=== PATIENT | female | born 1965 | race Two or more races ===

== ENCOUNTER 2025-03-14 09:56 | Emergency (ER) | payer MEDICAID, OTHER ==
[~2025-03-14] VITALS: Ht 170.2 cm; Wt 113.0 kg
--- NOTE | 2025-03-14 10:15 | ED.PDOC ---
History of Present Illness HPI Comments 59-year-old female with PMHx COPD, CVA brought in by EMS presents with a chief complaint of generalized weakness. Patient states that she lives at home with her boyfriend and a live-in lead web developer. Patient mentions that her lead web developer was no where to be found and patient needed assistance to get up to use the b athroom. Patient reports that she then "smoked their meth" and called 911. Patient states that she no longer wishes to live there at her house with "those people". No other symptoms or modifying factors present at this time. Chief Complaint: General Weakness Time Seen by MD: 10:07 Reviewed Notes: Medications, Allergies Allergies: Coded Allergies: NO KNOWN ALLERGIES (Unverified , 03/14/25) Home Meds Active Scripts Ciprofloxacin Hcl (Cipro) 500 Mg Tab, 1 TAB PO BID, #14 TAB Prov:RONI FARRIS MD 03/14/25 Information Source: Patient, Emergency Med Personnel Mode of Arrival: EMS Severity: Moderate Timing: Minutes Duration: Since onset Prehospital treatment: Biological Aide Past Medical History PAST MEDICAL HISTORY: COPD, CVA Surgical History: Denies all surgeries ON AIR HOST History: Denies all ON AIR HOST Hx Family History Family History: Reviewed,noncontributory to illness Social History Smoker: Cigarettes Alcohol: Occasionally Drugs: Methamphetamine Lives In: Home, Assisted Care Constitutional: reports: weakness; denies: chills, diaphoresis, fatigue, fever, malaise, sweats, others EENTM: denies: blurred vision, double vision, ear bleeding, ear discharge, ear drainage, ear pain, ear ringing, eye pain, eye redness, hearing loss, mouth pain, mouth swelling, nasal discharge, nose bleeding, nose congestion, nose pain, photophobia, tearing, throat pain, throat swelling, voice changes, others Respiratory: denies: cough, hemoptysis, orthopnea, SOB at rest, shortness of breath, SOB with excertion, stridor, wheezing, others Cardiovascular: denies: chest pain, dizzy spells, diaphoresis, Dyspnea on exertion, edema, irregular heart beat, left arm pain, lightheadedness, palpitations, PND, syncope, others Gastrointestinal: denies: abdomen distended, abdominal pain, blood streaked bowels, constipated, diarrhea, dysphagia, difficulty swallowing, hematemesis, melena, nausea, poor appetite, poor fluid intake, rectal bleeding, rectal pain, vomiting, others Genitourinary: denies: abnormal vagina bleeding, burning, dyspareunia, dysuria, flank pain, frequency, hematuria, incontinence, pain, , vagina discharge, urgency, others Neurological: denies: dizziness, fainting, headache, left sided numbness, left sided weakness, numbness, paresthesia, pre-existing deficit, right sided numbness, right sided weakness, seizure, speech problems, tingling, tremors, weakness, others Musculoskeletal: denies: back pain, gout, joint pain, joint swelling, muscle pain, muscle stiffness, neck pain, others Integumetry: denies: bruises, change in color, change in hair/nails, dryness, laceration, lesions, lumps, rash, wounds, others Allergic/Immunocompromised: denies: Difficulty Healing, Frequent Infections, Hives, Itching, others Hematologic/Lymphatic: denies: anemia, blood clots, easy bleeding, easy bruising, swollen glands, others Endocrine: denies: excessive hunger, excessive sweating, excessive thirst, excessive urination, flushing, intolerance to cold, intolerance to heat, unexplained weight gain, unexplained weight loss, others Psychiatric: denies: anxiety, bipolar disorder, depression, hopeless, panic disorder, schizophrenia, sleepless, suicidal, others All Other Systems: Reviewed and Negative Physical Exam General Appearance: Mild Distress HEENT: Normal ENT Inspection, Pharynx Normal, TMs Normal Neck: Full Range of Motion, Non-Tender, Normal, Normal Inspection Respiratory: Chest Non-Tender, Lungs Clear, No Accessory Muscle Use, No Respiratory Distress, Normal Breath Sounds Cardiovascular: No Edema, No JVD, No Murmur, No Gallop, Normal Peripheral P ulses, Regular Rate/Rhythm Breast Exam: Deferred Gastrointestinal: No Organomegaly, Non Tender, No Pulsatile Mass, Normal Bowel Sounds, Soft Genitalia: Deferred Pelvic: Deferred Rectal: Deferred Extremities: No calf tenderness, Normal capillary refill, Normal inspection, Normal range of motion, Non-tender, No pedal edema Musculoskeletal : Apperance: Normal Neurologic: Alert, inter com installer II-XII nml as Tested, Motor Weakness, Normal Affect, Normal Mood, No Sensory Deficits Cerebellar Function: Normal Reflexes: Normal Skin: Dry, Normal Color, Warm Lymphatic: No Adenopathy Was a procedure done? Was a procedure done?: No Differential Dx Considerations may include: Generalized weakness, electrolyte imbalance, UTI, pneumonia X-Ray, Labs, Meds, VS Vital Signs Date Time Temp Pulse Resp B/P (MAP) Pulse Ox O2 Delivery O2 Flow Rate FiO2 03/14/25 11:11 98.8 78 17 144/70 (94) 98 98.8 03/14/25 11:03 Room Air* 0 21 03/14/25 10:10 97.8 110 20 162/94 (116) 99 97.8 Lab Test 03/14/25 12:44 03/14/25 10:30 Range/Units Urine Color Colorless Yellow Urine Clarity Turbid H Clear Urine pH 6.0 5.0-9.0 Urine Specific [place] 1.016 1.001-1.035 Urine Protein Negative Negative Urine Ketones Negative Negative Urine Blood Negative Negative /uL Urine Nitrite 2+ H Negative Urine Bilirubin Negative Negative Urine Urobilinogen Normal Negative mg/dL Urine Leukocyte Esterase 1+ Negative /uL Urine RBC 1 0 - 4 /hpf Urine Microscopic WBC 13 H 0-5 /HPF Urine Squamous Epithelial Cells Few <5 /hpf Urine Bacteria Many H None Seen /hpf Urine Mucus Few None Seen Urine Glucose Normal Normal mg/dL Urine Opiates Screen Pending Urine Fentanyl Screen Pending Urine Barbiturates Screen Pending Urine Phencyclidine Screen Pending Urine Amphetamines Screen Pending Urine Benzodiazepines Screen Pending Urine Cocaine Screen Pending Urine Cannabinoids Screen Pending White Blood Count 8.3 4.4-10.8 10^3/uL Red Blood Count 5.31 H 4.0-5.20 10^6/uL Hemoglobin 14.8 12.2-16.2 g/dL Hematocrit 43.7 36.0-46.0 % Mean Corpuscular Volume 82.4 80.0-100.0 fL Mean Corpuscular Hemoglobin 27.8 L 28.0-32.0 pg Mean Corpuscular Hemoglobin Concent 33.8 32.0-36.0 g/dL Red Cell Distribution Width 15.1 H 11.8-14.3 % Platelet Count 219 140-450 10^3/uL Mean Platelet Volume 8.5 6.9-10.8 fL Neutrophils (%) (Auto) 65.2 37.0-80.0 % Lymphocytes (%) (Auto) 20.8 10.0-50.0 % Monocytes (%) (Auto) 10.0 0.0-12.0 % Eosinophils (%) (Auto) 3.1 0.0-7.0 % Basophils (%) (Auto) 0.9 0.0-2.0 % Neutrophils # (Auto) 5.4 1.6-8.6 10 ^3/uL Lymphocytes # (Auto) 1.7 0.4-5.4 10 ^3/uL Monocytes # (Auto) 0.8 0-1.3 10 ^3/uL Eosinophils # (Auto) 0.3 0-0.8 10 ^3/uL Basophils # (Auto) 0.1 0-0.2 10 ^3/uL Nucleated Red Blood Cells 0.1 % Sodium Level 141 136-145 mmol/L Potassium Level 3.9 3.5-5.1 mmol/L Chloride Level 109 H 98-107 mmol/L Carbon Dioxide Level 23 20-31 mmol/L Anion Gap 9 5-15 Blood Urea Nitrogen 17 9-23 mg/dL Creatinine 1.07 H 0.550-1.02 mg/dL Glomerular Filtration Rate Calc 60 >90 mL/min BUN/Creatinine Ratio 15.9 10.0-20.0 Serum Glucose 133 H 74-106 mg/dL Calcium Level 9.5 8.7-10.4 mg/dL Plasma/Serum Blood Alcohol < 3.0 <10 mg/dL The urine test is positive for UTI The CBC and chemistry panel are within normal limits The patient is being discharged The patient will return to the emergency department's the condition worsens The patient will follow up with the primary care doctor Images Reviewed?: Images reviewed and evaluated by me Time of 1ST Reevaluation: 10:37 Reevaluation 1ST: Unchanged Patient Education/Counseling: Diagnosis, Treatment, Prognosis, Need For Follow Up Family Education/Counseling: No Family Present Departure 1 Departure Time of Disposition: 13:21 Impression: Primary Impression: UTI (urinary tract infection) Qualified Codes: N30.00 - Acute cystitis without hematuria Disposition: 01 HOME / SELF CARE / HOMELESS Condition: Fair e-Prescriptions Ciprofloxacin Hcl (Cipro) 500 Mg Tab 1 TAB PO BID, #14 TAB Prov: RONI FARRIS MD 03/14/25 Discharged With: Self Critical Care Note Critical Care Time?: No Stability Stability form required: No Heart Score Heart Score: Heart Score Response (Comments) Value History N/A 0 EKG N/A 0 Age N/A 0 Risk Factors N/A 0 Troponin N/A 0 Total 0 I personally scribed for RONI FARRIS MD ([email or web address]) on 03/14/25 at 10:15. Electronically submitted by Gabriel Redd ([email or web address]). RONI FARRIS MD March 14, 2025 10:15
[2025-03-14 10:49] LABS: Basophils # (auto) 0.1 10 ^3/uL (0-0.2); Basophils % (auto) 0.9 % (0.0-2.0); Eosinophils # (auto) 0.3 10 ^3/uL (0-0.8); Eosinophils % (auto) 3.1 % (0.0-7.0); Hematocrit 43.7 % (36.0-46.0); Hemoglobin 14.8 g/dL (12.2-16.2); Lymphocytes # (auto) 1.7 10 ^3/uL (0.4-5.4); Lymphocytes % (auto) 20.8 % (10.0-50.0); Mean Corpuscular Hemoglobin 27.8 pg (28.0-32.0); Mean Corpuscular Hgb Conc. 33.8 g/dL (32.0-36.0); Mean Corpuscular Volume 82.4 fL (80.0-100.0); Monocytes # (auto) 0.8 10 ^3/uL (0-1.3); Neutrophils # (auto) 5.4 10 ^3/uL (1.6-8.6); Neutrophils % (auto) 65.2 % (37.0-80.0); Nucleated Red Blood Cells % 0.1 %; Platelet Count (auto) 219 10^3/uL (140-450); Red Blood Cells 5.31 10^6/uL (4.0-5.20); Red Cell Distribution Width 15.1 % (11.8-14.3); White Blood Cell 8.3 10^3/uL (4.4-10.8)
[2025-03-14 10:58] LABS: Potassium 3.9 mmol/L (3.5-5.1); Sodium 141 mmol/L (136-145)
[2025-03-14 10:59] LABS: Anion Gap 9 (5-15); Calcium 9.5 mg/dL (8.7-10.4); Carbon Dioxide 23 mmol/L (20-31)
[2025-03-14 11:01] LABS: Chloride 109 mmol/L (98-107)
[2025-03-14 11:04] LABS: BUN/Creatinine Ratio 15.9 (10.0-20.0); Blood Urea Nitrogen 17 mg/dL (9-23)
[2025-03-14 11:08] LABS: Blood Alcohol < 3.0 mg/dL (<10); Glucose 133 mg/dL (74-106)
[2025-03-14 13:00] VITALS: BP 114/72; PULSE 80; RESP 16; TEMP 98.2; O2SAT 98
[2025-03-14 13:14] LABS: Urine Bacteria MANY /hpf (None Seen); Urine Blood Negative /uL (Negative); Urine Clarity Turbid (Clear); Urine Color Colorless (Yellow); Urine Mucus FEW (None Seen); Urine Protein, UAD Negative (Negative); Urine Specific Gravity 1.016 (1.001-1.035); Urine Squamous Epithelial Cell FEW /hpf (<5); Urine Urobilinogen Normal (Negative); Urine WBC 13 /HPF (0-5)
[2025-03-14] MEDS ORDERED: CIPR-173 PO (13:18)
[2025-03-14 13:26] LABS: Amphetamine Screen, Urine Pos (NEGATIVE); Barbiturate Scree,Urine Neg (NEGATIVE); Benzodiazephine Screen, Urine Neg (NEGATIVE); Cannabinoid Screen, Urine Neg (NEGATIVE); Cocaine Screen, Urine Neg (NEGATIVE); Opiate Scree,Urine Neg (NEGATIVE); Phencyclidine Screen, Urine Neg (NEGATIVE)
[2025-03-14] MEDS: CIPROFLOXACIN HCL 500 MG TAB PO ONE (13:48)
== END 2025-03-14 14:08 | disposition admitted as inpatient to this hospital (09) ==
LOC: ER 09:56 → EDBD 09:56 → ER 14:08
DX: N39.0 Urinary tract infection, site not specified (principal); J44.9 Chronic obstructive pulmonary disease, unspecified; F17.210 Nicotine dependence, cigarettes, uncomplicated; F15.90 Other stimulant use, unspecified, uncomplicated; Z86.73 Personal history of transient ischemic attack (TIA), and cerebral infarction without residual deficits; Z79.899 Other long term (current) drug therapy
CPT/HCPCS: 36415; 80048; 80307; 80320; 81001; 85025

== ENCOUNTER 2025-03-14 19:20 | Inpatient (IN) | payer MEDICAID ==
[~2025-03-14] VITALS: Ht 172.7 cm; Wt 129.8 kg
[~2025-03-14 19:20] MED LIST: CIPR-173 PO
--- NOTE | 2025-03-14 19:25 | ED.PDOC ---
History of Present Illness HPI Comments 59-year-old female with PMHx COPD, CVA brought in by EMS presents with a chief complaint of fall. Patient was just discharged from this facility x 4 hours and states that when she got home, she fell and called 911. Patient is asleep on the gurney at this time. No other symptoms or modifying factors present at this time. Time Seen by MD: 19:24 Primary Care Provider: KIARA Abrams Notes: Nurses Notes, Medications, Allergies Allergies: Coded Allergies: NO KNOWN ALLERGIES (Unverified , 03/14/25) Home Meds Active Scripts Ciprofloxacin Hcl (Cipro) 500 Mg Tab, 1 TAB PO BID, #14 TAB Prov:RONI FARRIS MD 03/14/25 Information Source: Emergency Med Personnel Mode of Arrival: EMS Severity: Moderate Timing: Minutes Duration: Since onset Prehospital treatment: Occupational Health And Safety Adviser Associated signs and symptoms Generalized weakness Past Medical History PAST MEDICAL HISTORY: COPD, CVA Surgical History: Denies all surgeries DATABASE DBA History: Denies all DATABASE DBA Hx Family History Family History: Reviewed,noncontributory to illness Social History Smoker: Cigarettes Alcohol: Occasionally Drugs: Methamphetamine Lives In: Home, Assisted Care Constitutional: reports: weakness; denies: chills, diaphoresis, fatigue, fever, malaise, sweats, others EENTM: denies: blurred vision, double vision, ear bleeding, ear discharge, ear drainage, ear pain, ear ringing, eye pain, eye redness, hearing loss, mouth pain, mouth swelling, nasal discharge, nose bleeding, nose congestion, nose pain, photophobia, tearing, throat pain, throat swelling, voice changes, others Respiratory: denies: cough, hemoptysis, orthopnea, SOB at rest, shortness of breath, SOB with excertion, stridor, wheezing, others Cardiovascular: denies: chest pain, dizzy spells, diaphoresis, Dyspnea on exertion, edema, irregular heart beat, left arm pain, lightheadedness, palpitations, PND, syncope, others Gastrointestinal: denies: abdomen distended, abdominal pain, blood streaked bowels, constipated, diarrhea, dysphagia, difficulty swallowing, hematemesis, melena, nausea, poor appetite, poor fluid intake, rectal bleeding, rectal pain, vomiting, others Genitourinary: denies: abnormal vagina bleeding, burning, dyspareunia, dysuria, flank pain, frequency, hematuria, incontinence, pain, , vagina discharge, urgency, others Neurological: denies: dizziness, fainting, headache, left sided numbness, left sided weakness, numbness, paresthesia, pre-existing deficit, right sided numbness, right sided weakness, seizure, speech problems, tingling, tremors, weakness, others Musculoskeletal: denies: back pain, gout, joint pain, joint swelling, muscle pain, muscle stiffness, neck pain, others Integumetry: denies: bruises, change in color, change in hair/nails, dryness, laceration, lesions, lumps, rash, wounds, others Allergic/Immunocompromised: denies: Difficulty Healing, Frequent Infections, Hives, Itching, others Hematologic/Lymphatic: denies: anemia, blood clots, easy bleeding, easy bruising, swollen glands, others Endocrine: denies: excessive hunger, excessive sweating, excessive thirst, excessive urination, flushing, intolerance to cold, intolerance to heat, unexplained weight gain, unexplained weight loss, others Psychiatric: denies: anxiety, bipolar disorder, depression, hopeless, panic disorder, schizophrenia, sleepless, suicidal, others All Other Systems: Reviewed and Negative Physical Exam General Appearance: Moderate Distress, Obese HEENT: Normal ENT Inspection, Pharynx Normal, TMs Normal Neck: Full Range of Motion, Non-Tender, Normal, Normal Inspection Respiratory: Chest Non-Tender, Lungs Clear, No Accessory Muscle Use, No Respiratory Distress, Normal Breath Sounds Cardiovascular: No Edema, No JVD, No Murmur, No Gallop, Normal Peripheral Pulses, Regular Rate/Rhythm Breast Exam: Deferred Gastrointestinal: No Organomegaly, Non Tender, No Pulsatile Mass, Normal Bowel Sounds, Soft Genitalia: Deferred Pelvic: Deferred Rectal: Deferred Extremities: No calf tenderness, Normal capillary refill, Normal inspection, Normal range of motion, Non-tender, No pedal edema Musculoskeletal : Apperance: Normal Neurologic: gl accountant II-XII nml as Tested, Motor Weakness, Normal Affect, Normal Mood, No Sensory Deficits Cerebellar Function: Normal Reflexes: Normal Skin: Dry, Pallor, Warm Lymphatic: No Adenopathy Was a procedure done? Was a procedure done?: No Differential Dx Considerations may include: Generalized weakness, electrolyte imbalance, dehydration, UTI X-Ray, Labs, Meds, VS Vital Signs Date Time Temp Pulse Resp B/P (MAP) Pulse Ox O2 Delivery O2 Flow Rate FiO2 03/14/25 19:30 97.6 98 18 117/85 (96) 98 97.6 IV Hep-Lock was established The patient is being of normal saline at 500 cc The patient's labs were done earlier. The patient's urine showed a UTI The patient is being admitted at this time The patient was given 1 g IV piggyback At this time, the patient states that she can not keep anything down. She is not able to ambulate on her own and was found lying on the floor so we feel that the patient needs to be admitted Time of 1ST Reevaluation: 19:54 Reevaluation 1ST: Unchanged Patient Education/Counseling: Diagnosis, Treatment, Prognosis Family Education/Counseling: No Family Present Departure 1 Departure Time of Disposition: 20:17 Impression: Primary Impression: UTI (urinary tract infection) Qualified Codes: N30.00 - Acute cystitis without hematuria Additional Impression: Generalized weakness Disposition: ADMITTED INPATIENT Admit to: Med Surg Condition: Fair Critical Care Note Critical Care Time?: No Stability Stability form required: Yes Unstable for transfer: ED Physician Assesment (Clinical assesment) Heart Score Heart Score: Heart Score Response (Comments) Value History N/A 0 EKG N/A 0 Age N/A 0 Risk Factors N/A 0 Troponin N/A 0 Total 0 I personally scribed for RONI FARRIS MD ([email or web address]) on 03/14/25 at 19:25. Electronically submitted by Gabriel Redd ([email or web address]). RONI FARRIS MD March 14, 2025 19:25
[2025-03-14] MEDS ORDERED: DOCUSATE SOD 100 MG CAP PO PRN (21:00)
[2025-03-14] MEDS ORDERED: ONDANSETRON HCL 4 MG/2 ML VIAL IV PRN (21:00)
[2025-03-14] MEDS ORDERED: ACETAMINOPHEN 325 MG TAB PO PRN (21:00)
[2025-03-14 22:20] VITALS: PULSE 92; RESP 16; O2SAT 98
--- NOTE | 2025-03-14 22:23 | DVHHP2 ---
History of Present Illness Reason for Visit: Generalized weakness History of Present Illness The patient is a 59-year-old female morbidly obese with past medical history of CVA and COPD who presented to [facility] ED with complaint of generalized weakness. Patient reports symptoms progressively get worse with shor tness of breaths, increased weakness. Patient was just discharged from this facility and when she got home, she felt and called 911. Patient was seen and evaluated in the ED, laboratory data shows WBC 8.3, platelets 219, sodium 141, potassium 3.9, BUN 17, creatinine 1.01, glucose 133, urinalysis positive for urinary tract infection, urine toxicology positive for amphetamines. Patient was started on IV antibiotic regimen Rocephin, please see medication orders section in the computer. On my assessment, patient denied chest pain, no headache, no dizziness, no diaphoresis, no shortness of breaths, no nausea, no vomiting, no fever, no chills. Patient was admitted for further evaluation and medical management. Past Medical History COPD, CVA Past Surgical History Denies all surgeries Family History Reviewed, noncontributory to the management of this case. Past Social History The patient lives in assisted care living, drinks alcohol occasionally, uses methamphetamine. Review of Systems Constitutional: Yes: Weakness; No: Fever, Chills, Sweats, Malaise, Other Eyes: No: Pain, Vision change, Conjunctivae inflammation, Eyelid inflammation, Other, Redness ENT: No: Ear pain, Ear discharge, Nose pain, Nose discharge, Nose congestion, Mouth pain, Mouth swelling, Throat pain, Throat swelling, Other Respiratory: Shortness of breath; No: Cough, Dry, SOB with excertion, Wheezing, Hemoptysis, Pleuritic Pain, Sputum, Wheezing, Other Cardiovascular: No: Chest Pain, Palpitations, Orthopnea, Paroxysmal Noc. Dyspnea, Edema, Lt Headedness, Other Gastrointestinal: No: Nausea, Vomiting, Abdominal Pain, Diarrhea, Constipation, Melena, Hematochezia, Other Genitourinary: No Dysuria, No Frequency, No Incontinence, No Hematuria, No Retention, No Other Musculoskeletal: No: other, neck pain, shoulder pain, arm pain, back pain, hand pain, leg pain, foot pain Skin: No: Rash, Lesions, Jaundice, Bruising, Other Neurological: No: Weakness, Numbness, Incoordination, Change in speech, Confusion, Seizures, Other Allergies: Coded Allergies: NO KNOWN ALLERGIES (Unverified , 03/14/25) Medications Current Medications Medications Dose Ordered Sig/Cornelius Route Start Time Stop Time Status Last Admin Dose Admin Ceftriaxone Sodium 50 ml @ 100 mls/hr DAILY@09 IV 03/15/25 09:00 Sodium Chloride 10 ml Q8HR IV 03/14/25 22:00 Acetaminophen/ Hydrocodone Bitart 1 tab Q4HP PRN PO 03/14/25 21:00 Ondansetron HCl 4 mg Q4HP PRN IV 03/14/25 21:00 Docusate Sodium 100 mg BIDPRN PRN PO 03/14/25 21:00 Acetaminophen 650 mg Q6HP PRN PO 03/14/25 21:00 Exam Vital Signs Vital Signs Date Time Temp Pulse Resp B/P (MAP) Pulse Ox O2 Delivery O2 Flow Rate FiO2 03/14/25 19:30 97.6 98 18 117/85 (96) 98 97.6 General Appearance: Alert, Oriented X3, Cooperative, No acute distress HEENT: Atraumatic, PERRLA, EOMI, Mucous membr. moist/pink Respiratory: Normal air movement Cardiovascular: Regular rate, Normal S1, Normal S2, No murmurs Abdominal: Normal bowel sounds, Soft, No tenderness, No hepatospenomegaly, No masses Extremities: No clubbing, No cyanosis, No edema, Normal pulses, No tenderness/swelling Skin: No rashes, No breakdown, No significant lesion Neuro: Normal speech, Normal tone, Sensation intact, Cranial nerves 3-12 NL, Reflexes 2+, Other (Generalized weakness) Psych/Mental Status: Mental status NL, Mood NL Labs/Xrays Labs Test 03/14/25 21:22 Range/Units Assessment/Plan Assessment/Plan Generalized weakness Morbid obesity UTI (urinary tract infection) Acute cystitis without hematuria Plan 1. Admit to telemetry unit 2. Breathing treatment 3. Pain control management 4. IV antibiotic management 5. Management of fluids and electrolytes 6. Consultation for hospitalist 7. Diagnostic test chest x-ray 8. DVT prophylaxis-on Lovenox 9. Repeat labs CBC, CMP in a.m. 10. Home medication reviewed and reconciled 11. Continue with current medical management 12. Treatment plan discussed with patient and RN. Patient verbalized understanding. Plan discussed with: Patient, Other (RN) My Orders Orders - TRISHA ALFARO DNP Procedure Category Date Status Time Urine Bacterial MELANIE 03/14/25 Logged Culture 20:58 Ceftriaxone 1gm/50ml PHA 03/15/25 In Process D5w (Rocephin) 09:00 Allergies KEHINDE 03/14/25 In Process 20:58 Code Status CODE 03/14/25 Transmitted 20:58 Sodium Chloride Lock PHA 03/14/25 In Process (Saline Lock Ns) 22:00 Oxygen Per Hour RT 03/14/25 Transmitted 20:58 Hydrocodone-Acet PHA 03/14/25 In Process 5/325mg Tab ([place] 21:00 Ondansetron Hcl PHA 03/14/25 In Process (Zofran) 21:00 Docusate Sodium PHA 03/14/25 In Process Capsule (Colace 21:00 Complete Blood Count LAB 03/15/25 Verified 04:00 Comprehensive LAB 03/15/25 Verified Metabolic Panel 04:00 Cardiac DIET 03/15/25 Transmitted Diet-2gna,Lofat,Lochol Breakfast Condition: Serious KEHINDE 03/14/25 In Process 20:58 Acetaminophen Tablet PHA 03/14/25 In Process (Tylenol Tablet) 21:00 Bedrest With Bathroom KEHINDE 03/14/25 In Process Privileg 20:58 Sequential KEHINDE 03/14/25 In Process Compression Device Hemoglobin A1c LAB 03/14/25 Logged 20:58 Admit ADMIT 03/14/25 Transmitted 22:19 Nitroglycerin PHA 03/14/25 Transmitted Sublingual (Ntrostat 22:30 Morphine Sulfate PHA 03/14/25 Transmitted Injection 22:30 Stat Ekg For Chest KEHINDE 03/14/25 Transmitted Pain 22:19 Notify Md Of Changes KEHINDE 03/14/25 Transmitted From Base 22:19 Nutrition Educator For KEHINDE 03/14/25 Transmitted 24 Hours 22:19 Emergency Dysrhythmia KEHINDE 03/14/25 Transmitted Protocol 22:19 Rhythm Strips Once KEHINDE 03/14/25 Transmitted Every Shift 22:19 Oxygen By Nasal RT 03/14/25 Transmitted Cannula 22:19 Problem List: (1) Generalized weakness (2) Morbid obesity (3) UTI (urinary tract infection) (4) Acute cystitis without hematuria Date of Service: March 14, 2025 Billing Provider: TRISHA ALFARO DNP Common Visit Codes: 74442-[id number] INP/OBS CARE (HIGH) TRISHA ALFARO DNP March 14, 2025 22:23
[2025-03-14] MEDS ORDERED: NITROGLYCERIN 0.4 MG SL TAB SL PRN (22:30)
[2025-03-14] MEDS ORDERED: MORPHINE SULFATE INJ 2 MG/ml SYRG IV PRN (22:30)
[2025-03-14] MEDS: cefTRIAXone 1GM/50ML D5W 50 ML IV ONE (22:45)
[2025-03-14] MEDS: SODIUM CHLOR 0.9% PF (SALINE LOCK) 10ML VIAL/SYR IV SCH (23:45)
[2025-03-14] MEDS: cefTRIAXone 1GM/50ML D5W 50 ML IV SCH (23:45)
[2025-03-15] VITALS (8 sets, daily range): BP systolic 118–149; BP diastolic 62–81; PULSE 78–91; RESP 17–22; TEMP 97.8–98.7; O2SAT 98–100
[2025-03-15] MEDS: MORPHINE SULFATE 4 MG/ML SYR/VIAL IV PRN (00:36)
[2025-03-15 07:48] LABS: Basophils # (auto) 0.1 10 ^3/uL (0-0.2); Basophils % (auto) 0.8 % (0.0-2.0); Eosinophils # (auto) 0.2 10 ^3/uL (0-0.8); Eosinophils % (auto) 3.3 % (0.0-7.0); Hematocrit 41.8 % (36.0-46.0); Hemoglobin 14.1 g/dL (12.2-16.2); Lymphocytes % (auto) 28.6 % (10.0-50.0); Mean Corpuscular Hemoglobin 27.9 pg (28.0-32.0); Mean Corpuscular Hgb Conc. 33.7 g/dL (32.0-36.0); Mean Corpuscular Volume 82.6 fL (80.0-100.0); Monocytes # (auto) 0.8 10 ^3/uL (0-1.3); Monocytes % (auto) 10.9 % (0.0-12.0); Neutrophils % (auto) 56.4 % (37.0-80.0); Nucleated Red Blood Cells % 0.1 %; Platelet Count (auto) 218 10^3/uL (140-450); Red Blood Cells 5.05 10^6/uL (4.0-5.20); White Blood Cell 7.2 10^3/uL (4.4-10.8)
[2025-03-15 07:57] LABS: Alanine Aminotransferase 14 U/L (7-40); Albumin 4.1 g/dL (3.2-4.8); Anion Gap 7 (5-15); Aspartate Aminotransferase 18 U/L (13-40); Blood Urea Nitrogen 10 mg/dL (9-23); Calcium 9.4 mg/dL (8.7-10.4); Carbon Dioxide 23 mmol/L (20-31); Potassium 3.7 mmol/L (3.5-5.1); Sodium 140 mmol/L (136-145)
[2025-03-15 07:58] LABS: Alkaline Phosphatase 135 U/L (46-116); Bilirubin, Total 0.6 mg/dL (0.2-1.0); Chloride 110 mmol/L (98-107); Glucose 119 mg/dL (74-106)
[2025-03-15] MEDS: ENOXAPARIN SOD 40 MG/0.4 ML SYRINGE SC SCH (10:50)
--- NOTE | 2025-03-15 22:38 | DVHPN2 ---
Reviewed: Care Plan, H&P, Labs, Medications, Previous Orders Changes from previous H/P or p: No Changes General: Per HPI Eyes: No Pain, No Vision change, No Conjunctivae inflammation, No Eyelid inflammation, No Other, No Redness ENT: No Ear pain, No Ear discharge, No Nose pain, No Nose discharge, No Nose congestion, No Mouth pain, No Mouth swelling, No Throat pain, No Throat swelling, No Other Cardiovascular: No Chest Pain, No Palpitations, No Orthopnea, No Paroxysmal Noc. Dyspnea, No Edema, No Lt Headedness, No Other Respiratory: No Cough, No Dry; Shortness of breath; No SOB with excertion, No Wheezing, No Hemoptysis, No Pleuritic Pain, No Sputum, No Other Gastrointestinal: No Nausea, No Vomiting, No Abdominal Pain, No Diarrhea, No Constipation, No Melena, No Hematochezia, No Other Genitourinary: No Dysuria, No Frequency, No Incontinence, No Hematuria, No Retention, No Other Musculoskeletal: No other, No neck pain, No shoulder pain, No arm pain, No back pain, No hand pain, No leg pain, No foot pain Skin: No Rash, No Lesions, No Jaundice, No Bruising, No Other Objective Vitals Vital Signs Date Time Temp Pulse Resp B/P (MAP) Pulse Ox O2 Delivery O2 Flow Rate FiO2 03/15/25 21:00 98.6 84 22 143/72 (95) 98 98.6 03/15/25 08:00 Nasal Cannula* 3 32 Intake/Output Intake and Output 03/15/25 06:59 Intake Total 0 ml Balance 0 ml Intake Oral 0 ml Medications Current Medications Medications Dose Ordered Sig/Cornelius Route Start Time Stop Time Status Last Admin Dose Admin Ceftriaxone Sodium 50 ml @ 100 mls/hr DAILY@09 IV 03/15/25 09:00 03/14/25 23:45 100 MLS/HR Sodium Chloride 10 ml Q8HR IV 03/14/25 22:00 03/15/25 14:00 10 ML Acetaminophen/ Hydrocodone Bitart 1 tab Q4HP PRN PO 03/14/25 21:00 Ondansetron HCl 4 mg Q4HP PRN IV 03/14/25 21:00 Docusate Sodium 100 mg BIDPRN PRN PO 03/14/25 21:00 Acetaminophen 650 mg Q6HP PRN PO 03/14/25 21:00 Nitroglycerin 0.4 mg Q5MINP PRN SL 03/14/25 22:30 Morphine Sulfate 2 mg [id number] PRN IV 03/15/25 00:00 03/15/25 00:36 2 MG Enoxaparin Sodium 40 mg DAILY SC 03/15/25 10:00 03/15/25 10:50 40 MG Laboratory Results Laboratory Tests 03/15/25 06:25 Chemistry Test 03/15/25 06:25 Albumin 4.1 g/dL (3.2-4.8) Calcium Level 9.4 mg/dL (8.7-10.4) Total Protein 7.0 g/dL (5.7-8.2) LFT Test 03/15/25 06:25 Alanine Aminotransferase (ALT) 14 U/L (7-40) Alkaline Phosphatase 135 U/L (46-116) H Aspartate Amino Transferase (AST) 18 U/L (13-40) Total Bilirubin 0.6 mg/dL (0.2-1.0) Microbiology Microbiology Date/Time Source Procedure Growth Status 03/15/25 05:50 Nose MRSA Screen - Final Complete Assessment/Plan Assessment/Plan The patient is a 59-year-old female morbidly obese with past medical history of CVA and COPD who presented to [facility] ED with complaint of generalized weakness. Patient reports symptoms progressively get worse with shortness of breaths, increased weakness. Patient was just discharged from this facility and when she got home, she felt and called 911. Patient was seen and evaluated in the ED, laboratory data shows WBC 8.3, platelets 219, sodium 141, potassium 3.9, BUN 17, creatinine 1.01, glucose 133, urinalysis positive for urinary tract infection, urine toxicology positive for amphetamines. Patient was started on IV antibiotic regimen Rocephin, please see medication orders section in the computer. On my assessment, patient denied chest pain, no headache, no dizziness, no diaphoresis, no shortness of breaths, no nausea, no vomiting, no fever, no chills. Patient was admitted for further evaluation and medical management. (1) Generalized weakness (2) Morbid obesity (3) UTI (urinary tract infection) (4) Acute cystitis without hematuria Plan discussed with: Patient Date of Service: March 15, 2025 Billing Provider: KAMERON FREEMAN DO Common Visit Codes: [id number] INP/OBS CARE(HIGH) KAMERON FREEMAN DO March 15, 2025 22:38
[2025-03-16] VITALS (8 sets, daily range): BP systolic 108–161; BP diastolic 56–72; PULSE 65–98; RESP 14–20; TEMP 97.4–98.4; O2SAT 93–98
[2025-03-16] MEDS: HYDROcodone-ACET 5/325MG TAB PO PRN (04:13)
[2025-03-16] MEDS: OXYCODONE W/ ACETAMINOPHEN 5/325MG TABLET PO PRN (17:26)
[2025-03-16] MEDS: NYSTATIN TOPICAL POWDER 15GM TOP ONE (18:10)
[2025-03-16] MEDS: NYSTATIN TOPICAL POWDER 15GM TOP SCH (21:45)
[2025-03-17] VITALS (7 sets, daily range): BP systolic 82–149; BP diastolic 50–77; PULSE 76–88; RESP 14–19; TEMP 97.5–98.3; O2SAT 93–100
--- NOTE | 2025-03-17 11:04 | DVHDS2 ---
Discharge Summary Date of Admission March 14, 2025 at 22:19 Date of Discharge: Mar 17, 2025 Labs/Diagnostic Data: Laboratory Results Test 03/15/25 06:25 03/14/25 22:21 White Blood Count 7.2 10^3/uL (4.4-10.8) Red Blood Count 5.05 10^6/uL (4.0-5.20) Hemoglobin 14.1 g/dL (12.2-16.2) Hematocrit 41.8 % (36.0-46.0) Mean Corpuscular Volume 82.6 fL (80.0-100.0) Mean Corpuscular Hemoglobin 27.9 pg (28.0-32.0) Mean Corpuscular Hemoglobin Concent 33.7 g/dL (32.0-36.0) Red Cell Distribution Width 15.0 % (11.8-14.3) Platelet Count 218 10^3/uL (140-450) Mean Platelet Volume 8.8 fL (6.9-10.8) Neutrophils (%) (Auto) 56.4 % (37.0-80.0) Lymphocytes (%) (Auto) 28.6 % (10.0-50.0) Monocytes (%) (Auto) 10.9 % (0.0-12.0) Eosinophils (%) (Auto) 3.3 % (0.0-7.0) Basophils (%) (Auto) 0.8 % (0.0-2.0) Neutrophils # (Auto) 4.0 10 ^3/uL (1.6-8.6) Lymphocytes # (Auto) 2.0 10 ^3/uL (0.4-5.4) Monocytes # (Auto) 0.8 10 ^3/uL (0-1.3) Eosinophils # (Auto) 0.2 10 ^3/uL (0-0.8) Basophils # (Auto) 0.1 10 ^3/uL (0-0.2) Nucleated Red Blood Cells 0.1 % Sodium Level 140 mmol/L (136-145) Potassium Level 3.7 mmol/L (3.5-5.1) Chloride Level 110 mmol/L (98-107) Carbon Dioxide Level 23 mmol/L (20-31) Anion Gap 7 (5-15) Blood Urea Nitrogen 10 mg/dL (9-23) Creatinine 0.91 mg/dL (0.550-1.02) Glomerular Filtration Rate Calc 73 mL/min (>90) BUN/Creatinine Ratio 11.0 (10.0-20.0) Serum Glucose 119 mg/dL (74-106) Calcium Level 9.4 mg/dL (8.7-10.4) Total Bilirubin 0.6 mg/dL (0.2-1.0) Aspartate Amino Transferase (AST) 18 U/L (13-40) Alanine Aminotransferase (ALT) 14 U/L (7-40) Alkaline Phosphatase 135 U/L (46-116) Total Protein 7.0 g/dL (5.7-8.2) Albumin 4.1 g/dL (3.2-4.8) Hemoglobin A1c 5.7 % A1C (<5.7) Other Laboratory Tests 03/15/25 06:25 Brief Hx & Hospital Course: The patient is a 59-year-old female morbidly obese with past medical history of CVA and COPD who presented to [facility] ED with complaint of generalized weakness. Patient reports symptoms progressively get worse with shortness of breaths, increased weakness. Patient was just discharged from this facility and when she got home, she felt and called 911. Patient was seen and evaluated in the ED, laboratory data shows WBC 8.3, platelets 219, sodium 141, potassium 3.9, BUN 17, creatinine 1.01, glucose 133, urinalysis positive for urinary tract infection, urine toxicology positive for amphetamines. Patient was started on IV antibiotic regimen Rocephin, please see medication orders section in the computer. On my assessment, patient denied chest pain, no headache, no dizziness, no diaphoresis, no shortness of breaths, no nausea, no vomiting, no fever, no chills. Patient was admitted for further evaluation and medical management. (1) Generalized weakness (2) Morbid obesity (3) UTI (urinary tract infection) (4) Acute cystitis without hematuria discharged to home with self care Condition at Discharge: Fair Final Diagnosis/Problems List see above Discharge Disposition: Home Discharge Instruct/Medications Diet: Cardiac 2g Na,low cholest Activity: No Restrictions, As Tolerated Discharge Statement: "Patient was advised to return to the ER or call 911 if any headaches, dizziness, shortness of breath, chest pain, abdominal pain, bleeding, fevers, or worsening of medical condition. Patient was counseled about treatment plan, medications, possible side effects, patientverbalized understanding. All questions were answered to the best of my ability. This discharge took greater then 30 minutes in planning, reviewing documentation, counseling the patient, and discussing with other team members." ASSESSMENT ASSESSMENT Assessment Date of Service: Mar 17, 2025 Billing Provider: KAMERON FREEMAN DO Common Visit Codes: 77249-[id number] DISCH DAY >30min KAMERON FREEMAN DO Mar 17, 2025 11:04
--- NOTE | 2025-03-17 11:04 | DVHPN2 ---
Reviewed: Care Plan, H&P, Labs, Medications Changes from previous H/P or p: No Changes Eyes: No Pain, No Vision change, No Conjunctivae inflammation, No Eyelid inflammation, No Other, No Redness ENT: No Ear pain, No Ear discharge, No Nose pain, No Nose discharge, No Nose congestion, No Mouth pain, No Mouth swelling, No Throat pain, No Throat swelling, No Other Cardiovascular: No Chest Pain, No Palpitations, No Orthopnea, No Paroxysmal Noc. Dyspnea, No Edema, No Lt Headedness, No Other Respiratory: No Cough, No Dry; Shortness of breath; No SOB with excertion, No Wheezing, No Hemoptysis, No Pleuritic Pain, No Sputum, No Other Gastrointestinal: No Nausea, No Vomiting, No Abdominal Pain, No Diarrhea, No Constipation, No Melena, No Hematochezia, No Other Genitourinary: No Dysuria, No Frequency, No Incontinence, No Hematuria, No Retention, No Other Musculoskeletal: No other, No neck pain, No shoulder pain, No arm pain, No back pain, No hand pain, No leg pain, No foot pain Skin: No Rash, No Lesions, No Jaundice, No Bruising, No Other Objective Vitals Vital Signs Date Time Temp Pulse Resp B/P (MAP) Pulse Ox O2 Delivery O2 Flow Rate FiO2 03/17/25 08:58 98.3 78 19 109/50 (69) 96 98.3 03/16/25 20:00 Nasal Cannula* 3 32 Intake/Output Intake and Output 03/17/25 07:00 Intake Total 1250 ml Output Total 1450 ml Balance -200 ml Intake Oral 1200 ml IV Total 50 ml Output Urine Total 1450 ml Medications Current Medications Medications Dose Ordered Sig/Cornelius Route Start Time Stop Time Status Last Admin Dose Admin Ceftriaxone Sodium 50 ml @ 100 mls/hr DAILY@09 IV 03/15/25 09:00 03/17/25 10:07 100 MLS/HR Sodium Chloride 10 ml Q8HR IV 03/14/25 22:00 03/17/25 05:02 10 ML Acetaminophen/ Hydrocodone Bitart 1 tab Q4HP PRN PO 03/14/25 21:00 Hold 03/16/25 04:13 1 TAB Ondansetron HCl 4 mg Q4HP PRN IV 03/14/25 21:00 Docusate Sodium 100 mg BIDPRN PRN PO 03/14/25 21:00 Acetaminophen 650 mg Q6HP PRN PO 03/14/25 21:00 Nitroglycerin 0.4 mg Q5MINP PRN SL 03/14/25 22:30 Morphine Sulfate 2 mg [id number] PRN IV 03/15/25 00:00 03/15/25 00:36 2 MG Enoxaparin Sodium 40 mg DAILY SC 03/15/25 10:00 03/17/25 10:07 40 MG Oxycodone/ Acetaminophen 2 tab Q6HP PRN PO 03/16/25 16:45 03/17/25 00:29 2 TAB Nystatin 1 applic BID TOP 03/16/25 22:00 03/16/25 21:45 1 APPLIC Laboratory Results Laboratory Tests 03/15/25 06:25 Microbiology Microbiology Date/Time Source Procedure Growth Status 03/15/25 05:50 Nose MRSA Screen - Final Complete 03/14/25 23:00 Voided Urine Urine Culture - Preliminary Resulted Assessment/Plan Assessment/Plan The patient is a 59-year-old female morbidly obese with past medical history of CVA and COPD who presented to [facility] ED with complaint of generalized weakness. Patient reports symptoms progressively get worse with shortness of breaths, increased weakness. Patient was just discharged from this facility and when she got home, she felt and called 911. Patient was seen and evaluated in the ED, laboratory data shows WBC 8.3, platelets 219, sodium 141, potassium 3.9, BUN 17, creatinine 1.01, glucose 133, urinalysis positive for urinary tract infection, urine toxicology positive for amphetamines. Patient was started on IV antibiotic regimen Rocephin, please see medication orders section in the computer. On my assessment, patient denied chest pain, no headache, no dizziness, no diaphoresis, no shortness of breaths, no nausea, no vomiting, no fever, no chills. Patient was admitted for further evaluation and medical management. (1) Generalized weakness (2) Morbid obesity (3) UTI (urinary tract infection) (4) Acute cystitis without hematuria continue with current care pending urine culture Plan discussed with: Patient My Orders Orders - KAMERON FREEMAN DO Procedure Category Date Status Time Oxycodone W/ Acet PHA 03/16/25 In Process 5/325mg Tab (Percocet 16:45 Nystatin Powder PHA 03/16/25 In Process (Mycostatin Powder) 22:00 Cleanse Wound With KEHINDE 03/16/25 In Process Mild Soap A 18:08 Discharge DISCHARGE 03/17/25 Verified 11:03 Date of Service: March 16, 2025 Billing Provider: KAMERON FREEMAN DO Common Visit Codes: [id number] INP/OBS CARE(HIGH) KAMERON FREEMAN DO Mar 17, 2025 11:04
[2025-03-17] MEDS ORDERED: CEPH250C PO ×2 (12:05)
[2025-03-18] MEDS ORDERED: IBU600T PO (06:23)
== END 2025-03-17 20:30 | disposition home or self-care (01) | DRG 463 ==
LOC: ER 19:20 → EDBD 19:20 → OVERFLOW 22:19 → TELE-WESTW 03-15 02:30
PROVIDERS: ADMIT Internal Medicine; ATTEND Internal Medicine
DX: N30.00 Acute cystitis without hematuria (principal); E66.01 Morbid (severe) obesity due to excess calories; J44.9 Chronic obstructive pulmonary disease, unspecified; F17.210 Nicotine dependence, cigarettes, uncomplicated; F15.90 Other stimulant use, unspecified, uncomplicated; Z86.73 Personal history of transient ischemic attack (TIA), and cerebral infarction without residual deficits; Z68.41 Body mass index [BMI] 40.0-44.9, adult; Z79.899 Other long term (current) drug therapy
CPT/HCPCS: 36415; 80053; 83036; 85025; 87081; 87086; 96365; G0378

== ENCOUNTER 2025-03-18 06:04 | Emergency (ER) | payer MEDICAID ==
[~2025-03-18] VITALS: Ht 170.2 cm; Wt 122.0 kg
[~2025-03-18 06:04] MED LIST changes: +CEPH250C PO; -CIPR-173 PO
[2025-03-18] MEDS ORDERED: IBU600T PO (06:23)
--- NOTE | 2025-03-18 06:23 | ED.PDOC ---
History of Present Illness HPI Comments 59-year-old female brought by paramedics because of fall from approximately 5 in offer air mattress. She rolled over from her air mattress. She was seen here on the twice. She came in today complaining of body pain all over. Moving all extremities. Blood pressure on arrival was 121/89 with a heart rate of 76 saturation 100% on room air. No sign of any injuries. 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 [employer] Hx Family History Family History: Reviewed,noncontributory to illness Social History Smoker: Cigarettes Alcohol: Occasionally Drugs: Methamphetamine Lives In: Home, Assisted Care Constitutional: denies: chills, diaphoresis, fatigue, fever, malaise, sweats, weakness, others EENTM: denies: blurred vision, double vision, ear bleeding, ear discharge, ear drainage, ear pain, ear ringing, eye pain, eye redness, hearing loss, mouth pain, mouth swelling, nasal discharge, nose bleeding, nose congestion, nose pain, photophobia, tearing, throat pain, throat swelling, voice changes, others Respiratory: denies: cough, hemoptysis, orthopnea, SOB at rest, shortness of breath, SOB with excertion, stridor, wheezing, others Cardiovascular: denies: chest pain, dizzy spells, diaphoresis, Dyspnea on exertion, edema, irregular heart beat, left arm pain, lightheadedness, palpitations, PND, syncope, others Gastrointestinal: denies: abdomen distended, abdominal pain, blood streaked bowels, constipated, diarrhea, dysphagia, difficulty swallowing, hematemesis, melena, nausea, poor appetite, poor fluid intake, rectal bleeding, rectal pain, vomiting, others Genitourinary: denies: abnormal vagina bleeding, burning, dyspareunia, dysuria, flank pain, frequency, hematuria, incontinence, pain, , vagina discharge , urgency, others Neurological: denies: dizziness, fainting, headache, left sided numbness, left sided weakness, numbness, paresthesia, pre-existing deficit, right sided numbness, right sided weakness, seizure, speech problems, tingling, tremors, weakness, others Musculoskeletal: denies: back pain, gout, joint pain, joint swelling, muscle pain, muscle stiffness, neck pain, others Integumetry: denies: bruises, change in color, change in hair/nails, dryness, laceration, lesions, lumps, rash, wounds, others Allergic/Immunocompromised: denies: Difficulty Healing, Frequent Infections, Hives, Itching, others Hematologic/Lymphatic: denies: anemia, blood clots, easy bleeding, easy bruising, swollen glands, others Endocrine: denies: excessive hunger, excessive sweating, excessive thirst, excessive urination, flushing, intolerance to cold, intolerance to heat, unexplained weight gain, unexplained weight loss, others Psychiatric: denies: anxiety, bipolar disorder, depression, hopeless, panic di sorder, schizophrenia, sleepless, suicidal, others Physical Exam General Appearance: Moderate Distress HEENT: Normal ENT Inspection, Pharynx Normal, TMs Normal Neck: Full Range of Motion, Non-Tender, Normal, Normal Inspection Respiratory: Chest Non-Tender, Lungs Clear, No Accessory Muscle Use, No Respiratory Distress, Normal Breath Sounds Cardiovascular: No Edema, No JVD, No Murmur, No Gallop, Normal Peripheral Pulses, Regular Rate/Rhythm Breast Exam: Deferred Gastrointestinal: No Organomegaly, Non Tender, No Pulsatile Mass, Normal Bowel Sounds, Soft Genitalia: Deferred Pelvic: Deferred Rectal: Deferred Extremities: No calf tenderness, Normal capillary refill, Normal inspection, Normal range of motion, Non-tender, No pedal edema Musculoskeletal : Apperance: Normal Neurologic: Alert, 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 Was a procedure done?: No Differential Dx Considerations may include: Musculoskeletal pain X-Ray, Labs, Meds, VS Vital Signs Date Time Temp Pulse Resp B/P (MAP) Pulse Ox O2 Delivery O2 Flow Rate FiO2 03/18/25 06:05 98.3 76 16 121/89 (100) 100 98.3 Patient alert. Complaining of musculoskeletal pain. Vitals stable. Answering questions. Moving all extremities. Reviewed her previous visits. She has a anxiety disorder. No bodily injury. She will need outpatient physical therapy. She will need psychiatric evaluation. Family support. She was given prescription of Motrin. Explained to the patient. Was told to follow up with her primary care physician. Was told to come back if there is any problem. Time of 1ST Reevaluation: 06:21 Reevaluation 1ST: Improved Patient Education/Counseling: Diagnosis, Treatment, Prognosis, Need For Follow Up Family Education/Counseling: No Family Present Departure 1 Departure Time of Disposition: 06:22 Impression: Primary Impression: Morbid obesity Additional Impressions: Generalized weakness Musculoskeletal pain Disposition: 01 HOME / SELF CARE / HOMELESS Condition: Good e-Prescriptions Ibuprofen Micronized (MOTRIN TABLET) 600 Mg Tb 600 MG PO TID PRN for 3 Days, #9 TAB *Black box warning-NSAIDS can increase risk of [place] & hypertension, GI irritation, ulceration, bleed, perferation. Do not use post cardiac surgery. Use short duration/lowest effective dose. Prov: MARINA MCMAHON MD 03/18/25 Discharged With: Self Critical Care Note Critical Care Time?: No Stability Stability form required: No Heart Score Heart Score: Heart Score Response (Comments) Value History N/A 0 EKG N/A 0 Age N/A 0 Risk Factors N/A 0 Troponin N/A 0 Total 0 MARINA MCMAHON MD Mar 18, 2025 06:23
[2025-03-18 06:44] VITALS: TEMP 98.5
[2025-03-18 07:30] VITALS: RESP 18; O2SAT 93
[2025-03-18 07:54] VITALS: BP 162/74; PULSE 70; RESP 16; O2SAT 97
== END 2025-03-18 07:46 | disposition home or self-care (01) ==
LOC: ER 06:04 → EDBD 06:04 → ER 07:46
DX: E66.01 Morbid (severe) obesity due to excess calories (principal); R53.1 Weakness; M79.18 Myalgia, other site; J44.9 Chronic obstructive pulmonary disease, unspecified; F17.210 Nicotine dependence, cigarettes, uncomplicated; Z86.73 Personal history of transient ischemic attack (TIA), and cerebral infarction without residual deficits; Z68.41 Body mass index [BMI] 40.0-44.9, adult

== ENCOUNTER 2025-03-27 08:27 | Emergency (ER) | payer MEDICAID ==
[~2025-03-27] VITALS: Ht 170.2 cm; Wt 136.1 kg
[~2025-03-27 08:27] MED LIST changes: +IBU600T PO
[2025-03-27 09:29] VITALS: BP 133/72; PULSE 87; RESP 16; TEMP 98.6; O2SAT 100
--- NOTE | 2025-03-27 09:44 | ED.PDOC ---
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 Patient states she woke up today experiencing LT leg pain, spontaneous, with no fall or injury. Patient is a poor historian, refusing to answer questions. Patient was seen in ED on 03/18/25 due generalized body pain s/p fall. 03/14/25 due to UTI. No other symptoms or modifying factors present t this time. Denies trauma to the leg or recent fall Denies skin color changes around the leg Denies masses around the leg Denies fever chills night sweats nausea vomiting Denies previous surgeries to the leg nor significant injury Chief Complaint: Lower Extremity Time Seen by MD: 09:30 Primary Care Provider: KIARA Abrams Notes: Nurses Notes, Medications, Allergies Allergies: Coded Allergies: NO KNOWN ALLERGIES (Unverified , 03/14/25) Home Meds Active Scripts Ibuprofen Micronized (MOTRIN TABLET) 600 Mg Tb, 600 MG PO TID PRN for 3 Days, #9 TAB *Black box warning-NSAIDS can increase risk of [place] & hypertension, GI irritation, ulceration, bleed, perferation. Do not use post cardiac surgery. Use short duration/lowest effective dose. Prov:MARINA MCMAHON MD 03/18/25 Cephalexin (KEFLEX CAPSULE) 250 Mg Cp, 2 CAP PO BID for 5 Days, #20 CAP Prov:KAMERON FREEMAN DO 03/17/25 Information Source: Patient, Emergency Med Personnel Mode of Arrival: EMS Location: Left Extremity Location: Leg Timing: Hours Prehospital treatment: None Severity: Moderate Able to Move Extremity: Yes Bear Weight: Limited Pain: Moderate Mechanism: Spontaneous Circumstances: Spontaneous Onset of Symptoms: Spontaneous Symptoms: Pain DVT Risk Factors: NONE Associated signs and symptoms: Leg pain Past Medical History PAST MEDICAL HISTORY: COPD, CVA Surgical History: Denies all surgeries 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 Hx Family History Family History: Reviewed,noncontributory to illness Social History Smoker: Cigarettes Alcohol: Occasionally Drugs: Methamphetamine Lives In: Home, Assisted Care All Other Systems: Reviewed and Negative (as per HPI) Physical Exam General Appearance: No Apparent Distress, Normal HEENT: Normal ENT Inspection, Pharynx Normal, TMs Normal Neck: Full Range of Motion, Non-Tender, Normal, Normal Inspection Respiratory: Chest Non-Tender, Lungs Clear, No Accessory Muscle Use, No Respiratory Distress, Normal Breath Sounds Cardiovascular: No Edema, No JVD, No Murmur, No Gallop, Normal Peripheral Pulses, Regular Rate/Rhythm Breast Exam: Deferred Gastrointestinal: No Organomegaly, Non Tender, No Pulsatile Mass, Normal Bowel Sounds, Soft Genitalia: Deferred Pelvic: Deferred Rectal: Deferred Extremities: No calf tenderness, Normal capillary refill, No pedal edema Musculoskeletal : Location: Left Extremity Location: Leg (Lt leg no deformity noted on inespection of LLE, no soft tissue swelling, no erythema,open wounds, subjective pain with flexion and extension of hip and patella. TTP to anterior patella but patient is neruovascual intact, Dp 2+, cpa refill less than 3 ) Apperance: Normal Neurologic: Alert, cso II-XII nml as Tested, No Motor Deficits, Normal Affect, Normal Mood, No Sensory Deficits Cerebellar Function: Normal Reflexes: Normal Skin: Dry, Normal Color, Warm Lymphatic: No Adenopathy Was a procedure done? Was a procedure done?: No X-Ray, Labs, Meds, VS Vital Signs Date Time Temp Pulse Resp B/P (MAP) Pulse Ox O2 Delivery O2 Flow Rate FiO2 03/27/25 09:29 98.6 87 16 133/72 (92) 100 98.6 03/27/25 09:29 87 16 100 Room Air 03/27/25 08:36 98.6 87 16 133/72 (92) 100 98.6 X-Ray, Labs, Meds, VS Comment A 89-avym-wux-female with a past medical history of CVA, COPD presents to the emergency department via EMS with a chief complaint of LT leg pain onset today (03/27/25). Patient arrives alert and oriented, ABC's intact, afebrile, vital signs stable, saturating well in room air Labs were ordered. CBC was ordered to exclude anemia, blood loss, or infection. BMP was ordered to exclude electrolyte abnormalities, renal failure, dehydration, hyperglycemia Urinalysis was ordered to rule out UTI or hematuria. Diagnostic imaging ordered by me and results interpreted by radiology : US LT LOWER DVT Labs in the ED showed (pertinent+ and then pertinent-) Additional MDM Review of External, Non-ED records: External records reviewed. Discussion with independent historian (EMS, family) history obtained from the patient/parents (if applicable) at bedside Chronic conditions affecting care: COPD, CVA Social determinants of health affecting care: cigarettes, methamphetamine, ETOH occasionally Consideration of admission (observation or admission): I considered escalation of care to admission for this patient, however given the reassuring workup, the patient is safe for outpatient management. Time of 1ST Reevaluation: 10:00 Reevaluation 1ST: Improved Patient Education/Counseling: Diagnosis, Treatment Family Education/Counseling: No Family Present Critical Care Note Critical Care Time?: No Stability Stability form required: No Heart Score Heart Score: Heart Score Response (Comments) Value History N/A 0 EKG N/A 0 Age N/A 0 Risk Factors N/A 0 Troponin N/A 0 Total 0 I personally scribed for COLLIN MACEDO NP ([email or web address]) on 03/27/25 at 09:44. Electronically submitted by Samantha Devi ([email or web address]). I personally scribed for COLLIN MACEDO NP ([email or web address]) on 03/27/25 at 09:49. Electronically submitted by Samantha Devi ([email or web address]). COLLIN MACEDO NP Mar 27, 2025 09:44
== END 2025-03-27 09:46 | disposition left against medical advice (07) ==
LOC: EDBD 08:27 → ER 08:27
DX: M79.605 Pain in left leg (principal); F17.210 Nicotine dependence, cigarettes, uncomplicated; J44.9 Chronic obstructive pulmonary disease, unspecified; Z86.73 Personal history of transient ischemic attack (TIA), and cerebral infarction without residual deficits

== ENCOUNTER 2025-04-05 03:52 | Inpatient (IN) | payer MEDICAID ==
[~2025-04-05] VITALS: Ht 170.2 cm; Wt 125.9 kg
--- NOTE | 2025-04-05 04:17 | ED.PDOC ---
Jomar. trauma (HPI) HPI Comments 59-year-old female that came to ER via EMS for fall injury. Patient is morbidly obese, she is bed-bound, history of CVA and methamphetamine abuse. About an hour ago, she slid off her bed, and she is unable to get up. Denies any head trauma or loss of consciousness. Patient complaining of lower back pains and left leg pain. Patient reports she has chronic left lower leg pain. She reports the lower back pain is also chronic however more severe than usual. Was worsened immediately after she went to the floor. Chief Complaint: Fall Injury Time Seen by MD: 04:16 Primary Care Provider: KIARA Abrams notes: Bible Teacher Notes Allergies: Coded Allergies: NO KNOWN ALLERGIES (Unverified , 03/14/25) Home Meds Active Scripts Ibuprofen Micronized (MOTRIN TABLET) 600 Mg Tb, 600 MG PO TID PRN for 3 Days, #9 TAB *Black box warning-NSAIDS can increase risk of DC & hypertension, GI irritation, ulceration, bleed, perferation. Do not use post cardiac surgery. Use short duration/lowest effective dose. Prov:MARINA MCMAHON MD 03/18/25 Cephalexin (KEFLEX CAPSULE) 250 Mg Cp, 2 CAP PO BID for 5 Days, #20 CAP Prov:KAMERON FREEMAN DO 03/17/25 Information Source: Patient, Emergency Med Personnel Mode of Arrival: EMS Severity: Moderate Timing: Minutes Duration: Since onset Location: Back, (L) Leg Mechanism: Fall Review of Systems REVIEW OF SYSTEMS: No fever, no chills, or fatigue HEENT: No sore throat, no earache, no congestion, no neck pain. Cardiac: No chest pain. No palpitations. Lungs: No shortness of breath, no cough. GI: No nausea, no vomiting, no diarrhea, no constipation, no abdominal pain : No dysuria, frequency, or urgency. No hematuria. Musculoskeletal: No joint pain , no joint swelling, no extremity edema. (+) back pain, (+) left leg pain Skin: No rash, no itching. Neuro: No headache, no dizziness, no weakness Vital Signs Vital Signs Date Time Temp Pulse Resp B/P (MAP) Pulse Ox O2 Delivery O2 Flow Rate FiO2 04/05/25 08:59 86 25 112/64 (80) 98 04/05/25 08:10 Nasal Cannula* 2 28 04/05/25 08:00 97.8 97.8 Physical Exam General: Awake, alert, appears to be in significant discomfort Skin: Skin in warm, dry and intact without rashes or lesions. HEENT: The head is normocephalic and atraumatic. Conjunctivae are clear without exudates or hemorrhage. Sclera is non-icteric. Neck: Normal range of motion. No JVD. Cardiac: Regular rate Respiratory: No signs of respiratory distress. No Stridor. Extremities: General LLE tenderness. + Lumbar tenderness Neurological: The patient is awake, alert and oriented to person, place, and time with normal speech. Speech is clear. There is no facial asymmetry. Left lower and left upper extremity weakness (chronic) Past Medical History PAST MEDICAL HISTORY: COPD, CVA Past Medical History (Other): Bed-bound Surgical History: Denies all surgeries FINANCIAL CONTROLLER History: Denies all FINANCIAL CONTROLLER Hx Family History Family History: Reviewed,noncontributory to illness Social History Smoker: Cigarettes Alcohol: Occasionally Drugs: Methamphetamine Lives In: Home Was a procedure done? Was a procedure done?: No Differential Diagnosis Multiple Trauma: Fractures, Spine Injury, Hematoma Neck Injury: Cervical Sprain, Cervical Strain, Other X-Ray, Labs, Meds, VS Vital Signs Date Time Temp Pulse Resp B/P (MAP) Pulse Ox O2 Delivery O2 Flow Rate FiO2 04/05/25 08:59 86 25 112/64 (80) 98 04/05/25 08:10 75 12 99 Nasal Cannula* 2 28 04/05/25 08:00 97.8 75 15 141/78 (99) 99 97.8 04/05/25 07:16 98.0 04/05/25 06:16 97.7 04/05/25 06:13 98.0 86 12 154/60 (91) 95 98.0 04/05/25 06:13 86 12 95 Room Air* 0 21 04/05/25 03:52 97.9 77 16 148/93 (111) 98 97.9 Lab Test 04/05/25 06:30 Range/Units Urine Color Light-yellow Yellow Urine Clarity Clear Clear Urine pH 6.0 5.0-9.0 Urine Specific [place] 1.009 1.001-1.035 Urine Protein Negative Negative Urine Ketones Negative Negative Urine Blood Negative Negative /uL Urine Nitrite Negative Negative Urine Bilirubin Negative Negative Urine Urobilinogen Normal Negative mg/dL Urine Leukocyte Esterase Negative Negative /uL Urine RBC <1 0 - 4 /hpf Urine Microscopic WBC 1 0-5 /HPF Urine Squamous Epithelial Cells Few <5 /hpf Urine Bacteria Few H None Seen /hpf Urine Glucose Normal Normal mg/dL Current Medications Medications (Trade) Dose Ordered Sig/Cornelius Route Start Time Stop Time Status Last Admin Acetaminophen (Tylenol Tablet Or Capsule) 1,000 mg ONCE ONCE PO 04/05/25 04:15 04/05/25 04:16 DC 04/05/25 06:16 Ketorolac Tromethamine (Toradol Injection) 45 mg ONCE ONCE IM 04/05/25 04:15 04/05/25 04:16 DC 04/05/25 06:12 Diazepam (Valium Tablet) 5 mg ONCE ONCE PO 04/05/25 04:15 04/05/25 04:16 DC 04/05/25 06:16 Time of 1ST Reevaluation: 04:10 Reevaluation 1ST: Improved Patient Education/Counseling: Prognosis Family Education/Counseling: No Family Present Assigned to Dr. Dr. Ayala @0600 Comments 59-year-old female with fall presents reporting severe lower back pain. Signed out to oncoming provider pending CT lumbar spine results. Change of Shift?: Yes (Signed out to Dr. Ayala @0600) Additional Information 59-year-old female with fall presents reporting severe lower back pain. Signed out to oncoming provider pending CT lumbar spine results. Departure 1 Departure Time of Disposition: 09:14 (Patient with severe back pain. Patient went on to have a lumbar fracture. We will admit patient for further workup and expert consultation) Impression: Primary Impression: Lumbar pain Additional Impression: Lumbar transverse process fracture Qualified Codes: S32.009A - Unspecified fracture of unspecified lumbar vertebra, initial encounter for closed fracture Disposition: 09 ADMITTED INPATIENT Admit to: Med Surg Condition: Serious Comments 59-year-old female with fall presents reporting severe lower back pain. Signed out to oncoming provider pending CT lumbar spine results. Critical Care Note Critical Care Time?: No Stability Stability form required: No Heart Score Heart Score: Heart Score Response (Comments) Value History N/A 0 EKG N/A 0 Age N/A 0 Risk Factors N/A 0 Troponin N/A 0 Total 0 I personally scribed for CORY GARCIA MD ([email or web address]) on 04/05/25 at 04:17. Electronically submitted by Kvng Leigh ([facility]). CORY GARCIA MD Apr 05, 2025 04:17 POPEYE THEODORE MD Apr 05, 2025 09:15
[2025-04-05] MEDS: KETOROLAC TROMETH 30 MG/ML 1ML VIAL IM ONE (06:12)
[2025-04-05 06:13] VITALS: PULSE 86; RESP 12; O2SAT 95
[2025-04-05] MEDS: ACETAMINOPHEN 500 MG TAB or CAP PO ONE (06:16)
[2025-04-05] MEDS: diazePAM 5 MG TAB PO ONE (06:16)
--- NOTE | 2025-04-05 06:44 | DVH ---
Left lower extremity venous duplex Clinical History: Pain, swelling Comparison: None Technique: Duplex Doppler evaluation of the deep venous system of the left lower extremity from the common femor al vein to the popliteal vein including color Doppler and spectral/pulsed waveform analysis was perfo rmed. Findings: The common femoral vein demonstrates appropriate compressibility and waveform variability. There is compressibility/patency of the great saphenous vein at the proximal thigh. The femoral vein demonstrates appropriate compressibility and waveform variability. The deep femoral vein demonstrates appropriate compressibility and waveform variability. The popliteal vein demonstrates appropriate compressibility and waveform variability. There is normal compressibility at the tibioperoneal trunk. Impression: 1. No left femoropopliteal venous thrombosis. 2. Contralateral common femoral vein is patent.
--- NOTE | 2025-04-05 07:20 | DVH ---
EXAM: CT Lumbar Spine Without Intravenous Contrast CLINICAL INDICATION: Pain TECHNIQUE: Axial computed tomography images of the lumbar spine without intravenous contrast. This CT exam was performed using one or more of the following dose reduction techniques: automated exposu re control, adjustment of the mA and/or kV according to patient size, and/or use of iterative reconst ruction technique. COMPARISON: No relevant prior studies available. FINDINGS: VERTEBRAE: Mildly displaced left transverse process fracture of indeterminate chronicity. This can be further evaluated with MRI. Degenerative facet arthropathy throughout the lumbar spine, most prom inent in the lower lumbar spine. DISCS/SPINAL CANAL/NEURAL FORAMINA: Degenerative disc disease throughout the lumbar spine. SOFT TISSUES: Unremarkable. IMPRESSION: 1. Mildly displaced left transverse process fracture of indeterminate chronicity. This can be furth er evaluated with MRI. 2. Degenerative changes lumbar spine as described.
[2025-04-05 08:10] VITALS: PULSE 75; RESP 12; O2SAT 99
[2025-04-05] MEDS ORDERED: ONDANSETRON HCL 4 MG/2 ML VIAL IV PRN (09:30)
[2025-04-05] MEDS ORDERED: ACETAMINOPHEN 325 MG TAB PO PRN (09:30)
--- NOTE | 2025-04-05 09:50 | DVHHP2 ---
History of Present Illness Reason for Visit: transverse process fx s/p fall from bed History of Present Illness Jennifer Lira is a 59-year-old female with past medical history of COPD, CVA with left-sided hemiparesis, degenerative bone disease, morbid obesity, methamphetamine use, bed-bound since the last 2 weeks who presents to the ED status post fall this morning out of her bed. Patient states that she landed on her left leg and back. She states the height of her bed is a height of the gurney that she currently is on being examined in the ED by. Patient states that her back pain is 7/10 feels like cramps and is constant. She reports that she has not walked since 2 weeks ago and it suddenly happened. She states she has been in and out of the hospital. She also reports that she has not been in therapy or is not on any anti coags. She reports that she lives at home with her boyfriend. She also endorses that she used to use meth as well as she currently smokes less than half a pack of cigarettes per day, and denies alcohol use. Patient also states that she does not use home oxygen. Patient denies chest pain, shortness of breath, fever, chills, lightheadedness, weakness, dizziness, abdominal pain, nausea, vomiting, diarrhea, melena, hematemesis, or hematochezia. When asked patient if she can move her left side she states that it moves on its own. 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 Mom with cancer patient states she does not know what type of cancer.) Smoke: <1 pack per day ALCOHOL: none Drugs: Other Lives: Other Domestic Violence: Neg Review of Systems Musculoskeletal: back pain, leg pain Allergies: Coded Allergies: NO KNOWN ALLERGIES (Unverified , 03/14/25) Exam Vital Signs Vital Signs Date Time Temp Pulse Resp B/P (MAP) Pulse Ox O2 Delivery O2 Flow Rate FiO2 04/05/25 08:10 75 12 99 Nasal Cannula* 2 28 04/05/25 08:00 97.8 141/78 (99) 97.8 General Appearance: Alert, Oriented X3, Cooperative HEENT: Atraumatic, PERRLA, EOMI, Mucous membr. moist/pink Respiratory: Normal air movement Cardiovascular: Regular rate, Normal S1, Normal S2 Abdominal: Normal bowel sounds, Soft Extremities: No clubbing, No cyanosis Neuro: Normal speech, Sensation intact Psych/Mental Status: Mental status NL, Mood NL Labs/Xrays PROCEDURE: MRI CERVICAL WO CONTRAST Indication: transverse process fx with profound weakness COMPARISON: None TECHNIQUE: Multiplanar multisequence images of the the cervical spine are obtained. FINDINGS: The cervical vertebral body heights are maintained. Moderate multilevel disc space narrowing with desiccation. Prominent anterior osteophytosis at C3-4, C4- 5 and C5-6. No prevertebral edema. Atlantooccipital, atlantoaxial articulations intact. C2-3: Small disc osteophyte complex. No spinal canal stenosis. Mild left neural foraminal stenosis secondary to facet and uncovertebral hypertrophy. C3-4: Small disc osteophyte complex. No spinal canal stenosis. [id number]-[id number] left and mild right neural foraminal stenosis secondary to facet and uncovertebral hypertrophy. C4-5: Small disc osteophyte complex. No spinal canal stenosis. Moderate left and mild right neural foraminal stenosis secondary to facet and uncovertebral hypertrophy. C5-6: Small disc osteophyte complex. No spinal canal stenosis. [id number] bilateral neural foraminal stenosis secondary to facet and uncovertebral hypertrophy. C6-7: Small disc osteophyte complex. No spinal canal stenosis. Moderate to severe left and iknr-[id number]-[id number] right neural foraminal stenosis secondary to facet and uncovertebral hypertrophy. C7-T1: No spinal canal stenosis. Mild left neural foraminal stenosis. IMPRESSION: Moderate cervical degenerative disc disease. No high-grade spinal canal stenosis. Multilevel neural foraminal stenosis as described most pronounced at C3-4, C4-5, C5-6 and C6-7 PROCEDURE: MRI BRAIN HEAD WO CONTRAST Indication: infarct COMPARISON: None TECHNIQUE: Multiplanar multisequence images of the brain are obtained. FINDINGS: There is diffusion restriction within the right posterior parietal lobe /centrum semiovale corresponding to hypodensity seen on prior examination. There are associated T2/FLAIR hyperintense changes. There are moderate periventricular and subcortical white matter T2 and FLAIR hyperintense changes. Right frontal encephalomalacia.. There is no intracranial hemorrhage. No extra-axial fluid collection, mass effect or midline shift. The ventricles are midline and normal in size. The cisterns are patent. Normal intracranial flow voids are preserved. No abnormal susceptibility signal. The sinuses and mastoids are well pneumatized. The visualized orbits are unremarkable. IMPRESSION: Acute/ subacute infarction involving the right posterior parietal lobe/ centrum semiovale. Moderate chronic microvascular ischemic changes. Right frontal encephalomalacia. CLINICAL INDICATION: LLE pain s/p fall TECHNIQUE: XY L TIB FIB XRAY Comparison: None FINDINGS/IMPRESSION: : There is no evidence of acute fracture or dislocation. Soft tissues are unremarkable. CT HEAD WITHOUT CONTRAST INDICATION: left sided weakness EXAM DATE: 04/05/2025 10:25 AM COMPARISON: None RADIATION DOSE: CTDIvol: 50.04 mGy, DLP: 898.94 mGy*cm PROCEDURE: CT scans of the head were obtained from the vertex to the skull base. Sagittal and coronal reconstructions were provided. All CT scans at this medical facility are performed using dose modulation techniques as appropriate to a performed exam including the following: Automated exposure control was utilized; adjustment of the MA and/or KV according to patient size; and use of iterative reconstruction technique. FINDINGS: Hypodensity in the right posterior parietal lobe could be seen with a prior / evolving infarct. There is sulcal and ventricular prominence. The brain otherwise shows normal morphology and salomon-white matter differentiation, without intracranial hemorrhage, extra-axial fluid collection, mass effect or acute large vessel infarct. The ventricles are normal in size. The basal cisterns are patent. The skull and visible facial bones are intact. The paranasal sinuses, mastoid air cells and middle ear cavities are well-aerated. The soft tissues of the scalp are unremarkable. IMPRESSION: Hypodensity in the right posterior parietal lobe could be seen with a prior / evolving infarct. Brain MRI can be considered for additional evaluation. Critical Result: Infarct EXAM: CT Lumbar Spine Without Intravenous Contrast CLINICAL INDICATION: Pain TECHNIQUE: Axial computed tomography images of the lumbar spine without intravenous contrast. This CT exam was performed using one or more of the following dose reduction techniques: automated exposure control, adjustment of the mA and/or kV according to patient size, and/or use of iterative reconstruction technique. COMPARISON: No relevant prior studies available. FINDINGS: VERTEBRAE: Mildly displaced left transverse process fracture of indeterminate chronicity. This can be further evaluated with MRI. Degenerative facet arthropathy throughout the lumbar spine, most prominent in the lower lumbar spine. DISCS/SPINAL CANAL/NEURAL FORAMINA: Degenerative disc disease throughout the lumbar spine. SOFT TISSUES: Unremarkable. IMPRESSION: 1. Mildly displaced left transverse process fracture of indeterminate chronicity. This can be further evaluated with MRI. 2. Degenerative changes lumbar spine as described. Assessment/Plan Assessment/Plan Assessment Acute/ subacute infarction involving the right posterior parietal lobe/ centrum semiovale. Moderate chronic microvascular ischemic changes. Right frontal encephalomalacia. Bed-bound for the last 2 weeks Hypodensity in the right posterior parietal lobe could be seen with a prior/evolving infarct. Moderate cervical degenerative disc disease. Multilevel neural foraminal stenosis as described most pronounced at C3-4, C4-5, C5-6 and C6-7 Transverse process fracture status post fall Acute hypoxic respiratory failure Hypertension Morbid obesity Tobacco use Hypokalemia History of degenerative bone disease per patient reports History of CVA with left-sided hemiparesis History of COPD History of meth use [facility] given [facility] ED Pain management Antiemetics Left lower extremity venous ultrasound CT lumbar spine noted MRI lumbar spine ordered CT head ordered X-ray left tib-fib ordered MRI Brain ordered Aspirin + statin Antihypertensives Lipid panel Diet Per patient she only takes ibuprofen at home DVT prophylaxis-Lovenox PUD prophylaxis-not indicated no history of GERD or GI bleed Discussed plan of care with patient and nurse Neuro consult Spinal surgery consult Counseled patient on lifestyle modifications, diet, and exercise Counseled patient on continuance of cessation of methamphetamine use Counseled patient on cessation of tobacco use We will start Lovenox when CT head negative for bleed Plan discussed with: Patient My Orders Orders - ALEXIA MOJICA Procedure Category Date Status Time Lumbar Spine Wo MRI 04/05/25 Logged Contrast 09:27 Date of Service: Apr 05, 2025 Billing Provider: ALEXIA MOJICA Common Visit Codes: [id number] INP/OBS CARE (HIGH) ALEXIA MOJICA Apr 05, 2025 09:50
[2025-04-05 10:09] LABS: Basophils # (auto) 0.1 10 ^3/uL (0-0.2); Basophils % (auto) 0.9 % (0.0-2.0); Eosinophils # (auto) 0.2 10 ^3/uL (0-0.8); Eosinophils % (auto) 3.9 % (0.0-7.0); Hemoglobin 14.2 g/dL (12.2-16.2); Lymphocytes # (auto) 1.9 10 ^3/uL (0.4-5.4); Lymphocytes % (auto) 30.2 % (10.0-50.0); Mean Corpuscular Hemoglobin 27.4 pg (28.0-32.0); Mean Corpuscular Hgb Conc. 33.9 g/dL (32.0-36.0); Mean Corpuscular Volume 80.8 fL (80.0-100.0); Monocytes # (auto) 0.6 10 ^3/uL (0-1.3); Neutrophils # (auto) 3.5 10 ^3/uL (1.6-8.6); Nucleated Red Blood Cells % 0.2 %; Platelet Count (auto) 269 10^3/uL (140-450); Red Blood Cells 5.19 10^6/uL (4.0-5.20); Red Cell Distribution Width 14.2 % (11.8-14.3); Sodium 140 mmol/L (136-145); White Blood Cell 6.3 10^3/uL (4.4-10.8)
[2025-04-05 10:10] LABS: Anion Gap 6 (5-15); Carbon Dioxide 27 mmol/L (20-31)
[2025-04-05 10:12] LABS: Chloride 107 mmol/L (98-107); Potassium 3.4 mmol/L (3.5-5.1)
[2025-04-05] MEDS: SODIUM CHLORIDE 0.9% 1,000 ML IV SCH (10:13)
[2025-04-05 10:15] LABS: BUN/Creatinine Ratio 10.7 (10.0-20.0); Blood Urea Nitrogen 11 mg/dL (9-23)
[2025-04-05 10:18] LABS: Glucose 116 mg/dL (74-106)
[2025-04-05 10:28] LABS: Urine Bacteria FEW /hpf (None Seen); Urine Blood Negative /uL (Negative); Urine Clarity Clear (Clear); Urine Color Light-Yellow (Yellow); Urine Protein, UAD Negative (Negative); Urine Specific Gravity 1.009 (1.001-1.035); Urine Squamous Epithelial Cell FEW /hpf (<5); Urine Urobilinogen Normal (Negative); Urine WBC 1 /HPF (0-5)
--- NOTE | 2025-04-05 10:57 | DVH ---
CT HEAD WITHOUT CONTRAST INDICATION: left sided weakness EXAM DATE: 04/05/2025 10:25 AM COMPARISON: None RADIATION DOSE: CTDIvol: 50.04 mGy, DLP: 898.94 mGy*cm PROCEDURE: CT scans of the head were obtained from the vertex to the skull base. Sagittal and coronal reconstructions were provided. All CT scans at this medical facility are performed using dose modulation techniques as appropriate t o a performed exam including the following: Automated exposure control was utilized; adjustment of th e MA and/or KV according to patient size; and use of iterative reconstruction technique. FINDINGS: Hypodensity in the right posterior parietal lobe could be seen with a prior / evolving infa rct. There is sulcal and ventricular prominence. The brain otherwise shows normal morphology and gra y-white matter differentiation, without intracranial hemorrhage, extra-axial fluid collection, mass e ffect or acute large vessel infarct. The ventricles are normal in size. The basal cisterns are patent . The skull and visible facial bones are intact. The paranasal sinuses, mastoid air cells and middle ear cavities are well-aerated. The soft tissues of the scalp are unremarkable. IMPRESSION: Hypodensity in the right posterior parietal lobe could be seen with a prior / evolving infarct. Brain MRI can be considered for additional evaluation. Critical Result: Infarct Findings discussed with dewey at 04/05/2025 10:55 AM and acknowledged receipt and understan ding of the findings.
--- NOTE | 2025-04-05 10:57 | DVHINCON2 ---
Consultation - Spinal Surgery Date Seen: Apr 05, 2025 Referring Physician Referring Physician Attending Doctor: Natasha Strauss [facility] Reason for Consultation Reason for Visit: transverse process fx s/p fall from bed History of Present Illness History of Present Illness History of Present Illness Jennifer Lira is a 59-year-old female with past medical history of COPD, CVA with left-sided hemiparesis, degenerative bone disease, morbid obesity, methamphetami ne use, bed-bound since the last 2 weeks who presents to the ED status post fall this morning out of her bed. Patient states that she landed on her left leg and back. She states the height of her bed is a height of the gurney that she currently is on being examined in the ED by. Patient states that her back pain is 7/10 feels like cramps and is constant. She reports that she has not walked since 2 weeks ago and it suddenly happened. She states she has been in and out of the hospital. She also reports that she has not been in therapy or is not on any anti coags. She reports that she lives at home with her boyfriend. She also endorses that she used to use meth as well as she currently smokes less than half a pack of cigarettes per day, and denies alcohol use. Patient also states that she does not use home oxygen. Patient denies chest pain, shortness of breath, fever, chills, lightheadedness, weakness, dizziness, abdominal pain, nausea, vomiting, diarrhea, melena, hematemesis, or hematochezia. When asked patient if she can move her left side she states that it moves on its own. Past Medical/Surgical History Past Medical/Surgical History Pulmonary: COPD [employer]: CVA Past Surgical History: None Family and Social History Family and Social History Family History: Cancer, DM, Hypertension, Other (Dad with diabetes and hypertension. Mom with cancer patient states she does not know what type of cancer.) Smoke: <1 pack per day ALCOHOL: none Drugs: Other Lives: Other Domestic Violence: Neg Allergies and medications Allergies: Coded Allergies: NO KNOWN ALLERGIES (Unverified , 03/14/25) Home Meds Active Scripts Ibuprofen Micronized (MOTRIN TABLET) 600 Mg Tb, 600 MG PO TID PRN for 3 Days, #9 TAB *Black box warning-NSAIDS can increase risk of IA & hypertension, GI irritation, ulceration, bleed, perferation. Do not use post cardiac surgery. Use short duration/lowest effective dose. Prov:MARINA MCMAHON MD 03/18/25 Cephalexin (KEFLEX CAPSULE) 250 Mg Cp, 2 CAP PO BID for 5 Days, #20 CAP Prov:KAMERON FREEMAN DO 03/17/25 Review of systems Review of Systems: HEENT:Normal, CVS:Normal, RESPIRATORY:Normal, GI:Normal, :Normal, MSK:Abnormal (Left LE weakness 1/5 unable to move toes, ankle. slight internal/external reotaion of leg. unnable to lift knee off bed), NEURO:Abnormal (BLE weakness old CVA 10 years ago, left sided LE weakness 1/5) Examination Vital signs Imaging ORDERING PHYSICIAN: CORY GARCIA MD PROCEDURE(s): LS2CT - LS SPINE WO CONTRAST REASON: Lower back pain ORDER NUMBER(s): [id number], ACCESSION NUMBER(s): [id number] EXAM: CT Lumbar Spine Without Intravenous Contrast CLINICAL INDICATION: Pain TECHNIQUE: Axial computed tomography images of the lumbar spine without intravenous contrast. This CT exam was performed using one or more of the following dose reduction techniques: automated exposure control, adjustment of the mA and/or kV according to patient size, and/or use of iterative reconstruction technique. COMPARISON: No relevant prior studies available. FINDINGS: VERTEBRAE: Mildly displaced left transverse process fracture of indeterminate chronicity. This can be further evaluated with MRI. Degenerative facet arthropathy throughout the lumbar spine, most prominent in the lower lumbar spine. DISCS/SPINAL CANAL/NEURAL FORAMINA: Degenerative disc disease throughout the lumbar spine. SOFT TISSUES: Unremarkable. IMPRESSION: 1. Mildly displaced left transverse process fracture of indeterminate chronicity. This can be further evaluated with MRI. 2. Degenerative changes lumbar spine as described. ORDERING PHYSICIAN: NATASHA STRAUSS PROCEDURE(s): MNE - CERVICAL WO CONTRAST REASON: transverse process fx with profound weakness ORDER NUMBER(s): [id number], ACCESSION NUMBER(s): [id number] PROCEDURE: MRI CERVICAL WO CONTRAST Indication: transverse process fx with profound weakness COMPARISON: None TECHNIQUE: Multiplanar multisequence images of the the cervical spine are obtained. FINDINGS: The cervical vertebral body heights are maintained. Moderate multilevel disc space narrowing with desiccation. Prominent anterior osteophytosis at C3-4, C4- 5 and C5-6. No prevertebral edema. Atlantooccipital, atlantoaxial articulations intact. C2-3: Small disc osteophyte complex. No spinal canal stenosis. Mild left neural foraminal stenosis secondary to facet and uncovertebral hypertrophy. C3-4: Small disc osteophyte complex. No spinal canal stenosis. [id number] left and mild right neural foraminal stenosis secondary to facet and uncovertebral hypertrophy. C4-5: Small disc osteophyte complex. No spinal canal stenosis. Moderate left and mild right neural foraminal stenosis secondary to facet and uncovertebral hypertrophy. C5-6: Small disc osteophyte complex. No spinal canal stenosis. Opln-qz-egnemhdo bilateral neural foraminal stenosis secondary to facet and uncovertebral hypertrophy. C6-7: Small disc osteophyte complex. No spinal canal stenosis. Moderate to severe left and [id number] right neural foraminal stenosis secondary to facet and uncovertebral hypertrophy. C7-T1: No spinal canal stenosis. Mild left neural foraminal stenosis. IMPRESSION: Moderate cervical degenerative disc disease. No high-grade spinal canal stenosis. Multilevel neural foraminal stenosis as described most pronounced at C3-4, C4-5, C5-6 and C6-7 Vital Signs Date Time Temp Pulse Resp B/P (MAP) Pulse Ox O2 Delivery O2 Flow Rate FiO2 04/05/25 08:59 86 25 112/64 (80) 98 04/05/25 08:10 Nasal Cannula* 2 28 04/05/25 08:00 97.8 97.8 Medications Current Medications Medications (Trade) Dose Ordered Sig/Cornelius Route PRN Reason Start Time Stop Time Status Last Admin Sodium Chloride 1,000 ml @ 120 mls/hr Q8H20M IV 04/05/25 09:30 04/05/25 10:13 Acetaminophen/ Hydrocodone Bitart ([place] 5/325MG Tab) 1 tab Q4HP PRN PO MODERATE PAIN (4-6 PAIN SCALE) 04/05/25 09:30 Ondansetron HCl (Zofran) 4 mg Q4HP PRN IV NAUSEA / VOMITING 04/05/25 09:30 Acetaminophen (Tylenol Tablet) 650 mg Q6HP PRN PO PAIN SCALE 1-3 OR TEMP>100.4 04/05/25 09:30 Morphine Sulfate 2 mg Q4HPRN PRN IV SEVERE PAIN (7-10 PAIN SCALE) 04/05/25 09:30 Laboratory Labs Test 04/05/25 09:45 04/05/25 06:30 Range/Units White Blood Count 6.3 4.4-10.8 10^3/uL Red Blood Count 5.19 4.0-5.20 10^6/uL Hemoglobin 14.2 12.2-16.2 g/dL Hematocrit 42.0 36.0-46.0 % Mean Corpuscular Volume 80.8 80.0-100.0 fL Mean Corpuscular Hemoglobin 27.4 L 28.0-32.0 pg Mean Corpuscular Hemoglobin Concent 33.9 32.0-36.0 g/dL Red Cell Distribution Width 14.2 11.8-14.3 % Platelet Count 269 140-450 10^3/uL Mean Platelet Volume 8.7 6.9-10.8 fL Neutrophils (%) (Auto) 55.0 37.0-80.0 % Lymphocytes (%) (Auto) 30.2 10.0-50.0 % Monocytes (%) (Auto) 10.0 0.0-12.0 % Eosinophils (%) (Auto) 3.9 0.0-7.0 % Basophils (%) (Auto) 0.9 0.0-2.0 % Neutrophils # (Auto) 3.5 1.6-8.6 10 ^3/uL Lymphocytes # (Auto) 1.9 0.4-5.4 10 ^3/uL Monocytes # (Auto) 0.6 0-1.3 10 ^3/uL Eosinophils # (Auto) 0.2 0-0.8 10 ^3/uL Basophils # (Auto) 0.1 0-0.2 10 ^3/uL Nucleated Red Blood Cells 0.2 % Sodium Level 140 136-145 mmol/L Potassium Level 3.4 L 3.5-5.1 mmol/L Chloride Level 107 98-107 mmol/L Carbon Dioxide Level 27 20-31 mmol/L Anion Gap 6 5-15 Blood Urea Nitrogen 11 9-23 mg/dL Creatinine 1.03 H 0.550-1.02 mg/dL Glomerular Filtration Rate Calc 63 >90 mL/min BUN/Creatinine Ratio 10.7 10.0-20.0 Serum Glucose 116 H 74-106 mg/dL Calcium Level 10.0 8.7-10.4 mg/dL Urine Color Light-yellow Yellow Urine Clarity Clear Clear Urine pH 6.0 5.0-9.0 Urine Specific [place] 1.009 1.001-1.035 Urine Protein Negative Negative Urine Ketones Negative Negative Urine Blood Negative Negative /uL Urine Nitrite Negative Negative Urine Bilirubin Negative Negative Urine Urobilinogen Normal Negative mg/dL Urine Leukocyte Esterase Negative Negative /uL Urine RBC <1 0 - 4 /hpf Urine Microscopic WBC 1 0-5 /HPF Urine Squamous Epithelial Cells Few <5 /hpf Urine Bacteria Few H None Seen /hpf Urine Glucose Normal Normal mg/dL Examination: GENERAL:Abnormal (unhealthy appearing), HEENT:Normal, NECK:Normal (occasional shoulder aches, neck pain ), LUNGS:Normal, CVS:Normal (no c/o CP), ABDOMEN:Normal, MSK:Abnormal (lwft LE weakness), SKIN:Normal, NEURO:Abnormal (three weeks ago, she developed left-sided weakness in that she could not move t he left arm than leg), :Normal Problem List/Assessment/Plan Problems: (1) Lumbar transverse process fracture (2) Lumbar pain (3) Cervical stenosis of spinal canal Assessment and Plan Left Lumbar transverse process fracture mildly displaced- non operative. Degenerative facet arthropathy throughout the lumbar spine- recommend outpatient evaluation with PCP for referral to spine surgery after patient has been medically optimized Moderate cervical degenerative disc disease. Multilevel neural foraminal stenosis most pronounced at C3-4, C4-5, C5-6 and C6- 7 None of these findings require emergent spine surgery Patient may follow up with PCP for further planning and treatment options regarding spine referral further care and treatment per admitting team discretion No barriers to safe discharge from spine perspective Call with aristides Kruger [facility] Orthopaedic Spine Surgery nurse practitioner For Dr Giovanni Brown Patient was examined, chart reviewed, labs evaluated, and diagnostic studies and findings analyzed. Case was discussed with Dr. Dheeraj Brown who formulated the plan of care. This medical document was created using an electronic medical record system with [employer] system. Although this document has been carefully reviewed, there might still be some phonetic and typographical errors. These areas are purely typographical due to imperfections of the software programs, and do not reflect any compromise in the patient's medical care. Plan discussed with Plan discussed with: Patient BILLIE KRUGER NP Apr 05, 2025 10:57
--- NOTE | 2025-04-05 11:00 | DVH ---
CLINICAL INDICATION: LLE pain s/p fall TECHNIQUE: XY L TIB FIB XRAY Comparison: None FINDINGS/IMPRESSION: : There is no evidence of acute fracture or dislocation. Soft tissues are unremarkable.
[2025-04-05] MEDS: POTASSIUM CHL 20 Meq TABLET PO ONE (11:40)
[2025-04-05 12:16] LABS: Triglycerides 113 mg/dL (< 150)
[2025-04-05 12:17] LABS: LDL Cholesterol 83 mg/dL (< 100)
[2025-04-05 12:18] LABS: Cholesterol 138 mg/dL (< 200)
[2025-04-05 12:21] LABS: HDL Cholesterol 36 mg/dL (40-59)
[2025-04-05] MEDS: LORazepam 2MG/ML-1ML VIAL IV ONE (13:17)
[2025-04-05] MEDS: HYDROcodone-ACET 5/325MG TAB PO PRN (13:18)
--- NOTE | 2025-04-05 14:48 | DVH ---
PROCEDURE: MRI BRAIN HEAD WO CONTRAST Indication: infarct COMPARISON: None TECHNIQUE: Multiplanar multisequence images of the brain are obtained. FINDINGS: There is diffusion restriction within the right posterior parietal lobe /centrum semiovale correspond ing to hypodensity seen on prior examination. There are associated T2/FLAIR hyperintense changes. The re are moderate periventricular and subcortical white matter T2 and FLAIR hyperintense changes. Right frontal encephalomalacia.. There is no intracranial hemorrhage. No extra-axial fluid collection, ma ss effect or midline shift. The ventricles are midline and normal in size. The cisterns are patent. N ormal intracranial flow voids are preserved. No abnormal susceptibility signal. The sinuses and mastoids are well pneumatized. The visualized orbits are unremarkable. IMPRESSION: Acute/ subacute infarction involving the right posterior parietal lobe/ centrum semiovale. Moderate chronic microvascular ischemic changes. Right frontal encephalomalacia.
--- NOTE | 2025-04-05 14:52 | DVH ---
PROCEDURE: MRI LUMBAR SPINE WO CONTRAST INDICATION: transverse process fx Exam Date: 04/05/2025 02:04 PM COMPARISON: CT scan dated 04/05/2025. TECHNIQUE: MRI lumbar spine without intravenous contrast. FINDINGS: No fractures or listhesis of the lumbar spine. Left L3 mildly displaced transverse process fracture i s not appreciated on the current images, and there is no edema in this region to suggest acute fractu re. The conus terminates at L1. There is an intraosseous hemangioma in the L2 vertebral body. There i s mild rotatory thoracolumbar levoscoliosis. L1-L2: There is a mild circumferential broad disc bulge with endplate hypertrophy. There is mild bila teral facet hypertrophy. No significant spinal canal stenosis or neural foraminal stenosis bilaterall y. L2-L3: There is a circumferential broad disc bulge with endplate hypertrophy. There is bilateral fac et hypertrophy. No significant spinal canal stenosis. There is mild right and no significant left ne ural foraminal stenosis. L3-L4: There is a circumferential broad disc bulge with endplate hypertrophy. There is bilateral face t hypertrophy. No significant spinal canal stenosis. There is mild bilateral neural foraminal stenosi s. L4-L5: There is disc desiccation with loss of disc height. There are Modic type 2 changes in the adj acent endplates, greater on the left. There is a circumferential broad disc bulge with endplate hype rtrophy, most prominent in the left foraminal region. There is bilateral facet hypertrophy, greater o n the left. No significant spinal canal stenosis, although there is partial effacement of the left la teral recess. There is mild right and moderate left neural foraminal stenosis. L5-S1: There is mild loss of disc height on the left. Probable vacuum phenomenon in the disc. There is circumferential broad disc bulge with endplate hypertrophy, most prominent in the left foraminal a nd lateral regions. There is left facet hypertrophy. No significant spinal canal stenosis or right ne ural foraminal stenosis. There is moderate to severe left neural foraminal stenosis. IMPRESSION: 1. No fracture or listhesis of the lumbar spine. 2. Left L3 transverse process fracture seen on recent CT scan is likely chronic, as there is no evide nce of edema in this area on the current study. 3. Degenerative disc disease and facet arthropathy with significant neural foraminal stenosis at L4-L 5 on the left and L5-S1 on the left. Additionally, there is partial effacement of the left lateral r ecess at the L4-L5 level. These findings May correspond to left lower extremity radicular symptoms i n the L4 and L5 nerve root distributions. 4. No high-grade spinal canal stenosis at any level in the lumbar spine.
--- NOTE | 2025-04-05 15:06 | DVH ---
PROCEDURE: MRI CERVICAL WO CONTRAST Indication: transverse process fx with profound weakness COMPARISON: None TECHNIQUE: Multiplanar multisequence images of the the cervical spine are obtained. FINDINGS: The cervical vertebral body heights are maintained. Moderate multilevel disc space narrowing with maye iccation. Prominent anterior osteophytosis at C3-4, C4-5 and C5-6. No prevertebral edema. Atlantoocc ipital, atlantoaxial articulations intact. C2-3: Small disc osteophyte complex. No spinal canal stenosis. Mild left neural foraminal stenosis se condary to facet and uncovertebral hypertrophy. C3-4: Small disc osteophyte complex. No spinal canal stenosis. Tswd-[id number] left and mild right n eural foraminal stenosis secondary to facet and uncovertebral hypertrophy. C4-5: Small disc osteophyte complex. No spinal canal stenosis. Moderate left and mild right neural f oraminal stenosis secondary to facet and uncovertebral hypertrophy. C5-6: Small disc osteophyte complex. No spinal canal stenosis. Ndsh-wf-jlyxmuud bilateral neural fora karissa stenosis secondary to facet and uncovertebral hypertrophy. C6-7: Small disc osteophyte complex. No spinal canal stenosis. Moderate to severe left and mild-to-mo derate right neural foraminal stenosis secondary to facet and uncovertebral hypertrophy. C7-T1: No spinal canal stenosis. Mild left neural foraminal stenosis. IMPRESSION: Moderate cervical degenerative disc disease. No high-grade spinal canal stenosis. Multilevel neural foraminal stenosis as described most pronounced at C3-4, C4-5, C5-6 and C6-7
[2025-04-05] MEDS: ASPirin 81 mg TAB PO SCH (15:33)
--- NOTE | 2025-04-05 19:07 | DVHINCON2 ---
Date of service: Apr 05, [address] Strauss Reason for Consultation Infarct History of Present Illness Ms. Lira is a 59 years old right-handed female with a history of COPD, stroke, morbid obesity, she was brought to the [facility] on 04/05/2025 with a chief company of falling off bed. At this time, she is alert, oriented x3, but is not a good historian She has been bed-bound for three weeks, that will be further described, overnight, she slipped off bed and was not able to get up, denies trauma to head or any part of her body About three weeks ago, she developed left-sided weakness in that she could not move the left arm than leg, she did not seek medical attention, and she has been bed-bound since. About 10-15 years ago, she developed dizziness, palpitation, she was seen in the [facility] and was said to have stroke (not able to confirmed with our record) She reports she was not on aspirin or any blood thinner or cholesterol medication at home CBC, 04/05/2025: Unremarkable BUN/CR, 04/05/2025: 11/1.03 HGB A1c, 03/14/2025: 5.7 TG/HDL/LDL/HDL, 04/05/2025: 113/138/83/36 MRI head, 04/05/2025: Acute/ subacute infarction involving the right posterior parietal lobe/ centrum semiovale.Moderate chronic microvascular ischemic changes. Right frontal encephalomalacia MRI C-spine, 04/05/2025: Moderate cervical degenerative disc disease. No high- grade spinal canal stenosis. Multilevel neural foraminal stenosis as described most pronounced at C3-4, C4-5, C5-6 and C6-7 MRI lumbar spine, 04/05/2025: 1. No fracture or listhesis of the lumbar spine. 2. Left L3 transverse process fracture seen on recent CT scan is likely chronic, as there is no evidence of edema in this area on the current study. 3. Degenerative disc disease and facet arthropathy with significant neural f oraminal stenosis at L4-L5 on the left and L5-S1 on the left. Additionally, there is partial effacement of the left lateral recess at the L4-L5 level. These findings May correspond to left lower extremity radicular symptoms in the L4 and L5 nerve root distributions. 4. No high-grade spinal canal stenosis at any level in the lumbar spine Past Medical History COPD, stroke obesity Past Surgical History None Family History: Diabetes mellitus G8 FATHER Family History Hypertension, diabetes, coronary artery disease, heart attack, cancer, COPD Social History She smokes, she used to use amphetamine, no history of alcohol abuse Allergies: Coded Allergies: NO KNOWN ALLERGIES (Unverified , 03/14/25) Home Meds Active Scripts Ibuprofen Micronized (MOTRIN TABLET) 600 Mg Tb, 600 MG PO TID PRN for 3 Days, #9 TAB *Black box warning-NSAIDS can increase risk of CT & hypertension, GI irritation, ulceration, bleed, perferation. Do not use post cardiac surgery. Use short duration/lowest effective dose. Prov:MARINA MCMAHON MD 03/18/25 Cephalexin (KEFLEX CAPSULE) 250 Mg Cp, 2 CAP PO BID for 5 Days, #20 CAP Prov:KAMERON FREEMAN DO 03/17/25 Current Medications Current Medications Medications (Trade) Dose Ordered Sig/Cornelius Route PRN Reason Start Time Stop Time Status Last Admin Sodium Chloride 1,000 ml @ 120 mls/hr Q8H20M IV 04/05/25 09:30 04/05/25 18:13 Acetaminophen/ Hydrocodone Bitart ([place] 5/325MG Tab) 1 tab Q4HP PRN PO MODERATE PAIN (4-6 PAIN SCALE) 04/05/25 09:30 04/05/25 13:18 Ondansetron HCl (Zofran) 4 mg Q4HP PRN IV NAUSEA / VOMITING 04/05/25 09:30 Acetaminophen (Tylenol Tablet) 650 mg Q6HP PRN PO PAIN SCALE 1-3 OR TEMP>100.4 04/05/25 09:30 Morphine Sulfate 2 mg Q4HPRN PRN IV SEVERE PAIN (7-10 PAIN SCALE) 04/05/25 09:30 Atorvastatin Calcium (Lipitor) 40 mg HS PO 04/05/25 22:00 Aspirin 81 mg DAILY PO 04/05/25 14:15 04/05/25 15:33 Hydralazine HCl (Apresoline Injection) 10 mg Q6HP PRN IV SBP>150 04/05/25 16:45 Review of Systems As above, the other systems are negative Vital Signs Vital Signs Date Time Temp Pulse Resp B/P (MAP) Pulse Ox O2 Delivery O2 Flow Rate FiO2 04/05/25 18:00 59 12 147/63 (91) 99 04/05/25 08:10 Nasal Cannula* 2 28 04/05/25 08:00 97.8 97.8 Physical Exam GENERAL EXAM: General: the patient is well developed and nourished. No acute distress. HEENT: Normocephalic, neck is supple, no carotid bruits. No mass. RESPIRATORY: Normal respiratory effort with symmetrical lung expansion. Lungs clear to auscultation. CARDIOVASCULAR: Regular rate and rhythm with no murmurs. S1, S2. ABDOMEN: Soft, nontender, normal bowel sound NEUROLOGICAL: MENTAL STATUS: Awake and alert. Oriented to person, place, time. Poor historian SPEECH, LANGUAGE, HIGHER CORTICAL FUNCTION: no aphasia or dysathria. CRANIAL NERVES: #2: Intact visual lerner to confrontation. The optic discs were sharp. #3,4,6: Pupils are equal, round and reactive. EOMs full and conjugate. No nystagmus. #5: Facial sensation intact in all three divisions bilaterally. Mandibular strength intact. #7: Facial muscles symmetrical and strength intact. #8: Hearing grossly normal to voice. #9,10: Uvula and soft palate rise in the midline. Swallow and voice are normal. #11: Trapezius and sternomastoid strength intact bilaterally. #12: Tongue midline. No fasciculations or atrophy. SENSATION: Sensation to touch and pinprick is normal, no [id number] or paroxysmal distal difference. MOTOR: Normal tone in the upper and lower extremity. Normal muscle bulk. No fasciculations. No abnormal movements or posturing. Muscle strength of the major groups in the right extremities is 5/5. Muscle strength of the major groups in the left extremities is 0-1/5. REFLEXES: Deep tendon reflexes are symmetrical. No pathological reflexes. CEREBELLAR/COORDINATION: Finger to nose is fine in the right arm GAIT/STATION: deferred. Labs/Diagnostic Data Labs Test 04/05/25 09:45 04/05/25 06:30 Range/Units White Blood Count 6.3 4.4-10.8 10^3/uL Red Blood Count 5.19 4.0-5.20 10^6/uL Hemoglobin 14.2 12.2-16.2 g/dL Hematocrit 42.0 36.0-46.0 % Mean Corpuscular Volume 80.8 80.0-100.0 fL Mean Corpuscular Hemoglobin 27.4 L 28.0-32.0 pg Mean Corpuscular Hemoglobin Concent 33.9 32.0-36.0 g/dL Red Cell Distribution Width 14.2 11.8-14.3 % Platelet Count 269 140-450 10^3/uL Mean Platelet Volume 8.7 6.9-10.8 fL Neutrophils (%) (Auto) 55.0 37.0-80.0 % Lymphocytes (%) (Auto) 30.2 10.0-50.0 % Monocytes (%) (Auto) 10.0 0.0-12.0 % Eosinophils (%) (Auto) 3.9 0.0-7.0 % Basophils (%) (Auto) 0.9 0.0-2.0 % Neutrophils # (Auto) 3.5 1.6-8.6 10 ^3/uL Lymphocytes # (Auto) 1.9 0.4-5.4 10 ^3/uL Monocytes # (Auto) 0.6 0-1.3 10 ^3/uL Eosinophils # (Auto) 0.2 0-0.8 10 ^3/uL Basophils # (Auto) 0.1 0-0.2 10 ^3/uL Nucleated Red Blood Cells 0.2 % Sodium Level 140 136-145 mmol/L Potassium Level 3.4 L 3.5-5.1 mmol/L Chloride Level 107 98-107 mmol/L Carbon Dioxide Level 27 20-31 mmol/L Anion Gap 6 5-15 Blood Urea Nitrogen 11 9-23 mg/dL Creatinine 1.03 H 0.550-1.02 mg/dL Glomerular Filtration Rate Calc 63 >90 mL/min BUN/Creatinine Ratio 10.7 10.0-20.0 Serum Glucose 116 H 74-106 mg/dL Calcium Level 10.0 8.7-10.4 mg/dL Triglycerides Level 113 < 150 mg/dL Cholesterol Level 138 < 200 mg/dL LDL Cholesterol 83 < 100 mg/dL HDL Cholesterol 36 L 40-59 mg/dL Urine Color Light-yellow Yellow Urine Clarity Clear Clear Urine pH 6.0 5.0-9.0 Urine Specific [place] 1.009 1.001-1.035 Urine Protein Negative Negative Urine Ketones Negative Negative Urine Blood Negative Negative /uL Urine Nitrite Negative Negative Urine Bilirubin Negative Negative Urine Urobilinogen Normal Negative mg/dL Urine Leukocyte Esterase Negative Negative /uL Urine RBC <1 0 - 4 /hpf Urine Microscopic WBC 1 0-5 /HPF Urine Squamous Epithelial Cells Few <5 /hpf Urine Bacteria Few H None Seen /hpf Urine Glucose Normal Normal mg/dL Assessment Acute left-sided weakness, secondary acute stroke Acute stroke Reports chronic stroke Morbid obesity Plan/Recommendation Monitoring Supportive treatment Telemetry UDS Carotid Doppler Echocardiogram Aspirin 81 mg daily Lipitor 10 mg daily More recommendation per clinical course I have discussed with patient about impression and secondary stroke prevention This medical document was created using an electronic medical record system with [employer] dictation system. Although this document has been carefully reviewed, there may still be some phonetic and typographical errors. These areas are purely typographical due to imperfections of the software programs, and do not reflect any compromise in the patient's medical care. Plan discussed with: Patient, Other LEONARDO BERGMAN MD Apr 05, 2025 19:07
[2025-04-05 19:30] VITALS: O2SAT 99
[2025-04-05 21:09] LABS: Amphetamine Screen, Urine Pos (NEGATIVE); Barbiturate Scree,Urine Neg (NEGATIVE); Benzodiazephine Screen, Urine Neg (NEGATIVE); Cannabinoid Screen, Urine Neg (NEGATIVE); Cocaine Screen, Urine Neg (NEGATIVE); Opiate Scree,Urine Neg (NEGATIVE); Phencyclidine Screen, Urine Neg (NEGATIVE)
[2025-04-05] MEDS: ATORVASTATIN 20 MG TAB PO SCH (21:23)
--- NOTE | 2025-04-05 21:48 | DVH ---
Carotid Duplex Date: 04/05/2025 09:07 PM Clinical History: cva Comparison: None Technique: Duplex Doppler evaluation of the extracranial carotid and vertebral arteries including col or Doppler and spectral/pulsed waveform analysis was performed. Findings: RIGHT SIDE: The peak systolic velocities are 77 cm/s in the distal CCA and 112 cm/s in the proximal ICA.The ICA/C CA ratio is less than 2. The external carotid artery is patent with peak systolic velocity of 151 cm/s proximally. There is appropriate antegrade flow in the right vertebral artery. LEFT SIDE: The peak systolic velocities are 87 cm/s in the distal CCA and 89 cm/s in the proximal ICA.. The ICA/ CCA ratio is less than 2. The external carotid artery is patent with peak systolic velocity of 114 cm/s proximally. There is appropriate antegrade flow in the left vertebral artery. IMPRESSION: 1. No hemodynamically significant stenosis noted in the right carotid system. 2. No hemodynamically significant stenosis noted in the left carotid system. 3. Reference: Radiology 2003; [id number] HS:Y
[2025-04-05] MEDS ORDERED: ATORVASTATIN 20 MG TAB PO SCH (22:00)
[2025-04-06] VITALS (9 sets, daily range): BP systolic 138–161; BP diastolic 77–93; PULSE 67–82; RESP 16–20; TEMP 97.2–98; O2SAT 95–100
[2025-04-06 06:55] LABS: Basophils # (auto) 0.1 10 ^3/uL (0-0.2); Eosinophils # (auto) 0.2 10 ^3/uL (0-0.8); Eosinophils % (auto) 4.2 % (0.0-7.0); Hemoglobin 13.9 g/dL (12.2-16.2); Lymphocytes # (auto) 2.3 10 ^3/uL (0.4-5.4); Lymphocytes % (auto) 38.8 % (10.0-50.0); Mean Corpuscular Hemoglobin 27.4 pg (28.0-32.0); Mean Corpuscular Volume 80.7 fL (80.0-100.0); Monocytes # (auto) 0.6 10 ^3/uL (0-1.3); Monocytes % (auto) 10.3 % (0.0-12.0); Neutrophils # (auto) 2.7 10 ^3/uL (1.6-8.6); Neutrophils % (auto) 45.7 % (37.0-80.0); Nucleated Red Blood Cells % 0.1 %; Platelet Count (auto) 253 10^3/uL (140-450); Red Blood Cells 5.08 10^6/uL (4.0-5.20); Red Cell Distribution Width 14.8 % (11.8-14.3); White Blood Cell 5.9 10^3/uL (4.4-10.8)
[2025-04-06 06:57] LABS: Alanine Aminotransferase 17 U/L (7-40); Albumin 3.7 g/dL (3.2-4.8); Alkaline Phosphatase 102 U/L (46-116); Anion Gap 8 (5-15); Aspartate Aminotransferase 19 U/L (<34); BUN/Creatinine Ratio 12.8 (10.0-20.0); Blood Urea Nitrogen 11 mg/dL (9-23); Calcium 9.1 mg/dL (8.7-10.4); Carbon Dioxide 22 mmol/L (20-31); Sodium 138 mmol/L (136-145); Total Protein 6.3 g/dL (5.7-8.2)
[2025-04-06 06:58] LABS: Bilirubin, Total 0.3 mg/dL (0.2-1.0)
[2025-04-06 06:59] LABS: Chloride 108 mmol/L (98-107); Glucose 110 mg/dL (74-106)
--- NOTE | 2025-04-06 19:09 | DVHSR ---
APPROVED REPORT EXAM: Two-dimensional and M-mode echocardiogram with Doppler, color Doppler and Bubble Study. Blood Pressure: 156/77 mmHg INDICATION CVA/TIA: RISK FACTORS Height: 5' 7", Weight: 279 DIMENSIONS LVDd5.3 (3.8-5.7cm)LA (2D)3.3 (1.9-4.0cm)Aortic Root3.1 (2.0-3.7cm) LVDs3.4 (2.5-4.0cm)LA (MM) (1.9-4.0cm)Aortic Cusp Exc1.8 (1.5-2.0cm) EF (%) 65.0 (55-70%)Rt. Atrium3.4 (1.9-4.0cm)Asc. Aorta cm IVSd1.0 (0.7-1.1cm)RV (D) (1.8-2.4cm) PWd1.0 (0.7-1.1cm) Mitral Valve MitralMitral Stenosis E wave0.80m/sMV Mean GR.mmHg A wave1.00m/sMV Peak GR.mmHg E/A ratio0.82D MVAcm2 Aortic Valve Aortic ValveAortic Stenosis V10.90m/Loc Mean GR.5mmHg V21.60m/Loc Peak GR.11mmHg LVOT Diameter2.3 (1.8-2.4cm)Doppler AVA2.34cm2 Pulmonic Valve V20.70m/s Conclusion LV EF IS 65% NORMAL VALVES NO EFFUSION NORMAL RV FUNCTION
--- NOTE | 2025-04-06 19:28 | DVHPN2 ---
Subjective I am assuming the care of the patient from today onwards. Patient presented to the hospital with left-sided weakness for last two weeks. Also patient presented to the hospital with a fall from the bed Changes from previous H/P or p: No Changes Musculoskeletal: back pain, leg pain Objective Vitals Vital Signs Date Time Temp Pulse Resp B/P (MAP) Pulse Ox O2 Delivery O2 Flow Rate FiO2 04/06/25 17:38 69 141/79 (99) 100 04/06/25 17:00 97.2 20 97.2 04/06/25 11:33 Room Air* 0 21 Intake/Output Intake and Output 04/06/25 07:00 Intake Total 480 ml Balance 480 ml IV Total 480 ml Exam HEENT pupils are reactive Neck is supple CV is S1-S2 regular rate and rhythm Respiratory diminished breath sounds bases GI positive bowel sounds Extremity no edema 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 left-sided hemiplegia Medications Current Medications Medications Dose Ordered Sig/Cornelius Route Start Time Stop Time Status Last Admin Dose Admin Sodium Chloride 1,000 ml @ 120 mls/hr Q8H20M IV 04/05/25 09:30 04/05/25 18:13 120 MLS/HR Acetaminophen/ Hydrocodone Bitart 1 tab Q4HP PRN PO 04/05/25 09:30 04/06/25 16:27 1 TAB Ondansetron HCl 4 mg Q4HP PRN IV 04/05/25 09:30 Acetaminophen 650 mg Q6HP PRN PO 04/05/25 09:30 Morphine Sulfate 2 mg Q4HPRN PRN IV 04/05/25 09:30 Aspirin 81 mg DAILY PO 04/05/25 14:15 04/06/25 09:32 81 MG Hydralazine HCl 10 mg Q6HP PRN IV 04/05/25 16:45 Atorvastatin Calcium 20 mg HS PO 04/05/25 20:45 04/05/25 21:23 20 MG Laboratory Results Laboratory Tests 04/06/25 06:20 Chemistry Test 04/06/25 06:20 Albumin 3.7 g/dL (3.2-4.8) Calcium Level 9.1 mg/dL (8.7-10.4) Total Protein 6.3 g/dL (5.7-8.2) LFT Test 04/06/25 06:20 Alanine Aminotransferase (ALT) 17 U/L (7-40) Alkaline Phosphatase 102 U/L (46-116) Aspartate Amino Transferase (AST) 19 U/L (<34) Total Bilirubin 0.3 mg/dL (0.2-1.0) Urinalysis Test 04/05/25 06:30 Urine Color Light-yellow (Yellow) Urine Clarity Clear (Clear) Urine pH 6.0 (5.0-9.0) Urine Specific [place] 1.009 (1.001-1.035) Urine Protein Negative (Negative) Urine Ketones Negative (Negative) Urine Blood Negative /uL (Negative) Urine Nitrite Negative (Negative) Urine Bilirubin Negative (Negative) Urine Urobilinogen Normal mg/dL (Negative) Urine Leukocyte Esterase Negative /uL (Negative) Urine RBC <1 /hpf (0 - 4) Urine Microscopic WBC 1 /HPF (0-5) Urine Squamous Epithelial Cells Few /hpf (<5) Urine Bacteria Few /hpf (None Seen) H Urine Glucose Normal mg/dL (Normal) Assessment/Plan Assessment/Plan 59-year-old female with a known history of hypertension, morbid obesity class three, currently bed-bound for last two weeks presented to the hospital with a mechanical fall found to have 1. Mechanical falls with a L3 transverse process fracture 2. Acute CVA with the left-sided weakness 3. Hypertension 4.morbid obesity class III -aspirin, statin, physical therapy evaluation treatment, neurology consulted Plan discussed with: Patient Date of Service: Apr 06, 2025 Billing Provider: AMPARO RUSHING MD Common Visit Codes: [id number] INP/OBS CARE(MOD) AMPARO RUSHING MD Apr 06, 2025 19:28
[2025-04-06] MEDS: ENOXAPARIN SOD 40 MG/0.4 ML SYRINGE SC SCH (21:00)
[2025-04-07] VITALS (8 sets, daily range): BP systolic 137–154; BP diastolic 60–114; PULSE 57–91; RESP 18–20; TEMP 97.7–98.4; O2SAT 95–98
[2025-04-07] MEDS: hydrALAZINE HCL 20 MG/ML VL IV PRN
[2025-04-07] MEDS: diphenhdrAMINE HCL 50 MG/1 ML VL IV PRN
[2025-04-07] MEDS: MORPHINE SULFATE INJ 2 MG/ml SYRG IV PRN (09:35)
--- NOTE | 2025-04-07 16:16 | DVHPN2 ---
Subjective Patient presented to the hospital with left-sided weakness for last two weeks. Also patient presented to the hospital with a fall from the bed. Reviewed: Care Plan Changes from previous H/P or p: No Changes Musculoskeletal: back pain, leg pain Objective Vitals Vital Signs Date Time Temp Pulse Resp B/P (MAP) Pulse Ox O2 Delivery O2 Flow Rate FiO2 04/07/25 13:00 98.4 64 20 145/114 (124) 97 98.4 04/07/25 08:00 Room Air* 0 21 Intake/Output Intake and Output 04/07/25 07:00 Intake Total 850 ml Output Total 1200 ml Balance -350 ml Intake Oral 850 ml Output Urine Total 1200 ml Exam HEENT pupils are reactive Neck is supple CV is S1-S2 regular rate and rhythm Respiratory diminished breath sounds bases GI positive bowel sounds Extremity no edema 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 left-sided hemiplegia Medications Current Medications Medications Dose Ordered Sig/Cornelius Route Start Time Stop Time Status Last Admin Dose Admin Sodium Chloride 1,000 ml @ 120 mls/hr Q8H20M IV 04/05/25 09:30 04/05/25 18:13 120 MLS/HR Acetaminophen/ Hydrocodone Bitart 1 tab Q4HP PRN PO 04/05/25 09:30 04/07/25 09:57 1 TAB Ondansetron HCl 4 mg Q4HP PRN IV 04/05/25 09:30 Acetaminophen 650 mg Q6HP PRN PO 04/05/25 09:30 Morphine Sulfate 2 mg Q4HPRN PRN IV 04/05/25 09:30 04/07/25 11:39 2 MG Aspirin 81 mg DAILY PO 04/05/25 14:15 04/07/25 09:33 81 MG Hydralazine HCl 10 mg Q6HP PRN IV 04/05/25 16:45 04/07/25 00:00 10 MG Atorvastatin Calcium 20 mg HS PO 04/05/25 20:45 04/06/25 20:59 20 MG Enoxaparin Sodium 40 mg DAILY SC 04/06/25 19:30 04/07/25 09:34 40 MG Diphenhydramine HCl 25 mg Q6HPRN PRN IV 04/06/25 23:45 04/07/25 00:00 25 MG Laboratory Results Laboratory Tests 04/06/25 06:20 Urinalysis Test 6/20/25 06:30 Urine Color Light-yellow (Yellow) Urine Clarity Clear (Clear) Urine pH 6.0 (5.0-9.0) Urine Specific [place] 1.009 (1.001-1.035) Urine Protein Negative (Negative) Urine Ketones Negative (Negative) Urine Blood Negative /uL (Negative) Urine Nitrite Negative (Negative) Urine Bilirubin Negative (Negative) Urine Urobilinogen Normal mg/dL (Negative) Urine Leukocyte Esterase Negative /uL (Negative) Urine RBC <1 /hpf (0 - 4) Urine Microscopic WBC 1 /HPF (0-5) Urine Squamous Epithelial Cells Few /hpf (<5) Urine Bacteria Few /hpf (None Seen) H Urine Glucose Normal mg/dL (Normal) Assessment/Plan Assessment/Plan 59-year-old female with a known history of hypertension, morbid obesity class three, currently bed-bound for last two weeks presented to the hospital with a mechanical fall found to have 1. Mechanical falls with a L3 transverse process fracture 2. Acute CVA with the left-sided weakness 3. Hypertension 4.morbid obesity class III -aspirin, statin, physical therapy evaluation treatment, neurology consulted -plan of care discussed with the patient who understand verbalized understanding and agreeable to plan. Plan discussed with: Patient My Orders Orders - AMPARO RUSHING MD Procedure Category Date Status Time Enoxaparin Sodium PHA 04/06/25 In Process (Lovenox) 19:30 Date of Service: Apr 07, 2025 Billing Provider: AMPARO RUSHING MD Common Visit Codes: [id number] INP/OBS CARE(MOD) AMPARO RUSHING MD Apr 07, 2025 16:16
[2025-04-08] VITALS (8 sets, daily range): BP systolic 110–153; BP diastolic 54–85; PULSE 64–92; RESP 16–18; TEMP 97.5–98; O2SAT 92–100
[2025-04-08] MEDS: MORPHINE SULFATE 4 MG/ML SYR/VIAL IV PRN (15:44)
--- NOTE | 2025-04-08 16:23 | DVHPN2 ---
Subjective Patient presented to the hospital with left-sided weakness for last two weeks. Also patient presented to the hospital with a fall from the bed. Reviewed: Care Plan Changes from previous H/P or p: No Changes Musculoskeletal: back pain, leg pain Objective Vitals Vital Signs Date Time Temp Pulse Resp B/P (MAP) Pulse Ox O2 Delivery O2 Flow Rate FiO2 04/08/25 15:44 82 18 111/80 04/08/25 12:30 97.6 92 97.6 04/07/25 20:00 Room Air* 0 21 Intake/Output Intake and Output 04/08/25 07:00 Intake Total 1050 ml Output Total 2100 ml Balance -1050 ml Intake Oral 1050 ml Output Urine Total 2100 ml Exam HEENT pupils are reactive Neck is supple CV is S1-S2 regular rate and rhythm Respiratory diminished breath sounds bases GI positive bowel sounds Extremity no edema 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 left-sided hemiplegia Medications Current Medications Medications Dose Ordered Sig/Cornelius Route Start Time Stop Time Status Last Admin Dose Admin Sodium Chloride 1,000 ml @ 120 mls/hr Q8H20M IV 04/05/25 09:30 04/05/25 18:13 120 MLS/HR Acetaminophen/ Hydrocodone Bitart 1 tab Q4HP PRN PO 04/05/25 09:30 04/08/25 08:56 1 TAB Ondansetron HCl 4 mg Q4HP PRN IV 04/05/25 09:30 Acetaminophen 650 mg Q6HP PRN PO 04/05/25 09:30 Aspirin 81 mg DAILY PO 04/05/25 14:15 04/08/25 08:56 81 MG Hydralazine HCl 10 mg Q6HP PRN IV 04/05/25 16:45 04/07/25 17:43 10 MG Atorvastatin Calcium 20 mg HS PO 04/05/25 20:45 04/07/25 20:59 20 MG Enoxaparin Sodium 40 mg DAILY SC 04/06/25 19:30 04/08/25 10:00 40 MG Diphenhydramine HCl 25 mg Q6HPRN PRN IV 04/06/25 23:45 04/07/25 00:00 25 MG Morphine Sulfate 2 mg Q4HPRN PRN IV 04/08/25 15:15 04/08/25 15:44 2 MG Laboratory Results Laboratory Tests 04/06/25 06:20 Urinalysis Test 04/05/25 06:30 Urine Color Light-yellow (Yellow) Urine Clarity Clear (Clear) Urine pH 6.0 (5.0-9.0) Urine Specific [place] 1.009 (1.001-1.035) Urine Protein Negative (Negative) Urine Ketones Negative (Negative) Urine Blood Negative /uL (Negative) Urine Nitrite Negative (Negative) Urine Bilirubin Negative (Negative) Urine Urobilinogen Normal mg/dL (Negative) Urine Leukocyte Esterase Negative /uL (Negative) Urine RBC <1 /hpf (0 - 4) Urine Microscopic WBC 1 /HPF (0-5) Urine Squamous Epithelial Cells Few /hpf (<5) Urine Bacteria Few /hpf (None Seen) H Urine Glucose Normal mg/dL (Normal) Assessment/Plan Assessment/Plan 59-year-old female with a known history of hypertension, morbid obesity class three, currently bed-bound for last two weeks presented to the hospital with a mechanical fall found to have 1. Mechanical falls with a L3 transverse process fracture 2. Acute CVA with the left-sided weakness 3. Hypertension 4.morbid obesity class III -aspirin, statin, physical therapy evaluation treatment, neurology consulted -plan of care discussed with the patient who understand verbalized understanding and agreeable to plan. Plan discussed with: Patient My Orders Orders - AMPARO RUSHING MD Procedure Category Date Status Time Pt Request For Service PT 04/08/25 Logged 15:57 Date of Service: Apr 08, 2025 Billing Provider: AMPARO RUSHING MD Common Visit Codes: [id number] INP/OBS CARE(MOD) AMPARO RUSHING MD Apr 08, 2025 16:23
[2025-04-09] VITALS (8 sets, daily range): BP systolic 110–166; BP diastolic 56–98; PULSE 71–86; RESP 16–20; TEMP 97.6–98.4; O2SAT 93–98
--- NOTE | 2025-04-09 18:12 | DVHPN2 ---
Subjective Patient presented to the hospital with left-sided weakness for last two weeks. Also patient presented to the hospital with a fall from the bed. [facility] but then refused. 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 left-sided hemiplegia Medications Current Medications Medications Dose Ordered Sig/Cornelius Route Start Time Stop Time Status Last Admin Dose Admin Sodium Chloride 1,000 ml @ 120 mls/hr Q8H20M IV 04/05/25 09:30 04/08/25 12:30 120 MLS/HR Acetaminophen/ Hydrocodone Bitart 1 tab Q4HP PRN PO 04/05/25 09:30 04/09/25 15:50 1 TAB Ondansetron HCl 4 mg Q4HP PRN IV 04/05/25 09:30 Acetaminophen 650 mg Q6HP PRN PO 04/05/25 09:30 Aspirin 81 mg DAILY PO 04/05/25 14:15 04/09/25 09:42 81 MG Hydralazine HCl 10 mg Q6HP PRN IV 04/05/25 16:45 04/07/25 17:43 10 MG Atorvastatin Calcium 20 mg HS PO 04/05/25 20:45 04/08/25 21:11 20 MG Enoxaparin Sodium 40 mg DAILY SC 04/06/25 19:30 04/09/25 09:42 40 MG Diphenhydramine HCl 25 mg Q6HPRN PRN IV 04/06/25 23:45 04/07/25 00:00 25 MG Morphine Sulfate 2 mg Q4HPRN PRN IV 04/08/25 15:15 04/09/25 09:44 2 MG Laboratory Results Laboratory Tests 04/06/25 06:20 Urinalysis Test 04/05/25 06:30 Urine Color Light-yellow (Yellow) Urine Clarity Clear (Clear) Urine pH 6.0 (5.0-9.0) Urine Specific [place] 1.009 (1.001-1.035) Urine Protein Negative (Negative) Urine Ketones Negative (Negative) Urine Blood Negative /uL (Negative) Urine Nitrite Negative (Negative) Urine Bilirubin Negative (Negative) Urine Urobilinogen Normal mg/dL (Negative) Urine Leukocyte Esterase Negative /uL (Negative) Urine RBC <1 /hpf (0 - 4) Urine Microscopic WBC 1 /HPF (0-5) Urine Squamous Epithelial Cells Few /hpf (<5) Urine Bacteria Few /hpf (None Seen) H Urine Glucose Normal mg/dL (Normal) Assessment/Plan Assessment/Plan 59-year-old female with a known history of hypertension, morbid obesity class three, currently bed-bound for last two weeks presented to the hospital with a mechanical fall found to have 1. Mechanical falls with a L3 transverse process fracture 2. Acute CVA with the left-sided weakness 3. Hypertension 4.morbid obesity class III -Mr. Services consultation for [facility]SS -aspirin, statin, physical therapy evaluation treatment, neurology consulted -plan of care discussed with the patient who understand verbalized understanding and agreeable to plan. Plan discussed with: Patient My Orders Orders - AMPARO RUSHING MD Procedure Category Date Status Time Discharge DISCHARGE 04/09/25 Transmitted 17:12 Date of Service: Apr 09, 2025 Billing Provider: AMPARO RUSHING MD Common Visit Codes: [id number] INP/OBS CARE(MOD) AMPARO RUSHING MD Apr 09, 2025 18:12
[2025-04-10 01:00] VITALS: BP 154/89; PULSE 88; RESP 19; TEMP 98; O2SAT 97
[2025-04-10 05:00] VITALS: BP 128/77; PULSE 78; RESP 18; TEMP 97.7; O2SAT 92
[2025-04-10 08:00] VITALS: RESP 19
[2025-04-10 08:36] VITALS: BP 151/96; PULSE 72; RESP 19; TEMP 97.9; O2SAT 96
[2025-04-10 12:36] VITALS: BP 156/80; PULSE 68; RESP 19; TEMP 97.9; O2SAT 98
[2025-04-10] MEDS ORDERED: ASPI-325 PO (13:42)
[2025-04-10] MEDS ORDERED: ATOR40TA52 PO (13:42)
[2025-04-10] MEDS ORDERED: CLOP75TA28 PO (13:42)
[2025-04-10 16:34] VITALS: BP 108/49; PULSE 63; RESP 21; TEMP 98.6; O2SAT 96
--- NOTE | 2025-04-10 16:44 | DVHDS2 ---
Discharge Summary Date of Admission Apr 05, 2025 at 09:27 Date of Discharge: Apr 09, 2025 Labs/Diagnostic Data: Laboratory Results Test 04/06/25 06:20 04/05/25 09:45 04/05/25 06:30 White Blood Count 5.9 10^3/uL (4.4-10.8) Red Blood Count 5.08 10^6/uL (4.0-5.20) Hemoglobin 13.9 g/dL (12.2-16.2) Hematocrit 41.0 % (36.0-46.0) Mean Corpuscular Volume 80.7 fL (80.0-100.0) Mean Corpuscular Hemoglobin 27.4 pg (28.0-32.0) Mean Corpuscular Hemoglobin Concent 34.0 g/dL (32.0-36.0) Red Cell Distribution Width 14.8 % (11.8-14.3) Platelet Count 253 10^3/uL (140-450) Mean Platelet Volume 8.8 fL (6.9-10.8) Neutrophils (%) (Auto) 45.7 % (37.0-80.0) Lymphocytes (%) (Auto) 38.8 % (10.0-50.0) Monocytes (%) (Auto) 10.3 % (0.0-12.0) Eosinophils (%) (Auto) 4.2 % (0.0-7.0) Basophils (%) (Auto) 1.0 % (0.0-2.0) Neutrophils # (Auto) 2.7 10 ^3/uL (1.6-8.6) Lymphocytes # (Auto) 2.3 10 ^3/uL (0.4-5.4) Monocytes # (Auto) 0.6 10 ^3/uL (0-1.3) Eosinophils # (Auto) 0.2 10 ^3/uL (0-0.8) Basophils # (Auto) 0.1 10 ^3/uL (0-0.2) Nucleated Red Blood Cells 0.1 % Sodium Level 138 mmol/L (136-145) Potassium Level 4.0 mmol/L (3.5-5.1) Chloride Level 108 mmol/L (98-107) Carbon Dioxide Level 22 mmol/L (20-31) Anion Gap 8 (5-15) Blood Urea Nitrogen 11 mg/dL (9-23) Creatinine 0.86 mg/dL (0.550-1.02) Glomerular Filtration Rate Calc 78 mL/min (>90) BUN/Creatinine Ratio 12.8 (10.0-20.0) Serum Glucose 110 mg/dL (74-106) Calcium Level 9.1 mg/dL (8.7-10.4) Total Bilirubin 0.3 mg/dL (0.2-1.0) Aspartate Amino Transferase (AST) 19 U/L (<34) Alanine Aminotransferase (ALT) 17 U/L (7-40) Alkaline Phosphatase 102 U/L (46-116) Total Protein 6.3 g/dL (5.7-8.2) Albumin 3.7 g/dL (3.2-4.8) Triglycerides Level 113 mg/dL (< 150) Cholesterol Level 138 mg/dL (< 200) LDL Cholesterol 83 mg/dL (< 100) HDL Cholesterol 36 mg/dL (40-59) Urine Color Light-yellow (Yellow) Urine Clarity Clear (Clear) Urine pH 6.0 (5.0-9.0) Urine Specific [place] 1.009 (1.001-1.035) Urine Protein Negative (Negative) Urine Ketones Negative (Negative) Urine Blood Negative /uL (Negative) Urine Nitrite Negative (Negative) Urine Bilirubin Negative (Negative) Urine Urobilinogen Normal mg/dL (Negative) Urine Leukocyte Esterase Negative /uL (Negative) Urine RBC <1 /hpf (0 - 4) Urine Microscopic WBC 1 /HPF (0-5) Urine Squamous Epithelial Cells Few /hpf (<5) Urine Bacteria Few /hpf (None Seen) Urine Glucose Normal mg/dL (Normal) Urine Opiates Screen Neg (NEGATIVE) Urine Fentanyl Screen Neg (NEGATIVE) Urine Barbiturates Screen Neg (NEGATIVE) Urine Phencyclidine Screen Neg (NEGATIVE) Urine Amphetamines Screen Pos (NEGATIVE) Urine Benzodiazepines Screen Neg (NEGATIVE) Urine Cocaine Screen Neg (NEGATIVE) Urine Cannabinoids Screen Neg (NEGATIVE) Other Laboratory Tests 04/06/25 06:20 Brief Hx & Hospital Course: 59-year-old female with a known history of hypertension, morbid obesity class III, currently bed-bound for last two weeks presented to the hospital with a mechanical fall found to have acute /subacute CVA with the left-sided weakness. Patient also had a mechanical fall with L3 transverse process fracture. Patient was started on aspirin statin, neurology was consulted as well as spine surgery. Spine surgery does not recommend any spine surgery for L3 transverse process fracture. Patient was started on aspirin statin. Patient will be given Plavix for 21 days. Patient's home health will be arranged and patient is being discharged under stable condition. Patient is currently understand and agreeable to plan. In-house support system will be arranged as an outpatient as per case checker. Diet weight reduction and exercise counseling has been recommended. Condition at Discharge: Stable Final Diagnosis/Problems List 59-year-old female with a known history of hypertension, morbid obesity class three, currently bed-bound for last two weeks presented to the hospital with a mechanical fall found to have 1. Mechanical falls with a L3 transverse process fracture 2. Acute CVA with the left-sided weakness 3. Hypertension 4.morbid obesity class III Discharge Disposition: Home with Health Services SNF Discharge Will this Physician continue t: No Discharge Instruct/Medications Diet: Cardiac 2g Na,low cholest Activity: No Restrictions, As Tolerated Follow Up/Referral: Follow up with the PCP in 1 week Follow up with Neurology in 1-2 weeks Medications: Resume home medications Discharge Statement: "Patient was advised to return to the ER or call 911 if any headaches, dizziness, shortness of breath, chest pain, abdominal pain, bleeding, fevers, or worsening of medical condition. Patient was counseled about treatment plan, medications, possible side effects, patientverbalized understanding. All questions were answered to the best of my ability. This discharge took greater then 30 minutes in planning, reviewing documentation, counseling the patient, and discussing with other team members." ASSESSMENT ASSESSMENT Assessment 59-year-old female with a known history of hypertension, morbid obesity class three, currently bed-bound for last two weeks presented to the hospital with a mechanical fall found to have 1. Mechanical falls with a L3 transverse process fracture 2. Acute CVA with the left-sided weakness 3. Hypertension 4.morbid obesity class III Date of Service: Apr 10, 2025 Billing Provider: AMPARO RUSHING MD Common Visit Codes: 26612-DKF/OBS DISCH DAY >30min AMPARO RUSHING MD Apr 10, 2025 16:44
== END 2025-04-10 17:14 | disposition home health service (06) | DRG 45 ==
LOC: EDBD → ER 03:52 → EDUNIT# 03:52 → OVERFLOW 09:27 → TELE-WESTW 04-06 11:33
PROVIDERS: ADMIT Internal Medicine; ATTEND Internal Medicine
DX: I63.9 Cerebral infarction, unspecified (principal); R53.2 Functional quadriplegia; S32.038A Other fracture of third lumbar vertebra, initial encounter for closed fracture; G93.89 Other specified disorders of brain; G81.94 Hemiplegia, unspecified affecting left nondominant side; M47.816 Spondylosis without myelopathy or radiculopathy, lumbar region; E87.6 Hypokalemia; I10 Essential (primary) hypertension; M50.30 Other cervical disc degeneration, unspecified cervical region; E66.813 Obesity, class 3; Y93.89 Activity, other specified; Y92.89 Other specified places as the place of occurrence of the external cause; Y99.8 Other external cause status; Z68.41 Body mass index [BMI] 40.0-44.9, adult; M51.379 Other intervertebral disc degeneration, lumbosacral region without mention of lumbar back pain or lower extremity pain; J44.9 Chronic obstructive pulmonary disease, unspecified; F17.210 Nicotine dependence, cigarettes, uncomplicated; M48.061 Spinal stenosis, lumbar region without neurogenic claudication; M48.02 Spinal stenosis, cervical region; F15.90 Other stimulant use, unspecified, uncomplicated; W06.XXXA Fall from bed, initial encounter; Z74.01 Bed confinement status; Z79.82 Long term (current) use of aspirin; Z79.899 Other long term (current) drug therapy; Z80.9 Family history of malignant neoplasm, unspecified; Z83.3 Family history of diabetes mellitus; Z82.5 Family history of asthma and other chronic lower respiratory diseases; Z82.49 Family history of ischemic heart disease and other diseases of the circulatory system
CPT/HCPCS: 36415; 70450; 70551; 72131; 72141; 72148; 73590; 80048; 80053; 80061; 80307; 81001; 85025; 93306; 93886; 93971; 96372; 96374; 97110; 97163; 97530; G0378; J1885

== ENCOUNTER 2025-04-11 05:29 | Emergency (ER) | payer MEDICAID ==
[~2025-04-11] VITALS: Ht 170.2 cm; Wt 126.8 kg
[~2025-04-11 05:29] MED LIST changes: +ASPI-325 PO; +ATOR40TA52 PO; -CEPH250C PO; +CLOP75TA28 PO; -IBU600T PO
--- NOTE | 2025-04-11 06:13 | ED.PDOC ---
Back pain HPI HPI Comments 59 y/o F, with PMHx of COPD and CVA presents to the ED for CC of back pain. Patient states, that she has been experiencing back pain after s/p fall x1week ago. Patient reports, being admitted to [facility] yesterday (04/10/25) and being told to have a spinal fracture; endorses being sent home on home health with no pain Rx. Patient complains of current 10/10 back pain. Patient denies new fall, trauma, or injury. No other symptoms or modifying factors present at this time. Chief Complaint: Back Pain Time Seen by MD: 07:30 Primary Care Provider: KIARA Abrams Notes: Nurses Notes, Medications, Allergies Allergies: Coded Allergies: NO KNOWN ALLERGIES (Unverified , 03/14/25) Home Meds Active Scripts Clopidogrel Bisulfate (Plavix) 75 Mg Tab, 1 TAB PO DAILY for 21 Days, #21 TAB 1 Refill Prov:AMPARO RUSHING MD 04/10/25 Atorvastatin Calcium (ATORVASTATIN CALCIUM) 40 Mg Tab, 1 TAB PO DAILY, #60 TAB 5 Refills Prov:AMPARO RUSHING MD 04/10/25 Aspirin (Aspirin Low Dose) 81 Mg Tab, 81 MG PO DAILY for 60 Days, #60 TAB Prov:AMPARO RUSHING MD 04/10/25 Discontinued Scripts Ibuprofen Micronized (MOTRIN TABLET) 600 Mg Tb, 600 MG PO TID PRN for 3 Days, #9 TAB *Black box warning-NSAIDS can increase risk of [place] & hypertension, GI irritation, ulceration, bleed, perferation. Do not use post cardiac surgery. Use short duration/lowest effective dose. Prov:MARINA MCMAHON MD 03/18/25 Cephalexin (KEFLEX CAPSULE) 250 Mg Cp, 2 CAP PO BID for 5 Days, #20 CAP Prov:KAMERNO FREEMAN DO 03/17/25 Information Source: Patient Mode of Arrival: EMS Timing: Days Duration: Since onset Location of Back pain: (B) Cervical, (B) Lumbar, (B) Upper back Severity: Moderate Prehospital treatment: None Onset: Fall History of: Other (spinal fx) Modifying Factors: Nothing Associated signs and symptoms: None Past Medical History PAST MEDICAL HISTORY: COPD, CVA Surgical History: Denies all surgeries INDUSTRIAL EDUCATION INSTRUCTOR History: Denies all INDUSTRIAL EDUCATION INSTRUCTOR Hx Family History Family History: Reviewed,noncontributory to illness Social History Smoker: Cigarettes Alcohol: Occasionally Drugs: Methamphetamine Lives In: Home Constitutional: denies: chills, diaphoresis, fatigue, fever, malaise, sweats, weakness, others EENTM: denies: blurred vision, double vision, ear bleeding, ear discharge, ear drainage, ear pain, ear ringing, eye pain, eye redness, hearing loss, mouth pain, mouth swelling, nasal discharge, nose bleeding, nose congestion, nose pain, photophobia, tearing, throat pain, throat swelling, voice changes, others Respiratory: denies: cough, hemoptysis, orthopnea, SOB at rest, shortness of breath, SOB with excertion, stridor, wheezing, others Cardiovascular: denies: chest pain, dizzy spells, diaphoresis, Dyspnea on exertion, edema, irregular heart beat, left arm pain, lightheadedness, palpitations, PND, syncope, others Gastrointestinal: denies: abdomen distended, abdominal pain, blood streaked bowels, constipated, diarrhea, dysphagia, difficulty swallowing, hematemesis, melena, nausea, poor appetite, poor fluid intake, rectal bleeding, rectal pain, vomiting, others Genitourinary: denies: abnormal vagina bleeding, burning, dyspareunia, dysuria, flank pain, frequency, hematuria, incontinence, pain, , vagina discharge, urgency, others Neurological: denies: dizziness, fainting, headache, left sided numbness, left sided weakness, numbness, paresthesia, pre-existing deficit, right sided numbness, right sided weakness, seizure, speech problems, tingling, tremors, weakness, others Musculoskeletal: reports: back pain; denies: gout, joint pain, joint swelling, muscle pain, muscle stiffness, neck pain, others Integumetry: denies: bruises, change in color, change in hair/nails, dryness, laceration, lesions, lumps, rash, wounds, others Allergic/Immunocompromised: denies: Difficulty Healing, Frequent Infections, Hives, Itching, others Hematologic/Lymphatic: denies: anemia, blood clots, easy bleeding, easy bruising, swollen glands, others Endocrine: denies: excessive hunger, excessive sweating, excessive thirst, excessive urination, flushing, intolerance to cold, intolerance to heat, unexplained weight gain, unexplained weight loss, others Psychiatric: denies: anxiety, bipolar disorder, depression, hopeless, panic disorder, schizophrenia, sleepless, suicidal, others All Other Systems: Reviewed and Negative Physical Exam General Appearance: Moderate Distress HEENT: Normal ENT Inspection, Pharynx Normal, TMs Normal Neck: Full Range of Motion, Non-Tender, Normal, Normal Inspection Respiratory: Chest Non-Tender, Lungs Clear, No Accessory Muscle Use, No Respiratory Distress, Normal Breath Sounds Cardiovascular: No Edema, No JVD, No Murmur, No Gallop, Normal Peripheral Pulses, Regular Rate/Rhythm Breast Exam: Deferred Gastrointestinal: No Organomegaly, Non Tender, No Pulsatile Mass, Normal Bowel Sounds, Soft Genitalia: Deferred Pelvic: Deferred Rectal: Deferred Extremities: No calf tenderness, No pedal edema Musculoskeletal : Apperance: Normal Neurologic: Alert, No Motor Deficits, No Sensory Deficits Cerebellar Function: NOT DONE Reflexes: NOT DONE Skin: Dry, Normal Color, Warm Peripheral Pulses: 3+ Radial (R), 3+ Radial (L) Lymphatic: No Adenopathy Was a procedure done? Was a procedure done?: No Back Pain Differential Dx Differential Diagnosis: Fracture X-Ray, Labs, Meds, VS Vital Signs Date Time Temp Pulse Resp B/P (MAP) Pulse Ox O2 Delivery O2 Flow Rate FiO2 04/11/25 07:30 98.0 69 17 142/69 (93) 94 98.0 04/11/25 05:40 98.3 78 14 161/89 (113) 98 98.3 Current Medications Medications (Trade) Dose Ordered Sig/Cornelius Route Start Time Stop Time Status Last Admin Ketorolac Tromethamine (Toradol Injection) 30 mg ONCE ONCE IV 04/11/25 07:15 04/11/25 07:26 DC 04/11/25 07:32 Acetaminophen/ Hydrocodone Bitart ([place] 5/325MG Tab) 1 tab ONCE ONCE PO 04/11/25 07:15 04/11/25 07:16 DC 04/11/25 07:32 Patient alert. Recently seen in this ER. Was admitted for a week and discharged few days ago. Comes back a day later. No new symptoms. Vitals stable. Answering all questions. Reviewed her previous visit. Was given pain medication. Explained to the patient. Was told to follow up with her primary care physician. Was told to come back if there is any problem. Time of 1ST Reevaluation: 08:00 Reevaluation 1ST: Improved Patient Education/Counseling: Diagnosis, Treatment Family Education/Counseling: No Family Present SEPSIS Sepsis Screen Date sepsis recognized/suspect: Apr 11, 2025 Time Sepsis recognized/suspect: 539 Recent Procedure: No On Antibiotic Therapy: No Respiratory Rate >20: No Heart Rate >90: No Temp<36 C (96.8 F) or >38.3 C: No SBP <90 or MAP <65 mmHG: No New Acute Mental Status Change: No Is the patient on CPAP, BIPAP,: No Vital Signs Date Time Temp Pulse Resp B/P (MAP) Pulse Ox O2 Delivery O2 Flow Rate FiO2 04/11/25 07:30 98.0 69 17 142/69 (93) 94 98.0 04/11/25 05:40 98.3 78 14 161/89 (113) 98 98.3 Medications Medications Dose Ordered Sig/Cornelius Route Start Time Stop Time Status Last Admin Dose Admin Acetaminophen/ Hydrocodone Bitart 1 tab ONCE ONCE PO 04/11/25 07:15 04/11/25 07:16 DC 04/11/25 07:32 Ketorolac Tromethamine 30 mg ONCE ONCE IV 04/11/25 07:15 04/11/25 07:26 DC 04/11/25 07:32 Departure 1 Departure Time of Disposition: 08:05 Impression: Primary Impression: Hypertension Qualified Codes: I10 - Essential (primary) hypertension Additional Impression: Chronic pain syndrome Disposition: 01 HOME / SELF CARE / HOMELESS Condition: Good Discharged With: Self Critical Care Note Critical Care Time?: No Stability Stability form required: No Heart Score Heart Score: Heart Score Response (Comments) Value History N/A 0 EKG N/A 0 Age N/A 0 Risk Factors N/A 0 Troponin N/A 0 Total 0 I personally scribed for MARINA MCMAHON MD ([email or web address]) on 04/11/25 at 06:13. Electronically submitted by Theresa Stone ([email or web address]). I personally scribed for MARINA MCMAHON MD ([email or web address]) on 04/11/25 at 07:27. Electronically submitted by Theresa Stone [email or web address]). MARINA MCMAHON MD Apr 11, 2025 06:13
[2025-04-11 06:33] VITALS: PULSE 67; RESP 15; O2SAT 96
[2025-04-11 07:30] VITALS: TEMP 98
[2025-04-11] MEDS: HYDROcodone-ACET 5/325MG TAB PO ONE (07:32)
[2025-04-11] MEDS: KETOROLAC TROMETH 30 MG/ML 1ML VIAL IV ONE (07:32)
[2025-04-11 08:33] LABS: Urine Bacteria FEW /hpf (None Seen); Urine Blood 1+ /uL (Negative); Urine Protein, UAD TRACE (Negative); Urine Specific Gravity 1.019 (1.001-1.035); Urine Squamous Epithelial Cell FEW /hpf (<5); Urine Urobilinogen Normal (Negative); Urine WBC 1542 /HPF (0-5); Urine WBC Clumps PRESENT /hpf (None Seen)
[2025-04-11 08:54] LABS: Urine Clarity Cloudy (Clear)
[2025-04-11 08:55] LABS: Urine Color Yellow (Yellow)
[2025-04-11 09:49] VITALS: PULSE 56; RESP 69; O2SAT 99
[2025-04-11 14:00] VITALS: BP 139/65; PULSE 63; RESP 17; O2SAT 98
== END 2025-04-11 14:10 | disposition home or self-care (01) ==
LOC: ER 05:29 → EDBD 05:29 → ER 14:10
DX: G89.4 Chronic pain syndrome (principal); M54.9 Dorsalgia, unspecified; I10 Essential (primary) hypertension; J44.9 Chronic obstructive pulmonary disease, unspecified; F17.210 Nicotine dependence, cigarettes, uncomplicated; Z79.82 Long term (current) use of aspirin; Z79.899 Other long term (current) drug therapy; Z86.73 Personal history of transient ischemic attack (TIA), and cerebral infarction without residual deficits; W18.39XA Other fall on same level, initial encounter; Y93.89 Activity, other specified; Y92.89 Other specified places as the place of occurrence of the external cause; Y99.8 Other external cause status
CPT/HCPCS: 81001; 96374; 99285; J1885

== ENCOUNTER 2025-04-28 11:48 | Inpatient (IN) | payer MEDICAID ==
[~2025-04-28] VITALS: Ht 170.2 cm; Wt 118.9 kg
[2025-04-28] MEDS: SODIUM CHLORIDE 0.9% 500 ML IV ONE (12:15)
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
[2025-04-28 13:47] LABS: Nucleated Red Blood Cells % 0.2 %
[2025-04-28 13:48] LABS: Hematocrit 47.6 % (36.0-46.0); Hemoglobin 16.1 g/dL (12.2-16.2); Mean Corpuscular Hemoglobin 27.6 pg (28.0-32.0); Mean Corpuscular Volume 81.4 fL (80.0-100.0)
[2025-04-28 13:54] LABS: Chloride 106 mmol/L (98-107); Potassium 3.9 mmol/L (3.5-5.1); Sodium 139 mmol/L (136-145)
[2025-04-28 13:55] LABS: Anion Gap 10 (5-15); Carbon Dioxide 23 mmol/L (20-31)
[2025-04-28 13:59] LABS: Calcium 10.5 mg/dL (8.7-10.4)
[2025-04-28 14:00] LABS: BUN/Creatinine Ratio 14.4 (10.0-20.0); Blood Urea Nitrogen 14 mg/dL (9-23)
--- NOTE | 2025-04-28 14:04 | DVH ---
CLINICAL INDICATION: pain TECHNIQUE: 3 radiographic views of the shoulder were obtained. Comparison: None FINDINGS/IMPRESSION: Increased interstitial markings are noted right chest correlate clinically for pneumonia versus chron ic disease. Heterogeneous sclerotic changes are noted in the proximal left humerus consistent with old bone infar ct.
[2025-04-28 14:06] LABS: Glucose 122 mg/dL (74-106)
[2025-04-28 16:00] VITALS: PULSE 80; RESP 20; O2SAT 95
[2025-04-28 16:47] LABS: Urine Protein, UAD 1+ (Negative)
[2025-04-28] MEDS ORDERED: ONDANSETRON HCL 4 MG/2 ML VIAL IV PRN (19:45)
[2025-04-28] MEDS ORDERED: ACETAMINOPHEN 325 MG TAB PO PRN (19:45)
[2025-04-28 20:17] VITALS: PULSE 94; RESP 17; O2SAT 95
[2025-04-28] MEDS: cefTRIAXone 1GM/50ML D5W 50 ML IV ONE (20:28)
[2025-04-28] MEDS: HYDROcodone-ACET 5/325MG TAB PO PRN (20:54)
--- NOTE | 2025-04-28 21:13 | DVHHP2 ---
History of Present Illness Reason for Visit: Bed sores History of Present Illness 60-year-old female presents for possible bed sores. 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 Presents for evaluation of possible bed sores. Patient states having difficulty taking care of herself or getting the care that she needs by caregiver. There is no noted bed sores. Denies fever or chills. Past Medical History COPD, CVA with left-sided deficits. Review of Systems Review of Systems Review of systems are currently negative otherwise addressed in HPI. Allergies: Coded Allergies: NO KNOWN ALLERGIES (Unverified , 03/14/25) Medications Current Medications Medications Dose Ordered Sig/Cornelius Route Start Time Stop Time Status Last Admin Dose Admin Atorvastatin Calcium 40 mg HS PO 04/28/25 22:00 Ceftriaxone Sodium 50 ml @ 100 mls/hr DAILY@09 IV 04/29/25 09:00 Acetaminophen/ Hydrocodone Bitart 1 tab Q4HP PRN PO 04/28/25 19:45 04/28/25 20:54 1 TAB Ondansetron HCl 4 mg Q4HP PRN IV 04/28/25 19:45 Enoxaparin Sodium 40 mg DAILY SC 04/29/25 10:00 Acetaminophen 650 mg Q6HP PRN PO 04/28/25 19:45 Exam Vital Signs Vital Signs Date Time Temp Pulse Resp B/P (MAP) Pulse Ox O2 Delivery O2 Flow Rate FiO2 04/28/25 20:17 98.4 94 17 152/98 (116) 95 98.4 04/28/25 20:17 Room Air* 0 21 Exam Gen: 60-year-old female in no apparent distress, morbidly obese Skin: Warm, dry, normal color and texture, no rash. HEENT: Normocephalic atraumatic, mucous membranes moist and pink. Neck: Cervical and supraclavicular nodes normal without enlargement, trachea is midline, thyroid gland is normal without masses. Pulmonary: Clear to auscultation and percussion bilaterally. Cardiac: Regular rate and rhythm. No murmur Abdomen: Soft, nontender, nondistended, bowel sounds present all 4 quadrants, no guarding, no rigidity, no organomegaly. Extremities: No cyanosis, clubbing, no edema Neuro: Left-sided deficits secondary to CVA Labs/Xrays ORDERING PHYSICIAN: RONI FARRIS MD PROCEDURE(s): [facility] - L SHOULDER 2+ VIEW XRAY REASON: pain ORDER NUMBER(s): [id number], ACCESSION NUMBER(s): [id number] CLINICAL INDICATION: pain TECHNIQUE: 3 radiographic views of the shoulder were obtained. Comparison: None FINDINGS/IMPRESSION: Increased interstitial markings are noted right chest correlate clinically for pneumonia versus chronic disease. Heterogeneous sclerotic changes are noted in the proximal left humerus consistent with old bone infarct. Labs Test 04/28/25 16:20 04/28/25 13:27 Range/Units Urine Color Light-brown Yellow Urine Clarity Ex.turbid Clear Urine pH 7.0 5.0-9.0 Urine Specific [place] 1.023 1.001-1.035 Urine Protein 1+ H Negative Urine Ketones Trace Negative Urine Blood 1+ H Negative /uL Urine Nitrite 2+ H Negative Urine Bilirubin Negative Negative Urine Urobilinogen Normal Negative mg/dL Urine Leukocyte Esterase 3+ Negative /uL Urine RBC 16 0 - 4 /hpf Urine Microscopic WBC 276 H 0-5 /HPF Urine Squamous Epithelial Cells None seen <5 /hpf Urine Bacteria Mod H None Seen /hpf Urine Mucus Few None Seen Urine Glucose Normal Normal mg/dL White Blood Count 9.3 4.4-10.8 10^3/uL Red Blood Count 5.84 H 4.0-5.20 10^6/uL Hemoglobin 16.1 12.2-16.2 g/dL Hematocrit 47.6 H 36.0-46.0 % Mean Corpuscular Volume 81.4 80.0-100.0 fL Mean Corpuscular Hemoglobin 27.6 L 28.0-32.0 pg Mean Corpuscular Hemoglobin Concent 33.9 32.0-36.0 g/dL Red Cell Distribution Width 14.7 H 11.8-14.3 % Platelet Count 217 140-450 10^3/uL Mean Platelet Volume 8.2 6.9-10.8 fL Neutrophils (%) (Auto) 74.5 37.0-80.0 % Lymphocytes (%) (Auto) 15.6 10.0-50.0 % Monocytes (%) (Auto) 7.5 0.0-12.0 % Eosinophils (%) (Auto) 1.7 0.0-7.0 % Basophils (%) (Auto) 0.7 0.0-2.0 % Neutrophils # (Auto) 6.9 1.6-8.6 10 ^3/uL Lymphocytes # (Auto) 1.5 0.4-5.4 10 ^3/uL Monocytes # (Auto) 0.7 0-1.3 10 ^3/uL Eosinophils # (Auto) 0.2 0-0.8 10 ^3/uL Basophils # (Auto) 0.1 0-0.2 10 ^3/uL Nucleated Red Blood Cells 0.2 % Sodium Level 139 136-145 mmol/L Potassium Level 3.9 3.5-5.1 mmol/L Chloride Level 106 98-107 mmol/L Carbon Dioxide Level 23 20-31 mmol/L Anion Gap 10 5-15 Blood Urea Nitrogen 14 9-23 mg/dL Creatinine 0.97 0.550-1.02 mg/dL Glomerular Filtration Rate Calc 67 >90 mL/min BUN/Creatinine Ratio 14.4 10.0-20.0 Serum Glucose 122 H 74-106 mg/dL Calcium Level 10.5 H 8.7-10.4 mg/dL SEPSIS Sepsis Screen Date sepsis recognized/suspect: Apr 28, 2025 Time Sepsis recognized/suspect: 2020 Recent Procedure: No On Antibiotic Therapy: No Respiratory Rate >20: No Heart Rate >90: Yes Temp<36 C (96.8 F) or >38.3 C: No SBP <90 or MAP <65 mmHG: No New Acute Mental Status Change: No Is the patient on CPAP, BIPAP,: No Physician Orders Atorvastatin (Lipitor) (04/28/25 22:00) Ceftriaxone 1gm/50ml D5w (Rocephin) (04/29/25 09:00) Basic Metabolic Panel (04/29/25 04:00) Admit (04/28/25 19:43) Hydrocodone-Acet 5/325mg Tab ([place] 5/32 (04/28/25 19:45) Ondansetron Hcl (Zofran) (04/28/25 19:45) Enoxaparin Sodium (Lovenox) (04/29/25 10:00) Complete Blood Count (04/29/25 04:00) Cardiac Diet-2gna,Lofat,Lochol (04/29/25 Breakfast) Condition: Stable (04/28/25 19:43) Acetaminophen Tablet (Tylenol Tablet) (04/28/25 19:45) Bedrest With Bathroom Privileg (04/28/25 19:43) Vital Signs Date Time Temp Pulse Resp B/P (MAP) Pulse Ox O2 Delivery O2 Flow Rate FiO2 04/28/25 20:17 98.4 94 17 152/98 (116) 95 98.4 04/28/25 20:17 94 17 95 Room Air* 0 21 04/28/25 20:00 90 04/28/25 18:00 92 19 136/93 (107) 93 04/28/25 16:00 80 20 95 Room Air* 0 21 04/28/25 16:00 97.9 97 19 168/85 (112) 95 97.9 04/28/25 14:41 68 16 98 Room Air 04/28/25 14:41 98.7 68 16 142/87 (105) 98 98.7 Laboratory Tests Test 04/28/25 13:27 White Blood Count 9.3 10^3/uL (4.4-10.8) Medications Medications Dose Ordered Sig/Cornelius Route Start Time Stop Time Status Last Admin Dose Admin Acetaminophen/ Hydrocodone Bitart 1 tab Q4HP PRN PO 04/28/25 19:45 04/28/25 20:54 1 TAB Ceftriaxone Sodium 50 ml @ 100 mls/hr ONCE ONCE IV 04/28/25 19:45 04/28/25 20:14 DC 04/28/25 20:28 100 MLS/HR Sodium Chloride 500 ml @ 500 mls/hr Q1H ONCE IV 04/28/25 12:15 04/28/25 13:14 DC 04/28/25 12:15 500 MLS/HR Assessment/Plan Assessment/Plan Assessment Failure to thrive Urinary tract infection Morbid obesity History of CVA with left-sided deficits Bed ridden Plan Admit the patient to [facility] to the hospitalist Pradip Resume home medications Social service consult for placement Continue treatment per orders. Plan discussed with: Patient My Orders Orders - CONCHA WETZEL AGACNP Procedure Category Date Status Time Atorvastatin (Lipitor) PHA 04/28/25 In Process 22:00 Ceftriaxone 1gm/50ml PHA 04/29/25 In Process D5w (Rocephin) 09:00 Basic Metabolic Panel LAB 04/29/25 Verified 04:00 Admit ADMIT 04/28/25 Transmitted 19:43 Hydrocodone-Acet PHA 04/28/25 In Process 5/325mg Tab ([place] 19:45 Ondansetron Hcl PHA 04/28/25 In Process (Zofran) 19:45 Enoxaparin Sodium PHA 04/29/25 In Process (Lovenox) 10:00 Complete Blood Count LAB 04/29/25 Verified 04:00 Cardiac DIET 04/29/25 Transmitted Diet-2gna,Lofat,Lochol Breakfast Condition: Stable KEHINDE 04/28/25 In Process 19:43 Acetaminophen Tablet PHA 04/28/25 In Process (Tylenol Tablet) 19:45 Bedrest With Bathroom KEHINDE 04/28/25 In Process Privileg 19:43 Date of Service: Apr 28, 2025 Billing Provider: CONCHA WETZEL Common Visit Codes: [id number] INP/OBS CARE (MOD) CONCHA WETZEL Apr 28, 2025 21:13
[2025-04-28] MEDS: ATORVASTATIN 20 MG TAB PO SCH (22:04)
[2025-04-28 22:17] VITALS: RESP 18
[2025-04-28] MEDS ORDERED: HYDR1TAB97 (22:18)
[2025-04-28 22:21] VITALS: BP 163/91; PULSE 88; RESP 20; TEMP 98.3; O2SAT 97
[2025-04-29] VITALS (7 sets, daily range): BP systolic 88–163; BP diastolic 25–113; PULSE 61–101; RESP 16–19; TEMP 97.9–98.4; O2SAT 89–98
[2025-04-29 07:33] LABS: Hematocrit 45.7 % (36.0-46.0); Hemoglobin 15.6 g/dL (12.2-16.2); Mean Corpuscular Hemoglobin 27.9 pg (28.0-32.0); Mean Corpuscular Volume 81.5 fL (80.0-100.0); Nucleated Red Blood Cells % 0.1 %
[2025-04-29 07:38] LABS: Chloride 103 mmol/L (98-107); Potassium 3.6 mmol/L (3.5-5.1); Sodium 139 mmol/L (136-145)
[2025-04-29 07:39] LABS: Anion Gap 9 (5-15); Carbon Dioxide 27 mmol/L (20-31)
[2025-04-29 07:40] LABS: Calcium 10.2 mg/dL (8.7-10.4)
[2025-04-29 07:44] LABS: BUN/Creatinine Ratio 13.9 (10.0-20.0); Blood Urea Nitrogen 14 mg/dL (9-23)
[2025-04-29 07:45] LABS: Glucose 110 mg/dL (74-106)
[2025-04-29] MEDS: ENOXAPARIN SOD 40 MG/0.4 ML SYRINGE SC SCH (09:47)
[2025-04-29] MEDS: cefTRIAXone 1GM/50ML D5W 50 ML IV SCH (09:47)
--- NOTE | 2025-04-29 12:03 | DVHPN2 ---
Progress Note Date Seen: Apr 29, 2025 Medical Necessity Reason Pt with a Central, PICC or Fol: Yes The following are medically ne: Erickson Catheter Reason for erickson catheter: Strict I&O Subjective Patient reports: No new complaints Review of Systems: HEENT:Normal, CVS:Normal, RESPIRATORY:Normal, GI:Normal, :Normal, MSK:Normal, NEURO:Normal Objective vital signs Vital Sign Date Time Temp Pulse Resp B/P (MAP) Pulse Ox O2 Delivery O2 Flow Rate FiO2 04/29/25 09:00 98.2 83 16 122/92 (102) 98 98.2 04/29/25 08:00 Room Air* 0 21 Total Intake and Output 04/28/25 04/28/25 04/29/25 15:00 23:00 07:00 Intake Total 500 ml 350 ml Balance 500 ml 350 ml medications Current Medications Medications Dose Ordered Sig/Cornelius Route Start Time Stop Time Status Last Admin Dose Admin Atorvastatin Calcium 40 mg HS PO 04/28/25 22:00 04/28/25 22:04 40 MG Ceftriaxone Sodium 50 ml @ 100 mls/hr DAILY@09 IV 04/29/25 09:00 04/29/25 09:47 100 MLS/HR Acetaminophen/ Hydrocodone Bitart 1 tab Q4HP PRN PO 04/28/25 19:45 04/29/25 05:20 1 TAB Ondansetron HCl 4 mg Q4HP PRN IV 04/28/25 19:45 Enoxaparin Sodium 40 mg DAILY SC 04/29/25 10:00 04/29/25 09:47 40 MG Acetaminophen 650 mg Q6HP PRN PO 04/28/25 19:45 Examination: GENERAL:Normal, HEENT:Normal, NECK:Normal, LUNGS:Normal, CVS:Normal, ABDOMEN:Normal, MSK:Normal, SKIN:Normal, NEURO:Normal, NEURO:Abnormal (left weakness), :Normal laboratory and microbiology Laboratory Tests 04/29/25 06:34 Test 04/29/25 06:34 Range/Units Serum Glucose 110 H 74-106 mg/dL Problem List/Assessment/Plan Problem List/Assessment/Plan #1 recent cva: neuro eval #2 back pain with L2 fracture #3 morbid obesity #4 htn #5 copd #6 uti: iv rocephin advance care planning- full code- time spent 18 mins Plan discussed with: Patient Date of Service: Apr 29, 2025 Billing Provider: CONCHA HURLEY MD Common Visit Codes: [id number] INP/OBS CARE(HIGH) Secondary Visit Codes: [id number] CARE PLAN 30 MINUTES CONCHA HURLEY MD Apr 29, 2025 12:03
[2025-04-30 01:00] VITALS: PULSE 86; RESP 20; TEMP 97.8; O2SAT 97
[2025-04-30 08:00] VITALS: PULSE 86; RESP 18; O2SAT 98
[2025-04-30 09:00] VITALS: BP 152/99; PULSE 75; RESP 18; TEMP 97.8; O2SAT 96
--- NOTE | 2025-04-30 11:43 | DVHDS2 ---
Discharge Summary Date of Admission Apr 28, 2025 at 19:43 Date of Discharge: Apr 30, 2025 Labs/Diagnostic Data: Laboratory Results Test 04/29/25 06:34 04/28/25 16:20 White Blood Count 7.6 10^3/uL (4.4-10.8) Red Blood Count 5.62 10^6/uL (4.0-5.20) Hemoglobin 15.6 g/dL (12.2-16.2) Hematocrit 45.7 % (36.0-46.0) Mean Corpuscular Volume 81.5 fL (80.0-100.0) Mean Corpuscular Hemoglobin 27.9 pg (28.0-32.0) Mean Corpuscular Hemoglobin Concent 34.2 g/dL (32.0-36.0) Red Cell Distribution Width 14.9 % (11.8-14.3) Platelet Count 295 10^3/uL (140-450) Mean Platelet Volume 8.6 fL (6.9-10.8) Neutrophils (%) (Auto) 62.3 % (37.0-80.0) Lymphocytes (%) (Auto) 24.2 % (10.0-50.0) Monocytes (%) (Auto) 9.5 % (0.0-12.0) Eosinophils (%) (Auto) 3.3 % (0.0-7.0) Basophils (%) (Auto) 0.7 % (0.0-2.0) Neutrophils # (Auto) 4.7 10 ^3/uL (1.6-8.6) Lymphocytes # (Auto) 1.8 10 ^3/uL (0.4-5.4) Monocytes # (Auto) 0.7 10 ^3/uL (0-1.3) Eosinophils # (Auto) 0.2 10 ^3/uL (0-0.8) Basophils # (Auto) 0.1 10 ^3/uL (0-0.2) Nucleated Red Blood Cells 0.1 % Sodium Level 139 mmol/L (136-145) Potassium Level 3.6 mmol/L (3.5-5.1) Chloride Level 103 mmol/L (98-107) Carbon Dioxide Level 27 mmol/L (20-31) Anion Gap 9 (5-15) Blood Urea Nitrogen 14 mg/dL (9-23) Creatinine 1.01 mg/dL (0.550-1.02) Glomerular Filtration Rate Calc 64 mL/min (>90) BUN/Creatinine Ratio 13.9 (10.0-20.0) Serum Glucose 110 mg/dL (74-106) Calcium Level 10.2 mg/dL (8.7-10.4) Urine Color Light-brown (Yellow) Urine Clarity Ex.turbid (Clear) Urine pH 7.0 (5.0-9.0) Urine Specific [place] 1.023 (1.001-1.035) Urine Protein 1+ (Negative) Urine Ketones Trace (Negative) Urine Blood 1+ /uL (Negative) Urine Nitrite 2+ (Negative) Urine Bilirubin Negative (Negative) Urine Urobilinogen Normal mg/dL (Negative) Urine Leukocyte Esterase 3+ /uL (Negative) Urine RBC 16 /hpf (0 - 4) Urine Microscopic WBC 276 /HPF (0-5) Urine Squamous Epithelial Cells None seen /hpf (<5) Urine Bacteria Mod /hpf (None Seen) Urine Mucus Few (None Seen) Urine Glucose Normal mg/dL (Normal) Other Laboratory Tests 04/29/25 06:34 Brief Hx & Hospital Course: see dictated note Condition at Discharge: Fair Final Diagnosis/Problems List cva Discharge Disposition: Home Discharge Instruct/Medications Diet: Cardiac 2g Na,low cholest Activity: No Restrictions, As Tolerated Follow Up/Referral: fu with pcp in 1 wk Medications: resume home meds script to pharmacy Scheduled Aspirin (Aspirin Low Dose), 81 MG PO DAILY Atorvastatin Calcium (Atorvastatin Calcium), 1 TAB PO DAILY Clopidogrel Bisulfate (Plavix), 1 TAB PO DAILY Miscellaneous Medications Hydrocodone-Acetaminophen (Hydrocodone/Acetaminophen 5-325 mg), (Reported) Discharge Statement: "Patient was advised to return to the ER or call 911 if any headaches, dizziness, shortness of breath, chest pain, abdominal pain, bleeding, fevers, or worsening of medical condition. Patient was counseled about treatment plan, medications, possible side effects, patientverbalized understanding. All questions were answered to the best of my ability. This discharge took greater then 30 minutes in planning, reviewing documentation, counseling the patient, and discussing with other team members." ASSESSMENT ASSESSMENT Assessment cva Date of Service: Apr 30, 2025 Billing Provider: CONCHA HURLEY MD Common Visit Codes: [id number] DISCH DAY >30min CONCHA HURLEY MD Apr 30, 2025 11:43
[2025-04-30] MEDS ORDERED: NITR-87 PO (11:47)
--- NOTE | 2025-04-30 11:54 | DVHDS ---
DATE OF DISCHARGE: 04/30/2025 HISTORY OF PRESENT ILLNESS: The patient is a 60-year-old lady who was admitted with history of possible bed sores and pain in the lower back. She has history of COPD, CVA with left hemiplegia. HOSPITAL COURSE: The patient had a shoulder x-ray that showed heterogeneous sclerotic changes in the proximal left humerus. The patient had evidence of UTI and was treated with IV antibiotics. The patient had no evidence of bed sores. She will now be discharged home to resume her home medications as well as to be on Macrobid 100 mg p.o. b.i.d. for 5 days. She will follow up with her primary in 1 week. FINAL DIAGNOSES: Therefore: * UTI. * Recent CVA. * Back pain with status post previous L2 fracture. * Morbid obesity. * Hypertension. * COPD. Time spent in discharge planning and review of plan with the patient and nursing was 37 minutes. MD YASMEEN Shaikh/VITA TID: [id number] RECEIPT: [id number]
== END 2025-04-30 13:05 | disposition home or self-care (01) | DRG 421 ==
LOC: ER 11:48 → EDBD 11:48 → OVERFLOW 19:43 → WEST WING 22:07
PROVIDERS: ADMIT Internal Medicine; ATTEND Internal Medicine
DX: R62.7 Adult failure to thrive (principal); I69.354 Hemiplegia and hemiparesis following cerebral infarction affecting left non-dominant side; N30.00 Acute cystitis without hematuria; M84.48XA Pathological fracture, other site, initial encounter for fracture; M89.8X1 Other specified disorders of bone, shoulder; E66.01 Morbid (severe) obesity due to excess calories; J44.9 Chronic obstructive pulmonary disease, unspecified; F17.210 Nicotine dependence, cigarettes, uncomplicated; I10 Essential (primary) hypertension; Z79.82 Long term (current) use of aspirin; Z79.899 Other long term (current) drug therapy; Z74.01 Bed confinement status; Z68.41 Body mass index [BMI] 40.0-44.9, adult
CPT/HCPCS: 36415; 73030; 80048; 81001; 85025; 96365; G0378

== ENCOUNTER 2025-04-30 14:48 | Emergency (ER) | payer MEDICAID ==
[~2025-04-30] VITALS: Ht 170.2 cm; Wt 81.4 kg
[~2025-04-30 14:48] MED LIST changes: +HYDR1TAB97; +NITR-87 PO
[2025-04-30] MEDS: HYDROcodone-ACET 10/325MG TAB PO ONE ×2 (16:10→21:17)
[2025-04-30 16:30] VITALS: PULSE 84; RESP 12; O2SAT 95
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
[2025-04-30 19:46] VITALS: PULSE 97; RESP 20; O2SAT 95
[2025-04-30] MEDS ORDERED: HYDROcodone-ACET 10/325MG TAB PO PRN (20:30)
[2025-04-30] MEDS: diphenhdrAMINE HCL 25 MG CAP PO ONE (20:57)
[2025-05-01] MEDS: HYDROcodone-ACET 10/325MG TAB PO PRN (00:23)
[2025-05-01 07:30] VITALS: PULSE 91; RESP 20; TEMP 97.6; O2SAT 95
[2025-05-01 10:00] VITALS: BP 164/71; RESP 12; O2SAT 94
[2025-05-01 12:00] VITALS: PULSE 86
== END 2025-05-01 15:40 ==
LOC: ER 14:48
DX: E66.01 Morbid (severe) obesity due to excess calories (principal); M79.18 Myalgia, other site; F17.210 Nicotine dependence, cigarettes, uncomplicated; J44.9 Chronic obstructive pulmonary disease, unspecified; Z79.899 Other long term (current) drug therapy
CPT/HCPCS: 97163

== ENCOUNTER 2025-05-23 08:59 | Inpatient (IN) | payer MEDICAID ==
[~2025-05-23] VITALS: Ht 170.2 cm; Wt 115.5 kg
--- NOTE | 2025-05-23 09:27 | ED.PDOC ---
History of Present Illness HPI Comments This is a 60-year-old female with past medical history of hypertension, chronic back pain with degenerative disc disease, COPD, CVA with left-sided weakness presented to the ED via EMS with a chief complaint of left neck pain, sore throat, runny nose for last 1 day prior to this visit. 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 She denies chest pain, shortness of breath, nausea, vomiting, abdominal pain, dysuria, hematuria or any changes in bowel habit. PCP: Dr. Amador Chief Complaint: Face pain Time Seen by MD: 09:16 Primary Care Provider: KIARA Allergies: Coded Allergies: NO KNOWN ALLERGIES (Unverified , 03/14/25) Home Meds Active Scripts Nitrofurantoin Monohydrate Mac (Macrobid) 100 Mg Cap, 100 MG PO BID for 5 Days, #10 CAP Prov:CONCHA HURLEY MD 04/30/25 Clopidogrel Bisulfate (Plavix) 75 Mg Tab, 1 TAB PO DAILY for 21 Days, #21 TAB 1 Refill Prov:AMPARO RUSHING MD 04/10/25 Atorvastatin Calcium (ATORVASTATIN CALCIUM) 40 Mg Tab, 1 TAB PO DAILY, #60 TAB 5 Refills Prov:AMPARO RUSHING MD 04/10/25 Aspirin (Aspirin Low Dose) 81 Mg Tab, 81 MG PO DAILY for 60 Days, #60 TAB Prov:AMPARO RUSHING MD 04/10/25 Reported Medications Hydrocodone-Acetaminophen (Hydrocodone/Acetaminophen 5-325 mg) 1 Tab Tab 04/28/25 Information Source: Patient Mode of Arrival: EMS Severity: Moderate Timing: Days Duration: Since onset Prehospital treatment: None Past Medical History PAST MEDICAL HISTORY: COPD, CVA, HTN Surgical History: Denies all surgeries AURICULAR THERAPIST History: Denies all AURICULAR THERAPIST Hx Family History Family History: Reviewed,noncontributory to illness Social History Smoker: Cigarettes Alcohol: Occasionally Drugs: Methamphetamine Lives In: Home Constitutional: reports: fatigue; denies: chills, diaphoresis, fever, malaise, sweats, weakness, others EENTM: reports: ear pain, nasal discharge, nose congestion, throat pain, others (Left neck pain); denies: blurred vision, double vision, ear bleeding, ear discharge, ear drainage, ear ringing, eye pain, eye redness, hearing loss, mouth pain, mouth swelling, nose bleeding, nose pain, photophobia, tearing, throat swelling, voice changes Respiratory: denies: cough, hemoptysis, orthopnea, SOB at rest, shortness of breath, SOB with excertion, stridor, wheezing, others Cardiovascular: denies: chest pain, dizzy spells, diaphoresis, Dyspnea on exertion, edema, irregular heart beat, left arm pain, lightheadedness, palpitations, PND, syncope, others Gastrointestinal: denies: abdomen distended, abdominal pain, blood streaked bowels, constipated, diarrhea, dysphagia, difficulty swallowing, hematemesis, melena, nausea, poor appetite, poor fluid intake, rectal bleeding, rectal pain, vomiting, others Genitourinary: denies: abnormal vagina bleeding, burning, dyspareunia, dysuria, flank pain, frequency, hematuria, incontinence, pain, , vagina discharge, urgency, others Neurological: denies: dizziness, fainting, headache, left sided numbness, left sided weakness, numbness, paresthesia, pre-existing deficit, right sided numbness, right sided weakness, seizure, speech problems, tingling, tremors, weakness, others Musculoskeletal: reports: neck pain; denies: back pain, gout, joint pain, joint swelling, muscle pain, muscle stiffness, others Integumetry: denies: bruises, change in color, change in hair/nails, dryness, laceration, lesions, lumps, rash, wounds, others Allergic/Immunocompromised: denies: Difficulty Healing, Frequent Infections, Hives, Itching, others Hematologic/Lymphatic: denies: anemia, blood clots, easy bleeding, easy bruising, swollen glands, others Endocrine: denies: excessive hunger, excessive sweating, excessive thirst, excessive urination, flushing, intolerance to cold, intolerance to heat, unexplained weight gain, unexplained weight loss, others Psychiatric: denies: anxiety, bipolar disorder, depression, hopeless, panic disorder, schizophrenia, sleepless, suicidal, others Physical Exam General Appearance: Mild Distress HEENT: Normal ENT Inspection, Pharynx Normal, TMs Normal Neck: Full Range of Motion, Non-Tender, Normal, Normal Inspection Respiratory: Chest Non-Tender, Lungs Clear, No Accessory Muscle Use, No Respiratory Distress, Normal Breath Sounds Cardiovascular: No Edema, No JVD, No Murmur, No Gallop, Normal Peripheral Pulses, Regular Rate/Rhythm Breast Exam: Deferred Gastrointestinal: No Organomegaly, Non Tender, No Pulsatile Mass, Normal Bowel Sounds, Soft Genitalia: Deferred Pelvic: Deferred Rectal: Deferred Extremities: No calf tenderness, Normal capillary refill, Normal inspection, Normal range of motion, Non-tender, No pedal edema Neurologic: process consultant II-XII nml as Tested, Other (Left-sided weakness) Cerebellar Function: NOT DONE Reflexes: NOT DONE Skin: NOT DONE Peripheral Pulses: 2+ carotid (R), 2+ carotid (L), 2+ femoral (R), 2+ femoral (L), 2+ dorsalis pedis (R), 2+ dorsalis pedis (L), 2+ Radial (R), 2+ Radial (L), 2+ Brachial (R), 2+ Brachial (L) Lymphatic: NOT DONE Was a procedure done? Was a procedure done?: No Differential Dx Considerations may include: Pneumonitis, flu-like symptoms, referred pain from the left shoulder lesion, CHF, pulmonary fibrosis, osteochondroma of left shoulder X-Ray, Labs, Meds, VS Vital Signs Date Time Temp Pulse Resp B/P (MAP) Pulse Ox O2 Delivery O2 Flow Rate FiO2 05/23/25 10:10 102 16 97 Room Air 05/23/25 10:10 97.6 102 16 128/64 (85) 97 97.6 05/23/25 09:21 97.8 87 15 108/67 98 97.8 Lab Test 05/23/25 09:50 Range/Units White Blood Count 7.0 4.4-10.8 10^3/uL Red Blood Count 5.27 H 4.0-5.20 10^6/uL Hemoglobin 14.7 12.2-16.2 g/dL Hematocrit 43.5 36.0-46.0 % Mean Corpuscular Volume 82.5 80.0-100.0 fL Mean Corpuscular Hemoglobin 27.8 L 28.0-32.0 pg Mean Corpuscular Hemoglobin Concent 33.7 32.0-36.0 g/dL Red Cell Distribution Width 15.6 H 11.8-14.3 % Platelet Count 194 140-450 10^3/uL Mean Platelet Volume 8.9 6.9-10.8 fL Neutrophils (%) (Auto) 70.9 37.0-80.0 % Lymphocytes (%) (Auto) 18.3 10.0-50.0 % Monocytes (%) (Auto) 7.9 0.0-12.0 % Eosinophils (%) (Auto) 2.4 0.0-7.0 % Basophils (%) (Auto) 0.5 0.0-2.0 % Neutrophils # (Auto) 4.9 1.6-8.6 10 ^3/uL Lymphocytes # (Auto) 1.3 0.4-5.4 10 ^3/uL Monocytes # (Auto) 0.5 0-1.3 10 ^3/uL Eosinophils # (Auto) 0.2 0-0.8 10 ^3/uL Basophils # (Auto) 0 0-0.2 10 ^3/uL Nucleated Red Blood Cells 0.1 % Sodium Level 138 136-145 mmol/L Potassium Level 3.6 3.5-5.1 mmol/L Chloride Level 105 98-107 mmol/L Carbon Dioxide Level 24 20-31 mmol/L Anion Gap 9 5-15 Blood Urea Nitrogen 16 9-23 mg/dL Creatinine 0.89 0.550-1.02 mg/dL Glomerular Filtration Rate Calc 75 >90 mL/min BUN/Creatinine Ratio 18.0 10.0-20.0 Serum Glucose 120 H 74-106 mg/dL Calcium Level 9.2 8.7-10.4 mg/dL Current Medications Medications (Trade) Dose Ordered Sig/Cornelius Route Start Time Stop Time Status Last Admin Ketorolac Tromethamine (Toradol Injection) 15 mg ONCE ONCE IV 05/23/25 09:30 05/23/25 09:31 DC 05/23/25 10:30 X-Ray, Labs, Meds, VS Comment ORDERING PHYSICIAN: KYRIE KUHN RESIDENT PROCEDURE(s): CXRP - CHEST PORTABLE REASON: chest pain ORDER NUMBER(s): [id number], ACCESSION NUMBER(s): [id number] CLINICAL INFORMATION: chest pain. TECHNIQUE: Single AP portable chest radiograph was obtained. COMPARISON: None FINDINGS: Lungs: Mild bilateral interstitial opacities. Atelectasis in the lung bases. No focal consolidation. Cardiac: Heart size is within normal limits. Pulmonary vasculature: Mild prominence of the pulmonary vasculature. Mediastinum/aubrie: Unremarkable. Bones: No acute osseous abnormality identified. Lobulated intraosseous lesion in the left proximal humerus, likely a benign enchondroma, unchanged compared to prior shoulder radiographs. Other: No other significant findings. IMPRESSION: 1. Interstitial opacities of uncertain chronicity, may be chronic and related to interstitial lung disease. Interstitial pulmonary edema can not be excluded in the appropriate clinical setting. 2. Prominence of the pulmonary vasculature suggesting a degree of pulmonary vascular congestion. Images Reviewed?: Images reviewed and evaluated by me Time of 1ST Reevaluation: 10:57 Reevaluation 1ST: Improved Patient Education/Counseling: Diagnosis, Treatment Family Education/Counseling: No Family Present Comments This is a 60-year-old female with past medical history of COPD, CVA with left- sided weakness presented to the ED with a chief complaint of severe left-sided neck pain, sore throat, flu-like symptoms for last 1 day prior to this visit. Physical examination revealed tenderness in the left side of the neck, lung sounds are clear. CBC and BMP were unremarkable Chest x-ray revealed pulmonary vascular congestion, fibrosis, features of possible pneumonitis and Lobulated intraosseous lesion in the left proximal humerus, likely a benign enchondroma. Initially the patient was given Toradol 15 mg IV once for neck pain The patient has a history of methamphetamine abuse and pending urinalysis and UDS. The patient needs inpatient admission for continuation steroid and IV antibiotics for possible treatment of pneumonia versus pneumonitis and also further evaluation of left humerus lesion. SEPSIS Sepsis Screen Date sepsis recognized/suspect: May 23, 2025 Time Sepsis recognized/suspect: 909 Recent Procedure: No On Antibiotic Therapy: No Respiratory Rate >20: No Heart Rate >90: No Temp<36 C (96.8 F) or >38.3 C: No SBP <90 or MAP <65 mmHG: No New Acute Mental Status Change: No Is the patient on CPAP, BIPAP,: No Physician Orders Urinalysis (05/23/25 09:23) Chest Portable (05/23/25 09:23) Drug Screen (05/23/25 09:23) Covid19 Antigen [place] (05/23/25 ) Rapid Influenza A&B (05/23/25 10:28) Methylprednisolone Sod Succ (Solu Medrol (05/23/25 11:00) Ceftriaxone 1gm/50ml D5w (Rocephin) (05/23/25 11:00) B-Type Natriuretic Peptide (05/23/25 10:55) Vital Signs Date Time Temp Pulse Resp B/P (MAP) Pulse Ox O2 Delivery O2 Flow Rate FiO2 05/23/25 10:10 102 16 97 Room Air 05/23/25 10:10 97.6 102 16 128/64 (85) 97 97.6 05/23/25 09:21 97.8 87 15 108/67 98 97.8 Laboratory Tests Test 05/23/25 09:50 White Blood Count 7.0 10^3/uL (4.4-10.8) Medications Medications Dose Ordered Sig/Cornelius Route Start Time Stop Time Status Last Admin Dose Admin Ketorolac Tromethamine 15 mg ONCE ONCE IV 05/23/25 09:30 05/23/25 09:31 DC 05/23/25 10:30 Departure 1 Departure Time of Disposition: 11:00 Impression: Primary Impression: Pneumonitis Additional Impression: Left shoulder pain Disposition: 30 STILL A PATIENT Admit to: Med Surg Condition: Guarded Critical Care Note Critical Care Time?: No Stability Stability form required: KYRIE Torres RESIDENT May 23, 2025 09:27
--- NOTE | 2025-05-23 10:09 | DVH ---
CLINICAL INFORMATION: chest pain. TECHNIQUE: Single AP portable chest radiograph was obtained. COMPARISON: None FINDINGS: Lungs: Mild bilateral interstitial opacities. Atelectasis in the lung bases. No focal consolidation. Cardiac: Heart size is within normal limits. Pulmonary vasculature: Mild prominence of the pulmonary vasculature. Mediastinum/aubrie: Unremarkable. Bones: No acute osseous abnormality identified. Lobulated intraosseous lesion in the left proximal hu merus, likely a benign enchondroma, unchanged compared to prior shoulder radiographs. Other: No other significant findings. IMPRESSION: 1. Interstitial opacities of uncertain chronicity, may be chronic and related to interstitial lung di sease. Interstitial pulmonary edema can not be excluded in the appropriate clinical setting. 2. Prominence of the pulmonary vasculature suggesting a degree of pulmonary vascular congestion.
[2025-05-23 10:12] LABS: Hematocrit 43.5 % (36.0-46.0); Hemoglobin 14.7 g/dL (12.2-16.2); Mean Corpuscular Hemoglobin 27.8 pg (28.0-32.0); Mean Corpuscular Volume 82.5 fL (80.0-100.0); Nucleated Red Blood Cells % 0.1 %
[2025-05-23 10:26] LABS: Chloride 105 mmol/L (98-107); Potassium 3.6 mmol/L (3.5-5.1); Sodium 138 mmol/L (136-145)
[2025-05-23 10:27] LABS: Anion Gap 9 (5-15); Calcium 9.2 mg/dL (8.7-10.4); Carbon Dioxide 24 mmol/L (20-31)
[2025-05-23] MEDS: KETOROLAC TROMETH 30 MG/ML 1ML VIAL IV ONE (10:30)
[2025-05-23 10:32] LABS: BUN/Creatinine Ratio 18.0 (10.0-20.0); Blood Urea Nitrogen 16 mg/dL (9-23); Glucose 120 mg/dL (74-106)
[2025-05-23] MEDS: methylPREDNISolone SOD SUCC 40 MG/ML VL IV ONE (12:00)
[2025-05-23] MEDS: cefTRIAXone 1GM/50ML D5W 50 ML IV ONE (12:00)
[2025-05-23] MEDS ORDERED: DOCUSATE SOD 100 MG CAP PO PRN (12:45)
[2025-05-23] MEDS ORDERED: ONDANSETRON HCL 4 MG/2 ML VIAL IV PRN (12:45)
[2025-05-23] MEDS ORDERED: MORPHINE SULFATE INJ 2 MG/ml SYRG IV PRN (12:45)
[2025-05-23] MEDS ORDERED: TEMAZEPAM 15 MG CAP PO PRN (12:45)
[2025-05-23] MEDS ORDERED: NITROGLYCERIN 0.4 MG SL TAB SL PRN (12:45)
--- NOTE | 2025-05-23 13:34 | DVH ---
Exam: US SOFT TISSUE NECK Date: 05/23/2025 12:50 PM Clinical History: Left jaw swelling Comparison: US CAROTID DUPLX W COLOR DOP on DOS: 04/05/25, MRI CERVICAL WO CONTRAST on DOS: 04/05/25 Technique: Targeted sonographic evaluation of the soft tissues of the left mandible was obtained utilizing shiv amadou and color Doppler imaging. Findings: There is no evidence for drainable collection. There is no evidence for solid or cystic mass in the site. No vascular abnormalities identified at this site. IMPRESSION: No definite sonographic abnormality is identified in the soft tissues of the left mandible.
[2025-05-23 13:47] LABS: COVID19 ANTIGEN SOFIA FIA NEGATIVE (NEGATIVE)
[2025-05-23 15:22] VITALS: PULSE 103; RESP 14; O2SAT 94
[2025-05-23] MEDS: AMPICILLIN & SULBACTAM SODIUM 3 GM in SODIUM CHL 0.9% 100 ML IV SCH (16:33)
[2025-05-23 16:49] LABS: Urine Protein, UAD 1+ (Negative)
[2025-05-23 17:04] LABS: Amphetamine Screen, Urine Pos (NEGATIVE); Barbiturate Scree,Urine Neg (NEGATIVE); Benzodiazephine Screen, Urine Pos (NEGATIVE); Cannabinoid Screen, Urine Neg (NEGATIVE); Cocaine Screen, Urine Neg (NEGATIVE); Opiate Scree,Urine Pos (NEGATIVE); Phencyclidine Screen, Urine Neg (NEGATIVE)
--- NOTE | 2025-05-23 17:54 | DVHHP2 ---
History of Present Illness Reason for Visit: Left neck pain History of Present Illness 60-year-old female with a past medical history significant for enchondroma of the left humerus, recent CVA with residual left-sided weakness, hypertension, back pain status post L2 surgery, morbid obesity, and COPD, presents via paramedics with complaints of left-sided neck pain, sore throat, and runny nose, all beginning earlier today. Patient has been bedbound since her stroke in April 2025. She was recently discharged on April 30, 2025, following hospitalization for a urinary tract infection. On her last admission, echocardiogram performed on April 06, 2025, showed EF 65%. She received Toradol in the ED. CBC was unrema rkable, CMP was remarkable, and chest X-ray showed findings suggestive of interstitial lung disease versus pulmonary vascular congestion. On examination, she points to tenderness over the left side of her neck, noting she has never had a lump in this area before. No emergent imaging was performed prior to admission. Carotid ultrasound from April 05, 2025, revealed no stenosis in the left or right carotid arteries. She is currently bedbound at baseline. will admit for further workup will provide unasyn. Past Medical History See HPI above Past Surgical History See HPI above Family History Reviewed, non-contributory to the management of this case. Past Social History Unable to assess social history Review of Systems Constitutional: No: Fever, Chills, Sweats, Weakness, Malaise, Other Eyes: No: Pain, Vision change, Conjunctivae inflammation, Eyelid inflammation, Other, Redness ENT: Other (left side of neck swelling ); No: Ear pain, Ear discharge, Nose pain, Nose discharge, Nose congestion, Mouth pain, Mouth swelling, Throat pain, Throat swelling Respiratory: No: Cough, Dry, Shortness of breath, SOB with excertion, Wheezing, Hemoptysis, Pleuritic Pain, Sputum, Wheezing, Other Cardiovascular: No: Chest Pain, Palpitations, Orthopnea, Paroxysmal Noc. Dyspnea, Edema, Lt Headedness, Other Gastrointestinal: No: Nausea, Vomiting, Abdominal Pain, Diarrhea, Constipation, Melena, Hematochezia, Other Genitourinary: No Dysuria, No Frequency, No Incontinence, No Hematuria, No Retention, No Other Musculoskeletal: No: other, neck pain, shoulder pain, arm pain, back pain, hand pain, leg pain, foot pain Skin: No: Rash, Lesions, Jaundice, Bruising, Other Neurological: Weakness; No: Numbness, Incoordination, Change in speech, C onfusion, Seizures, Other Allergies: Coded Allergies: NO KNOWN ALLERGIES (Unverified , 03/14/25) Medications Current Medications Medications Dose Ordered Sig/Cornelius Route Start Time Stop Time Status Last Admin Dose Admin Aspirin 81 mg DAILY PO 05/24/25 10:00 Clopidogrel Bisulfate 75 mg DAILY PO 05/24/25 10:00 Atorvastatin Calcium 40 mg DAILY PO 05/24/25 10:00 Temazepam 15 mg QHSP PRN PO 05/23/25 12:45 Ondansetron HCl 4 mg Q4HP PRN IV 05/23/25 12:45 Docusate Sodium 100 mg BIDPRN PRN PO 05/23/25 12:45 Morphine Sulfate 2 mg Q4HPRN PRN IV 05/23/25 12:45 Nitroglycerin 0.4 mg Q5MINP PRN SL 05/23/25 12:45 Ampicillin Sodium/ Sulbactam Sodium 3 gm/Sodium Chloride 100 ml @ 100 mls/hr Q6H IV 05/23/25 12:45 05/23/25 16:33 100 MLS/HR Exam Vital Signs Vital Signs Date Time Temp Pulse Resp B/P (MAP) Pulse Ox O2 Delivery O2 Flow Rate FiO2 05/23/25 16:00 108 14 139/78 (98) 98 05/23/25 15:22 99.6 99.6 05/23/25 15:22 Room Air* 0 21 General Appearance: Alert, Oriented X3, No acute distress HEENT: Atraumatic, PERRLA, EOMI, Mucous membr. moist/pink, Other (left lateral mandibular with mass felt ttp upon palpipation, no heat no erythema no skin color changes) Respiratory: Clear to auscultation, Normal air movement Cardiovascular: Regular rate, Normal S1, Normal S2, No murmurs Abdominal: Normal bowel sounds, Soft, No tenderness, No hepatospenomegaly, No masses Extremities: No clubbing, No cyanosis, No edema, Normal pulses, No tenderness/swelling Skin: No rashes, No breakdown, No significant lesion Neuro: Other (left side weakness from stroke in 04/2025) Psych/Mental Status: Mental status NL, Mood NL Labs/Xrays I reviewed labs, imaging CT scan abdomen pelvis, EKG and all diagnostic studies on this patient from ED records and the medical chart Labs Test 05/23/25 15:41 05/23/25 12:07 05/23/25 09:50 Range/Units Urine Color Light-orange Yellow Urine Clarity Ex.turbid Clear Urine pH 5.5 5.0-9.0 Urine Specific [place] 1.022 1.001-1.035 Urine Protein 1+ H Negative Urine Ketones Negative Negative Urine Blood 1+ H Negative /uL Urine Nitrite 2+ H Negative Urine Bilirubin Negative Negative Urine Urobilinogen Normal Negative mg/dL Urine Leukocyte Esterase 3+ Negative /uL Urine RBC 38 0 - 4 /hpf Urine Microscopic WBC 736 H 0-5 /HPF Urine Squamous Epithelial Cells Few <5 /hpf Urine Bacteria Many H None Seen /hpf Urine Mucus Few None Seen Urine Glucose Normal Normal mg/dL Urine Opiates Screen Pos NEGATIVE Urine Fentanyl Screen Neg NEGATIVE Urine Barbiturates Screen Neg NEGATIVE Urine Phencyclidine Screen Neg NEGATIVE Urine Amphetamines Screen Pos NEGATIVE Urine Benzodiazepines Screen Pos NEGATIVE Urine Cocaine Screen Neg NEGATIVE Urine Cannabinoids Screen Neg NEGATIVE Influenza Type A Antigen Negative Negative Influenza Type B Antigen Negative Negative SARS-CoV-2 Antigen (Rapid) Negative NEGATIVE White Blood Count 7.0 4.4-10.8 10^3/uL Red Blood Count 5.27 H 4.0-5.20 10^6/uL Hemoglobin 14.7 12.2-16.2 g/dL Hematocrit 43.5 36.0-46.0 % Mean Corpuscular Volume 82.5 80.0-100.0 fL Mean Corpuscular Hemoglobin 27.8 L 28.0-32.0 pg Mean Corpuscular Hemoglobin Concent 33.7 32.0-36.0 g/dL Red Cell Distribution Width 15.6 H 11.8-14.3 % Platelet Count 194 140-450 10^3/uL Mean Platelet Volume 8.9 6.9-10.8 fL Neutrophils (%) (Auto) 70.9 37.0-80.0 % Lymphocytes (%) (Auto) 18.3 10.0-50.0 % Monocytes (%) (Auto) 7.9 0.0-12.0 % Eosinophils (%) (Auto) 2.4 0.0-7.0 % Basophils (%) (Auto) 0.5 0.0-2.0 % Neutrophils # (Auto) 4.9 1.6-8.6 10 ^3/uL Lymphocytes # (Auto) 1.3 0.4-5.4 10 ^3/uL Monocytes # (Auto) 0.5 0-1.3 10 ^3/uL Eosinophils # (Auto) 0.2 0-0.8 10 ^3/uL Basophils # (Auto) 0 0-0.2 10 ^3/uL Nucleated Red Blood Cells 0.1 % Sodium Level 138 136-145 mmol/L Potassium Level 3.6 3.5-5.1 mmol/L Chloride Level 105 98-107 mmol/L Carbon Dioxide Level 24 20-31 mmol/L Anion Gap 9 5-15 Blood Urea Nitrogen 16 9-23 mg/dL Creatinine 0.89 0.550-1.02 mg/dL Glomerular Filtration Rate Calc 75 >90 mL/min BUN/Creatinine Ratio 18.0 10.0-20.0 Serum Glucose 120 H 74-106 mg/dL Calcium Level 9.2 8.7-10.4 mg/dL B-Type Natriuretic Peptide 5.56 0-100 pg/mL SEPSIS Sepsis Screen Date sepsis recognized/suspect: May 23, 2025 Time Sepsis recognized/suspect: 1521 Recent Procedure: No On Antibiotic Therapy: No Respiratory Rate >20: No Heart Rate >90: Yes Temp<36 C (96.8 F) or >38.3 C: No SBP <90 or MAP <65 mmHG: No New Acute Mental Status Change: No Is the patient on CPAP, BIPAP,: No Physician Orders Soft Tissue Neck (05/23/25 12:44) Aspirin Enteric Coated Tablet (Ecotrin E (05/24/25 10:00) Clopidogrel Bisulfate (Plavix) (05/24/25 10:00) Atorvastatin (Lipitor) (05/24/25 10:00) Turn And Position Q2HR (05/23/25 12:44) Admit (05/23/25 12:44) Allergies (05/23/25 12:44) Code Status (05/23/25 12:44) Temazepam (Restoril) (05/23/25 12:45) Ondansetron Hcl (Zofran) (05/23/25 12:45) Docusate Sodium Capsule (Colace Capsule) (05/23/25 12:45) Complete Blood Count (05/24/25 04:00) Comprehensive Metabolic Panel (05/24/25 04:00) Npo (Nothing By Mouth) Diet (05/23/25 Lunch) Condition: Stable (05/23/25 12:44) Bedrest With Bathroom Privileg (05/23/25 12:44) Morphine Sulfate Injection (05/23/25 12:45) Sequential Compression Device (05/23/25 ) Nitroglycerin Sublingual (Ntrostat Subli (05/23/25 12:45) Stat Ekg For Chest Pain (05/23/25 12:44) Notify Md Of Changes From Base (05/23/25 12:44) Country Manager For 24 Hours (05/23/25 12:44) Emergency Dysrhythmia Protocol (05/23/25 12:44) Rhythm Strips Once Every Shift (05/23/25 12:44) Oxygen By Nasal Cannula (05/23/25 12:44) Maintain Patent Airway (05/23/25 12:44) Ampicillin & Sulbactam Sodium (Unasyn) (05/23/25 12:45) Communication Order (05/23/25 12:44) Goldstein Catheters (05/23/25 ) Neck With Contrast Soft (05/23/25 17:43) Vital Signs Date Time Temp Pulse Resp B/P (MAP) Pulse Ox O2 Delivery O2 Flow Rate FiO2 05/23/25 16:00 108 14 139/78 (98) 98 05/23/25 15:22 99.6 103 14 150/86 (107) 94 99.6 05/23/25 15:22 103 14 94 Room Air* 0 21 05/23/25 11:38 97.9 106 20 113/63 (80) 93 97.9 05/23/25 10:10 102 16 97 Room Air 05/23/25 10:10 97.6 102 16 128/64 (85) 97 97.6 Laboratory Tests Test 05/23/25 09:50 White Blood Count 7.0 10^3/uL (4.4-10.8) Medications Medications Dose Ordered Sig/Cornelius Route Start Time Stop Time Status Last Admin Dose Admin Ampicillin Sodium/ Sulbactam Sodium 3 gm/Sodium Chloride 100 ml @ 100 mls/hr Q6H IV 05/23/25 12:45 05/23/25 16:33 100 MLS/HR Ceftriaxone Sodium 50 ml @ 100 mls/hr ONCE ONCE IV 05/23/25 11:00 05/23/25 11:29 DC 05/23/25 12:00 100 MLS/HR Ketorolac Tromethamine 15 mg ONCE ONCE IV 05/23/25 09:30 05/23/25 09:31 DC 05/23/25 10:30 15 MG Methylprednisolone Sodium Succinate 40 mg ONCE ONCE IV 05/23/25 11:00 05/23/25 11:11 DC 05/23/25 12:00 40 MG Assessment/Plan Assessment/Plan 60 yr old male with Left-sided neck pain with localized tenderness in a bedbound patient with recent CVA, requiring further evaluation to rule out infectious, vascular, or structural causes. acute Left Neck Pain and Tenderness mass etiology unclear Order soft tissue ultrasound of the neck Monitor for signs of infection, lymphadenopathy, or mass lesion Pain control with acetaminophen and PRN opioids as needed Warm compresses to affected area as tolerated ordered unasyn Recent CVA with Left-Sided Weakness bedbound Continue secondary stroke prevention measures PT/OT evaluation if tolerated DVT prophylaxis given immobility COPD stable Continue inhalers and home respiratory regimen Monitor oxygen saturation Hypertension chronic Continue home antihypertensives, monitor BP Adjust regimen as needed Morbid Obesity Nutritional support as tolerated CHRONIC PROBLEM LIST Enchondroma of left humerus Recent CVA with left hemiparesis Hypertension Back pain s/p L2 surgery COPD Morbid obesity FEN / PPx Fluids: IV fluids PRN Electrolytes: Monitor and replace as needed Nutrition: Regular diet as tolerated DVT Prophylaxis: Enoxaparin 40 mg SC daily GI Prophylaxis: Pantoprazole 40 mg PO daily Disposition: Admit for further evaluation and management of left-sided neck pain and tenderness in the context of recent stroke and multiple comorbidities. Pending ultrasound and additional diagnostic workup. Plan discussed with: Patient My Orders Orders - JAIRO SALAZAR DNP Procedure Category Date Status Time Soft Tissue Neck US 05/23/25 Resulted 12:44 Aspirin Enteric PHA 05/24/25 In Process Coated Tablet 10:00 Clopidogrel Bisulfate PHA 05/24/25 In Process (Plavix) 10:00 Atorvastatin (Lipitor) PHA 05/24/25 In Process 10:00 Turn And Position KEHINDE 05/23/25 In Process 12:44 Admit ADMIT 05/23/25 Transmitted 12:44 Allergies KEHINDE 05/23/25 In Process 12:44 Code Status CODE 05/23/25 Transmitted 12:44 Temazepam (Restoril) PHA 05/23/25 In Process 12:45 Ondansetron Hcl PHA 05/23/25 In Process (Zofran) 12:45 Docusate Sodium PHA 05/23/25 In Process Capsule (Colace 12:45 Complete Blood Count LAB 05/24/25 Verified 04:00 Comprehensive LAB 05/24/25 Verified Metabolic Panel 04:00 Npo (Nothing By DIET 05/23/25 Transmitted Mouth) Diet Lunch Condition: Stable KEHINDE 05/23/25 In Process 12:44 Bedrest With Bathroom KEHINDE 05/23/25 In Process Privileg 12:44 Morphine Sulfate PHA 05/23/25 In Process Injection 12:45 Sequential KEHINDE 05/23/25 In Process Compression Device Nitroglycerin PHA 05/23/25 In Process Sublingual (Ntrostat 12:45 Stat Ekg For Chest KEHINDE 05/23/25 In Process Pain 12:44 Notify Md Of Changes KEHINDE 05/23/25 In Process From Base 12:44 Country Manager For KEHINDE 05/23/25 In Process 24 Hours 12:44 Emergency Dysrhythmia KEHINDE 05/23/25 In Process Protocol 12:44 Rhythm Strips Once KEHINDE 05/23/25 In Process Every Shift 12:44 Oxygen By Nasal RT 05/23/25 Transmitted Cannula 12:44 Maintain Patent Airway KEHINDE 05/23/25 In Process 12:44 Ampicillin & PHA 05/23/25 In Process Sulbactam Sodium 12:45 Communication Order ORDERS 05/23/25 Transmitted 12:[address] 05/23/25 Transmitted Soft 17:43 Date of Service: May 23, 2025 Billing Provider: JAIRO SALAZAR DNP Common Visit Codes: [id number] INP/OBS CARE (HIGH) JAIRO SALAZAR DNP May 23, 2025 17:54
[2025-05-23] MEDS: ENOXAPARIN SOD 40 MG/0.4 ML SYRINGE SC ONE (18:44)
[2025-05-23] MEDS: PANTOPRAZOLE 40 MG/10 ML VIAL INJ IV ONE (18:44)
[2025-05-23 19:30] VITALS: PULSE 122; RESP 21; O2SAT 94
[2025-05-23 22:46] VITALS: RESP 18
[2025-05-23 23:07] VITALS: BP 149/88; PULSE 124; RESP 18; TEMP 99.5; O2SAT 92
[2025-05-23 23:21] VITALS: BP 149/88; PULSE 124; RESP 18; TEMP 99.5; O2SAT 92
[2025-05-24] VITALS (9 sets, daily range): BP systolic 111–138; BP diastolic 70–86; PULSE 95–110; RESP 16–20; TEMP 98.4–99.3; O2SAT 90–95
[2025-05-24 08:08] LABS: Hematocrit 42.3 % (36.0-46.0); Hemoglobin 14.3 g/dL (12.2-16.2); Mean Corpuscular Hemoglobin 28.0 pg (28.0-32.0); Mean Corpuscular Volume 82.5 fL (80.0-100.0); Nucleated Red Blood Cells % 0.2 %
[2025-05-24 08:12] LABS: Alanine Aminotransferase 16 U/L (7-40); Albumin 4.1 g/dL (3.2-4.8); Alkaline Phosphatase 98 U/L (46-116); Anion Gap 8 (5-15); BUN/Creatinine Ratio 16.0 (10.0-20.0); Blood Urea Nitrogen 13 mg/dL (9-23); Calcium 9.6 mg/dL (8.7-10.4); Carbon Dioxide 24 mmol/L (20-31); Chloride 106 mmol/L (98-107); Potassium 3.6 mmol/L (3.5-5.1); Sodium 138 mmol/L (136-145); Total Protein 6.8 g/dL (5.7-8.2)
[2025-05-24 08:13] LABS: Bilirubin, Total 0.5 mg/dL (0.2-1.0); Glucose 108 mg/dL (74-106)
[2025-05-24] MEDS: CLOPIDOGREL BISULFATE 75 MG TAB PO SCH (09:47)
[2025-05-24] MEDS: ASPirin-EC 81 mg tab PO SCH (09:47)
[2025-05-24] MEDS: ATORVASTATIN 20 MG TAB PO SCH (09:48)
[2025-05-24] MEDS: PANTOPRAZOLE 40 MG/10 ML VIAL INJ IV SCH (09:48)
[2025-05-24] MEDS: ENOXAPARIN SOD 40 MG/0.4 ML SYRINGE SC SCH (09:48)
[2025-05-24] MEDS: KETOROLAC TROMETH 30 MG/ML 1ML VIAL IV PRN (13:30)
[2025-05-24] MEDS: LACTATED RINGER'S 1,000 ML IV ONE (13:30)
--- NOTE | 2025-05-24 15:08 | DVHPN2 ---
Assessment/Plan Assessment/Plan progress note 60 yo F morbidly obese with hx of CVA with residual, HTN, spine surg, COPD? admitted for neck pain, found to have tense neck swelling on left side, with erythema and warmth, poor oral hygiene. physical exam aox4 morbidly obese poor oral hygiene swollen and tender L neck ctab s1 s2 rrr abdomen soft le edema trace residual deficit left side labs ekg imaging reviewed assessment and plan morbid obesity COPD group B not in exacerbation probably [facility] neck swelling possibly abscess? dental related? chronic pain bed bound hx of CVA w/ residual asymptomatic bacteriuria meth use ct neck with con if oral abscess need HLOC for OMSF if no abscess c/w unasyn toradol for pain need sleep study c/w dapt for stroke? diet NPO dvt ppx lovenox full code Plan discussed with: Patient My Orders Orders - CHAY MALDONADO MD Procedure Category Date Status Time Acetaminophen Tablet PHA 05/24/25 In Process (Tylenol Tablet) 11:45 Ketorolac Injection PHA 05/24/25 In Process (Toradol Injection) 11:[address] 05/24/25 Logged Soft 15:01 Morphine Sulfate PHA 05/24/25 Logged Injection 15:15 Lorazepam 2mg/Ml Inj PHA 05/24/25 Logged (Ativan Inj) 15:15 Date of Service: May 24, 2025 Billing Provider: CHAY MALDONADO MD Common Visit Codes: [id number] INP/OBS CARE(HIGH) CHAY MALDONADO MD May 24, 2025 15:08
[2025-05-24] MEDS ORDERED: LORazepam 2MG/ML-1ML VIAL IV PRN (15:15)
--- NOTE | 2025-05-24 17:07 | DVH ---
CT NECK WITH CONTRAST SOFT Indication: neck mass EXAM DATE: 05/24/2025 03:26 PM COMPARISON: US SOFT TISSUE NECK on DOS: 05/23/25, US CAROTID DUPLX W COLOR DOP on DOS: 04/05/25, MRI CER VICAL WO CONTRAST on DOS: 04/05/25, CT HEAD WITHOUT CONTRAST on DOS: 04/05/25 TECHNIQUE: CT of the neck with intravenous contrast. RADIATION DOSE: CTDIvol: 26.24 mGy, DLP: 845 mGy*cm FINDINGS: Left temporal/facial region soft tissue edema and stranding. There is asymmetrical enlargement and he terogeneous enhancement within the left parotid gland. Left cervical jugulodigastric lymph nodes ray uring up to 12 mm. There is edema and stranding extending into the retro auricular tissues, left subm andibular region and left supraclavicular fossa. Edema and stranding extending into the left paraphar yngeal fat, carpet layer helper spaces, left sternocleidomastoid muscle. Right parotid gland, right carpet layer helper space, right parapharyngeal fat and femoral Jarek. Nasopharynx, oropharynx, hypopharynx patent. Epiglottis, aryepiglottic folds unremarkable. Thyroid gland unremarkable. Mastoids well pneumatized. Paranasal sinuses are well pneumatized.. Orbits, retrobulbar spaces unremarkable. There is occlusion/thrombosis of the right middle cerebral artery M1 segment. Subacute / old appearin g infarcts within the right basal ganglia, right frontal. Old infarction right parietal lobe.m Pretracheal lymph node measuring 10 mm. Right paratracheal lymph node measuring 9 mm. Moderate cervical degenerative disc disease. IMPRESSION: Extensive enlargement edematous appearance of the left parotid gland with heterogeneous enhancement. Differential considerations include parotitis, parotid neoplasms. Recommend ENT consultation for furt her evaluation. Associated extensive edema and stranding surrounding the left parotid gland extending into the left p arapharyngeal fat, left carpet layer helper space, left face/left neck, left sternocleido muscle , left retroa uricular tissues and left supraclavicular fossa. 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 Subacute/ old infarcts within t he right basal ganglia, right frontal lobe. Old infarct right parietal lobe. Recommend MRI brain to f urther evaluate the acuity of this infarction and neurology consultation for further management. Mediastinal lymphadenopathy. Other findings as described. Critical Result: Left parotid and right MCA/stroke finding Findings discussed with CAHY MALDONADO at 05/24/2025 05:06 PM, and acknowledged receipt and understan ding of the findings. ..
[2025-05-25] VITALS (7 sets, daily range): BP systolic 129–149; BP diastolic 72–85; PULSE 91–109; RESP 16–19; TEMP 97.6–98.4; O2SAT 93–97
[2025-05-25 10:55] LABS: Chloride 105 mmol/L (98-107); Potassium 3.5 mmol/L (3.5-5.1); Sodium 138 mmol/L (136-145)
[2025-05-25 10:56] LABS: Anion Gap 9 (5-15); Calcium 9.2 mg/dL (8.7-10.4); Carbon Dioxide 24 mmol/L (20-31)
[2025-05-25 11:01] LABS: BUN/Creatinine Ratio 11.1 (10.0-20.0); Blood Urea Nitrogen 9 mg/dL (9-23); Glucose 96 mg/dL (74-106)
[2025-05-25] MEDS ORDERED: diphenhdrAMINE HCL 25 MG CAP PO ONE (11:15)
[2025-05-25 11:52] LABS: Hematocrit 39.1 % (36.0-46.0); Hemoglobin 13.0 g/dL (12.2-16.2); Mean Corpuscular Hemoglobin 27.4 pg (28.0-32.0); Mean Corpuscular Volume 82.2 fL (80.0-100.0); Nucleated Red Blood Cells % 0.2 %
[2025-05-25] MEDS: ACETAMINOPHEN 325 MG TAB PO PRN (12:05)
[2025-05-25] MEDS: diphenhdrAMINE HCL 50 MG/1 ML VL IV ONE (13:29)
--- NOTE | 2025-05-25 16:47 | DVHPN2 ---
Assessment/Plan Assessment/Plan progress note 60 yo F morbidly obese with hx of CVA with residual, HTN, spine surg, COPD? admitted for neck pain, found to have tense neck swelling on left side, with erythema and warmth, poor oral hygiene. seen today. CT with no abscess, parotitis, but also found new LVO on R MCA not found on prior CT. unclear about timing as patient has no new symptoms of stroke. no intervention. c/w iv unasyn. start oral diet. physical exam aox4 morbidly obese poor oral hygiene swollen and tender L neck ctab s1 s2 rrr abdomen soft le edema trace residual deficit left side labs ekg imaging reviewed assessment and plan morbid obesity COPD group B not in exacerbation probably [facility] neck swelling possibly abscess? dental related? chronic pain bed bound hx of CVA w/ residual asymptomatic bacteriuria meth use ct neck with con if oral abscess need HLOC for OMSF if no abscess c/w unasyn toradol for pain need sleep study c/w dapt for stroke? pain management diet cardiac dvt ppx lovenox full code Plan discussed with: Patient My Orders Orders - CHAY MALDONADO MD Procedure Category Date Status Time * Swallow Request ST 05/25/25 Transmitted 10:45 Cardiac DIET 05/25/25 Transmitted Diet-2gna,Lofat,Lochol Dinner Discontinue Goldstein KEHINDE 05/25/25 In Process Catheter 15:17 Date of Service: May 25, 2025 Billing Provider: CHAY MALDONADO MD Common Visit Codes: [id number] INP/OBS CARE(HIGH) CHAY MALDONADO MD May 25, 2025 16:47
[2025-05-25] MEDS: ACETAMINOPHEN 325 MG TAB PO SCH (22:06)
[2025-05-25] MEDS: GABAPENTIN 300 MG CAP PO SCH (22:06)
[2025-05-26] VITALS (8 sets, daily range): BP systolic 108–147; BP diastolic 69–88; PULSE 59–109; RESP 15–20; TEMP 97.6–98.6; O2SAT 92–99
[2025-05-26 07:07] LABS: Hematocrit 39.4 % (36.0-46.0); Hemoglobin 13.8 g/dL (12.2-16.2); Mean Corpuscular Hemoglobin 28.0 pg (28.0-32.0); Mean Corpuscular Volume 80.2 fL (80.0-100.0); Nucleated Red Blood Cells % 0.1 %
[2025-05-26 07:16] LABS: Chloride 104 mmol/L (98-107); Sodium 140 mmol/L (136-145)
[2025-05-26 07:17] LABS: Anion Gap 10 (5-15); Carbon Dioxide 26 mmol/L (20-31)
[2025-05-26 07:18] LABS: Calcium 9.3 mg/dL (8.7-10.4)
[2025-05-26 07:19] LABS: Potassium 3.2 mmol/L (3.5-5.1)
[2025-05-26 07:22] LABS: BUN/Creatinine Ratio 12.8 (10.0-20.0); Blood Urea Nitrogen 10 mg/dL (9-23); Glucose 96 mg/dL (74-106)
[2025-05-26] MEDS: diphenhdrAMINE HCL 50 MG/1 ML VL IV PRN (12:08)
--- NOTE | 2025-05-26 17:26 | DVHPN2 ---
Assessment/Plan Assessment/Plan progress note 60 yo F morbidly obese with hx of CVA with residual, HTN, spine surg, COPD? admitted for neck pain, found to have tense neck swelling on left side, with erythema and warmth, poor oral hygiene. CT with no abscess, parotitis, but also found new LVO on R MCA not found on prior CT. unclear about timing as patient has no new symptoms of stroke. no intervention. c/w iv unasyn. start oral diet. seen today. improved neck swelling. plan for 5 days iv abx then switch to PO. need dental OP. patient reported feeling pus seeping from mouth, eyes and ear. proceeded to show me said pus. it was ear wax and crust. no pus seen. alos no allergy noted. will continue with benadryl if needed. physical exam aox4 morbidly obese poor oral hygiene swollen and tender L neck ctab s1 s2 rrr abdomen soft le edema trace residual deficit left side labs ekg imaging reviewed assessment and plan morbid obesity COPD group B not in exacerbation probably [facility] neck swelling possibly abscess? dental related? chronic pain bed bound hx of CVA w/ residual asymptomatic bacteriuria meth use ct neck with con if oral abscess need HLOC for OMSF if no abscess c/w unasyn toradol for pain need sleep study c/w dapt for stroke? pain management diet cardiac dvt ppx lovenox full code Plan discussed with: Patient My Orders Orders - CHAY MALDONADO MD Procedure Category Date Status Time Diphenhdramine PHA 05/26/25 In Process Injection (Benadryl 10:15 Discontinue Tele KEHINDE 05/26/25 In Process 14:35 Transfer Orders XFER 05/26/25 Transmitted 15:53 Date of Service: May 26, 2025 Billing Provider: CHAY MALDONADO MD Common Visit Codes: [id number] INP/OBS CARE(HIGH) CHAY MALDONADO MD May 26, 2025 17:26
[2025-05-26] MEDS: IOHEXOL 300 MG/ML 100ML BOTTLE IJ ONE ×2 (17:43→17:44)
[2025-05-26] MEDS: MORPHINE SULFATE INJ 2 MG/ml SYRG IV ONE (17:43)
[2025-05-27] VITALS (8 sets, daily range): BP systolic 126–172; BP diastolic 62–97; PULSE 81–89; RESP 16–19; TEMP 36.6; O2SAT 91–98
[2025-05-27 08:25] LABS: Hematocrit 40.3 % (36.0-46.0); Hemoglobin 13.9 g/dL (12.2-16.2); Mean Corpuscular Hemoglobin 28.0 pg (28.0-32.0); Mean Corpuscular Volume 81.4 fL (80.0-100.0); Nucleated Red Blood Cells % 0.1 %
[2025-05-27 08:38] LABS: Sodium 142 mmol/L (136-145)
[2025-05-27 08:39] LABS: Anion Gap 10 (5-15); Calcium 8.9 mg/dL (8.7-10.4); Carbon Dioxide 23 mmol/L (20-31)
[2025-05-27 08:44] LABS: BUN/Creatinine Ratio 12.5 (10.0-20.0); Blood Urea Nitrogen 9 mg/dL (9-23); Chloride 109 mmol/L (98-107); Glucose 94 mg/dL (74-106); Potassium 3.1 mmol/L (3.5-5.1)
[2025-05-27] MEDS ORDERED: AUG875T PO (15:29)
[2025-05-27] MEDS ORDERED: GABA-1250 PO ×2 (15:29→16:16)
[2025-05-27] MEDS ORDERED: IBU600T PO ×2 (15:29→16:16)
--- NOTE | 2025-05-27 15:32 | DVHDS2 ---
Discharge Summary Date of Admission May 23, 2025 at 12:44 Date of Discharge: May 27, 2025 Labs/Diagnostic Data: Laboratory Results Test 05/27/25 07:46 05/24/25 06:18 05/23/25 15:41 05/23/25 12:07 White Blood Count 6.5 10^3/uL (4.4-10.8) Red Blood Count 4.95 10^6/uL (4.0-5.20) Hemoglobin 13.9 g/dL (12.2-16.2) Hematocrit 40.3 % (36.0-46.0) Mean Corpuscular Volume 81.4 fL (80.0-100.0) Mean Corpuscular Hemoglobin 28.0 pg (28.0-32.0) Mean Corpuscular Hemoglobin Concent 34.4 g/dL (32.0-36.0) Red Cell Distribution Width 15.0 % (11.8-14.3) Platelet Count 265 10^3/uL (140-450) Mean Platelet Volume 9.1 fL (6.9-10.8) Neutrophils (%) (Auto) 59.8 % (37.0-80.0) Lymphocytes (%) (Auto) 24.4 % (10.0-50.0) Monocytes (%) (Auto) 9.5 % (0.0-12.0) Eosinophils (%) (Auto) 5.6 % (0.0-7.0) Basophils (%) (Auto) 0.7 % (0.0-2.0) Neutrophils # (Auto) 3.9 10 ^3/uL (1.6-8.6) Lymphocytes # (Auto) 1.6 10 ^3/uL (0.4-5.4) Monocytes # (Auto) 0.6 10 ^3/uL (0-1.3) Eosinophils # (Auto) 0.4 10 ^3/uL (0-0.8) Basophils # (Auto) 0 10 ^3/uL (0-0.2) Nucleated Red Blood Cells 0.1 % Sodium Level 142 mmol/L (136-145) Potassium Level 3.1 mmol/L (3.5-5.1) Chloride Level 109 mmol/L (98-107) Carbon Dioxide Level 23 mmol/L (20-31) Anion Gap 10 (5-15) Blood Urea Nitrogen 9 mg/dL (9-23) Creatinine 0.72 mg/dL (0.550-1.02) Glomerular Filtration Rate Calc 96 mL/min (>90) BUN/Creatinine Ratio 12.5 (10.0-20.0) Serum Glucose 94 mg/dL (74-106) Calcium Level 8.9 mg/dL (8.7-10.4) Total Bilirubin 0.5 mg/dL (0.2-1.0) Aspartate Amino Transferase (AST) 20 U/L (13-40) Alanine Aminotransferase (ALT) 16 U/L (7-40) Alkaline Phosphatase 98 U/L (46-116) Total Protein 6.8 g/dL (5.7-8.2) Albumin 4.1 g/dL (3.2-4.8) Urine Color Light-orange (Yellow) Urine Clarity Ex.turbid (Clear) Urine pH 5.5 (5.0-9.0) Urine Specific [place] 1.022 (1.001-1.035) Urine Protein 1+ (Negative) Urine Ketones Negative (Negative) Urine Blood 1+ /uL (Negative) Urine Nitrite 2+ (Negative) Urine Bilirubin Negative (Negative) Urine Urobilinogen Normal mg/dL (Negative) Urine Leukocyte Esterase 3+ /uL (Negative) Urine RBC 38 /hpf (0 - 4) Urine Microscopic WBC 736 /HPF (0-5) Urine Squamous Epithelial Cells Few /hpf (<5) Urine Bacteria Many /hpf (None Seen) Urine Mucus Few (None Seen) Urine Glucose Normal mg/dL (Normal) Urine Opiates Screen Pos (NEGATIVE) Urine Fentanyl Screen Neg (NEGATIVE) Urine Barbiturates Screen Neg (NEGATIVE) Urine Phencyclidine Screen Neg (NEGATIVE) Urine Amphetamines Screen Pos (NEGATIVE) Urine Benzodiazepines Screen Pos (NEGATIVE) Urine Cocaine Screen Neg (NEGATIVE) Urine Cannabinoids Screen Neg (NEGATIVE) Influenza Type A Antigen Negative (Negative) Influenza Type B Antigen Negative (Negative) SARS-CoV-2 Antigen (Rapid) Negative (NEGATIVE) Test 05/23/25 09:50 B-Type Natriuretic Peptide 5.56 pg/mL (0-100) Other Laboratory Tests 05/27/25 07:46 Brief Hx & Hospital Course: 60 yo F morbidly obese with hx of CVA with residual, HTN, spine surg, COPD? admitted for neck pain, found to have tense neck swelling on left side, with erythema and warmth, poor oral hygiene. CT with no abscess, parotitis, but also found new LVO on R MCA not found on prior CT. unclear about timing as patient has no new symptoms of stroke. no intervention. c/w iv unasyn. start oral diet. improved neck swelling. plan for 5 days iv abx then switch to PO. need dental OP. discharged with augmentin. started gabapentin for chronic pain adjunct. patient informed of need to f/u w dentist, stated understanding, Condition at Discharge: Good Final Diagnosis/Problems List morbid obesity COPD group B not in exacerbation probably EDITH OHS neck swelling from parotitis and celulitis chronic pain bed bound hx of CVA w/ residual asymptomatic bacteriuria meth use Discharge Disposition: Home Discharge Instruct/Medications Diet: Consistent carbohydrate, Cardiac 2g Na,low cholest Activity: No Restrictions, As Tolerated Follow Up/Referral: dentist PCP dc clinic Medications: augmentin Scheduled Amoxicillin & Pot Clavulanate (Augmentin Tablet), 875 MG PO BID Aspirin (Aspirin Low Dose), 81 MG PO DAILY Atorvastatin Calcium (Atorvastatin Calcium), 1 TAB PO DAILY Clopidogrel Bisulfate (Plavix), 1 TAB PO DAILY Gabapentin (Gabapentin), 300 MG PO TID Nitrofurantoin Monohydrate Mac (Macrobid), 100 MG PO BID Scheduled PRN Ibuprofen Micronized (Motrin Tablet), 600 MG PO TID PRN Miscellaneous Medications Hydrocodone-Acetaminophen (Hydrocodone/Acetaminophen 5-325 mg), (Reported) Discharge Statement: "Patient was advised to return to the ER or call 911 if any headaches, dizziness, shortness of breath, chest pain, abdominal pain, bleeding, fevers, or worsening of medical condition. Patient was counseled about treatment plan, medications, possible side effects, patientverbalized understanding. All questions were answered to the best of my ability. This discharge took greater then 30 minutes in planning, reviewing documentation, counseling the patient, and discussing with other team members." ASSESSMENT ASSESSMENT Assessment parotitis celulitis Date of Service: May 27, 2025 Billing Provider: CHAY MALDONADO MD Common Visit Codes: 63126-JAQ/OBS DISCH DAY >30min CHAY MALDONADO MD May 27, 2025 15:32
[2025-05-27] MEDS ORDERED: AMOX500T86 PO (16:16)
== END 2025-05-27 18:25 | disposition home or self-care (01) | DRG 720 ==
LOC: ER 08:59 → EDBD 08:59 → OVERFLOW 12:44 → WEST WING 21:20 → TELE-WESTW 05-24 05:08 → WEST WING 05-27 03:37
PROVIDERS: ADMIT Student in an Organized Health Care Education/Training Program; ATTEND Student in an Organized Health Care Education/Training Program
DX: A41.9 Sepsis, unspecified organism (principal); E66.2 Morbid (severe) obesity with alveolar hypoventilation; K11.20 Sialoadenitis, unspecified; I69.354 Hemiplegia and hemiparesis following cerebral infarction affecting left non-dominant side; L03.221 Cellulitis of neck; I10 Essential (primary) hypertension; J98.4 Other disorders of lung; Z20.822 Contact with and (suspected) exposure to COVID-19; R82.71 Bacteriuria; J44.9 Chronic obstructive pulmonary disease, unspecified; G89.29 Other chronic pain; F17.210 Nicotine dependence, cigarettes, uncomplicated; F15.90 Other stimulant use, unspecified, uncomplicated; Z79.82 Long term (current) use of aspirin; Z79.899 Other long term (current) drug therapy; Z74.01 Bed confinement status; Z68.34 Body mass index [BMI] 34.0-34.9, adult
CPT/HCPCS: 36415; 70491; 71045; 76536; 80048; 80053; 80307; 81001; 83880; 85025; 87426; 87804; 92610; 96365; 96375; G0378; J1885; J2470

== ENCOUNTER 2025-06-25 01:57 | Inpatient (IN) | payer MEDICAID ==
[2025-06-25] VITALS (8 sets, daily range): BP systolic 141–146; BP diastolic 76–88; PULSE 89–107; RESP 16–20; TEMP 98.4; O2SAT 94–100
[~2025-06-25] VITALS: Ht 170.2 cm; Wt 110.1 kg
[~2025-06-25 01:57] MED LIST changes: +AMOX500T86 PO; +GABA-1250 PO; -HYDR1TAB97; +IBU600T PO; -NITR-87 PO
--- NOTE | 2025-06-25 02:09 | ECG ---
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
[2025-06-25 03:08] LABS: Hematocrit 51.6 % (36.0-46.0); Hemoglobin 17.8 g/dL (12.2-16.2); Mean Corpuscular Hemoglobin 28.1 pg (28.0-32.0); Mean Corpuscular Volume 81.7 fL (80.0-100.0); Nucleated Red Blood Cells % 0.0 %
[2025-06-25 03:17] LABS: Alanine Aminotransferase 18 U/L (7-40); Anion Gap 11 (5-15); BUN/Creatinine Ratio 9.4 (10.0-20.0); Chloride 99 mmol/L (98-107); Lipase 26 U/L (12-53); Sodium 142 mmol/L (136-145)
[2025-06-25 03:18] LABS: Bilirubin, Total 0.4 mg/dL (0.2-1.0)
[2025-06-25 03:22] LABS: Albumin 5.0 g/dL (3.2-4.8); Alkaline Phosphatase 127 U/L (46-116); Blood Urea Nitrogen 8 mg/dL (9-23); Calcium 10.6 mg/dL (8.7-10.4); Carbon Dioxide 32 mmol/L (20-31); Glucose 166 mg/dL (74-106); Potassium 3.4 mmol/L (3.5-5.1); Total Protein 8.7 g/dL (5.7-8.2)
[2025-06-25] MEDS: SODIUM CHLORIDE 0.9% 1,000 ML IV ONE (03:30)
[2025-06-25] MEDS: ONDANSETRON HCL 4 MG/2 ML VIAL IV ONE (03:30)
--- NOTE | 2025-06-25 03:38 | DVH ---
Exam: CT CT AB PEL WO CON-NO ORAL OR IV History: n/v Comparison Study: None Technique: Multidetector spiral CT of the abdomen was performed from lung bases to pubic symphysis. I maging was performed without IV contrast. Axial, coronal and sagittal multiplanar reformats were obta ined from the axial data set by the technologist. Radiation Dose : 1. Abdomen/Pelvis: CTDIvol 27.87 mGy, DLP 1657.94 mGy*cm. Findings: Evaluation of solid organs is limited due to lack of intravenous contrast use. Lung Bases: Trace left pleural effusion and adjacent atelectasis. Right lung base is clear. Normal heart size. No pleural or pericardial effusion. Liver: The liver is normal in size. No focal lesions. Gallbladder and Biliary Tree: 1.9 cm peripherally calcified gallstone within the neck of the gallblad sonali. Spleen: Unremarkable Pancreas: The pancreas is grossly normal in appearance. Adrenal Glands: Unremarkable Kidneys: Kidneys are grossly normal without calculi or hydronephrosis. Bladder: Grossly unremarkable for degree of distention. Goldstein catheter. Small collection of gas withi n the urinary bladder. Bowel: Moderate hiatal hernia. Moderate gastric distention and air-fluid level. Small bowel and colon are normal in caliber and distribution. The appendix is not visualized; however, no secondary findin gs of acute appendicitis identified. Ascites: Absent Lymphadenopathy: No mesenteric, retroperitoneal or periportal lymphadenopathy. Abdominal Wall and Mesentery: Unremarkable. Vasculature: The visualized abdominal aorta is normal in size and caliber. Atherosclerotic vascular calcifications. Evaluation of abdominal and pelvic vessels is limited due to lack of intravenous cont rast. Pelvic Organs: Unremarkable Musculoskeletal: No aggressive focal bony lesions, acute fractures or dislocation. IMPRESSION: 1. Moderate nonspecific gastric distention and air-fluid level. 2. Trace left pleural effusion and adjacent atelectasis. 3. Cholelithiasis. Radiation optimization: All CT scans at this facility use at least one of these dose optimization [place] hniques: automated exposure control mA and/or kV adjustment per patient size (includes targeted exam s where dose is matched to clinical indication) or iterative reconstruction.
--- NOTE | 2025-06-25 04:07 | ED.PDOC ---
GI ASSESSMENT HPI Comments 60 y/o morbidly obese F is BIBA from SNF with c/c of nausea, vomiting, and coffee-ground emesis, with associated esophageal pain. Poor historian. Reports sudden onset of symptoms an hour prior calling the ambulance. States on taking a handful of her medications all at once before. Denies any abdominal pain, diarrhea, constipation, among other acute symptoms. Past medical history: CVA Past surgical history: denies 05/27/25 Admission Final Diagnosis/Problems List morbid obesity COPD group B not in exacerbation probably EDITH OHS neck swelling from parotitis and celulitis chronic pain bed bound hx of CVA w/ residual asymptomatic bacteriuria meth use HPI: Poor Historian. 60-year-old female brought in by ambulance from home for nausea and vomiting 1 hour prior ambulance arrival to her place of residency. Patient denies any associated abdominal pain. Patient states that her vomit was dark in color. Patient is bed-bound. Onset of symptoms happened after she took a bunch of her schedule pills all at once instead of one pill at a time. REVIEW OF SYSTEMS: CONSTITUTIONAL: Denies acute: fever, diaphoresis, chills, generalized weakness. HEAD: Denies acute: headache, photophobia Eyes: Denies acute: Double vision, vision loss, eye pain, eye discharge. EARS: Denies acute: tinnitus, hearing loss, ear discharge, ear pain, THROAT: Denies acute: sore throat, swelling, difficulty swallowing , pain with swallowing, change in voice. NECK: Denies acute: neck pain, neck swelling, stiff neck. HEART: Denies acute : chest pain, palpitations, LUNGS: Denies acute: SOB, wheezing, cough, hemoptysis ABDOMEN: Denies acute: abdominal pain, diarrhea, melena , hematemesis, hematochezia SKIN: Denies acute: rash, redness, lesions, itchiness. EXTREMITIES: Denies acute: calf pain, numbness, tingling, weakness, denies pain in extremity. Denies acute: Low back pain. Neuro: Denies acute: focal neurological deficit, motor or sensory focal neurological deficit, tremors, seizure like activity, confusion, dizziness, change in mental status, loss of bowel or bladder function, cauda equina like symptoms. : Denies acute: dysuria, hematuria, flank pain, increase in urinary frequency. PSYCH: Denies acute: hallucination, suicidal ideation, homicidal ideation. FEMALE: Denies acute: abnormal vaginal bleeding, foul odor, unusual discharge. PHYSICAL EXAM: General: ----no----acute distress, awake and alert. Head: normocephalic, atraumatic. Neck: supple, trachea is midline, no swelling. Throat: Normal phonation. Eyes:, no erythema, no purulent discharge, no proptosis, no icterus. Heart: regular rate, regular rhythm, no significant murmur appreciated. Lungs: no apparent respiratory distress, Able to speak in full sentences. No wheezing, no rhonchi, no crackles. No stridors Clear to auscultation bilaterally. Abdomen: non tender to palpation, non distended, soft, no guarding, no rebound, + bowel sounds. Morbidly obese Neuro: Awake, Alert, oriented to name, self, situation, follows commands GCS=15. Speech is normal. Patient has had residual deficit from previous strokes. Patient is bed-bound. Skin: no petechia, no purpura, no cyanosis, non-pale, not jaundice. Lower extremities: --no - Pitting edema no deformity, no focal swelling, no calf TTP. Makes eye contact. Face: no apparent facial droop. ED COURSE: DISCLAIMER: This medical document was created using an electronic medical record system with voice recognition software and computerized dictation system. Although this document has been carefully reviewed, there might still be some phonetic and typographical errors. Occasional wrong-word or "sound-alike" substitutions may have occurred due to the inherent limitations of voice recognition software. These areas are purely typographical due to imperfections of the software programs and do not reflect any compromise in the patient's medical care. Please read the chart carefully and recognize, using context, where these substitutions have occurred. Chief Complaint: Nausea/Vomiting Time Seen by MD: 04:00 Primary Care Provider: KIARA Reviewed Notes: Allergies Allergies: Coded Allergies: NO KNOWN ALLERGIES (Unverified , 03/14/25) Home Meds Active Scripts Ibuprofen Micronized (MOTRIN TABLET) 600 Mg Tb, 600 MG PO TID PRN for 5 Days, #15 TAB *Black box warning-NSAIDS can increase risk of ME & hypertension, GI irritation, ulceration, bleed, perferation. Do not use post cardiac surgery. Use short duration/lowest effective dose. Prov:CHAY MALDONADO MD 05/27/25 Gabapentin (Gabapentin) 300 Mg Cap, 1 CAP PO TID for 30 Days, #90 CAP 1 Refill Prov:CHAY MALDONADO MD 05/27/25 Amoxicillin & Pot Clavulanate (Augmentin) 500 Mg Tab, 1 TAB PO BID for 14 Days, #28 TAB Prov:CHAY MALDONADO MD 05/27/25 Clopidogrel Bisulfate (Plavix) 75 Mg Tab, 1 TAB PO DAILY for 21 Days, #21 TAB 1 Refill Prov:AMPARO RUSHING MD 04/10/25 Atorvastatin Calcium (ATORVASTATIN CALCIUM) 40 Mg Tab, 1 TAB PO DAILY, #60 TAB 5 Refills Prov:AMPARO RUSHING MD 04/10/25 Aspirin (Aspirin Low Dose) 81 Mg Tab, 81 MG PO DAILY for 60 Days, #60 TAB Prov:AMPARO RUSHING MD 04/10/25 Mode of Arrival: EMS Past Medical History PAST MEDICAL HISTORY: COPD, CVA, HTN Surgical History: Denies all surgeries 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 Was a procedure done?: No GI differential Dx Differential Diagnosis: Other (DDX include Diverticulitis, colitis, gastroenteritis, acute abdomen, SBO, enteritis, constipation, volvulus, appendicitis, Gallbladder disease, choledocolithiasis, ascending cholangitis, pancreatitis, intraAbdominal mass/neoplasm, hepatitis, UTI, pylonephritis, kidney stone, aneurysm, dissection, Inflammatory bowel disease, gastroparesis, ischemic bowel, ) X-Ray, Labs, Meds, VS Vital Signs Date Time Temp Pulse Resp B/P (MAP) Pulse Ox O2 Delivery O2 Flow Rate FiO2 06/25/25 06:00 103 12 139/83 (101) 94 06/25/25 04:15 152/79 (103) 06/25/25 04:00 95 06/25/25 03:15 100 20 94 Room Air* 0 21 06/25/25 03:00 97.6 100 14 139/88 (105) 94 97.6 06/25/25 02:12 97.0 136 19 136/90 95 97.0 06/25/25 02:03 115 Lab Test 06/25/25 04:31 06/25/25 03:26 06/25/25 03:09 06/25/25 02:18 Range/Units Gastric Fluid pH 1 Gastric Fluid Occult Blood Positive Negative Troponin I High Sensitivity 4 5 </=34 ng/L Urine Color Light-yellow Yellow Urine Clarity Turbid H Clear Urine pH 6.5 5.0-9.0 Urine Specific [place] 1.019 1.001-1.035 Urine Protein Trace H Negative Urine Ketones Negative Negative Urine Blood Negative Negative /uL Urine Nitrite Negative Negative Urine Bilirubin Negative Negative Urine Urobilinogen Normal Negative mg/dL Urine Leukocyte Esterase Negative Negative /uL Urine RBC None seen 0 - 4 /hpf Urine Microscopic WBC 4 0-5 /HPF Urine Squamous Epithelial Cells Few <5 /hpf Urine Amorphous Crystals Few None Seen /hpf Urine Bacteria None seen None Seen /hpf Urine Glucose Normal Normal mg/dL Urine Opiates Screen Neg NEGATIVE Urine Fentanyl Screen Neg NEGATIVE Urine Barbiturates Screen Neg NEGATIVE Urine Phencyclidine Screen Neg NEGATIVE Urine Amphetamines Screen Neg NEGATIVE Urine Benzodiazepines Screen Neg NEGATIVE Urine Cocaine Screen Neg NEGATIVE Urine Cannabinoids Screen Neg NEGATIVE White Blood Count 13.5 H 4.4-10.8 10^3/uL Red Blood Count 6.32 H 4.0-5.20 10^6/uL Hemoglobin 17.8 H 12.2-16.2 g/dL Hematocrit 51.6 H 36.0-46.0 % Mean Corpuscular Volume 81.7 80.0-100.0 fL Mean Corpuscular Hemoglobin 28.1 28.0-32.0 pg Mean Corpuscular Hemoglobin Concent 34.4 32.0-36.0 g/dL Red Cell Distribution Width 16.0 H 11.8-14.3 % Platelet Count 355 140-450 10^3/uL Mean Platelet Volume 9.6 6.9-10.8 fL Neutrophils (%) (Auto) 87.1 H 37.0-80.0 % Lymphocytes (%) (Auto) 7.7 L 10.0-50.0 % Monocytes (%) (Auto) 4.9 0.0-12.0 % Eosinophils (%) (Auto) 0.0 0.0-7.0 % Basophils (%) (Auto) 0.3 0.0-2.0 % Neutrophils # (Auto) 11.8 H 1.6-8.6 10 ^3/uL Lymphocytes # (Auto) 1.0 0.4-5.4 10 ^3/uL Monocytes # (Auto) 0.7 0-1.3 10 ^3/uL Eosinophils # (Auto) 0 0-0.8 10 ^3/uL Basophils # (Auto) 0 0-0.2 10 ^3/uL Nucleated Red Blood Cells 0.0 % Sodium Level 142 136-145 mmol/L Potassium Level 3.4 L 3.5-5.1 mmol/L Chloride Level 99 98-107 mmol/L Carbon Dioxide Level 32 H 20-31 mmol/L Anion Gap 11 5-15 Blood Urea Nitrogen 8 L 9-23 mg/dL Creatinine 0.85 0.550-1.02 mg/dL Glomerular Filtration Rate Calc 79 >90 mL/min BUN/Creatinine Ratio 9.4 L 10.0-20.0 Serum Glucose 166 H 74-106 mg/dL Lactic Acid Level 1.9 0.4-2.0 mmol/L Calcium Level 10.6 H 8.7-10.4 mg/dL Total Bilirubin 0.4 0.2-1.0 mg/dL Aspartate Amino Transferase (AST) 25 13-40 U/L Alanine Aminotransferase (ALT) 18 7-40 U/L Alkaline Phosphatase 127 H 46-116 U/L Total Protein 8.7 H 5.7-8.2 g/dL Albumin 5.0 H 3.2-4.8 g/dL Lipase 26 12-53 U/L Current Medications Medications (Trade) Dose Ordered Sig/Cornelius Route Start Time Stop Time Status Last Admin Sodium Chloride 1,000 ml @ 1,000 mls/hr Q1H ONCE IV 06/25/25 02:15 06/25/25 03:14 DC 06/25/25 03:30 Ondansetron HCl (Zofran) 8 mg ONCE ONCE IV 06/25/25 02:15 06/25/25 02:16 DC 06/25/25 03:30 Pantoprazole Sodium (Protonix) 40 mg ONCE ONCE IV 06/25/25 06:00 06/25/25 06:01 DC 06/25/25 06:13 [facility] [address] [id number] Ph: [phone] DIAGNOSTIC IMAGING Diagnostic Imaging Report : [id number] Signed PATIENT: ANA HERNÁNDEZ ACCT: [id number] UNIT: [id number] : 1965 LOC: ER ROOM / BED: / AGE / SEX: 60 / F ADM STATUS: REG ER SERVICE 0208 ORDERING PHYSICIAN: LUIS MIGUEL ROSAS DO PROCEDURE(s): ABPL - CT AB PEL WO CON-NO ORAL OR IV REASON: n/v ORDER NUMBER(s): [id number], ACCESSION NUMBER(s): [id number] Exam: CT CT AB PEL WO CON-NO ORAL OR IV History: n/v Comparison Study: None Technique: Multidetector spiral CT of the abdomen was performed from lung bases to pubic symphysis. Imaging was performed without IV contrast. Axial, coronal and sagittal multiplanar reformats were obtained from the axial data set by the technologist. Radiation Dose : 1. Abdomen/Pelvis: CTDIvol 27.87 mGy, DLP 1657.94 mGy*cm. Findings: Evaluation of solid organs is limited due to lack of intravenous contrast use. Lung Bases: Trace left pleural effusion and adjacent atelectasis. Right lung base is clear. Normal heart size. No pleural or pericardial effusion. Liver: The liver is normal in size. No focal lesions. Gallbladder and Biliary Tree: 1.9 cm peripherally calcified gallstone within the neck of the gallbladder. Spleen: Unremarkable Pancreas: The pancreas is grossly normal in appearance. Adrenal Glands: Unremarkable Kidneys: Kidneys are grossly normal without calculi or hydronephrosis. Bladder: Grossly unremarkable for degree of distention. Goldstein catheter. Small collection of gas within the urinary bladder. Bowel: Moderate hiatal hernia. Moderate gastric distention and air-fluid level. Small bowel and colon are normal in caliber and distribution. The appendix is not visualized; however, no secondary findings of acute appendicitis identified. Ascites: Absent Lymphadenopathy: No mesenteric, retroperitoneal or periportal lymphadenopathy. Abdominal Wall and Mesentery: Unremarkable. Vasculature: The visualized abdominal aorta is normal in size and caliber. Atherosclerotic vascular calcifications. Evaluation of abdominal and pelvic vessels is limited due to lack of intravenous contrast. Pelvic Organs: Unremarkable Musculoskeletal: No aggressive focal bony lesions, acute fractures or d islocation. IMPRESSION: 1. Moderate nonspecific gastric distention and air-fluid level. 2. Trace left pleural effusion and adjacent atelectasis. 3. Cholelithiasis. Radiation optimization: All CT scans at this facility use at least one of these dose optimization techniques: automated exposure control mA and/or kV adjustment per patient size (includes targeted exams where dose is matched to clinical indication) or iterative reconstruction. ATED BY: MYKE MILLER MD DICTATED DATE/TIME: 06/25/25335 SIGNED BY: MYKE MILLER MD SIGNED DATE/TIME: 06/25/25335 CC: Time of 1ST Reevaluation: 04:30 Reevaluation 1ST: Unchanged Patient Education/Counseling: Diagnosis, Treatment Family Education/Counseling: No Family Present Comments Vomit content was sent for gastric occult blood analysis. Patient's CT scan shows distended stomach with gastric content. I offered the patient an NG tube but she refused. Goldstein catheter was placed since patient is bed-bound. MDM: patient presented with the above HPI.--nausea and vomiting----workup was initiated. patient was found with the above mentioned diagnosis. the following medications were ordered: please refer to order lists of meds and tests obtained by myself Dr. Rosas. Patient ED course and VS have been stabilized. Patient has been reassessed in the ED and remained in a stable condition. Pertinent incidental findings were discussed with the patient and/or family. Patient/family voices understanding and is agreeable with plan. Patient has been observed in the ED adequate length of time to insure improvement/stability. Escalation of care considered: Consideration of escalation to observation or admission Gastric occult blood study was positive. Patient is given Protonix and fluids and antiemetics. Patient was ADMITTED to the medicine team for further evaluation and treatment of their presentation. All the reports of any imaging studies that were ordered by myself were reviewed by myself. SEPSIS Sepsis Screen Date sepsis recognized/suspect: Jun 25, 2025 Time Sepsis recognized/suspect: 213 Recent Procedure: No On Antibiotic Therapy: No Respiratory Rate >20: No Heart Rate >90: Yes Temp<36 C (96.8 F) or >38.3 C: No SBP <90 or MAP <65 mmHG: No New Acute Mental Status Change: No Is the patient on CPAP, BIPAP,: No Physician Orders House Furnishings Supervisor (06/25/25 ) Ct Ab Pel Wo Con-No Oral Or Iv (06/25/25 02:08) Insert/Manage Urinary Catheter QSHIFT (06/25/25 03:10) Vital Signs Date Time Temp Pulse Resp B/P (MAP) Pulse Ox O2 Delivery O2 Flow Rate FiO2 06/25/25 06:00 103 12 139/83 (101) 94 06/25/25 04:15 152/79 (103) 06/25/25 04:00 95 06/25/25 03:15 100 20 94 Room Air* 0 21 06/25/25 03:00 97.6 100 14 139/88 (105) 94 97.6 06/25/25 02:12 97.0 136 19 136/90 95 97.0 06/25/25 02:03 115 Laboratory Tests Test 06/25/25 02:18 Lactic Acid Level 1.9 mmol/L (0.4-2.0) White Blood Count 13.5 10^3/uL (4.4-10.8) H Medications Medications Dose Ordered Sig/Cornelius Route Start Time Stop Time Status Last Admin Dose Admin Ondansetron HCl 8 mg ONCE ONCE IV 06/25/25 02:15 06/25/25 02:16 DC 06/25/25 03:30 Pantoprazole Sodium 40 mg ONCE ONCE IV 06/25/25 06:00 06/25/25 06:01 DC 06/25/25 06:13 Sodium Chloride 1,000 ml @ 1,000 mls/hr Q1H ONCE IV 06/25/25 02:15 06/25/25 03:14 DC 06/25/25 03:30 Departure 1 Departure Time of Disposition: 05:50 Impression: Primary Impression: Hematemesis Additional Impression: Nausea and vomiting Disposition: 09 ADMITTED INPATIENT Admit to: Tele Condition: Guarded Discharged With: Self Critical Care Note Critical Care Time?: Yes (45 min-critical care time only) I personally scribed for LUIS MIGUEL ROSAS DO ([email or web address]) on 06/25/25 at 04:07. Electronically submitted by Oleg Bhatt ([email or web address]). I personally scribed for LUIS MIGUEL ROSAS DO ([email or web address]) on 06/25/25 at 04:13. Electronically submitted by Oleg Bhatt ([email or web address]). LUIS MIGUEL ROSAS DO Jun 25, 2025 04:07
[2025-06-25 04:24] LABS: Urine Amorphous Crystal FEW /hpf (None Seen); Urine Protein, UAD TRACE (Negative)
[2025-06-25 04:57] LABS: Benzodiazephine Screen, Urine Neg (NEGATIVE); Cannabinoid Screen, Urine Neg (NEGATIVE)
[2025-06-25 04:58] LABS: Amphetamine Screen, Urine Neg (NEGATIVE); Barbiturate Scree,Urine Neg (NEGATIVE); Cocaine Screen, Urine Neg (NEGATIVE); Opiate Scree,Urine Neg (NEGATIVE); Phencyclidine Screen, Urine Neg (NEGATIVE)
[2025-06-25] MEDS: PANTOPRAZOLE 40 MG/10 ML VIAL INJ IV ONE (06:13)
[2025-06-25] MEDS: SODIUM CHLORIDE 0.9% 1,000 ML IV SCH (08:14)
--- NOTE | 2025-06-25 09:59 | DVHHP2 ---
History of Present Illness Reason for Visit: Nausea and vomiting History of Present Illness Jennifer Lira is a 60-year-old female with past medical history of CVA with left sided weakness, hypertension, chronic back pain, morbid obesity, and COPD, who was brought to the hospital by EMS for nausea and vomiting. Patient has been bed bound since her stroke in March 2025. She came to the hospital today with complaints of intractable nausea and vomiting for 24 hours. States her vomit is brown and black, denies any abdominal pain. States she has not been able to eat well for the last 2 weeks. 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 (March 2025) Smoke: <1 pack per day ALCOHOL: none Drugs: None (States she quite methamphetamines) Review of Systems Constitutional: No: Fever, Chills, Sweats, Weakness, Malaise, Other Eyes: No: Pain, Vision change, Conjunctivae inflammation, Eyelid inflammation, Other, Redness ENT: No: Ear pain, Ear discharge, Nose pain, Nose discharge, Nose congestion, Mouth pain, Mouth swelling, Throat pain, Throat swelling, Other Respiratory: No: Cough, Dry, Shortness of breath, SOB with excertion, Wheezing, Hemoptysis, Pleuritic Pain, Sputum, Wheezing, Other Cardiovascular: No: Chest Pain, Palpitations, Orthopnea, Paroxysmal Noc. Dyspne a, Edema, Lt Headedness, Other Gastrointestinal: Nausea, Vomiting; No: Abdominal Pain, Diarrhea, Constipation, Melena, Hematochezia, Other Genitourinary: No Dysuria, No Frequency, No Incontinence, No Hematuria, No Retention, No Other Musculoskeletal: No: other, neck pain, shoulder pain, arm pain, back pain, hand pain, leg pain, foot pain Skin: No: Rash, Lesions, Jaundice, Bruising, Other Neurological: No: Weakness, Numbness, Incoordination, Change in speech, Confusion, Seizures, Other Allergies: Coded Allergies: NO KNOWN ALLERGIES (Unverified , 03/14/25) Exam Vital Signs Vital Signs Date Time Temp Pulse Resp B/P (MAP) Pulse Ox O2 Delivery O2 Flow Rate FiO2 06/25/25 06:00 103 12 139/83 (101) 94 06/25/25 03:15 Room Air* 0 21 06/25/25 03:00 97.6 97.6 General Appearance: Alert, Oriented X3, Cooperative, mild distress HEENT: Atraumatic, PERRLA Respiratory: Clear to auscultation, Normal air movement Cardiovascular: Normal S1, Normal S2, Other (SR-ST) Abdominal: Normal bowel sounds Extremities: No clubbing, No cyanosis, No edema Skin: No rashes, No breakdown, No significant lesion Neuro: Other (bedbound at baseline, H/O CVA wtih left sided weakness) Psych/Mental Status: Mental status NL, Mood NL Labs/Xrays Labs Test 06/25/25 04:31 06/25/25 03:26 06/25/25 03:09 06/25/25 02:18 Range/Units Gastric Fluid pH 1 Gastric Fluid Occult Blood Positive Negative Troponin I High Sensitivity 4 </=34 ng/L Urine Color Light-yellow Yellow Urine Clarity Turbid H Clear Urine pH 6.5 5.0-9.0 Urine Specific [place] 1.019 1.001-1.035 Urine Protein Trace H Negative Urine Ketones Negative Negative Urine Blood Negative Negative /uL Urine Nitrite Negative Negative Urine Bilirubin Negative Negative Urine Urobilinogen Normal Negative mg/dL Urine Leukocyte Esterase Negative Negative /uL Urine RBC None seen 0 - 4 /hpf Urine Microscopic WBC 4 0-5 /HPF Urine Squamous Epithelial Cells Few <5 /hpf Urine Amorphous Crystals Few None Seen /hpf Urine Bacteria None seen None Seen /hpf Urine Glucose Normal Normal mg/dL Urine Opiates Screen Neg NEGATIVE Urine Fentanyl Screen Neg NEGATIVE Urine Barbiturates Screen Neg NEGATIVE Urine Phencyclidine Screen Neg NEGATIVE Urine Amphetamines Screen Neg NEGATIVE Urine Benzodiazepines Screen Neg NEGATIVE Urine Cocaine Screen Neg NEGATIVE Urine Cannabinoids Screen Neg NEGATIVE White Blood Count 13.5 H 4.4-10.8 10^3/uL Red Blood Count 6.32 H 4.0-5.20 10^6/uL Hemoglobin 17.8 H 12.2-16.2 g/dL Hematocrit 51.6 H 36.0-46.0 % Mean Corpuscular Volume 81.7 80.0-100.0 fL Mean Corpuscular Hemoglobin 28.1 28.0-32.0 pg Mean Corpuscular Hemoglobin Concent 34.4 32.0-36.0 g/dL Red Cell Distribution Width 16.0 H 11.8-14.3 % Platelet Count 355 140-450 10^3/uL Mean Platelet Volume 9.6 6.9-10.8 fL Neutrophils (%) (Auto) 87.1 H 37.0-80.0 % Lymphocytes (%) (Auto) 7.7 L 10.0-50.0 % Monocytes (%) (Auto) 4.9 0.0-12.0 % Eosinophils (%) (Auto) 0.0 0.0-7.0 % Basophils (%) (Auto) 0.3 0.0-2.0 % Neutrophils # (Auto) 11.8 H 1.6-8.6 10 ^3/uL Lymphocytes # (Auto) 1.0 0.4-5.4 10 ^3/uL Monocytes # (Auto) 0.7 0-1.3 10 ^3/uL Eosinophils # (Auto) 0 0-0.8 10 ^3/uL Basophils # (Auto) 0 0-0.2 10 ^3/uL Nucleated Red Blood Cells 0.0 % Sodium Level 142 136-145 mmol/L Potassium Level 3.4 L 3.5-5.1 mmol/L Chloride Level 99 98-107 mmol/L Carbon Dioxide Level 32 H 20-31 mmol/L Anion Gap 11 5-15 Blood Urea Nitrogen 8 L 9-23 mg/dL Creatinine 0.85 0.550-1.02 mg/dL Glomerular Filtration Rate Calc 79 >90 mL/min BUN/Creatinine Ratio 9.4 L 10.0-20.0 Serum Glucose 166 H 74-106 mg/dL Lactic Acid Level 1.9 0.4-2.0 mmol/L Calcium Level 10.6 H 8.7-10.4 mg/dL Total Bilirubin 0.4 0.2-1.0 mg/dL Aspartate Amino Transferase (AST) 25 13-40 U/L Alanine Aminotransferase (ALT) 18 7-40 U/L Alkaline Phosphatase 127 H 46-116 U/L Total Protein 8.7 H 5.7-8.2 g/dL Albumin 5.0 H 3.2-4.8 g/dL Lipase 26 12-53 U/L Exam: CT CT AB PEL WO CON-NO ORAL OR IV Findings: Evaluation of solid organs is limited due to lack of intravenous contrast use. Lung Bases: Trace left pleural effusion and adjacent atelectasis. Right lung base is clear. Normal heart size. No pleural or pericardial effusion. Liver: The liver is normal in size. No focal lesions. Gallbladder and Biliary Tree: 1.9 cm peripherally calcified gallstone within the neck of the gallbladder. Spleen: Unremarkable Pancreas: The pancreas is grossly normal in appearance. Adrenal Glands: Unremarkable Kidneys: Kidneys are grossly normal without calculi or hydronephrosis. Bladder: Grossly unremarkable for degree of distention. Goldstein catheter. Small collection of gas within the urinary bladder. Bowel: Moderate hiatal hernia. Moderate gastric distention and air-fluid level. Small bowel and colon are normal in caliber and distribution. The appendix is n ot visualized; however, no secondary findings of acute appendicitis identified. Ascites: Absent Lymphadenopathy: No mesenteric, retroperitoneal or periportal lymphadenopathy. Abdominal Wall and Mesentery: Unremarkable. Vasculature: The visualized abdominal aorta is normal in size and caliber. Atherosclerotic vascular calcifications. Evaluation of abdominal and pelvic vessels is limited due to lack of intravenous contrast. Pelvic Organs: Unremarkable Musculoskeletal: No aggressive focal bony lesions, acute fractures or dislocation. IMPRESSION: 1. Moderate nonspecific gastric distention and air-fluid level. 2. Trace left pleural effusion and adjacent atelectasis. 3. Cholelithiasis. SEPSIS Sepsis Screen Date sepsis recognized/suspect: Jun 25, 2025 Time Sepsis recognized/suspect: 314 Recent Procedure: No On Antibiotic Therapy: No Respiratory Rate >20: No Heart Rate >90: Yes Temp<36 C (96.8 F) or >38.3 C: No SBP <90 or MAP <65 mmHG: No New Acute Mental Status Change: No Is the patient on CPAP, BIPAP,: No Physician Orders [facility] [employer] (06/25/25 ) Ct Ab Pel Wo Con-No Oral Or Iv (06/25/25 02:08) Insert/Manage Urinary Catheter QSHIFT (06/25/25 03:10) Admit (06/25/25 07:17) Code Status (06/25/25 07:17) 0.9% Ns 1000 Ml (06/25/25 07:30) Ondansetron Hcl (Zofran) (06/25/25 07:30) Complete Blood Count (06/26/25 04:00) Comprehensive Metabolic Panel (06/26/25 04:00) Npo (Nothing By Mouth) Diet (06/25/25 Breakfast) Pt Request For Service (06/25/25 07:17) Condition: Serious (06/25/25 07:17) * Gi Dvh Remnants Cutter (06/25/25 07:17) Vital Signs Date Time Temp Pulse Resp B/P (MAP) Pulse Ox O2 Delivery O2 Flow Rate FiO2 06/25/25 06:00 103 12 139/83 (101) 94 06/25/25 04:15 152/79 (103) 06/25/25 04:00 95 06/25/25 03:15 100 20 94 Room Air* 0 21 06/25/25 03:00 97.6 100 14 139/88 (105) 94 97.6 06/25/25 02:12 97.0 136 19 136/90 95 97.0 06/25/25 02:03 115 Laboratory Tests Test 06/25/25 02:18 Lactic Acid Level 1.9 mmol/L (0.4-2.0) White Blood Count 13.5 10^3/uL (4.4-10.8) H Medications Medications Dose Ordered Sig/Cornelius Route Start Time Stop Time Status Last Admin Dose Admin Ondansetron HCl 8 mg ONCE ONCE IV 06/25/25 02:15 06/25/25 02:16 DC 06/25/25 03:30 8 MG Pantoprazole Sodium 40 mg ONCE ONCE IV 06/25/25 06:00 06/25/25 06:01 DC 06/25/25 06:13 40 MG Sodium Chloride 1,000 ml @ 1,000 mls/hr Q1H ONCE IV 06/25/25 02:15 06/25/25 03:14 DC 06/25/25 03:30 1,000 MLS/HR Assessment/Plan Assessment/Plan Assessment: Hematemesis, Intractable nausea and vomiting, CVA, bedbound Morbid obesity, Plan: Admit to Med-Surg, GI consult, NPO, Antiemetics, IV hydration, Physical therapy evaluation, Home medications reconciled, home Plavix and ASA held due to hematemesis, Plan discussed with: Patient My Orders Orders - ARMIN SOSA Procedure Category Date Status Time Admit ADMIT 06/25/25 Verified 07:17 Code Status CODE 06/25/25 Verified 07:17 0.9% Ns 1000 Ml PHA 06/25/25 Verified 07:30 Ondansetron Hcl PHA 06/25/25 Verified (Maryfrreinier) 07:30 Complete Blood Count LAB 06/26/25 Verified 04:00 Comprehensive LAB 06/26/25 Verified Metabolic Panel 04:00 Npo (Nothing By DIET 06/25/25 Verified Mouth) Diet Breakfast Pt Request For Service PT 06/25/25 Verified 07:17 Condition: Serious KEHINDE 06/25/25 Verified 07:17 * Gi Dvh Remnants Cutter CONS 06/25/25 Verified 07:17 Date of Service: Jun 25, 2025 Billing Provider: ARMIN SOSA Common Visit Codes: [id number] INP/OBS CARE (MOD) ARMIN SOSA Jun 25, 2025 09:59
[2025-06-25] MEDS ORDERED: METOCLOPRAMIDE HCL 5MG/ml INJ 2ml VIAL IV PRN (10:00)
[2025-06-25] MEDS ORDERED: PATIENTS OWN MEDICATION (Atorvastatin Calcium 1 TAB) PO SCH (10:00)
[2025-06-25] MEDS: POTASSIUM CHL 20MEQ/100ML 100 ML IV ONE (10:15)
--- NOTE | 2025-06-25 10:51 | DVH ---
EXAM: XY CHEST XRAY 1 VIEW Indication: copd exacerbation Technique: Single frontal view of the chest was obtained Comparison: XY CHEST PORTABLE on DOS: 05/23/25 FINDINGS: Lines and Tubes: None Lungs: Diffuse interstitial opacities. Pleura: No effusion. No pneumothorax. Cardiomediastinal contours: Prominent. Bones: No acute osseous abnormality. Stable sclerotic focus in the left humeral head. IMPRESSION: Diffuse interstitial opacities favored to reflect pulmonary edema versus atypical.
[2025-06-25 11:26] LABS: INR 1.06 (0.9-1.15); Partial Thromboplastin Time 25.2 SEC (24.5-34.5); Prothrombin Time 11.2 sec (9.3-11.8)
[2025-06-25] MEDS: MORPHINE SULFATE INJ 2 MG/ml SYRG IV PRN (12:03)
[2025-06-25] MEDS: ONDANSETRON HCL 4 MG/2 ML VIAL IV PRN (12:03)
[2025-06-25] MEDS: IPRATROPIUM BROM 0.5 MG/2.5ML INH SOL NEB SCH (12:17)
[2025-06-25] MEDS: ALBUTEROL SULF 2.5 MG/0.5ML(0.5%) NEB SOLN NEB SCH (12:17)
--- NOTE | 2025-06-25 12:58 | DVH ---
EXAM: XY CHEST PORTABLE Indication: sob Technique: Single frontal view of the chest was obtained Comparison: XY CHEST XRAY 1 VIEW on DOS: 06/25/25, XY CHEST PORTABLE on DOS: 05/23/25, XR CHEST 1 VIEW on DOS: 03/30/25, XR CHEST 1 VIEW on DOS: 06/29/24 FINDINGS: Lines and Tubes: None Lungs: No focal consolidation. Pulmonary vascular congestion. Pleura: No effusion. No pneumothorax. Cardiomediastinal contours: Cardiomegaly. Bones: No acute osseous abnormality. IMPRESSION: Cardiomegaly with pulmonary vascular congestion
[2025-06-25] MEDS: GABAPENTIN 300 MG CAP PO SCH (14:00)
--- NOTE | 2025-06-25 16:25 | DVHPNRES ---
Progress Note Date Seen: Jun 25, 2025 Resident Creating Document: FELICITAS DHILLON RESIDENT Medical Necessity Reason Pt with a Central, PICC or Fol: No Subjective Review of Systems Patient seen and examined at the bedside. All events reviewed, patient complaining of nausea, vomiting but no abdominal pain. Gastric occult blood is positive, consulted GI for further evaluation and management. Patient also having shortness of breath likely aspiration pneumonia so starting cefazolin. continuously monitor lab. Objective vital signs Vital Sign Date Time Temp Pulse Resp B/P (MAP) Pulse Ox O2 Delivery O2 Flow Rate FiO2 06/25/25 13:58 101 22 124/76 (92) 97 06/25/25 12:17 Nasal Cannula* 2 28 06/25/25 08:00 98.0 98.0 Total Intake and Output 06/24/25 06/24/25 06/25/25 15:00 23:00 07:00 Intake Total 1000 ml Balance 1000 ml medications Current Medications Medications Dose Ordered Sig/Cornelius Route Start Time Stop Time Status Last Admin Dose Admin Sodium Chloride 1,000 ml @ 75 mls/hr [id number] IV 06/25/25 07:30 06/25/25 08:14 75 MLS/HR Ondansetron HCl 4 mg Q4HP PRN IV 06/25/25 07:30 06/25/25 12:03 4 MG Gabapentin 300 mg TID PO 06/25/25 14:00 Patient Own Medication 1 tab DAILY PO 06/25/25 10:00 UNV Metoclopramide HCl 10 mg Q6HPRN PRN IV 06/25/25 10:00 Pantoprazole Sodium 40 mg BID IV 06/25/25 22:00 Atorvastatin Calcium 40 mg HS PO 06/25/25 22:00 Morphine Sulfate 2 mg Q6HR PRN IV 06/25/25 11:00 06/25/25 12:03 2 MG Albuterol 2.5 mg Q6HWA NEB 06/25/25 12:00 06/25/25 12:17 2.5 MG Ipratropium [place] 0.5 mg Q6HWA NEB 06/25/25 12:00 06/25/25 12:17 0.5 MG Examination Pt is lying on bed, bed-bound General Appearance: Alert, Oriented X3, Cooperative, [id number] distress HEENT: Atraumatic, Mucous membranes dry Respiratory: Clear to auscultation, Normal air movement, No added sounds Cardiovascular: Regular rate, Normal S1, Normal S2, No murmurs Abdominal: Active bowel sounds, Soft, no distention, no tenderness Extremities: No edema, Normal pulses, No tenderness/swelling Skin: No Significant rash, except past surgical scars Neuro: unable to move left upper and lower extremity but right side also weak but strength is intact Nurse was there as customer acquisition specialist during examination laboratory and microbiology Laboratory Tests 06/25/25 02:18 Test 06/25/25 02:18 Range/Units Serum Glucose 166 H 74-106 mg/dL Labs and/or images reviewed: Labs reviewed by me, Image(s) reviewed by me Problem List/Assessment/Plan Problem List/Assessment/Plan # Hematemesis # Upper GI bleed # Likely Epigastritis/PUD # R/o SBO -med surge -Protonix b.i.d. -Zofran and Reglan -supportive management -IVF -NPO for now -CT ABD / pelvis showed moderate nonspecific gastric distention and air-fluid level -GI on board # Acute hypoxic respiratory failure likely from aspiration pneumonia # Possible aspiration pneumonia # HX of COPD likely not in exacerbation - currently on oxygen 2 L NC - med-nebs - respiratory cultures - CXR showed congestion and opacities - status Ancef # Questionable symptomatic cholelithiasis - CT showed 1.9 cm peripherally calcified gallstone within the neck of the gallbladder. - monitor for now # Tobacco abuse disorder /dependence, counseled regarding cessation for more than 17 minutes GI PPX: Protonix B.i.d VTE ppx: No because of the bleed Diet: NPO Goals of care addressed with the patient for more than 27 minutes: Full code status Case discussed with Dr. Shannon ,patient and nurse Plan discussed with: Patient My Orders My Orders Orders - FELICITAS DHILLON RESIDENT Procedure Category Date Status Time C-Reactive Protein LAB 06/25/25 In Process 10:12 Chest Xray 1 View XY 06/25/25 Resulted 10:12 Pantoprazole PHA 06/25/25 In Process (Protonix) 22:00 Atorvastatin (Lipitor) PHA 06/25/25 In Process 22:00 Morphine Sulfate PHA 06/25/25 In Process Injection 11:00 Albuterol Medneb PHA 06/25/25 In Process (Ventolin Medneb) 12:00 Ipratropium Medneb PHA 06/25/25 In Process (Atrovent Medneb) 12:00 Chest Portable XY 06/25/25 Resulted 11:56 Cefazolin 1gm/50ml PHA 06/25/25 Logged (Ancef) 16:15 Magnesium LAB 06/26/25 Verified 04:00 FELICITAS DHILLON RESIDENT Jun 25, 2025 16:25
--- NOTE | 2025-06-25 17:43 | DVHCONRES ---
Date Seen: Jun 25, 2025 Resident Creating Document: SYDNEE CHILDERS RESIDENT Reason for Consultation Hematemesis History of Present Illness Patient is a 60-year-old female with past medical history of dyslipidemia, CVA with left-sided deficits, COPD, myocardial infarction without intervention, chronic back pain, who was brought to the hospital by EMS due to persistent intractable vomiting. According to the patient, she has been having nausea and vomiting over the last weeks, however, this morning she started noticing blood in her vomitus. Patient is a poor historian. Denies any diarrhea, however does note last bowel movement was 4 weeks ago. Patient further notes she had 3 episodes of vomiting today. Past Medical History dyslipidemia, CVA with left-sided deficits, COPD, myocardial infarction without intervention, chronic back pain Past Surgical History Denies Family History: Chronic obstructive pulmonary disease G8 MOTHER Diabetes mellitus G8 FATHER Hypertension G8 FATHER Allergies: Coded Allergies: NO KNOWN ALLERGIES (Unverified , 03/14/25) Home Meds Active Scripts Ibuprofen Micronized (MOTRIN TABLET) 600 Mg Tb, 600 MG PO TID PRN for 5 Days, #15 TAB *Black box warning-NSAIDS can increase risk of GA & hypertension, GI irritation, ulceration, bleed, perferation. Do not use post cardiac surgery. Use short duration/lowest effective dose. Prov:CHAY MALDONADO MD 05/27/25 Gabapentin (Gabapentin) 300 Mg Cap, 1 CAP PO TID for 30 Days, #90 CAP 1 Refill Prov:CHAY MALDONADO MD 05/27/25 Clopidogrel Bisulfate (Plavix) 75 Mg Tab, 1 TAB PO DAILY for 21 Days, #21 TAB 1 Refill Prov:AMPARO RUSHING MD 04/10/25 Atorvastatin Calcium (ATORVASTATIN CALCIUM) 40 Mg Tab, 1 TAB PO DAILY, #60 TAB 5 Refills Prov:AMPARO RUSHING MD 04/10/25 Aspirin (Aspirin Low Dose) 81 Mg Tab, 81 MG PO DAILY for 60 Days, #60 TAB Prov:AMPARO RUSHING MD 04/10/25 Discontinued Scripts Amoxicillin & Pot Clavulanate (Augmentin) 500 Mg Tab, 1 TAB PO BID for 14 Days, #28 TAB Prov:CHAY MALDONADO MD 05/27/25 Current Medications Current Medications Medications (Trade) Dose Ordered Sig/Corneilus Route PRN Reason Start Time Stop Time Status Last Admin Sodium Chloride 1,000 ml @ 75 mls/hr [id number] IV 06/25/25 07:30 06/25/25 08:14 Ondansetron HCl (Zofran) 4 mg Q4HP PRN IV NAUSEA / VOMITING 06/25/25 07:30 06/25/25 12:03 Gabapentin (Neurontin Capsule) 300 mg TID PO 06/25/25 14:00 Patient Own Medication 1 tab DAILY PO 06/25/25 10:00 UNV Metoclopramide HCl (Reglan Injection) 10 mg Q6HPRN PRN IV NAUSEA / VOMITING 06/25/25 10:00 Pantoprazole Sodium (Protonix) 40 mg BID IV 06/25/25 22:00 Atorvastatin Calcium (Lipitor) 40 mg HS PO 06/25/25 22:00 Morphine Sulfate 2 mg Q6HR PRN IV MODERATE PAIN (4-6 PAIN SCALE) 06/25/25 11:00 06/25/25 12:03 Albuterol (Ventolin Medneb) 2.5 mg Q6HWA [facility] 06/25/25 12:00 06/25/25 12:17 Ipratropium [place] (Atrovent Medneb) 0.5 mg Q6HWA [facility] 06/25/25 12:00 06/25/25 12:17 Cefazolin Sodium 50 ml @ 100 mls/hr Q8HR IV 06/25/25 16:15 UNV Review of Systems Eyes: No Pain, No Vision change, No Conjunctivae inflammation, No Eyelid inflammation, No Other, No Redness ENT: No Ear pain, No Ear discharge, No Nose pain, No Nose discharge, No Nose congestion, No Mouth pain, No Mouth swelling, No Throat pain, No Throat s welling, No Other Cardiovascular: No Chest Pain, No Palpitations, No Orthopnea, No Paroxysmal No Dyspnea, No Edema, No Lt Headedness, No Other Respiratory: No Cough, No Dry, No Shortness of breath, No SOB with exertion, No Wheezing, No Hemoptysis, No Pleuritic Pain, No Sputum, No Other Gastrointestinal: Nausea, Vomiting, No Abdominal Pain, No Diarrhea, Constipation, No Melena, No Hematochezia, No Other Genitourinary: No Dysuria, No Frequency, No Incontinence, No Hematuria, No Retention, No Other Musculoskeletal: No other, No neck pain, No shoulder pain, No arm pain, No back pain, No hand pain, No leg pain, No foot pain Skin: No Rash, No Lesions, No Jaundice, No Bruising, No Other Vital Signs Vital Signs Date Time Temp Pulse Resp B/P (MAP) Pulse Ox O2 Delivery O2 Flow Rate FiO2 06/25/25 16:00 94 22 117/80 (92) 97 06/25/25 12:17 Nasal Cannula* 2 28 06/25/25 08:00 98.0 98.0 Physical Exam General Appearance: Cooperative. Well developed. Well nourished. NAD Pulmonary/Respiratory: Chest non-tender. Clear bilateral breath sounds, no crackles, no wheezing. Cardiovascular/Chest: Regular rate and rhythm. No murmurs. No JVD. Abdominal Exam: Normal bowel sounds. Soft. normal abdomen, no visible veins, Nontender. No hepatospenomegaly. No masses Lower extremities: Trace lower extremity edema Neuro/Mental Status: A&O x4. Coherent. Labs/Diagnostic Data Labs Test 06/25/25 10:54 06/25/25 10:48 06/25/25 04:31 06/25/25 03:26 Range/Units Prothrombin Time 11.2 9.3-11.8 sec Prothrombin Time INR 1.06 0.9-1.15 Activated Partial Thromboplast Time 25.2 24.5-34.5 SEC Ammonia < 10 L 11-32 umol/L Gastric Fluid pH 1 Gastric Fluid Occult Blood Positive Negative Troponin I High Sensitivity 4 </=34 ng/L Test 06/25/25 03:09 06/25/25 02:18 Range/Units Urine Color Light-yellow Yellow Urine Clarity Turbid H Clear Urine pH 6.5 5.0-9.0 Urine Specific [place] 1.019 1.001-1.035 Urine Protein Trace H Negative Urine Ketones Negative Negative Urine Blood Negative Negative /uL Urine Nitrite Negative Negative Urine Bilirubin Negative Negative Urine Urobilinogen Normal Negative mg/dL Urine Leukocyte Esterase Negative Negative /uL Urine RBC None seen 0 - 4 /hpf Urine Microscopic WBC 4 0-5 /HPF Urine Squamous Epithelial Cells Few <5 /hpf Urine Amorphous Crystals Few None Seen /hpf Urine Bacteria None seen None Seen /hpf Urine Glucose Normal Normal mg/dL Urine Opiates Screen Neg NEGATIVE Urine Fentanyl Screen Neg NEGATIVE Urine Barbiturates Screen Neg NEGATIVE Urine Phencyclidine Screen Neg NEGATIVE Urine Amphetamines Screen Neg NEGATIVE Urine Benzodiazepines Screen Neg NEGATIVE Urine Cocaine Screen Neg NEGATIVE Urine Cannabinoids Screen Neg NEGATIVE White Blood Count 13.5 H 4.4-10.8 10^3/uL Red Blood Count 6.32 H 4.0-5.20 10^6/uL Hemoglobin 17.8 H 12.2-16.2 g/dL Hematocrit 51.6 H 36.0-46.0 % Mean Corpuscular Volume 81.7 80.0-100.0 fL Mean Corpuscular Hemoglobin 28.1 28.0-32.0 pg Mean Corpuscular Hemoglobin Concent 34.4 32.0-36.0 g/dL Red Cell Distribution Width 16.0 H 11.8-14.3 % Platelet Count 355 140-450 10^3/uL Mean Platelet Volume 9.6 6.9-10.8 fL Neutrophils (%) (Auto) 87.1 H 37.0-80.0 % Lymphocytes (%) (Auto) 7.7 L 10.0-50.0 % Monocytes (%) (Auto) 4.9 0.0-12.0 % Eosinophils (%) (Auto) 0.0 0.0-7.0 % Basophils (%) (Auto) 0.3 0.0-2.0 % Neutrophils # (Auto) 11.8 H 1.6-8.6 10 ^3/uL Lymphocytes # (Auto) 1.0 0.4-5.4 10 ^3/uL Monocytes # (Auto) 0.7 0-1.3 10 ^3/uL Eosinophils # (Auto) 0 0-0.8 10 ^3/uL Basophils # (Auto) 0 0-0.2 10 ^3/uL Nucleated Red Blood Cells 0.0 % Sodium Level 142 136-145 mmol/L Potassium Level 3.4 L 3.5-5.1 mmol/L Chloride Level 99 98-107 mmol/L Carbon Dioxide Level 32 H 20-31 mmol/L Anion Gap 11 5-15 Blood Urea Nitrogen 8 L 9-23 mg/dL Creatinine 0.85 0.550-1.02 mg/dL Glomerular Filtration Rate Calc 79 >90 mL/min BUN/Creatinine Ratio 9.4 L 10.0-20.0 Serum Glucose 166 H 74-106 mg/dL Hemoglobin A1c 5.5 <5.7 % A1C Lactic Acid Level 1.9 0.4-2.0 mmol/L Calcium Level 10.6 H 8.7-10.4 mg/dL Ferritin 425.1 H 10-291 ng/mL Total Bilirubin 0.4 0.2-1.0 mg/dL Aspartate Amino Transferase (AST) 25 13-40 U/L Alanine Aminotransferase (ALT) 18 7-40 U/L Alkaline Phosphatase 127 H 46-116 U/L B-Type Natriuretic Peptide 25.54 0-100 pg/mL Total Protein 8.7 H 5.7-8.2 g/dL Albumin 5.0 H 3.2-4.8 g/dL Lipase 26 12-53 U/L Thyroid Stimulating Hormone (TSH) 0.89 0.55-4.78 uIU/mL Assessment Acute intractable vomiting Hematemesis ? Peptic ulcer disease Active smoker Remote history of methamphetamine abuse History of CVA Questionable SBO versus ileus Plan: Continue Protonix b.i.d. Continue ondansetron, Reglan IV hydration Scheduled for EGD tomorrow Thank you so much for the opportunity to consult on your patient. GI team will follow the patient. In case of any questions or concerns please feel free to reach out. Plan discussed with Dr. Gomez Plan discussed with: Patient, Other (RN) SYDNEE CHILDERS RESIDENT Jun 25, 2025 17:43
[2025-06-25] MEDS: ceFAZolin 1GM/50ML 50 ML IV SCH (18:14)
[2025-06-25] MEDS: ATORVASTATIN 20 MG TAB PO SCH (22:00)
[2025-06-25] MEDS: PANTOPRAZOLE 40 MG/10 ML VIAL INJ IV SCH (22:16)
[2025-06-25] MEDS ORDERED: ALPR1TAB7 PO (22:58)
[2025-06-26] VITALS (11 sets, daily range): BP systolic 130–163; BP diastolic 74–78; PULSE 89–104; RESP 17–20; TEMP 98–98.6; O2SAT 90–99
[2025-06-26 09:03] LABS: Hematocrit 41.4 % (36.0-46.0); Hemoglobin 14.0 g/dL (12.2-16.2); Mean Corpuscular Hemoglobin 28.4 pg (28.0-32.0); Mean Corpuscular Volume 84.0 fL (80.0-100.0); Nucleated Red Blood Cells % 0.2 %
[2025-06-26 09:22] LABS: Alanine Aminotransferase 12 U/L (7-40); Alkaline Phosphatase 89 U/L (46-116); Anion Gap 11 (5-15); BUN/Creatinine Ratio 13.6 (10.0-20.0); Blood Urea Nitrogen 11 mg/dL (9-23); Calcium 9.4 mg/dL (8.7-10.4); Carbon Dioxide 30 mmol/L (20-31); Chloride 104 mmol/L (98-107); Magnesium 2.1 mg/dL (1.6-2.6); Sodium 145 mmol/L (136-145); Total Protein 6.7 g/dL (5.7-8.2)
[2025-06-26 09:23] LABS: Albumin 3.7 g/dL (3.2-4.8); Bilirubin, Total 0.4 mg/dL (0.2-1.0); Glucose 116 mg/dL (74-106); Potassium 3.2 mmol/L (3.5-5.1)
[2025-06-26] MEDS ORDERED: PANT40TA2 PO (14:53)
[2025-06-26] MEDS ORDERED: SUCR1SUS26 PO (14:53)
[2025-06-26] MEDS ORDERED: METO-281 PO (14:53)
[2025-06-26] MEDS ORDERED: AUG875T PO (14:53)
--- NOTE | 2025-06-26 15:04 | DVHDSRES ---
Discharge Summary Date of Admission Resident Creating Document: FELICITAS DHILLON RESIDENT Jun 25, 2025 at 07:17 Date of Discharge: Jun 26, 2025 Admitting Diagnosis Hematemesis Labs/Diagnostic Data: Laboratory Results Test 06/26/25 08:06 06/25/25 10:54 06/25/25 10:48 06/25/25 04:31 White Blood Count 14.6 10^3/uL (4.4-10.8) Red Blood Count 4.93 10^6/uL (4.0-5.20) Hemoglobin 14.0 g/dL (12.2-16.2) Hematocrit 41.4 % (36.0-46.0) Mean Corpuscular Volume 84.0 fL (80.0-100.0) Mean Corpuscular Hemoglobin 28.4 pg (28.0-32.0) Mean Corpuscular Hemoglobin Concent 33.8 g/dL (32.0-36.0) Red Cell Distribution Width 16.6 % (11.8-14.3) Platelet Count 250 10^3/uL (140-450) Mean Platelet Volume 9.6 fL (6.9-10.8) Neutrophils (%) (Auto) 76.0 % (37.0-80.0) Lymphocytes (%) (Auto) 14.4 % (10.0-50.0) Monocytes (%) (Auto) 7.8 % (0.0-12.0) Eosinophils (%) (Auto) 1.1 % (0.0-7.0) Basophils (%) (Auto) 0.7 % (0.0-2.0) Neutrophils # (Auto) 11.1 10 ^3/uL (1.6-8.6) Lymphocytes # (Auto) 2.1 10 ^3/uL (0.4-5.4) Monocytes # (Auto) 1.1 10 ^3/uL (0-1.3) Eosinophils # (Auto) 0.2 10 ^3/uL (0-0.8) Basophils # (Auto) 0.1 10 ^3/uL (0-0.2) Nucleated Red Blood Cells 0.2 % Sodium Level 145 mmol/L (136-145) Potassium Level 3.2 mmol/L (3.5-5.1) Chloride Level 104 mmol/L (98-107) Carbon Dioxide Level 30 mmol/L (20-31) Anion Gap 11 (5-15) Blood Urea Nitrogen 11 mg/dL (9-23) Creatinine 0.81 mg/dL (0.550-1.02) Glomerular Filtration Rate Calc 84 mL/min (>90) BUN/Creatinine Ratio 13.6 (10.0-20.0) Serum Glucose 116 mg/dL (74-106) Calcium Level 9.4 mg/dL (8.7-10.4) Magnesium Level 2.1 mg/dL (1.6-2.6) Total Bilirubin 0.4 mg/dL (0.2-1.0) Aspartate Amino Transferase (AST) 17 U/L (13-40) Alanine Aminotransferase (ALT) 12 U/L (7-40) Alkaline Phosphatase 89 U/L (46-116) Total Protein 6.7 g/dL (5.7-8.2) Albumin 3.7 g/dL (3.2-4.8) Prothrombin Time 11.2 sec (9.3-11.8) Prothrombin Time INR 1.06 (0.9-1.15) Activated Partial Thromboplast Time 25.2 SEC (24.5-34.5) Ammonia < 10 umol/L (11-32) Gastric Fluid pH 1 Gastric Fluid Occult Blood Positive (Negative) Test 06/25/25 03:26 06/25/25 03:09 06/25/25 02:18 Troponin I High Sensitivity 4 ng/L (</=34) Urine Color Light-yellow (Yellow) Urine Clarity Turbid (Clear) Urine pH 6.5 (5.0-9.0) Urine Specific [place] 1.019 (1.001-1.035) Urine Protein Trace (Negative) Urine Ketones Negative (Negative) Urine Blood Negative /uL (Negative) Urine Nitrite Negative (Negative) Urine Bilirubin Negative (Negative) Urine Urobilinogen Normal mg/dL (Negative) Urine Leukocyte Esterase Negative /uL (Negative) Urine RBC None seen /hpf (0 - 4) Urine Microscopic WBC 4 /HPF (0-5) Urine Squamous Epithelial Cells Few /hpf (<5) Urine Amorphous Crystals Few /hpf (None Seen) Urine Bacteria None seen /hpf (None Seen) Urine Glucose Normal mg/dL (Normal) Urine Opiates Screen Neg (NEGATIVE) Urine Fentanyl Screen Neg (NEGATIVE) Urine Barbiturates Screen Neg (NEGATIVE) Urine Phencyclidine Screen Neg (NEGATIVE) Urine Amphetamines Screen Neg (NEGATIVE) Urine Benzodiazepines Screen Neg (NEGATIVE) Urine Cocaine Screen Neg (NEGATIVE) Urine Cannabinoids Screen Neg (NEGATIVE) Hemoglobin A1c 5.5 % A1C (<5.7) Lactic Acid Level 1.9 mmol/L (0.4-2.0) Ferritin 425.1 ng/mL (10-291) C-Reactive Protein High Sensitivity 6.20 mg/dL (<1.0) B-Type Natriuretic Peptide 25.54 pg/mL (0-100) Lipase 26 U/L (12-53) Thyroid Stimulating Hormone (TSH) 0.89 uIU/mL (0.55-4.78) Other Laboratory Tests 06/26/25 08:06 Brief Hx & Hospital Course: Jennifer Lira is a 60-year-old female with a complex medical history including cerebrovascular accident (CVA) with left-sided weakness, hypertension, chronic back pain, morbid obesity, and chronic obstructive pulmonary disease (COPD). She was admitted to the hospital after presenting with intractable nausea and vomiting for 24 hours, with emesis described as brown and black in color. She has been bedbound since her stroke in March 2025 and reported poor oral intake over the past two weeks. CT abdomen/pelvis revealed moderate nonspecific gastric distention with air-fluid levels, trace left pleural effusion with adjacent atelectasis, and cholelithiasis. The clinical picture was concerning for hematemesis, upper GI bleed, and likely epigastritis or peptic ulcer disease (PUD), with small bowel obstruction (SBO) to be ruled out. She was admitted to the medical-surgical unit and managed with IV fluids, NPO status, Protonix twice daily, Zofran and Reglan for nausea, and supportive care. GI was consulted and recommended an EGD; although the patient initially agreed, she later refused the procedure in the GI lab despite thorough counseling on risks and benefits. She also developed acute hypoxic respiratory failure likely secondary to aspiration pneumonia. She was placed on 2L oxygen via nasal cannula, received nebulized medications, and was started on Ancef. Chest X-ray showed congestion and opacities, and respiratory cultures were obtained. Her COPD was not deemed to be in exacerbation. Additionally, CT imaging revealed a 1.9 cm peripherally calcified gallstone in the neck of the gallbladder, raising concern for symptomatic cholelithiasis, which will be monitored conservatively. The patient was counseled extensively regarding tobacco cessation for over 17 minutes. After discussion with the patient, she expressed understanding of her condition and agreed to the discharge plan. She was deemed stable for discharge with follow-up arranged with her primary care provider for medication management, GI for outpatient EGD, psychiatry for anxiety and schizophrenia, and the discharge clinic. Discharge medications include Augmentin 875 mg twice daily for 5 days, Protonix 40 mg once daily, Carafate 10 mL twice daily, Reglan twice daily as needed for 5 days, and Plavix to be held for now. All other medications are to be continued as per EMR. We are discharging as refusal of care. 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 Moderate nonspecific gastric distention and air-fluid level. 2. Trace left pleural effusion and adjacent atelectasis. 3. Cholelithiasis. ------- EXAM: XY CHEST XRAY 1 VIEW IMPRESSION: Diffuse interstitial opacities favored to reflect pulmonary edema versus atypical. Condition at Discharge: Fair Final Diagnosis/Problems List # Hematemesis # Upper GI bleed # Likely Epigastritis/PUD # Ruled out SBO # Acute hypoxic respiratory failure likely from aspiration pneumonia # Possible aspiration pneumonia # HX of COPD likely not in exacerbation # cholelithiasis--resolved pain # Tobacco abuse disorder /dependence, Discharge Disposition: Home Discharge Instruct/Medications Diet: Consistent carbohydrate, Cardiac 2g Na,low cholest Diet comment: Preferably liquid diet for 10-14 days Activity: No Restrictions, As Tolerated Follow Up/Referral: PCP for medication management GI for outpatient EGD Psychiatry for anxiety DC clinic Medications: Augmentin 875 mg for 5 days Protonix 40 mg daily 1 time Carafate 10 mL daily 2 times Hold Plavix for now Rest of medication as per EMR Scheduled Aspirin (Aspirin Low Dose), 81 MG PO DAILY Atorvastatin Calcium (Atorvastatin Calcium), 1 TAB PO DAILY Gabapentin (Gabapentin), 1 CAP PO TID Pantoprazole Sodium Sesquihydr (Protonix), 40 MG PO DAILY Sucralfate (Carafate Susp), 10 ML PO BID Scheduled PRN Amoxicillin & Pot Clavulanate (Augmentin Tablet), 875 MG PO BID PRN Metoclopramide Hcl (Reglan), 10 MG PO BIDPRN PRN Miscellaneous Medications Alprazolam (Alprazolam), PO, (Reported) Discontinued Medications Amoxicillin & Pot Clavulanate (Augmentin), 1 TAB PO BID Clopidogrel Bisulfate (Plavix), 1 TAB PO DAILY Ibuprofen Micronized (Motrin Tablet), 600 MG PO TID PRN Discharge Statement: "Patient was advised to return to the ER or call 911 if any headaches, dizziness, shortness of breath, chest pain, abdominal pain, bleeding, fevers, or worsening of medical condition. Patient was counseled about treatment plan, medications, possible side effects, patientverbalized understanding. All questions were answered to the best of my ability. This discharge took greater then 30 minutes in planning, reviewing documentation, counseling the patient, and discussing with other team members." ASSESSMENT ASSESSMENT Assessment # Hematemesis # Upper GI bleed # Likely Epigastritis/PUD # Ruled out SBO # Acute hypoxic respiratory failure likely from aspiration pneumonia # Possible aspiration pneumonia # HX of COPD likely not in exacerbation # cholelithiasis--resolved pain # Tobacco abuse disorder /dependence, Date of Service: Jun 26, 2025 Billing Provider: OLGA CONCEPCION MD Common Visit Codes: 52160-OEZ/OBS DISCH DAY >30min FELICITAS DHILLON RESIDENT Jun 26, 2025 15:04 OLGA CONCEPCION MD Jun 29, 2025 08:03
[2025-06-26] MEDS: hydrALAZINE HCL 20 MG/ML VL IV PRN (15:05)
[2025-06-26] MEDS: POTASSIUM CHL 20MEQ/100ML 100 ML IV ONE (15:14)
[2025-06-26] MEDS: MAALOX PLUS or MAALOX 30 ML PO ONE (15:15)
--- NOTE | 2025-06-26 16:02 | DVHPN2 ---
Progress Note Date Seen: Jun 26, 2025 Resident Creating Document: SYDNEE CHILDERS RESIDENT Medical Necessity Reason Pt with a Central, PICC or Fol: No Subjective Review of Systems Patient seen and examined at bedside Denies any further nausea or vomiting Last bowel movement yesterday Patient refused EGD today Objective vital signs Vital Sign Date Time Temp Pulse Resp B/P (MAP) Pulse Ox O2 Delivery O2 Flow Rate FiO2 06/26/25 15:58 98.6 92 06/26/25 15:05 197/118 06/26/25 15:01 20 06/26/25 13:00 92 06/26/25 11:46 Room Air* 0 21 Total Intake and Output 06/25/25 06/25/25 06/26/25 15:00 23:00 07:00 Intake Total 1575 ml 100 ml Output Total 150 ml Balance 1575 ml -50 ml medications Current Medications Medications Dose Ordered Sig/Cornelius Route Start Time Stop Time Status Last Admin Dose Admin Sodium Chloride 1,000 ml @ 75 mls/hr [id number] IV 06/25/25 07:30 06/25/25 22:17 75 MLS/HR Ondansetron HCl 4 mg Q4HP PRN IV 06/25/25 07:30 06/26/25 15:18 4 MG Gabapentin 300 mg TID PO 06/25/25 14:00 Patient Own Medication 1 tab DAILY PO 06/25/25 10:00 UNV Metoclopramide HCl 10 mg Q6HPRN PRN IV 06/25/25 10:00 Pantoprazole Sodium 40 mg BID IV 06/25/25 22:00 06/26/25 15:08 40 MG Atorvastatin Calcium 40 mg HS PO 06/25/25 22:00 Morphine Sulfate 2 mg Q6HR PRN IV 06/25/25 11:00 06/26/25 15:01 2 MG Albuterol 2.5 mg Q6HWA NEB 06/25/25 12:00 06/26/25 11:44 2.5 MG Ipratropium [place] 0.5 mg Q6HWA NEB 06/25/25 12:00 06/26/25 11:44 0.5 MG Cefazolin Sodium 50 ml @ 100 mls/hr Q8HR IV 06/25/25 16:15 06/26/25 05:03 100 MLS/HR Hydralazine HCl 10 mg Q6HP PRN IV 06/26/25 07:30 06/26/25 15:05 10 MG Examination General Appearance: Cooperative. Well developed. Well nourished. NAD Pulmonary/Respiratory: Chest non-tender. Clear bilateral breath sounds, no crackles, no wheezing. Cardiovascular/Chest: Regular rate and rhythm. No murmurs. No JVD. Abdominal Exam: Normal bowel sounds. Soft. normal abdomen, no visible veins, Nontender. No hepatospenomegaly. No masses Lower extremities: Trace lower extremity edema Neuro/Mental Status: A&O x4. Coherent. laboratory and microbiology Laboratory Tests 06/26/25 08:06 Test 06/26/25 08:06 Range/Units Serum Glucose 116 H 74-106 mg/dL Labs and/or images reviewed: Labs reviewed by me, Image(s) reviewed by me Problem List/Assessment/Plan Problem List/Assessment/Plan Acute intractable vomiting Hematemesis ? Peptic ulcer disease Active smoker Remote history of methamphetamine abuse History of CVA Questionable SBO versus ileus Plan: Continue Protonix b.i.d. Continue ondansetron, Reglan IV hydration Refused EGD Outpatient follow up with GI recommended Thank you so much for the opportunity to consult on your patient. GI team will follow the patient. In case of any questions or concerns please feel free to reach out. Plan discussed with Dr. Gomez Plan discussed with: Patient, Other (RN) My Orders My Orders Orders - SYDNEE CHILDERS Procedure Category Date Status Time Obtain Consent For: ORDERS 06/25/25 Transmitted 17:43 Obtain Consent For KEHINDE 06/25/25 In Process Anesthesia 17:43 SYDNEE CHILDERS Jun 26, 2025 16:02
== END 2025-06-26 17:45 | disposition home or self-care (01) | DRG 241 ==
LOC: EDBD 01:57 → EDUNIT# 01:57 → ER 02:03 → OVERFLOW 07:17 → WEST WING 22:30
PROVIDERS: ADMIT Student in an Organized Health Care Education/Training Program; ATTEND Student in an Organized Health Care Education/Training Program
DX: K27.4 Chronic or unspecified peptic ulcer, site unspecified, with hemorrhage (principal); J96.01 Acute respiratory failure with hypoxia; J69.0 Pneumonitis due to inhalation of food and vomit; K29.71 Gastritis, unspecified, with bleeding; K80.20 Calculus of gallbladder without cholecystitis without obstruction; E66.01 Morbid (severe) obesity due to excess calories; I10 Essential (primary) hypertension; F17.210 Nicotine dependence, cigarettes, uncomplicated; E78.5 Hyperlipidemia, unspecified; G89.29 Other chronic pain; Z74.01 Bed confinement status; I69.354 Hemiplegia and hemiparesis following cerebral infarction affecting left non-dominant side; Z68.38 Body mass index [BMI] 38.0-38.9, adult; Z82.5 Family history of asthma and other chronic lower respiratory diseases; Z83.3 Family history of diabetes mellitus; Z82.49 Family history of ischemic heart disease and other diseases of the circulatory system
CPT/HCPCS: 36415; 71045; 74176; 80053; 80307; 81001; 82140; 82271; 82728; 83036; 83605; 83690; 83735; 83880; 84443; 84484; 85025; 85610; 85730; 86141; 86850; 86900; 86901; 93005; 94640; 96374; 97163; 99291; G0378; J2405; J2470; J3480

== ENCOUNTER 2025-06-27 19:05 | Emergency (ER) | payer MEDICAID ==
[~2025-06-27] VITALS: Ht 170.2 cm; Wt 104.5 kg
[~2025-06-27 19:05] MED LIST changes: +ALPR1TAB7 PO; -AMOX500T86 PO; +AUG875T PO; -CLOP75TA28 PO; -IBU600T PO; +METO-281 PO; +PANT40TA2 PO; +SUCR1SUS26 PO
[2025-06-27 19:10] VITALS: BP 146/86; RESP 17; TEMP 98.3; O2SAT 96
[2025-06-27] MEDS ORDERED: MORPHINE SULFATE 4 MG/ML SYR/VIAL IV ONE (19:15)
[2025-06-27] MEDS ORDERED: ONDANSETRON HCL 4 MG/2 ML VIAL IV ONE (19:15)
--- NOTE | 2025-06-27 19:15 | ED.PDOC ---
HPI Comments This is a 60 year old female SHERYL presenting to the ED with chief complaint of chest pain. Patient reports that while laying down, she started to experience sudden, pounding substernal chest pain about 20 minutes ago. EMS relays that they provided ASA to the patient, however, patient spit it out due to the taste. Patient denies any N/V, SOB, dizziness, headache, or syncope. Time Seen by MD: 19:09 Primary Care Provider: KIARA Reviewed Notes: Nurses Notes, Catalyst Recovery Operator Notes, Medications, Allergies Allergies: Coded Allergies: NO KNOWN ALLERGIES (Unverified , 03/14/25) Home Meds Active Scripts Sucralfate (CARAFATE SUSP) 1 Gm/10 Ml Ss, 10 ML PO BID for 30 Days, #600 ML 1 Refill Prov:FELICITAS DHILLON 06/26/25 Pantoprazole Sodium Sesquihydr (Protonix) 40 Mg Tab, 40 MG PO DAILY for 30 Days, #30 TAB Prov:FELICITAS DHILLON 06/26/25 Amoxicillin & Pot Clavulanate (AUGMENTIN TABLET) 875 Mg Tb, 875 MG PO BID PRN for 5 Days, #10 TAB Prov:FELICITAS DHILLON 06/26/25 Metoclopramide Hcl (Reglan) 10 Mg Tab, 10 MG PO BIDPRN PRN for 5 Days, #10 TAB Prov:FELICITAS DHILLON 06/26/25 Gabapentin (Gabapentin) 300 Mg Cap, 1 CAP PO TID for 30 Days, #90 CAP 1 Refill Prov:CHAY MALDONADO MD 05/27/25 Atorvastatin Calcium (ATORVASTATIN CALCIUM) 40 Mg Tab, 1 TAB PO DAILY, #60 TAB 5 Refills Prov:AMPARO RUSHING MD 04/10/25 Aspirin (Aspirin Low Dose) 81 Mg Tab, 81 MG PO DAILY for 60 Days, #60 TAB Prov:AMPARO RUSHING MD 04/10/25 Reported Medications Alprazolam (Alprazolam) 1 Mg Tab, PO 06/25/25 Discontinued Scripts Ibuprofen Micronized (MOTRIN TABLET) 600 Mg Tb, 600 MG PO TID PRN for 5 Days, #15 TAB *Black box warning-NSAIDS can increase risk of NV & hypertension, GI irritation, ulceration, bleed, perferation. Do not use post cardiac surgery. Use short duration/lowest effective dose. Prov:CHAY MALDONADO MD 05/27/25 Clopidogrel Bisulfate (Plavix) 75 Mg Tab, 1 TAB PO DAILY for 21 Days, #21 TAB 1 Refill Prov:AMPARO RUSHING MD 04/10/25 Amoxicillin & Pot Clavulanate (Augmentin) 500 Mg Tab, 1 TAB PO BID for 14 Days, #28 TAB Prov:CHAY MALDONADO MD 05/27/25 Information Source: Patient, Emergency Med Personnel Mode of Arrival: EMS Severity: Moderate Timing: Minutes Duration: Since onset Prehospital treatment: None Location: Substernal Radiation: No Radiation Quality: Other (Pounding) Onset: At Rest Cardiac Risk Factors: HTN Past Medical History PAST MEDICAL HISTORY: COPD, CVA, HTN Surgical History: Denies all surgeries HEALTH PROMOTION COORDINATOR History: Denies all HEALTH PROMOTION COORDINATOR Hx Family History Family History: Reviewed,noncontributory to illness, Family hx of heart janki Social History Smoker: Cigarettes Alcohol: Occasionally Drugs: Methamphetamine Lives In: Home Constitutional: denies: chills, diaphoresis, fatigue, fever, malaise, sweats, weakness, others EENTM: denies: blurred vision, double vision, ear bleeding, ear discharge, ear drainage, ear pain, ear ringing, eye pain, eye redness, hearing loss, mouth pain, mouth swelling, nasal discharge, nose bleeding, nose congestion, nose pain, photophobia, tearing, throat pain, throat swelling, voice changes, others Respiratory: denies: cough, hemoptysis, orthopnea, SOB at rest, shortness of breath, SOB with excertion, stridor, wheezing, others Cardiovascular: reports: chest pain; denies: dizzy spells, diaphoresis, Dyspnea on exertion, edema, irregular heart beat, left arm pain, lightheadedness, palpitations, PND, syncope, others Gastrointestinal: denies: abdomen distended, abdominal pain, blood streaked bowels, constipated, diarrhea, dysphagia, difficulty swallowing, hematemesis, melena, nausea, poor appetite, poor fluid intake, rectal bleeding, rectal pain, vomiting, others Genitourinary: denies: abnormal vagina bleeding, burning, dyspareunia, dysuria, flank pain, frequency, hematuria, incontinence, pain, , vagina discharge, urgency, others Neurological: denies: dizziness, fainting, headache, left sided numbness, left sided weakness, numbness, paresthesia, pre-existing deficit, right sided numbness, right sided weakness, seizure, speech problems, tingling, tremors, weakness, others Musculoskeletal: denies: back pain, gout, joint pain, joint swelling, muscle pain, muscle stiffness, neck pain, others Integumetry: denies: bruises, change in color, change in hair/nails, dryness, laceration, lesions, lumps, rash, wounds, others Allergic/Immunocompromised: denies: Difficulty Healing, Frequent Infections, Hives, Itching, others Hematologic/Lymphatic: denies: anemia, blood clots, easy bleeding, easy bruising, swollen glands, others Endocrine: denies: excessive hunger, excessive sweating, excessive thirst, excessive urination, flushing, intolerance to cold, intolerance to heat, unexplained weight gain, unexplained weight loss, others Psychiatric: denies: anxiety, bipolar disorder, depression, hopeless, panic disorder, schizophrenia, sleepless, suicidal, others All Other Systems: Reviewed and Negative Physical Exam General Appearance: Moderate Distress HEENT: Normal ENT Inspection, Pharynx Normal, TMs Normal Neck: Full Range of Motion, Non-Tender, Normal, Normal Inspection Respiratory: Chest Non-Tender, No Accessory Muscle Use, Rales, Respiratory Distress Cardiovascular: No Edema, No JVD, No Murmur, No Gallop, Normal Peripheral Pulses, Regular Rate/Rhythm Breast Exam: Deferred Gastrointestinal: No Organomegaly, Non Tender, No Pulsatile Mass, Normal Bowel Sounds, Soft Genitalia: Deferred Pelvic: Deferred Rectal: Deferred Extremities: No calf tenderness, Normal capillary refill, Pedal edema Musculoskeletal : Apperance: Normal Neurologic: Alert, 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 Was a procedure done?: No CP Differential Dx Differential Diagnosis: Angina, NV, Pulmonary Embolus Differential Diagnosis: CHF Differential Diagnosis: Pericarditis X-Ray, Labs, Meds, VS Vital Signs Date Time Temp Pulse Resp B/P (MAP) Pulse Ox O2 Delivery O2 Flow Rate FiO2 06/27/25 20:20 89 06/27/25 19:15 92 06/27/25 19:12 92 06/27/25 19:10 98.3 84 17 146/86 96 98.3 Lab Test 06/27/25 20:23 06/27/25 19:25 Range/Units Troponin I High Sensitivity Pending 4 </=34 ng/L White Blood Count 9.6 # 4.4-10.8 10^3/uL Red Blood Count 5.45 H 4.0-5.20 10^6/uL Hemoglobin 15.3 12.2-16.2 g/dL Hematocrit 44.8 36.0-46.0 % Mean Corpuscular Volume 82.2 80.0-100.0 fL Mean Corpuscular Hemoglobin 28.1 28.0-32.0 pg Mean Corpuscular Hemoglobin Concent 34.2 32.0-36.0 g/dL Red Cell Distribution Width 16.4 H 11.8-14.3 % Platelet Count 325 140-450 10^3/uL Mean Platelet Volume 9.4 6.9-10.8 fL Neutrophils (%) (Auto) 66.0 37.0-80.0 % Lymphocytes (%) (Auto) 23.7 10.0-50.0 % Monocytes (%) (Auto) 7.9 0.0-12.0 % Eosinophils (%) (Auto) 1.7 0.0-7.0 % Basophils (%) (Auto) 0.7 0.0-2.0 % Neutrophils # (Auto) 6.3 1.6-8.6 10 ^3/uL Lymphocytes # (Auto) 2.3 0.4-5.4 10 ^3/uL Monocytes # (Auto) 0.8 0-1.3 10 ^3/uL Eosinophils # (Auto) 0.2 0-0.8 10 ^3/uL Basophils # (Auto) 0.1 0-0.2 10 ^3/uL Nucleated Red Blood Cells 0.1 % Sodium Level 141 136-145 mmol/L Potassium Level 3.0 L 3.5-5.1 mmol/L Chloride Level 100 98-107 mmol/L Carbon Dioxide Level 31 20-31 mmol/L Anion Gap 10 5-15 Blood Urea Nitrogen 8 L 9-23 mg/dL Creatinine 0.74 0.550-1.02 mg/dL Glomerular Filtration Rate Calc 93 >90 mL/min BUN/Creatinine Ratio 10.8 10.0-20.0 Serum Glucose 112 H 74-106 mg/dL Calcium Level 9.9 8.7-10.4 mg/dL B-Type Natriuretic Peptide 15.47 0-100 pg/mL Time of 1ST Reevaluation: 21:27 Reevaluation 1ST: Unchanged Patient Education/Counseling: Diagnosis, Treatment, Prognosis Family Education/Counseling: No Family Present SEPSIS Sepsis Screen Physician Orders Chest Portable (06/27/25 19:08) Heplock Iv (06/27/25 19:08) Appliance Painter And Refinisher (06/27/25 19:08) Blood Pressure (06/27/25 19:08) Pulse Oximetry (06/27/25 19:08) Troponin-I Hs (06/27/25 20:08) Troponin-I Hs (06/27/25 22:08) Electrocardigram (06/27/25 20:08) Electrocardigram (06/27/25 22:08) Vital Signs Date Time Temp Pulse Resp B/P (MAP) Pulse Ox O2 Delivery O2 Flow Rate FiO2 06/27/25 20:20 89 06/27/25 19:15 92 06/27/25 19:12 92 06/27/25 19:10 98.3 84 17 146/86 96 98.3 Laboratory Tests Test 06/27/25 19:25 White Blood Count 9.6 10^3/uL (4.4-10.8) # Departure 1 Departure Time of Disposition: 21:26 Impression: Primary Impression: Acute on chronic diastolic heart failure Disposition: 09 ADMITTED INPATIENT Admit to: [facility] Condition: Fair Critical Care Note Critical Care Time?: Yes (55 min-critical care time only) Stability Stability form required: Yes Unstable for transfer: Telemetry monitoring (Telemetry monitoring required), ED Physician Assesment (Clinical assesment) Heart Score Heart Score: Heart Score Response (Comments) Value History Highly Suspicious 2 EKG Normal 0 Age 45-64 1 Risk Factors 1 or 2 risk factors 1 Troponin Normal limit 0 Total 4 I personally scribed for RONI FARRIS MD ([email or web address]) on 06/27/25 at 19:15. Electronically submitted by Mumtaz Chi [email or web address]). RONI FARRIS MD Jun 27, 2025 19:15
[2025-06-27 19:48] LABS: Hematocrit 44.8 % (36.0-46.0); Hemoglobin 15.3 g/dL (12.2-16.2); Mean Corpuscular Hemoglobin 28.1 pg (28.0-32.0); Mean Corpuscular Volume 82.2 fL (80.0-100.0); Nucleated Red Blood Cells % 0.1 %
[2025-06-27 19:52] LABS: Chloride 100 mmol/L (98-107); Sodium 141 mmol/L (136-145)
[2025-06-27 19:53] LABS: Anion Gap 10 (5-15); Calcium 9.9 mg/dL (8.7-10.4); Carbon Dioxide 31 mmol/L (20-31)
[2025-06-27 19:58] LABS: BUN/Creatinine Ratio 10.8 (10.0-20.0)
--- NOTE | 2025-06-27 20:01 | ECG ---
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
[2025-06-27 20:20] VITALS: PULSE 89
[2025-06-27 20:27] LABS: Blood Urea Nitrogen 8 mg/dL (9-23); Glucose 112 mg/dL (74-106); Potassium 3.0 mmol/L (3.5-5.1)
--- NOTE | 2025-06-27 21:10 | DVH ---
CLINICAL HISTORY: cp TECHNIQUE: Single view of the chest was obtained. COMPARISON: XY CHEST PORTABLE on DOS: 06/25/25, XY CHEST XRAY 1 VIEW on DOS: 06/25/25, XY CHEST PORTABLE on DOS: 05/23/25, XR CHEST 1 VIEW on DOS: 03/30/25, XR CHEST 1 VIEW on DOS: 06/29/24 FINDINGS: The heart size is mildly enlarged with pulmonary vascular congestion. There is no dense consolidation . IMPRESSION: Mild pulmonary vascular congestion.
[2025-06-27] MEDS ORDERED: FUROSEMIDE 40 MG/4 ML VIAL IV ONE (21:30)
--- NOTE | 2025-06-27 21:30 | ECG ---
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
[2025-06-30] MEDS ORDERED: POTASSIUM CHL 20 Meq TABLET PO ONE (20:22)
--- NOTE | 2025-07-04 10:12 | ECG ---
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
== END 2025-06-27 22:17 | disposition left against medical advice (07) ==
LOC: EDBD 19:05 → ER 19:05
DX: I11.0 Hypertensive heart disease with heart failure (principal); I50.33 Acute on chronic diastolic (congestive) heart failure; J44.9 Chronic obstructive pulmonary disease, unspecified; F17.210 Nicotine dependence, cigarettes, uncomplicated; Z79.82 Long term (current) use of aspirin; Z79.899 Other long term (current) drug therapy; Z86.73 Personal history of transient ischemic attack (TIA), and cerebral infarction without residual deficits
CPT/HCPCS: 36415; 71045; 80048; 83880; 84484; 85025; 93005; 99291

== ENCOUNTER 2025-06-30 18:19 | Emergency (ER) | payer MEDICAID ==
[~2025-06-30] VITALS: Ht 170.2 cm; Wt 67.3 kg
--- NOTE | 2025-06-30 18:31 | ECG ---
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
[2025-06-30 19:14] LABS: Hematocrit 43.4 % (36.0-46.0); Hemoglobin 15.0 g/dL (12.2-16.2); Mean Corpuscular Hemoglobin 28.4 pg (28.0-32.0); Mean Corpuscular Volume 82.1 fL (80.0-100.0); Nucleated Red Blood Cells % 0.2 %
[2025-06-30 19:16] LABS: Chloride 102 mmol/L (98-107); Sodium 141 mmol/L (136-145)
[2025-06-30 19:17] LABS: Anion Gap 12 (5-15); Calcium 9.2 mg/dL (8.7-10.4); Carbon Dioxide 27 mmol/L (20-31)
--- NOTE | 2025-06-30 19:18 | DVH ---
CHEST RADIOGRAPH Indication: cp Technique: Single frontal view of the chest was obtained Comparison: XY CHEST PORTABLE on DOS: 06/27/25, XY CHEST PORTABLE on DOS: 06/25/25, XY CHEST XRAY 1 VIEW on DOS: 06/25/25, XY CHEST PORTABLE on DOS: 05/23/25 FINDINGS/IMPRESSION: Slightly rotated examination. The lungs are clear. The cardiomediastinal silhouette is unremarkable. No pleural effusion or pneumothorax. Unchanged osseous structures with Incompletely assessed scleros is in the left humeral head.
[2025-06-30 19:21] LABS: Potassium 3.1 mmol/L (3.5-5.1)
[2025-06-30 19:22] LABS: BUN/Creatinine Ratio 8.5 (10.0-20.0); Glucose 104 mg/dL (74-106)
[2025-06-30 19:29] LABS: Blood Urea Nitrogen 6 mg/dL (9-23)
[2025-06-30 19:30] VITALS: RESP 18; O2SAT 99
[2025-06-30] MEDS: POTASSIUM CHL 20 Meq TABLET PO ONE (20:30)
[2025-07-01 07:35] VITALS: PULSE 64; RESP 20; O2SAT 98
[2025-07-01 08:00] VITALS: TEMP 98.3
[2025-07-01 09:30] VITALS: PULSE 81; RESP 18; O2SAT 95
[2025-07-01 12:00] VITALS: BP 136/90; PULSE 89; RESP 20; O2SAT 95
== END 2025-07-01 12:38 | disposition home or self-care (01) ==
LOC: EDBD 18:19 → ER 18:22
DX: R07.89 Other chest pain (principal); J44.9 Chronic obstructive pulmonary disease, unspecified; I10 Essential (primary) hypertension; F17.210 Nicotine dependence, cigarettes, uncomplicated; Z79.899 Other long term (current) drug therapy; Z86.73 Personal history of transient ischemic attack (TIA), and cerebral infarction without residual deficits
CPT/HCPCS: 36415; 71045; 80048; 83880; 84484; 85025; 93005

== ENCOUNTER 2025-07-05 19:19 | Inpatient (IN) | payer MEDICAID ==
[~2025-07-05] VITALS: Ht 167.6 cm; Wt 105.4 kg
[2025-07-05] MEDS: ACETAMINOPHEN 325 MG TAB PO ONE (19:30)
[2025-07-05] MEDS: IBUPROFEN 600 MG TAB PO ONE (19:30)
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
--- NOTE | 2025-07-05 20:17 | DVH ---
CHEST RADIOGRAPH Indication: CHEST PAIN Technique: Single frontal view of the chest was obtained Comparison: XY CHEST XRAY 1 VIEW on DOS: 06/30/25, XY CHEST PORTABLE on DOS: 06/27/25, XY CHEST PORTABL E on DOS: 06/25/25 FINDINGS: Lines and Tubes: None Lungs: No focal consolidation. Pleura: No effusion. No pneumothorax. Cardiomediastinal contours: Unremarkable Bones: No acute osseous abnormality. IMPRESSION: 1. No acute cardiopulmonary disease.
[2025-07-06 07:18] VITALS: PULSE 96; RESP 13; O2SAT 92
[2025-07-06 10:34] LABS: Cannabinoid Screen, Urine Neg (NEGATIVE); Urine Budding Yeast MANY /hpf (None Seen); Urine Protein, UAD 1+ (Negative); Urine WBC Clumps PRESENT /hpf (None Seen)
[2025-07-06 10:42] LABS: Amphetamine Screen, Urine Neg (NEGATIVE); Barbiturate Scree,Urine Neg (NEGATIVE); Benzodiazephine Screen, Urine Pos (NEGATIVE); Cocaine Screen, Urine Neg (NEGATIVE); Phencyclidine Screen, Urine Neg (NEGATIVE)
[2025-07-06] MEDS: NICOTINE 7MG/24HR TOPICAL PATCH TD ONE (10:49)
[2025-07-06 10:52] LABS: Opiate Scree,Urine Neg (NEGATIVE)
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
[2025-07-06] MEDS ORDERED: ONDANSETRON HCL 4 MG/2 ML VIAL IV PRN (11:15)
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
[2025-07-06 12:02] LABS: Hematocrit 43.7 % (36.0-46.0); Hemoglobin 14.7 g/dL (12.2-16.2); Mean Corpuscular Hemoglobin 27.4 pg (28.0-32.0); Mean Corpuscular Volume 81.8 fL (80.0-100.0); Nucleated Red Blood Cells % 0.1 %
[2025-07-06] MEDS: ENOXAPARIN SOD 40 MG/0.4 ML SYRINGE SC SCH (12:08)
[2025-07-06 13:00] VITALS: BP 115/81; PULSE 89; RESP 17; TEMP 98.3; O2SAT 97
[2025-07-06] MEDS: GABAPENTIN 300 MG CAP PO SCH (14:00)
[2025-07-06 17:00] VITALS: BP 117/68; PULSE 131; RESP 14; TEMP 98; O2SAT 96
[2025-07-06] MEDS: ATORVASTATIN 20 MG TAB PO SCH (20:55)
[2025-07-06 21:00] VITALS: BP 129/62; PULSE 86; RESP 17; TEMP 97.3; O2SAT 95
[2025-07-06 21:33] VITALS: BP 117/68; PULSE 92; RESP 20; O2SAT 95
[2025-07-06] MEDS: IPRATROPIUM BROM 0.5 MG/2.5ML INH SOL NEB SCH (21:33)
[2025-07-06] MEDS: ALBUTEROL SULF 2.5 MG/0.5ML(0.5%) NEB SOLN NEB SCH (21:33)
[2025-07-06 21:39] VITALS: PULSE 87; RESP 16; O2SAT 99
[2025-07-06] MEDS: ACETAMINOPHEN 325 MG TAB PO PRN (22:16)
[2025-07-07] VITALS (12 sets, daily range): BP systolic 105–129; BP diastolic 51–75; PULSE 64–105; RESP 16–20; TEMP 96.6–98.9; O2SAT 92–98
[2025-07-07] MEDS: PANTOPRAZOLE 40 MG TAB PO SCH (06:22)
[2025-07-07 06:43] LABS: Hematocrit 40.0 % (36.0-46.0); Hemoglobin 13.8 g/dL (12.2-16.2); Mean Corpuscular Hemoglobin 28.0 pg (28.0-32.0); Mean Corpuscular Volume 81.2 fL (80.0-100.0); Nucleated Red Blood Cells % 0.3 %
[2025-07-07 06:56] LABS: Alanine Aminotransferase 15 U/L (7-40); Albumin 3.4 g/dL (3.2-4.8); Alkaline Phosphatase 85 U/L (46-116); Anion Gap 10 (5-15); BUN/Creatinine Ratio 7.6 (10.0-20.0); Bilirubin, Total 0.6 mg/dL (0.2-1.0); Calcium 8.8 mg/dL (8.7-10.4); Carbon Dioxide 25 mmol/L (20-31); Chloride 103 mmol/L (98-107); Sodium 138 mmol/L (136-145); Total Protein 6.1 g/dL (5.7-8.2)
[2025-07-07 07:09] LABS: Blood Urea Nitrogen 5 mg/dL (9-23); Glucose 122 mg/dL (74-106); Potassium 2.6 mmol/L (3.5-5.1)
[2025-07-07] MEDS: ASPirin-EC 81 mg tab PO SCH (10:09)
[2025-07-07] MEDS ORDERED: HAL5T PO (15:21)
[2025-07-07] MEDS ORDERED: PANT40T PO (15:21)
[2025-07-07] MEDS ORDERED: ATOR-47 PO (15:21)
[2025-07-07] MEDS ORDERED: HYDR-3682 PO (15:21)
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
[2025-07-07] MEDS: POTASSIUM EFFERVESENT TAB 25 MEQ PO SCH (15:41)
[2025-07-07] MEDS: MORPHINE SULFATE INJ 2 MG/ml SYRG IV PRN (15:42)
[2025-07-07] MEDS ORDERED: HALOPERIDOL 5 MG TAB PO PRN (22:00)
[2025-07-07] MEDS ORDERED: HALOPERIDOL 5 MG TAB PO SCH (22:00)
[2025-07-07] MEDS: CALCIUM CARB 500 MG CHEW TAB PO PRN (22:30)
[2025-07-07] MEDS: hydrOXYzine 25 MG TAB or CAP PO SCH (22:50)
[2025-07-08] VITALS (17 sets, daily range): BP systolic 99–133; BP diastolic 59–91; PULSE 67–93; RESP 17–24; TEMP 97.1–99.4; O2SAT 90–100
--- NOTE | 2025-07-08 12:16 | ECG ---
[facility] Test Date: 2025-07-05 Test Time: 19:21:06 Pat Name: ANA HERNÁNDEZ Department: Room: 0282 A Gender: F Circus Rider: ADRYAN : 1965 Requested By: CORY GARCIA Order Number: [id number] Reading MD: Noah Dueñas Measurements Intervals [place] Rate: 92 P: 75 MD: 158 QRS: 5 QRSD: 104 T: 102 QT: 436 QTc: 540 Interpretive Statements Sinus rhythm Borderline repolarization abnormality Prolonged QT interval Baseline wander in lead(s) V2 Electronically Signed On 07-08-2025 18:49:05 PDT by Noah Dueñas Please click the below link to view image of tracing.
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
[2025-07-08 14:53] LABS: Chloride 101 mmol/L (98-107); Potassium 3.6 mmol/L (3.5-5.1); Sodium 137 mmol/L (136-145)
[2025-07-08 14:54] LABS: Anion Gap 10 (5-15); Calcium 8.8 mg/dL (8.7-10.4); Carbon Dioxide 26 mmol/L (20-31)
[2025-07-08 14:59] LABS: BUN/Creatinine Ratio 8.1 (10.0-20.0); Blood Urea Nitrogen < 5 mg/dL (9-23); Glucose 99 mg/dL (74-106)
[2025-07-09] VITALS (11 sets, daily range): BP systolic 95–149; BP diastolic 66–75; PULSE 78–85; RESP 16–22; TEMP 98–98.7; O2SAT 95–100
--- NOTE | 2025-07-09 12:42 | DVHPN2 ---
Subjective Patient continues to report having left lower extremity pain. Reviewed: Care Plan, H&P, Labs, Medications Changes from previous H/P or p: No Changes General: Per HPI Respiratory: Shortness of breath Objective Vitals Vital Signs Date Time Temp Pulse Resp B/P (MAP) Pulse Ox O2 Delivery O2 Flow Rate FiO2 07/09/25 10:20 65 16 112/78 07/09/25 10:18 100 07/09/25 10:13 Room Air* 0 21 07/09/25 09:00 98.2 98.2 Intake/Output Intake and Output 07/09/25 07:00 Intake Total 900 ml Output Total 150 ml Balance 750 ml Intake Oral 900 ml Output Urine Total 150 ml # Voids 2 # Bowel Movements 1 General Appearance: Alert, Oriented X3, mild distress HEENT: Atraumatic, PERRLA Lungs: Clear to auscultation, Normal air movement Cardiovascular: Normal S1, Normal S2 Musculoskeletal: Other (Paraplegia to left upper and lower extremity) Neuro: Normal speech Skin: Dry, Intact Psych/Mental Status: Mental status NL, Mood NL Medications Current Medications Medications Dose Ordered Sig/Cornelius Route Start Time Stop Time Status Last Admin Dose Admin Enoxaparin Sodium 40 mg DAILY SC 07/06/25 11:14 07/09/25 08:49 40 MG Ceftriaxone Sodium 50 ml @ 100 mls/hr DAILY@09 IV 07/07/25 09:00 07/09/25 08:49 100 MLS/HR Ondansetron HCl 4 mg Q4HP PRN IV 07/06/25 11:15 Acetaminophen 650 mg Q6HP PRN PO 07/06/25 11:15 07/07/25 13:01 650 MG Albuterol 2.5 mg Q4HWA [facility] [place] 07/06/25 14:00 07/09/25 10:13 2.5 MG Ipratropium Vestal 0.5 mg Q4HWA [facility] 07/06/25 14:00 07/09/25 10:13 0.5 MG Aspirin 81 mg DAILY PO 07/07/25 10:00 07/09/25 08:49 81 MG Gabapentin 300 mg TID PO 07/06/25 14:00 07/07/25 13:01 300 MG Pantoprazole Sodium 40 mg DAILY@0700 PO 07/07/25 07:00 07/08/25 06:11 40 MG Atorvastatin Calcium 40 mg HS PO 07/06/25 22:00 07/08/25 21:02 40 MG Potassium Bicarbonate 50 meq DAILY PO 07/07/25 15:15 07/09/25 08:50 50 MEQ Hydroxyzine Pamoate 25 mg BID PO 07/07/25 22:00 07/09/25 08:49 25 MG Morphine Sulfate 1 mg Q3HP PRN IV 07/07/25 15:30 07/09/25 09:50 1 MG Haloperidol 5 mg Q8HP PRN PO 07/07/25 22:00 Calcium Carbonate 500 mg QIDPRN PRN PO 07/07/25 22:15 07/08/25 13:14 500 MG Laboratory Results Laboratory Tests 07/07/25 06:01 07/08/25 14:29 Chemistry Test 07/08/25 14:29 Calcium Level 8.8 mg/dL (8.7-10.4) Urinalysis Test 07/06/25 10:10 Urine Color Light-orange (Yellow) Urine Clarity Ex.turbid (Clear) Urine pH 6.5 (5.0-9.0) Urine Specific [place] 1.021 (1.001-1.035) Urine Protein 1+ (Negative) H Urine Ketones Negative (Negative) Urine Blood Negative /uL (Negative) Urine Nitrite Negative (Negative) Urine Bilirubin Negative (Negative) Urine Urobilinogen 4 mg/dL (Negative) H Urine Leukocyte Esterase Trace /uL (Negative) Urine RBC 11 /hpf (0 - 4) Urine WBC Clumps Present /hpf (None Seen) Urine Microscopic WBC 62 /HPF (0-5) H Urine Squamous Epithelial Cells Few /hpf (<5) Urine Bacteria Few /hpf (None Seen) H Urine Mucus Few (None Seen) Urine Yeast (Budding) Many /hpf (None Seen) Urine Glucose Normal mg/dL (Normal) Microbiology Microbiology Date/Time Source Procedure Growth Status 07/07/25 05:31 Nose MRSA Screen - Final Methicillin Resistant S.aureus Complete 07/06/25 12:00 Urine - [place] Urine Culture - Final Enterobacter cloacae Complete Labs and/or images reviewed: Labs reviewed by me, Image(s) reviewed by me Assessment/Plan Assessment/Plan Impression: -hypokalemia -history of CVA with left-sided hemiparesis -obesity -dyslipidemia -COPD -peptic ulcer disease Plan: Events: Patient was discharged yesterday. Continues to be challenging with discharging the patient home given environment. Defer to correctional case manager on discharge planning. Patient medically cleared to go home. -continue PPI -aspirin, statin -restart Haldol p.o., hydroxyzine PRN anxiety -pain management -potassium replacement -repeat labs in a.m. Total time spent with patient discussing and formulating plan of care: 35 minutes. This medical document was created using an electronic medical record system with [email or web address] dictation system. Although this document has been carefully reviewed, there may still be some phonetic and typographical errors. These areas are purely typographical due to imperfections of the software programs, and do not reflect any compromise in the patient's medical care. Plan discussed with: Patient, Other (RN) My Orders Orders - OLY ESPINOSA NP Procedure Category Date Status Time Discharge DISCHARGE 07/08/25 Transmitted 14:01 * Ext[employer] Template Maker CONS 07/09/25 Transmitted Consult Date of Service: Jul 09, 2025 Billing Provider: OLY ESPINOSA NP Common Visit Codes: [id number] INP/OBS CARE(HIGH) OLY ESPINOSA NP Jul 09, 2025 12:42
== END 2025-07-09 20:05 | disposition home or self-care (01) | DRG 191 ==
LOC: ER 19:19 → EDUNIT# 19:19 → EDBD 19:19 → OVERFLOW 07-06 11:01 → WEST WING 07-06 12:55
PROVIDERS: ADMIT Nurse Practitioner Acute Care; ATTEND Nurse Practitioner Acute Care
DX: J44.1 Chronic obstructive pulmonary disease with (acute) exacerbation (principal); I69.354 Hemiplegia and hemiparesis following cerebral infarction affecting left non-dominant side; E87.6 Hypokalemia; F15.90 Other stimulant use, unspecified, uncomplicated; K27.9 Peptic ulcer, site unspecified, unspecified as acute or chronic, without hemorrhage or perforation; G89.29 Other chronic pain; I10 Essential (primary) hypertension; E66.01 Morbid (severe) obesity due to excess calories; F17.210 Nicotine dependence, cigarettes, uncomplicated; E78.5 Hyperlipidemia, unspecified; Y09 Assault by unspecified means; Z74.01 Bed confinement status; Z82.5 Family history of asthma and other chronic lower respiratory diseases; Z82.49 Family history of ischemic heart disease and other diseases of the circulatory system; Z68.37 Body mass index [BMI] 37.0-37.9, adult
CPT/HCPCS: 36415; 70450; 71045; 80048; 80053; 80307; 81001; 82140; 84484; 85025; 87081; 87086; 87088; 87186; 93005; 94640; G0378

== ENCOUNTER 2025-07-09 21:32 | Emergency (ER) | payer MEDICAID ==
[~2025-07-09 21:32] MED LIST changes: +ATOR-47 PO; +HAL5T PO; +HYDR-3682 PO; +PANT40T PO
[2025-07-09 22:39] VITALS: PULSE 72; RESP 20; O2SAT 96
--- NOTE | 2025-07-09 22:46 | ED.PDOC ---
History of Present Illness HPI Comments 60-year-old female with a history of morbid obesity, prior stroke and COPD and depression and anxiety was recently admitted into the hospital and just discharged home but states that they did not have a hospital bed for hurt her stay and at her house so she came back to the emergency department to be cared for. Patient states that she is too weak to get up from bed and has had some nausea. Chief Complaint: Nausea/Vomiting Time Seen by MD: 22:24 Primary Care Provider: KIARA Allergies: Coded Allergies: NO KNOWN ALLERGIES (Unverified , 03/14/25) Home Meds Active Scripts Sucralfate (CARAFATE SUSP) 1 Gm/10 Ml Ss, 10 ML PO BID for 30 Days, #600 ML 1 Refill Prov:FELICITAS DHILLON 06/26/25 Pantoprazole Sodium Sesquihydr (Protonix) 40 Mg Tab, 40 MG PO DAILY for 30 Days, #30 TAB Prov:FELICITAS DHILLON 06/26/25 Amoxicillin & Pot Clavulanate (AUGMENTIN TABLET) 875 Mg Tb, 875 MG PO BID PRN for 5 Days, #10 TAB Prov:FELICITAS DHILLON [facility] 06/26/25 Metoclopramide Hcl (Reglan) 10 Mg Tab, 10 MG PO BIDPRN PRN for 5 Days, #10 TAB Prov:FELICITAS DHILLON [facility] 06/26/25 Gabapentin (Gabapentin) 300 Mg Cap, 1 CAP PO TID for 30 Days, #90 CAP 1 Refill Prov:CHAY MALDONADO MD 05/27/25 Atorvastatin Calcium (ATORVASTATIN CALCIUM) 40 Mg Tab, 1 TAB PO DAILY, #60 TAB 5 Refills Prov:AMPARO RUSHING MD 04/10/25 Aspirin (Aspirin Low Dose) 81 Mg Tab, 81 MG PO DAILY for 60 Days, #60 TAB Prov:AMPARO RUSHING MD 04/10/25 Reported Medications Pantoprazole Sodium Sesquihydr (Pantoprazole Sodium) 40 Mg Tab, 1 TAB PO DAILY 07/07/25 Haloperidol (Haldol) 5 Mg Tb, 1 TAB PO 07/07/25 Hydroxyzine Hcl (Hydroxyzine Hcl) 25 Mg Tab, 1 TAB PO BID 07/07/25 Atorvastatin Calcium (ATORVASTATIN CALCIUM) 80 Mg Tab, 1 TAB PO DAILY 07/07/25 Alprazolam (Alprazolam) 1 Mg Tab, PO 06/25/25 Information Source: Patient Mode of Arrival: EMS Severity: Moderate, Severe Timing: Days Duration: Since onset Past Medical History PAST MEDICAL HISTORY: COPD, CVA, HTN Surgical History: Denies all surgeries CLUB LICENSEE History: Denies all CLUB LICENSEE Hx Family History Family History: Reviewed,noncontributory to illness, Family hx of heart janki Social History Smoker: Cigarettes Alcohol: Occasionally Drugs: Methamphetamine Lives In: Home Constitutional: reports: fatigue, malaise Gastrointestinal: reports: nausea, vomiting Neurological: reports: weakness All Other Systems: Reviewed and Negative Physical Exam General Appearance: Mild Distress, Other HEENT: Normal ENT Inspection, Pharynx Normal, TMs Normal Neck: Full Range of Motion, Non-Tender, Normal, Normal Inspection Respiratory: Chest Non-Tender, Lungs Clear, No Accessory Muscle Use, No Respiratory Distress, Normal Breath Sounds Cardiovascular: No Edema, No JVD, No Murmur, No Gallop, Normal Peripheral Pu lses, Regular Rate/Rhythm Breast Exam: Deferred Gastrointestinal: Non Tender, Soft, Other (Obese) Genitalia: Deferred Pelvic: Deferred Rectal: Deferred Extremities: No calf tenderness, Normal capillary refill, Normal inspection, Normal range of motion, Non-tender, No pedal edema Musculoskeletal : Apperance: Normal Neurologic: Alert, marine rigger II-XII nml as Tested, No Motor Deficits, Normal Affect, Normal Mood, No Sensory Deficits Cerebellar Function: Normal Reflexes: Normal Skin: Dry, Normal Color, Warm Lymphatic: No Adenopathy Was a procedure done? Was a procedure done?: No Differential Dx Considerations may include: Differential diagnosis includes but not limited to: Dehydration, sepsis, electrolyte abnormality, coronary ischemia, renal failure and others X-Ray, Labs, Meds, VS Vital Signs Date Time Temp Pulse Resp B/P (MAP) Pulse Ox O2 Delivery O2 Flow Rate FiO2 07/09/25 22:39 98.1 72 20 117/60 (79) 96 98.1 07/09/25 22:39 72 20 96 Room Air* 0 21 07/09/25 21:34 98.0 100 18 121/92 97 98.0 Lab Test 07/09/25 23:40 07/09/25 22:48 Range/Units Troponin I High Sensitivity < 3 L 3 L </=34 ng/L White Blood Count 4.2 L 4.4-10.8 10^3/uL Red Blood Count 5.10 4.0-5.20 10^6/uL Hemoglobin 14.3 12.2-16.2 g/dL Hematocrit 41.5 36.0-46.0 % Mean Corpuscular Volume 81.4 80.0-100.0 fL Mean Corpuscular Hemoglobin 28.0 28.0-32.0 pg Mean Corpuscular Hemoglobin Concent 34.4 32.0-36.0 g/dL Red Cell Distribution Width 16.8 H 11.8-14.3 % Platelet Count 271 140-450 10^3/uL Mean Platelet Volume 8.9 6.9-10.8 fL Neutrophils (%) (Auto) 52.4 37.0-80.0 % Lymphocytes (%) (Auto) 33.4 10.0-50.0 % Monocytes (%) (Auto) 11.0 0.0-12.0 % Eosinophils (%) (Auto) 2.4 0.0-7.0 % Basophils (%) (Auto) 0.8 0.0-2.0 % Neutrophils # (Auto) 2.2 1.6-8.6 10 ^3/uL Lymphocytes # (Auto) 1.4 0.4-5.4 10 ^3/uL Monocytes # (Auto) 0.5 0-1.3 10 ^3/uL Eosinophils # (Auto) 0.1 0-0.8 10 ^3/uL Basophils # (Auto) 0 0-0.2 10 ^3/uL Nucleated Red Blood Cells 0.3 % Prothrombin Time 11.8 9.3-11.8 sec Prothrombin Time INR 1.13 0.9-1.15 Activated Partial Thromboplast Time 28.3 24.5-34.5 SEC Sodium Level 138 136-145 mmol/L Potassium Level 3.7 3.5-5.1 mmol/L Chloride Level 101 98-107 mmol/L Carbon Dioxide Level 30 20-31 mmol/L Anion Gap 7 5-15 Blood Urea Nitrogen < 5 L 9-23 mg/dL Creatinine 0.64 0.550-1.02 mg/dL Glomerular Filtration Rate Calc 102 >90 mL/min BUN/Creatinine Ratio 7.8 L 10.0-20.0 Serum Glucose 108 H 74-106 mg/dL Calcium Level 9.2 8.7-10.4 mg/dL Total Bilirubin 0.5 0.2-1.0 mg/dL Aspartate Amino Transferase (AST) 40 13-40 U/L Alanine Aminotransferase (ALT) 23 7-40 U/L Alkaline Phosphatase 97 46-116 U/L B-Type Natriuretic Peptide 16.86 0-100 pg/mL Total Protein 6.6 5.7-8.2 g/dL Albumin 3.7 3.2-4.8 g/dL Current Medications Medications (Trade) Dose Ordered Sig/Cornelius Route Start Time Stop Time Status Last Admin Sodium Chloride 500 ml @ 500 mls/hr Q1H ONCE IV 07/09/25 23:00 07/09/25 23:59 DC 07/09/25 23:22 Ondansetron HCl (Zofran) 4 mg ONCE ONCE IV 07/09/25 23:00 07/09/25 23:01 DC 07/09/25 23:22 Time of 1ST Reevaluation: 22:45 Reevaluation 1ST: Unchanged Patient Education/Counseling: Diagnosis, Treatment Family Education/Counseling: No Family Present SEPSIS Sepsis Screen Date sepsis recognized/suspect: Jul 09, 2025 Time Sepsis recognized/suspect: 2240 Recent Procedure: No On Antibiotic Therapy: No Respiratory Rate >20: No Heart Rate >90: No Temp<36 C (96.8 F) or >38.3 C: No SBP <90 or MAP <65 mmHG: No New Acute Mental Status Change: No Is the patient on CPAP, BIPAP,: No Physician Orders Chest Portable (07/09/25 22:39) Urinalysis (07/09/25 22:39) Electrocardigram (07/09/25 22:39) Vital Signs Date Time Temp Pulse Resp B/P (MAP) Pulse Ox O2 Delivery O2 Flow Rate FiO2 07/09/25 22:39 98.1 72 20 117/60 (79) 96 98.1 07/09/25 22:39 72 20 96 Room Air* 0 21 07/09/25 21:34 98.0 100 18 121/92 97 98.0 Laboratory Tests Test 07/09/25 22:48 White Blood Count 4.2 10^3/uL (4.4-10.8) L Medications Medications Dose Ordered Sig/Cornelius Route Start Time Stop Time Status Last Admin Dose Admin Ondansetron HCl 4 mg ONCE ONCE IV 07/09/25 23:00 07/09/25 23:01 DC 07/09/25 23:22 Sodium Chloride 500 ml @ 500 mls/hr Q1H ONCE IV 07/09/25 23:00 07/09/25 23:59 DC 07/09/25 23:22 Departure 1 Departure Time of Disposition: 00:40 Impression: Primary Impression: Generalized weakness Additional Impressions: UTI (urinary tract infection) Nausea and vomiting Morbid obesity Dehydration Disposition: ADMITTED INPATIENT Admit to: Med Surg Condition: Guarded Discharged With: Self Comments 60-year-old female with morbid obesity and nausea and vomiting and generalized weakness. Patient is too weak to get out of bed. Laboratory results reviewed. I suspect dehydration. Patient will need admission for supportive care and furt her workup Critical Care Note Critical Care Time?: No Stability Stability form required: No Heart Score Heart Score: Heart Score Response (Comments) Value History Slightly Suspicious 0 EKG Normal 0 Age 45-64 1 Risk Factors 1 or 2 risk factors 1 Troponin Normal limit 0 Total 2 SPENSER CEDENO MD Jul 09, 2025 22:46
[2025-07-09 23:08] LABS: Hematocrit 41.5 % (36.0-46.0); Hemoglobin 14.3 g/dL (12.2-16.2); Mean Corpuscular Hemoglobin 28.0 pg (28.0-32.0); Mean Corpuscular Volume 81.4 fL (80.0-100.0); Nucleated Red Blood Cells % 0.3 %
[2025-07-09 23:22] LABS: INR 1.13 (0.9-1.15); Partial Thromboplastin Time 28.3 SEC (24.5-34.5); Prothrombin Time 11.8 sec (9.3-11.8)
[2025-07-09] MEDS: ONDANSETRON HCL 4 MG/2 ML VIAL IV ONE (23:22)
[2025-07-09] MEDS: SODIUM CHLORIDE 0.9% 500 ML IV ONE (23:22)
[2025-07-09 23:23] LABS: Alanine Aminotransferase 23 U/L (7-40); Albumin 3.7 g/dL (3.2-4.8); Alkaline Phosphatase 97 U/L (46-116); Anion Gap 7 (5-15); BUN/Creatinine Ratio 7.8 (10.0-20.0); Blood Urea Nitrogen < 5 mg/dL (9-23); Calcium 9.2 mg/dL (8.7-10.4); Carbon Dioxide 30 mmol/L (20-31); Chloride 101 mmol/L (98-107); Glucose 108 mg/dL (74-106); Potassium 3.7 mmol/L (3.5-5.1); Sodium 138 mmol/L (136-145); Total Protein 6.6 g/dL (5.7-8.2)
[2025-07-09 23:24] LABS: Bilirubin, Total 0.5 mg/dL (0.2-1.0)
--- NOTE | 2025-07-09 23:52 | DVH ---
INDICATION: SOB TECHNIQUE: Frontal view of the chest. COMPARISON: XY CHEST XRAY 1 VIEW on DOS: 07/05/25, XY CHEST XRAY 1 VIEW on DOS: 06/30/25, XY CHEST PORT ABLE on DOS: 06/27/25, XY CHEST PORTABLE on DOS: 06/25/25, XY CHEST XRAY 1 VIEW on DOS: 06/25/25 FINDINGS/IMPRESSION: Slightly rotated examination. There is hazy opacity overlying the right lung wi th prominence of the interstitial markings. Unchanged cardiomediastinal silhouette. No pleural effusi on or pneumothorax. Unchanged osseous structures.
[2025-07-10 08:00] VITALS: PULSE 76; RESP 18; O2SAT 96
[2025-07-10] MEDS: HYDROcodone-ACET 5/325MG TAB PO ONE (15:14)
[2025-07-10 19:47] VITALS: PULSE 65; RESP 14; O2SAT 95
[2025-07-11 07:46] LABS: Urine Protein, UAD 1+ (Negative)
[2025-07-11 08:24] VITALS: PULSE 85; RESP 17; O2SAT 96
[2025-07-11 16:50] VITALS: BP 140/82; PULSE 91; RESP 15; TEMP 98.1; O2SAT 96
== END 2025-07-11 16:41 | disposition home or self-care (01) ==
LOC: ER 21:32
DX: N39.0 Urinary tract infection, site not specified (principal); R53.1 Weakness; R11.2 Nausea with vomiting, unspecified; J44.9 Chronic obstructive pulmonary disease, unspecified; I10 Essential (primary) hypertension; Z79.899 Other long term (current) drug therapy; Z86.73 Personal history of transient ischemic attack (TIA), and cerebral infarction without residual deficits; Z86.2 Personal history of diseases of the blood and blood-forming organs and certain disorders involving the immune mechanism
CPT/HCPCS: 36415; 71045; 80053; 81001; 83880; 84484; 85025; 85610; 85730; 96361; 96374; 99285; J2405; J7040

== ENCOUNTER 2025-08-02 14:48 | Emergency (ER) | payer MEDICAID ==
[~2025-08-02] VITALS: Ht 160 cm; Wt 113.6 kg
--- NOTE | 2025-08-02 15:09 | ED.PDOC ---
History of Present Illness HPI Comments 60-year-old female was brought to the ED by EMS for generalized weakness, which has been present for two years. She has a history of five prior left-sided neurological deficits and chronic body pain. The patient reports her pain is worse today and is requesting morphine. Patient also provides an inconsistent and historical account of possible rectal bleeding and hematemesis, noting "I may have seen it" sometime "in the past." A clear source for this reported bleeding is not known. Patient has a medical history of HTN and COPD as well. She is not on any home oxygen and admits to tobacco use. 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, Medications, Allergies Allergies: Coded Allergies: NO KNOWN ALLERGIES (Unverified , 03/14/25) Home Meds Active Scripts Sucralfate (CARAFATE SUSP) 1 Gm/10 Ml Ss, 10 ML PO BID for 30 Days, #600 ML 1 Refill Prov:FELICITAS DHILLON 06/26/25 Pantoprazole Sodium Sesquihydr (Protonix) 40 Mg Tab, 40 MG PO DAILY for 30 Days, #30 TAB Prov:FELICITAS DHILLON 06/26/25 Amoxicillin & Pot Clavulanate (AUGMENTIN TABLET) 875 Mg Tb, 875 MG PO BID PRN for 5 Days, #10 TAB Prov:FELICITAS DHILLON 06/26/25 Metoclopramide Hcl (Reglan) 10 Mg Tab, 10 MG PO BIDPRN PRN for 5 Days, #10 TAB Prov:FELICITAS DHILLON 06/26/25 Gabapentin (Gabapentin) 300 Mg Cap, 1 CAP PO TID for 30 Days, #90 CAP 1 Refill Prov:HCAY MALDONADO MD 05/27/25 Atorvastatin Calcium (ATORVASTATIN CALCIUM) 40 Mg Tab, 1 TAB PO DAILY, #60 TAB 5 Refills Prov:AMPARO RUSHING MD 04/10/25 Aspirin (Aspirin Low Dose) 81 Mg Tab, 81 MG PO DAILY for 60 Days, #60 TAB Prov:AMPARO RUSHING MD 04/10/25 Reported Medications Pantoprazole Sodium Sesquihydr (Pantoprazole Sodium) 40 Mg Tab, 1 TAB PO DAILY 07/07/25 Haloperidol (Haldol) 5 Mg Tb, 1 TAB PO 07/07/25 Hydroxyzine Hcl (Hydroxyzine Hcl) 25 Mg Tab, 1 TAB PO BID 07/07/25 Atorvastatin Calcium (ATORVASTATIN CALCIUM) 80 Mg Tab, 1 TAB PO DAILY 07/07/25 Alprazolam (Alprazolam) 1 Mg Tab, PO 06/25/25 Information Source: Patient, Emergency Med Personnel Mode of Arrival: EMS Severity: Mild Timing: Came on: Gradually Duration: Since onset Past Medical History PAST MEDICAL HISTORY: COPD, CVA, HTN Surgical History: Denies all surgeries 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 Family History Family History: Reviewed,noncontributory to illness, Family hx of heart janki Social History Smoker: Cigarettes Alcohol: Occasionally Drugs: Methamphetamine (sober ) Lives In: Home Constitutional: reports: weakness; denies: chills, diaphoresis, fatigue, fever, malaise, sweats, others EENTM: denies: blurred vision, double vision, ear bleeding, ear discharge, ear drainage, ear pain, ear ringing, eye pain, eye redness, hearing loss, mouth pain, mouth swelling, nasal discharge, nose bleeding, nose congestion, nose pain, photophobia, tearing, throat pain, throat swelling, voice changes, others Respiratory: denies: cough, hemoptysis, orthopnea, SOB at rest, shortness of breath, SOB with excertion, stridor, wheezing, others Cardiovascular: denies: chest pain, dizzy spells, diaphoresis, Dyspnea on exertion, edema, irregular heart beat, left arm pain, lightheadedness, palpitations, PND, syncope, others Gastrointestinal: reports: hematemesis, rectal bleeding; denies: abdomen distended, abdominal pain, blood streaked bowels, constipated, diarrhea, dysphagia, difficulty swallowing, melena, nausea, poor appetite, poor fluid intake, rectal pain, vomiting, others Genitourinary: denies: abnormal vagina bleeding, burning, dyspareunia, dysuria, flank pain, frequency, hematuria, incontinence, pain, , vagina discharge, urgency, others Neurological: denies: dizziness, fainting, headache, left sided numbness, left sided weakness, numbness, paresthesia, pre-existing deficit, right sided numbness, right sided weakness, seizure, speech problems, tingling, tremors, weakness, others Musculoskeletal: denies: back pain, gout, joint pain, joint swelling, muscle pain, muscle stiffness, neck pain, others Integumetry: denies: bruises, change in color, change in hair/nails, dryness, laceration, lesions, lumps, rash, wounds, others Allergic/Immunocompromised: denies: Difficulty Healing, Frequent Infections, Hives, Itching, others Hematologic/Lymphatic: denies: anemia, blood clots, easy bleeding, easy bruising, swollen glands, others Endocrine: denies: excessive hunger, excessive sweating, excessive thirst, excessive urination, flushing, intolerance to cold, intolerance to heat, unexplained weight gain, unexplained weight loss, others Psychiatric: denies: anxiety, bipolar disorder, depression, hopeless, panic disorder, schizophrenia, sleepless, suicidal, others All Other Systems: Reviewed and Negative Physical Exam General Appearance: Moderate Distress HEENT: Normal ENT Inspection, Pharynx Normal, TMs Normal Neck: Full Range of Motion, Non-Tender, Normal, Normal Inspection Respiratory: Chest Non-Tender, Lungs Clear, No Accessory Muscle Use, No Respiratory Distress, Normal Breath Sounds Cardiovascular: No Edema, No JVD, No Murmur, No Gallop, Normal Peripheral Pulses, Regular Rate/Rhythm Breast Exam: Deferred Gastrointestinal: No Organomegaly, Non Tender, No Pulsatile Mass, Normal Bowel Sounds, Soft Genitalia: Deferred Pelvic: Deferred Rectal: Deferred Extremities: No calf tenderness, No pedal edema Musculoskeletal : Apperance: Normal Neurologic: Alert Cerebellar Function: NOT DONE Reflexes: NOT DONE Skin: Normal Color Peripheral Pulses: 3+ Radial (R), 3+ Radial (L) Lymphatic: No Adenopathy Was a procedure done? Was a procedure done?: No Differential Dx Considerations may include: Dehydration, electrolyte imbalance, viral infection X-Ray, Labs, Meds, VS Vital Signs Date Time Temp Pulse Resp B/P (MAP) Pulse Ox O2 Delivery O2 Flow Rate FiO2 08/02/25 14:59 98.2 77 20 121/73 99 98.2 Patient alert. Chronic history. No acute process. Vitals stable. Answering of questions. She has a history of CVA. No injuries pain Mentating well. Possible urinary tract infection. Was given prescription of Macrobid antibiotic. Explained to the patient. Was told to follow up with her primary care physician. Was told to come back if there is any problem. Time of 1ST Reevaluation: 15:04 Reevaluation 1ST: Unchanged Patient Education/Counseling: Diagnosis, Treatment, Prognosis Family Education/Counseling: No Family Present SEPSIS Sepsis Screen Physician Orders Urinalysis (08/02/25 15:18) Vital Signs Date Time Temp Pulse Resp B/P (MAP) Pulse Ox O2 Delivery O2 Flow Rate FiO2 08/02/25 14:59 98.2 77 20 121/73 99 98.2 Departure 1 Departure Time of Disposition: 16:53 Impression: Primary Impression: Anxiety Additional Impressions: Musculoskeletal pain UTI (urinary tract infection) Qualified Codes: N30.00 - Acute cystitis without hematuria Disposition: 01 HOME / SELF CARE / HOMELESS Condition: Good e-Prescriptions Nitrofurantoin Monohydrate Mac (Macrobid) 100 Mg Cap 100 MG PO BID for 5 Days, #10 CAP Prov: MARINA MCMAHON MD 08/02/25 Discharged With: Self Critical Care Note Critical Care Time?: No Stability Stability form required: No Heart Score Heart Score: Heart Score Response (Comments) Value History N/A 0 EKG N/A 0 Age N/A 0 Risk Factors N/A 0 Troponin N/A 0 Total 0 I personally scribed for MARINA MCMAHON MD ([email or web address]) on 08/02/25 at 15:09. Electronically submitted by Padmini Figueroa ([facility]). MARINA MCMAHON MD Aug 02, 2025 15:09
[2025-08-02] MEDS ORDERED: KETOROLAC TROMETH 60MG/2ML VIAL IM ONE (15:30)
[2025-08-02] MEDS ORDERED: NITR-87 PO (16:56)
[2025-08-02] MEDS: KETOROLAC TROMETH 30 MG/ML 1ML VIAL IV ONE (17:53)
[2025-08-03 06:32] VITALS: BP 107/68; PULSE 78; RESP 18; TEMP 98.5; O2SAT 95
[2025-08-03] MEDS: ONDANSETRON ODT 4 MG TAB PO ONE (09:02)
== END 2025-08-03 20:00 | disposition home or self-care (01) ==
LOC: ER 14:48 → EDBD 14:48 → ER 21:11
DX: R53.1 Weakness (principal)
CPT/HCPCS: 96372; 99283; J1885; Q0162

== ENCOUNTER 2025-08-22 15:02 | Inpatient (IN) | payer MEDICAID ==
[~2025-08-22] VITALS: Ht 170.2 cm; Wt 90.2 kg
[~2025-08-22 15:02] MED LIST changes: +NITR-87 PO
[2025-08-22 15:45] VITALS: PULSE 82; RESP 14; O2SAT 98
[2025-08-22 15:48] LABS: Hematocrit 43.6 % (36.0-46.0); Hemoglobin 14.9 g/dL (12.2-16.2); Mean Corpuscular Hemoglobin 28.1 pg (28.0-32.0); Mean Corpuscular Volume 82.2 fL (80.0-100.0); Nucleated Red Blood Cells % 0.3 %
[2025-08-22 16:04] LABS: Chloride 103 mmol/L (98-107); Sodium 144 mmol/L (136-145)
[2025-08-22 16:05] LABS: Anion Gap 15 (5-15); Calcium 9.1 mg/dL (8.7-10.4); Carbon Dioxide 26 mmol/L (20-31)
[2025-08-22 16:10] LABS: BUN/Creatinine Ratio 11.6 (10.0-20.0)
[2025-08-22] MEDS: ONDANSETRON HCL 4 MG/2 ML VIAL IV ONE (16:13)
[2025-08-22] MEDS: MORPHINE SULFATE 4 MG/ML SYR/VIAL IV ONE (16:15)
[2025-08-22 16:17] LABS: Blood Urea Nitrogen 8 mg/dL (9-23); Glucose 136 mg/dL (74-106)
[2025-08-22 16:20] LABS: Potassium 2.4 mmol/L (3.5-5.1)
--- NOTE | 2025-08-22 19:38 | ED.PDOC ---
History of Present Illness HPI Comments 60-year-old female who comes in with chief complaint of buttocks pain. The patient states that the symptoms started approximately 2 hours ago. The pain is associated with some nausea and vomiting. There has been no fever or chills. The patient was seen here recently with a similar complaint. The patient states that she has a decubitus ulcer in the buttocks area. There has been no other complaints at this time. Chief Complaint: Nausea/Vomiting Time Seen by MD: 15:07 Primary Care Provider: KIARA Reviewed Notes: Nurses Notes, Chiropractor Sole Practitioner Notes, Medications, Allergies (No allergies to medications) Allergies: Coded Allergies: NO KNOWN ALLERGIES (Unverified , 03/14/25) Home Meds Active Scripts Nitrofurantoin Monohydrate Mac (Macrobid) 100 Mg Cap, 100 MG PO BID for 5 Days, #10 CAP Prov:MARINA MCMAHON MD 08/02/25 Sucralfate (CARAFATE SUSP) 1 Gm/10 Ml Ss, 10 ML PO BID for 30 Days, #600 ML 1 Refill Prov:FELICITAS DHILLON 06/26/25 Pantoprazole Sodium Sesquihydr (Protonix) 40 Mg Tab, 40 MG PO DAILY for 30 Days, #30 TAB Prov:FELICITAS DHILLON 06/26/25 Amoxicillin & Pot Clavulanate (AUGMENTIN TABLET) 875 Mg Tb, 875 MG PO BID PRN for 5 Days, #10 TAB Prov:FELICITAS DHILLON 06/26/25 Metoclopramide Hcl (Reglan) 10 Mg Tab, 10 MG PO BIDPRN PRN for 5 Days, #10 TAB Prov:FELICITAS DHILLON 06/26/25 Gabapentin (Gabapentin) 300 Mg Cap, 1 CAP PO TID for 30 Days, #90 CAP 1 Refill Prov:CHAY MALDONADO MD 05/27/25 Atorvastatin Calcium (ATORVASTATIN CALCIUM) 40 Mg Tab, 1 TAB PO DAILY, #60 TAB 5 Refills Prov:AMPARO RUSHING MD 04/10/25 Aspirin (Aspirin Low Dose) 81 Mg Tab, 81 MG PO DAILY for 60 Days, #60 TAB Prov:AMPARO RUSHING MD 04/10/25 Reported Medications Pantoprazole Sodium Sesquihydr (Pantoprazole Sodium) 40 Mg Tab, 1 TAB PO DAILY 07/07/25 Haloperidol (Haldol) 5 Mg Tb, 1 TAB PO 07/07/25 Hydroxyzine Hcl (Hydroxyzine Hcl) 25 Mg Tab, 1 TAB PO BID 07/07/25 Atorvastatin Calcium (ATORVASTATIN CALCIUM) 80 Mg Tab, 1 TAB PO DAILY 07/07/25 Alprazolam (Alprazolam) 1 Mg Tab, PO 06/25/25 Information Source: Patient, Emergency Med Personnel Mode of Arrival: EMS Severity: Moderate Timing: Days (Symptoms started three days ago) Duration: Since onset Prehospital treatment: None Associated signs and symptoms Generalized weakness, buttocks pain and nausea and vomiting Past Medical History PAST MEDICAL HISTORY: COPD, CVA, HTN Surgical History: Denies all surgeries 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 Family History Family History: Reviewed,noncontributory to illness, Family hx of heart janki Social History Smoker: Cigarettes Alcohol: Occasionally Drugs: Methamphetamine Lives In: Home Constitutional: denies: chills, diaphoresis, fatigue, fever, malaise, sweats, weakness, others EENTM: denies: blurred vision, double vision, ear bleeding, ear discharge, ear drainage, ear pain, ear ringing, eye pain, eye redness, hearing loss, mouth pain, mouth swelling, nasal discharge, nose bleeding, nose congestion, nose pain, photophobia, tearing, throat pain, throat swelling, voice changes, others Respiratory: denies: cough, hemoptysis, orthopnea, SOB at rest, shortness of breath, SOB with excertion, stridor, wheezing, others Cardiovascular: denies: chest pain, dizzy spells, diaphoresis, Dyspnea on exertion, edema, irregular heart beat, left arm pain, lightheadedness, palpitations, PND, syncope, others Gastrointestinal: reports: nausea, vomiting; denies: abdomen distended, abdominal pain, blood streaked bowels, constipated, diarrhea, dysphagia, difficulty swallowing, hematemesis, melena, poor appetite, poor fluid intake, rectal bleeding, rectal pain, others Genitourinary: denies: abnormal vagina bleeding, burning, dyspareunia, dysuria, flank pain, frequency, hematuria, incontinence, pain, , vagina discharge, urgency, others Neurological: denies: dizziness, fainting, headache, left sided numbness, left sided weakness, numbness, paresthesia, pre-existing deficit, right sided numbness, right sided weakness, seizure, speech problems, tingling, tremors, weakness, others Musculoskeletal: denies: back pain, gout, joint pain, joint swelling, muscle pain, muscle stiffness, neck pain, others Integumetry: reports: wounds, others (Buttocks pain); denies: bruises, change in color, change in hair/nails, dryness, laceration, lesions, lumps, rash Allergic/Immunocompromised: denies: Difficulty Healing, Frequent Infections, Hives, Itching, others Hematologic/Lymphatic: denies: anemia, blood clots, easy bleeding, easy bruising, swollen glands, others Endocrine: denies: excessive hunger, excessive sweating, excessive thirst, excessive urination, flushing, intolerance to cold, intolerance to heat, unexplained weight gain, unexplained weight loss, others Psychiatric: denies: anxiety, bipolar disorder, depression, hopeless, panic disorder, schizophrenia, sleepless, suicidal, others Physical Exam General Appearance: Moderate Distress, Obese HEENT: Normal ENT Inspection, Pharynx Normal, TMs Normal Neck: Full Range of Motion, Non-Tender, Normal, Normal Inspection Respiratory: Chest Non-Tender, Lungs Clear, No Accessory Muscle Use, No Respiratory Distress, Normal Breath Sounds Cardiovascular: No Edema, No JVD, No Murmur, No Gallop, Normal Peripheral Pulses, Regular Rate/Rhythm Breast Exam: Deferred Gastrointestinal: No Organomegaly, Non Tender, No Pulsatile Mass, Normal Bowel Sounds, Soft Genitalia: Deferred Pelvic: Deferred Rectal: Deferred Extremities: No calf tenderness, Normal capillary refill, No pedal edema Musculoskeletal : Apperance: Normal 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 Was a procedure done?: No Differential Dx Considerations may include: Generalized weakness, electrolyte imbalance X-Ray, Labs, Meds, VS Vital Signs Date Time Temp Pulse Resp B/P (MAP) Pulse Ox O2 Delivery O2 Flow Rate FiO2 08/22/25 16:57 74 16 98/56 (70) 96 08/22/25 16:56 74 16 98/56 08/22/25 16:15 72 13 137/85 08/22/25 15:45 97.6 82 14 137/78 (97) 98 97.6 08/22/25 15:45 82 14 98 Room Air* 0 21 08/22/25 15:07 97.9 88 20 140/82 97 97.9 Lab Test 08/22/25 15:25 Range/Units White Blood Count 8.5 4.4-10.8 10^3/uL Red Blood Count 5.30 H 4.0-5.20 10^6/uL Hemoglobin 14.9 12.2-16.2 g/dL Hematocrit 43.6 36.0-46.0 % Mean Corpuscular Volume 82.2 80.0-100.0 fL Mean Corpuscular Hemoglobin 28.1 28.0-32.0 pg Mean Corpuscular Hemoglobin Concent 34.2 32.0-36.0 g/dL Red Cell Distribution Width 16.2 H 11.8-14.3 % Platelet Count 319 140-450 10^3/uL Mean Platelet Volume 8.7 6.9-10.8 fL Neutrophils (%) (Auto) 68.4 37.0-80.0 % Lymphocytes (%) (Auto) 23.4 10.0-50.0 % Monocytes (%) (Auto) 7.8 0.0-12.0 % Eosinophils (%) (Auto) 0.2 0.0-7.0 % Basophils (%) (Auto) 0.2 0.0-2.0 % Neutrophils # (Auto) 5.8 1.6-8.6 10 ^3/uL Lymphocytes # (Auto) 2.0 0.4-5.4 10 ^3/uL Monocytes # (Auto) 0.7 0-1.3 10 ^3/uL Eosinophils # (Auto) 0 0-0.8 10 ^3/uL Basophils # (Auto) 0 0-0.2 10 ^3/uL Nucleated Red Blood Cells 0.3 % Sodium Level 144 136-145 mmol/L Potassium Level 2.4 *L 3.5-5.1 mmol/L Chloride Level 103 98-107 mmol/L Carbon Dioxide Level 26 20-31 mmol/L Anion Gap 15 5-15 Blood Urea Nitrogen 8 L 9-23 mg/dL Creatinine 0.69 0.550-1.02 mg/dL Glomerular Filtration Rate Calc 100 >90 mL/min BUN/Creatinine Ratio 11.6 10.0-20.0 Serum Glucose 136 H 74-106 mg/dL Calcium Level 9.1 8.7-10.4 mg/dL Current Medications Medications (Trade) Dose Ordered Sig/Cornelius Route Start Time Stop Time Status Last Admin Morphine Sulfate 4 mg ONCE ONCE IV 08/22/25 15:30 08/22/25 15:31 DC 08/22/25 16:15 Ondansetron HCl (Zofran) 4 mg ONCE ONCE IV 08/22/25 15:30 08/22/25 15:31 DC 08/22/25 16:13 IV Hep-Lock was established The patient was given morphine 4 mg IV push for the pain The patient was given Zofran 4 mg IV push for the nausea The patient's chemistry panel shows hypokalemia at 2.4 The CBC is within normal limits The patient is being given potassium for the hypokalemia The patient is being admitted at this time Time of 1ST Reevaluation: 19:36 Reevaluation 1ST: Unchanged Patient Education/Counseling: Diagnosis, Treatment, Prognosis Family Education/Counseling: No Family Present SEPSIS Sepsis Screen Date sepsis recognized/suspect: Aug 22, 2025 Time Sepsis recognized/suspect: 1544 Recent Procedure: No On Antibiotic Therapy: No Respiratory Rate >20: No Heart Rate >90: No Temp<36 C (96.8 F) or >38.3 C: No SBP <90 or MAP <65 mmHG: No New Acute Mental Status Change: No Is the patient on CPAP, BIPAP,: No Physician Orders Urinalysis (08/22/25 15:12) Heplock Iv (08/22/25 15:12) Wound Culture W/ Gs (08/22/25 15:16) Potassium Chl 20meq/100ml (08/22/25 19:15) Vital Signs Date Time Temp Pulse Resp B/P (MAP) Pulse Ox O2 Delivery O2 Flow Rate FiO2 08/22/25 16:57 74 16 98/56 (70) 96 08/22/25 16:56 74 16 98/56 08/22/25 16:15 72 13 137/85 08/22/25 15:45 97.6 82 14 137/78 (97) 98 97.6 08/22/25 15:45 82 14 98 Room Air* 0 21 08/22/25 15:07 97.9 88 20 140/82 97 97.9 Laboratory Tests Test 08/22/25 15:25 White Blood Count 8.5 10^3/uL (4.4-10.8) Medications Medications Dose Ordered Sig/Cornelius Route Start Time Stop Time Status Last Admin Dose Admin Morphine Sulfate 4 mg ONCE ONCE IV 08/22/25 15:30 08/22/25 15:31 DC 08/22/25 16:15 Ondansetron HCl 4 mg ONCE ONCE IV 08/22/25 15:30 08/22/25 15:31 DC 08/22/25 16:13 Departure 1 Departure Time of Disposition: 19:37 Impression: Primary Impression: Hypokalemia Additional Impressions: Generalized weakness Decubitus ulcer Qualified Codes: L89.109 - Pressure ulcer of unspecified part of back, unspecified stage Disposition: ADMITTED INPATIENT Admit to: Tele Condition: Fair Critical Care Note Critical Care Time?: No Stability Stability form required: Yes Unstable for transfer: Telemetry monitoring (Telemetry monitoring required), ED Physician Assesment (Clinical assesment) Heart Score Heart Score: Heart Score Response (Comments) Value History N/A 0 EKG N/A 0 Age N/A 0 Risk Factors N/A 0 Troponin N/A 0 Total 0 RONI FARRIS MD Aug 22, 2025 19:38
[2025-08-22] MEDS: POTASSIUM CHL 20MEQ/100ML 100 ML IV ONE (20:05)
[2025-08-22] MEDS: POTASSIUM CHL 20 Meq TABLET PO ONE ×2 (20:40→23:40)
[2025-08-22] MEDS ORDERED: ACETAMINOPHEN 325 MG TAB PO PRN (21:30)
--- NOTE | 2025-08-22 22:45 | DVH ---
Exam: CT CT AB PEL WO CON-NO ORAL OR IV History: abdominal pain, nausea, vomitiing Comparison Study: CT CT AB PEL WO CON-NO ORAL OR IV on DOS: 06/25/25 Technique: Multidetector spiral CT of the abdomen was performed from lung bases to pubic symphysis. Imaging was performed without IV contrast. Axial, coronal and sagittal multiplanar reformats were obtained from the axial data set by the technologist. Radiation Dose : 1. Abdomen/Pelvis: CTDIvol 23.14 mGy, DLP 1489.72 mGy*cm. Findings: Evaluation of solid organs is limited due to lack of intravenous contrast use. Lung Bases: No acute or significant lung base finding. Normal heart size. No pleural or pericardial effusion. Liver: The liver is normal in size. No focal lesions. Gallbladder and Biliary Tree: Cholelithiasis noted without secondary findings of cholecystitis or biliary obstruction. Spleen: Unremarkable Pancreas: The pancreas is grossly normal in appearance. Adrenal Glands: Unremarkable Kidneys: Multiple small sub 3 mm bilateral nonobstructing renal calculi. No hydronephrosis. Bladder: Air in the urinary bladder. Bowel: The stomach is grossly normal in appearance. Small bowel and colon are normal in caliber and distribution. The appendix is not visualized; however, no secondary findings of acute appendicitis identified. Ascites: Absent Lymphadenopathy: No mesenteric, retroperitoneal or periportal lymphadenopathy. Abdominal Wall and Mesentery: Unremarkable. Vasculature: The visualized abdominal aorta is normal in size and caliber. Evaluation of abdominal and pelvic vessels is limited due to lack of intravenous contrast. Pelvic Organs: Unremarkable Musculoskeletal: No aggressive focal bony lesions, acute fractures or dislocation. IMPRESSION: No acute abdominal or pelvic findings. Radiation optimization: All CT scans at this facility use at least one of these dose optimization techniques: automated exposure control mA and/or kV adjustment per patient size (includes targeted exams where dose is matched to clinical indication) or iterative reconstruction.
[2025-08-22 22:51] LABS: Alanine Aminotransferase 24 U/L (7-40); Albumin 4.0 g/dL (3.2-4.8); Alkaline Phosphatase 98 U/L (46-116); Anion Gap 13 (5-15); BUN/Creatinine Ratio 10.6 (10.0-20.0); Calcium 9.3 mg/dL (8.7-10.4); Carbon Dioxide 24 mmol/L (20-31); Chloride 105 mmol/L (98-107); Magnesium 2.3 mg/dL (1.6-2.6); Potassium 3.9 mmol/L (3.5-5.1); Sodium 142 mmol/L (136-145); Total Protein 7.2 g/dL (5.7-8.2)
[2025-08-22 22:52] LABS: Bilirubin, Total 0.9 mg/dL (0.2-1.0)
[2025-08-22 22:55] LABS: Blood Urea Nitrogen 7 mg/dL (9-23); Glucose 119 mg/dL (74-106)
--- NOTE | 2025-08-22 22:56 | DVH ---
CHEST RADIOGRAPH Indication: sob Technique: Single frontal view of the chest was obtained COMPARISON: XR CHEST 1 VIEW on DOS: 08/14/25, XR CHEST 1 VIEW on DOS: 08/06/25, XY CHEST PORTABLE on DOS: 07/09/25, XY CHEST XRAY 1 VIEW on DOS: 07/05/25, XY CHEST XRAY 1 VIEW on DOS: 06/30/25 FINDINGS: Lungs and pleural spaces are clear. Cardiac silhouette and aubrie are within normal limits. Bones and soft tissues demonstrate no significant abnormality. IMPRESSION: No acute disease.
--- NOTE | 2025-08-22 23:24 | DVHHPRES ---
History of Present Illness Resident Creating Document: BASIA CREWS RESIDENT History of Present Illness 60-year-old female with past medical history of chronically bed-bound, HDL, COPD Not on home oxygen , CVA with left-sided hemiparesis, hypertension, chronic back pain, morbid obesity, meth use, tobacco use, and alcohol use has come to the emergency with complaints of pain in the gluteal cleft for the past few days.She also complains of watery, nonbloody emesis today morning 4-5 episodes, not associated with any abdominal pain or urinary symptoms. Patient denies any shortness of breath, fever, chills, chest pain, abdominal pain. Her last bowel movement was today which was normal. On admission vitals are stable temp 97.6, HR 74, RR 16, BP 135/87, SpO2 96 in room air. Potassium was low at 2.4. We are admitting the patient for further workup and management. PMH: As stated above PSH: Denies any Social history: Smokes 5 cigarettes /day for as long as she remembers, used to take methamphetamine, stopped 1 year ago denies any alcohol abuse family history: Reviewed and noncontributory to the management of this case Allergies: None PCP: Dr. James code status: Full code Review of Systems Constitutional: No: Fever, Chills, Sweats, Weakness, Malaise, Other Eyes: No: Pain, Vision change, Conjunctivae inflammation, Eyelid inflammation, Other, Redness ENT: No: Ear pain, Ear discharge, Nose pain, Nose discharge, Nose congestion, Mouth pain, Mouth swelling, Throat pain, Throat swelling, Other Respiratory: No: Cough, Dry, Shortness of breath, SOB with excertion, Wheezing, Hemoptysis, Pleuritic Pain, Sputum, Wheezing, Other Cardiovascular: No: Chest Pain, Palpitations, Orthopnea, Paroxysmal Noc. Dyspnea, Edema, Lt Headedness, Other Gastrointestinal: Nausea, Vomiting; No: Abdominal Pain, Diarrhea, Constipation, Melena, Hematochezia, Other Genitourinary: No Dysuria, No Frequency, No Incontinence, No Hematuria, No Retention, No Other Musculoskeletal: No: other, neck pain, shoulder pain, arm pain, back pain, hand pain, leg pain, foot pain Skin: Other (Pain in the intergluteal cleft); No: Rash, Lesions, Jaundice, B ruising Neurological: No: Weakness, Numbness, Incoordination, Change in speech, Confusion, Seizures, Other Allergies: Coded Allergies: NO KNOWN ALLERGIES (Unverified , 03/14/25) Medications Current Medications Medications Dose Ordered Sig/Cornelius Route Start Time Stop Time Status Last Admin Dose Admin Acetaminophen/ Hydrocodone Bitart 1 tab Q4HP PRN PO 08/22/25 21:30 Ondansetron HCl 4 mg Q4HP PRN IV 08/22/25 21:30 Acetaminophen 650 mg Q6HP PRN PO 08/22/25 21:30 Enoxaparin Sodium 40 mg DAILY SC 08/22/25 21:30 Hydromorphone HCl 0.25 mg Q6HP PRN IV 08/22/25 21:30 Aspirin 81 mg DAILY PO 08/23/25 10:00 Gabapentin 300 mg TID PO 08/22/25 22:00 Haloperidol 5 mg DAILY@DINNER PO 08/23/25 17:30 Atorvastatin Calcium 40 mg DAILY PO 08/23/25 10:00 Exam Vital Signs Vital Signs Date Time Temp Pulse Resp B/P (MAP) Pulse Ox O2 Delivery O2 Flow Rate FiO2 08/22/25 19:30 98.5 74 17 142/75 (97) 98 98.5 08/22/25 15:45 Room Air* 0 21 Exam Pt is lying on bed General Appearance: Alert, Oriented X3, Cooperative, Not in acute distress HEENT: Atraumatic, Mucous membranes moist/pink Respiratory: Clear to auscultation, Normal air movement, No added sounds Cardiovascular: Regular rate, Normal S1, Normal S2, No murmurs Abdominal: Active bowel sounds, Soft, no distention, no tenderness Extremities: No edema, Normal pulses, No tenderness/swelling Skin: No Significant rash, except past surgical scars, presence of grade 1 wound in the gluteal region, erythematous and small laceration in intragluteal cleft Neuro: Normal speech, sensorimotor deficits none Psych/Mental Status: Mental status NL, Mood NL Nurse was there as senior reactor operator during examination Labs/Xrays Labs Test 08/22/25 22:29 08/22/25 15:25 Range/Units Sodium Level 142 136-145 mmol/L Potassium Level 3.9 3.5-5.1 mmol/L Chloride Level 105 98-107 mmol/L Carbon Dioxide Level 24 20-31 mmol/L Anion Gap 13 5-15 Blood Urea Nitrogen 7 L 9-23 mg/dL Creatinine 0.66 0.550-1.02 mg/dL Glomerular Filtration Rate Calc 101 >90 mL/min BUN/Creatinine Ratio 10.6 10.0-20.0 Serum Glucose 119 H 74-106 mg/dL Calcium Level 9.3 8.7-10.4 mg/dL Magnesium Level 2.3 1.6-2.6 mg/dL Total Bilirubin 0.9 0.2-1.0 mg/dL Aspartate Amino Transferase (AST) 24 13-40 U/L Alanine Aminotransferase (ALT) 24 7-40 U/L Alkaline Phosphatase 98 46-116 U/L Total Protein 7.2 5.7-8.2 g/dL Albumin 4.0 3.2-4.8 g/dL White Blood Count 8.5 4.4-10.8 10^3/uL Red Blood Count 5.30 H 4.0-5.20 10^6/uL Hemoglobin 14.9 12.2-16.2 g/dL Hematocrit 43.6 36.0-46.0 % Mean Corpuscular Volume 82.2 80.0-100.0 fL Mean Corpuscular Hemoglobin 28.1 28.0-32.0 pg Mean Corpuscular Hemoglobin Concent 34.2 32.0-36.0 g/dL Red Cell Distribution Width 16.2 H 11.8-14.3 % Platelet Count 319 140-450 10^3/uL Mean Platelet Volume 8.7 6.9-10.8 fL Neutrophils (%) (Auto) 68.4 37.0-80.0 % Lymphocytes (%) (Auto) 23.4 10.0-50.0 % Monocytes (%) (Auto) 7.8 0.0-12.0 % Eosinophils (%) (Auto) 0.2 0.0-7.0 % Basophils (%) (Auto) 0.2 0.0-2.0 % Neutrophils # (Auto) 5.8 1.6-8.6 10 ^3/uL Lymphocytes # (Auto) 2.0 0.4-5.4 10 ^3/uL Monocytes # (Auto) 0.7 0-1.3 10 ^3/uL Eosinophils # (Auto) 0 0-0.8 10 ^3/uL Basophils # (Auto) 0 0-0.2 10 ^3/uL Nucleated Red Blood Cells 0.3 % SEPSIS Sepsis Screen Date sepsis recognized/suspect: Aug 22, 2025 Time Sepsis recognized/suspect: 1544 Recent Procedure: No On Antibiotic Therapy: No Respiratory Rate >20: No Heart Rate >90: No Temp<36 C (96.8 F) or >38.3 C: No SBP <90 or MAP <65 mmHG: No New Acute Mental Status Change: No Is the patient on CPAP, BIPAP,: No Physician Orders Admit (08/22/25 21:21) Code Status (08/22/25 21:21) Hydrocodone-Acet 5/325mg Tab ([place] 5/32 (08/22/25 21:30) Ondansetron Hcl (Zofran) (08/22/25 21:30) Fall Risk Precautions In Place QSHIFT (08/22/25 21:21) Complete Blood Count (08/23/25 04:00) Comprehensive Metabolic Panel (08/23/25 04:00) Cardiac Diet-2gna,Lofat,Lochol (08/23/25 Breakfast) Condition: Unstable (08/22/25 21:21) Acetaminophen Tablet (Tylenol Tablet) (08/22/25 21:30) Enoxaparin Sodium (Lovenox) (08/22/25 21:30) Chest Xray 1 View (08/22/25 21:21) Hydromorphone Injection (Dilaudid Inject (08/22/25 21:30) Drug Screen (08/22/25 21:21) Electrocardigram (08/22/25 21:21) * Wound Consult (08/22/25 ) Ct Ab Pel Wo Con-No Oral Or Iv (08/22/25 21:21) Aspirin Enteric Coated Tablet (Ecotrin E (08/23/25 10:00) Gabapentin Capsule (Neurontin Capsule) (08/22/25 22:00) Haloperidol Tablet (Haldol Tablet) (08/23/25 17:30) Atorvastatin (Lipitor) (08/23/25 10:00) Vital Signs Date Time Temp Pulse Resp B/P (MAP) Pulse Ox O2 Delivery O2 Flow Rate FiO2 08/22/25 19:30 98.5 74 17 142/75 (97) 98 98.5 08/22/25 16:57 74 16 98/56 (70) 96 08/22/25 16:56 74 16 98/56 08/22/25 16:15 72 13 137/85 08/22/25 15:45 97.6 82 14 137/78 (97) 98 97.6 08/22/25 15:45 82 14 98 Room Air* 0 21 Laboratory Tests Test 08/22/25 15:25 White Blood Count 8.5 10^3/uL (4.4-10.8) Medications Medications Dose Ordered Sig/Cornelius Route Start Time Stop Time Status Last Admin Dose Admin Morphine Sulfate 4 mg ONCE ONCE IV 08/22/25 15:30 08/22/25 15:31 DC 08/22/25 16:15 4 MG Ondansetron HCl 4 mg ONCE ONCE IV 08/22/25 15:30 08/22/25 15:31 DC 08/22/25 16:13 4 MG Potassium Chloride 40 meq ONCE ONCE PO 08/22/25 19:15 08/22/25 19:16 DC 08/22/25 20:40 40 MEQ Potassium Chloride 100 ml @ 50 mls/hr ONCE ONCE IV 08/22/25 19:15 08/22/25 21:14 DC 08/22/25 20:05 50 MLS/HR Assessment/Plan Assessment/Plan #Grade 1 - 2 sacral wound (present on admission) #laceration in intergluteal region -pain management with: -acetaminophen 650 mg q.6 PRN -[place] 5/325 mg p.o. q.4 PRN for moderate pain -Dilaudid .25 g IV q.6 PRN for severe pain -Wound consult -Wound culture -IV Zofran 4 mg q.4 PRN -CT abdomen and pelvis without contrast #Hypokalemia -Repleted -Magnesium #COPD, not under exacerbation -Maintain saturation between 88-92% -Med nebulization ipratropium bromide 0.5 mg Q 6 PRN -med nebulization albuterol 2.5 mg q.6 PRN #Hypertension #Hyperlipidemia -no hypertensive medication for now as BP is maintained and patient does not take home medication -Atorvastatin 40 mg p.o. daily continued #Obesity, BMI 34.2 kg/m2 Patient has been counseled regarding the need of weight loss, healthy lifestyle modifications and dietary changes over 8 minutes #History of polysubstance abuse ( nicotine, methamphetamine) - patient has been counseled regarding the cessation of nicotine, the side effects it has on health and regarding the continuation of cessation of methamphetamine over 8 minutes -UDS DVT prophylaxis: Lovenox 40 mg SC daily Diet: cardiac diet Goals of care discussed with the patient for more than 27 minutes: Full code status Case discussed with Dr. Jaime, patient Plan discussed with: Patient My Orders Orders - BASIA CREWS Procedure Category Date Status Time Admit ADMIT 08/22/25 Transmitted 21:21 Code Status CODE 08/22/25 Transmitted 21:21 Hydrocodone-Acet PHA 08/22/25 In Process 5/325mg Tab ([place] 21:30 Ondansetron Hcl PHA 08/22/25 In Process (Zofran) 21:30 Fall Risk Precautions KEHINDE 08/22/[address] 21:21 Complete Blood Count LAB 08/23/25 Verified 04:00 Comprehensive LAB 08/23/25 Verified Metabolic Panel 04:00 Cardiac DIET 08/23/25 Transmitted Diet-2gna,Lofat,Lochol Breakfast Condition: Unstable KEHINDE 08/22/25 In Process 21:21 Acetaminophen Tablet PHA 08/22/25 In Process (Tylenol Tablet) 21:30 Enoxaparin Sodium PHA 08/22/25 In Process (Lovenox) 21:30 Chest Xray 1 View XY 08/22/25 Resulted 21:21 Hydromorphone PHA 08/22/25 In Process Injection (Dilaudid 21:30 Drug Screen LAB 08/22/25 Logged 21:21 Electrocardigram EKG 08/22/25 Logged 21:21 * Wound Consult CONS 08/22/[address] Ab Pel Wo Con-No CT 08/22/25 Resulted Oral Or Iv 21:21 Aspirin Enteric PHA 08/23/25 In Process Coated Tablet 10:00 Gabapentin Capsule PHA 08/22/25 In Process (Neurontin Capsule) 22:00 Haloperidol Tablet PHA 08/23/25 In Process (Haldol Tablet) 17:30 Atorvastatin (Lipitor) PHA 08/23/25 In Process 10:00 Date of Service: Aug 22, 2025 Billing Provider: BASIA CREWS Common Visit Codes: [id number] INP/OBS CARE (HIGH) Secondary Visit Codes: [id number] CARE PLAN 30 MINUTES BASIA CREWS Aug 22, 2025 23:24 JOSE MARIA JAIME MD Aug 23, 2025 11:28
[2025-08-22] MEDS: GABAPENTIN 300 MG CAP PO SCH (23:40)
[2025-08-22] MEDS: ENOXAPARIN SOD 40 MG/0.4 ML SYRINGE SC SCH (23:40)
[2025-08-23] VITALS (17 sets, daily range): BP systolic 102–147; BP diastolic 60–92; PULSE 72–105; RESP 12–20; TEMP 97.6–98.5; O2SAT 94–100
[2025-08-23] MEDS: IPRATROPIUM BROM 0.5 MG/2.5ML INH SOL NEB PRN (00:20)
[2025-08-23] MEDS: ALBUTEROL SULF 2.5 MG/0.5ML(0.5%) NEB SOLN NEB PRN (00:20)
[2025-08-23 04:46] LABS: Alanine Aminotransferase 22 U/L (7-40); Albumin 3.9 g/dL (3.2-4.8); Alkaline Phosphatase 93 U/L (46-116); Anion Gap 13 (5-15); BUN/Creatinine Ratio 19.0 (10.0-20.0); Bilirubin, Total 0.9 mg/dL (0.2-1.0); Blood Urea Nitrogen 11 mg/dL (9-23); Calcium 9.5 mg/dL (8.7-10.4); Carbon Dioxide 27 mmol/L (20-31); Chloride 104 mmol/L (98-107); Glucose 105 mg/dL (74-106); Sodium 144 mmol/L (136-145); Total Protein 7.1 g/dL (5.7-8.2)
[2025-08-23 04:55] LABS: Potassium 3.2 mmol/L (3.5-5.1)
[2025-08-23] MEDS: POTASSIUM CHL 20 Meq TABLET PO ONE (05:42)
[2025-08-23 08:19] LABS: Hematocrit 41.1 % (36.0-46.0); Hemoglobin 14.1 g/dL (12.2-16.2); Mean Corpuscular Hemoglobin 28.3 pg (28.0-32.0); Mean Corpuscular Volume 82.7 fL (80.0-100.0); Nucleated Red Blood Cells % 0.3 %
[2025-08-23 11:41] LABS: Creatine Kinase IFCC 18.0 U/L (34-145)
[2025-08-23] MEDS: ONDANSETRON HCL 4 MG/2 ML VIAL IV PRN (11:53)
[2025-08-23] MEDS: HYDROmorphone HCL 2 MG/ML VL/or syr IV PRN (12:05)
[2025-08-23 12:42] LABS: Protein, Urine 77.2 mg/dL (1-14)
[2025-08-23 12:46] LABS: Amphetamine Screen, Urine Neg (NEGATIVE); Barbiturate Scree,Urine Neg (NEGATIVE); Benzodiazephine Screen, Urine Neg (NEGATIVE); Cannabinoid Screen, Urine Neg (NEGATIVE); Cocaine Screen, Urine Neg (NEGATIVE); Opiate Scree,Urine Pos (NEGATIVE); Phencyclidine Screen, Urine Neg (NEGATIVE)
[2025-08-23 12:51] LABS: Urine Protein, UAD 1+ (Negative); Urine WBC Clumps PRESENT /hpf (None Seen)
[2025-08-23] MEDS: ATORVASTATIN 20 MG TAB PO SCH (14:13)
[2025-08-23] MEDS: SUCRALFATE 1 GM/10 ML ORAL SUSP GT SCH (14:13)
[2025-08-23] MEDS: POTASSIUM EFFERVESENT TAB 25 MEQ PO SCH (14:13)
[2025-08-23 14:17] LABS: Potassium 4.1 mmol/L (3.5-5.1); Sodium 143 mmol/L (136-145)
[2025-08-23 14:18] LABS: Anion Gap 10 (5-15); Calcium 9.2 mg/dL (8.7-10.4); Carbon Dioxide 26 mmol/L (20-31)
[2025-08-23 14:22] LABS: Chloride 107 mmol/L (98-107)
[2025-08-23] MEDS: PANTOPRAZOLE 40 MG TAB PO ONE (14:22)
[2025-08-23 14:23] LABS: BUN/Creatinine Ratio 11.4 (10.0-20.0); Blood Urea Nitrogen 9 mg/dL (9-23)
[2025-08-23 14:24] LABS: Glucose 110 mg/dL (74-106)
[2025-08-23] MEDS: ASPirin-EC 81 mg tab PO SCH (14:57)
[2025-08-23] MEDS: PRAMIPEXOLE DIHYDROCHLORIDE MO 0.25 MG TAB PO ONE (14:57)
[2025-08-23] MEDS ORDERED: POLYETHYLENE GLYCOL 17 GM PWDR PO PRN (15:15)
--- NOTE | 2025-08-23 16:15 | DVHPNRES ---
Progress Note Date Seen: Aug 23, 2025 Resident Creating Document: МАРИНА CANTU RESIDENT Medical Necessity Reason Pt with a Central, PICC or Fol: No Subjective Review of Systems 60-year-old bed-bound female with past medical history of COPD not on home oxygen, peptic ulcer disease, 5 strokes with left-sided hemiparesis, hypertension, dyslipidemia came in with complaints of vomiting and pain in the gluteal cleft due to a sacral ulcer since 3 days. States she has had 4 episodes of nonbloody emesis. Patient says that she has no pain in the sacral ulcer now. Patient denies any fever or abdominal pain. She is a poor historian. PMHx:COPD not on home oxygen, peptic ulcer disease, 5 strokes with left-sided hemiparesis, hypertension, dyslipidemia PSHx: Denies Family history: Not relevant Social history: Admits to smoking 5 cigarettes a day but does not remember for how long, denies alcohol or illicit drug use. She lives at home and has a caregiver Allergic history: No known allergies General: patient denies fever, fatigue, weaknes, sweating, any recent changes in appetite and weight HEENT: No headaches, visiual changes, hearing loss, tinnitus, nasal congestion and discharge, and sore throat. Cardiovascular: Denies chest pain, palpitations, dyspnea on exertion, orthopnea, or claudication. Respiratory: No cough, and wheezing. Gastrointestinal: Denies nausea, dysphagia, odynophagia, heartburn, abdominal pain, flatulence, bloating, diarrhea, constipation, change in stool, or blood in stool. Complains of vomiting Genitourinary: No dysuria, hematuria, discharge, frequency, urgency, nocturia, incontinence, and urinary retention. Endocrine: No heat or cold intolerance, polydipsia, polyuria, and polyphagia. Neurological: No dizziness, extremity weakness and numbness, tremors, gait disturbance, seizures, and memory impairment. Psychiatric: Denies depression, anxiety,or insomnia. Musculoskeletal: Denies neck pain, stiffness and swelling, back pain, muscle weakness, joint pain, stiffness, swelling, or limited range of motion. Complains of pain in the gluteal cleft at ulcer site Skin: No rashes, itching, skin lesion, changes in hair, nail, skin texture and breast. Hematologic/Lymphatic: Denies easy bruising, bleeding tendencies, or lymph node enlargement. Objective vital signs Vital Sign Date Time Temp Pulse Resp B/P (MAP) Pulse Ox O2 Delivery O2 Flow Rate FiO2 08/23/25 13:08 97.8 94 97.8 08/23/25 12:57 86 18 08/23/25 12:35 134/77 08/23/25 08:38 Room Air* 0 21 medications Current Medications Medications Dose Ordered Sig/Cornelius Route Start Time Stop Time Status Last Admin Dose Admin Acetaminophen/ Hydrocodone Bitart 1 tab Q4HP PRN PO 08/22/25 21:30 Ondansetron HCl 4 mg Q4HP PRN IV 08/22/25 21:30 08/23/25 11:53 4 MG Acetaminophen 650 mg Q6HP PRN PO 08/22/25 21:30 Enoxaparin Sodium 40 mg DAILY SC 08/22/25 21:30 08/23/25 14:14 40 MG Hydromorphone HCl 0.25 mg Q6HP PRN IV 08/22/25 21:30 08/23/25 12:05 0.25 MG Aspirin 81 mg DAILY PO 08/23/25 10:00 08/23/25 14:57 81 MG Gabapentin 300 mg TID PO 08/22/25 22:00 08/23/25 14:13 300 MG Haloperidol 5 mg DAILY@DINNER PO 08/23/25 17:30 Atorvastatin Calcium 40 mg DAILY PO 08/23/25 10:00 08/23/25 14:13 40 MG Ipratropium [place] 0.5 mg Q6HR PRN NEB 08/22/25 23:45 08/23/25 12:57 0.5 MG Albuterol 2.5 mg Q6HPRN PRN NEB 08/22/25 23:45 08/23/25 12:57 2.5 MG Pantoprazole Sodium 40 mg DAILY@0600 PO 08/24/25 06:00 Potassium Bicarbonate 25 meq DAILY PO 08/23/25 10:00 08/23/25 14:13 25 MEQ Ceftriaxone Sodium 50 ml @ 100 mls/hr DAILY@09 IV 08/24/25 09:00 Pramipexole Dihydrochloride 0.125 mg Q8HR PO 08/23/25 22:00 Sucralfate 1 gm TID@0600,1130,2200 PO 08/23/25 22:00 Sennosides 8.6 mg HS PO 08/23/25 22:00 Polyethylene Glycol 17 gm DAILYPRN PRN PO 08/23/25 15:15 Examination General Appearance: Alert, Oriented X3, Cooperative, No acute distress HEENT: Atraumatic, PERRLA, EOMI, Mucous membrane moist/pink Respiratory: Clear to auscultation, Normal air movement Cardiovascular: Regular rate, Normal S1, Normal S2, No murmurs, no chest wall tenderness Abdominal: Normal bowel sounds, Soft, No tenderness, No hepatospenomegaly, No masses Extremities: No clubbing, No cyanosis, No edema, Normal pulses, No tenderness/swelling Skin: Grade 2 sacral ulcer present on admission Neuro: 0/5 strength in left upper and lower limb Psych/Mental Status: Mental status NL, Mood NL laboratory and microbiology Laboratory Tests 08/23/25 13:36 08/23/25 07:52 Test 08/23/25 13:36 Range/Units Serum Glucose 110 H 74-106 mg/dL Problem List/Assessment/Plan Problem List/Assessment/Plan Assessment/Plan #Grade 2 sacral wound (present on admission) #laceration in intergluteal region -pain management with: -acetaminophen 650 mg q.6 PRN -[place] 5/325 mg p.o. q.4 PRN for moderate pain -Dilaudid .25 g IV q.6 PRN for severe pain -Wound consult -Wound culture -IV Zofran 4 mg q.4 PRN -CT abdomen and pelvis without contrast #Hypokalemia -Repleted -Magnesium #COPD, not under exacerbation -Maintain saturation between 88-92% -Med nebulization ipratropium bromide 0.5 mg Q 6 PRN -med nebulization albuterol 2.5 mg q.6 PRN #Hypertension #Hyperlipidemia -no hypertensive medication for now as BP is maintained and patient does not take home medication -Atorvastatin 40 mg p.o. daily continued #Obesity, BMI 34.2 kg/m2 Patient has been counseled regarding the need of weight loss, healthy lifestyle modifications and dietary changes over 8 minutes #History of strokes, residual left hemiparesis Follow up with PCP on discharge # history of peptic ulcer disease Continue pantoprazole #History of polysubstance abuse ( nicotine, methamphetamine) - patient has been counseled regarding the cessation of nicotine, the side effects it has on health and regarding the continuation of cessation of methamphetamine over 8 minutes - UDS DVT prophylaxis: Lovenox 40 mg SC daily Plan discussed with Dr. Cheng Plan discussed with: Patient Date of Service: Aug 23, 2025 Billing Provider: GUICHO CHENG MD Common Visit Codes: [id number] INP/OBS CARE(HIGH) МАРИНА CANTU RESIDENT Aug 23, 2025 16:15 GUICHO CHENG MD Aug 24, 2025 17:36
--- NOTE | 2025-08-23 16:21 | DVHCONRES ---
Date Seen: Aug 23, 2025 Resident Creating Document: JHAJJ,SARPUNEET RESIDENT Referring Physician Intractable nausea vomiting Reason for Consultation Dr. Tanner History of Present Illness 60-year-old female with past medical history of chronically bed-bound, HDL, COPD Not on home oxygen , CVA with left-sided hemiparesis, hypertension, chronic back pain, morbid obesity, meth use, tobacco use, and alcohol use has come to the emergency with complaints of pain in the gluteal cleft for the past few days.She also complains of watery, nonbloody emesis today morning 4-5 episodes, not associated with any abdominal pain or urinary symptoms. Patient denies any shortness of breath, fever, chills, chest pain, abdominal pain. Her last bowel movement was today which was normal. Past Medical History As per [facility] Past Surgical History Denies Family History: Chronic obstructive pulmonary disease G8 MOTHER Diabetes mellitus G8 FATHER Hypertension G8 FATHER Family History Noncontributory Social History Smokes 5 cigarettes /day for as long as she remembers, used to take methamphetamine, stopped 1 year ago denies any alcohol abuse Allergies: Coded Allergies: NO KNOWN ALLERGIES (Unverified , 03/14/25) Home Meds Active Scripts Nitrofurantoin Monohydrate Mac (Macrobid) 100 Mg Cap, 100 MG PO BID for 5 Days, #10 CAP Prov:MARINA MCMAHON MD 08/02/25 Sucralfate (CARAFATE SUSP) 1 Gm/10 Ml Ss, 10 ML PO BID for 30 Days, #600 ML 1 Refill Prov:FELICITAS DHILLON 06/26/25 Pantoprazole Sodium Sesquihydr (Protonix) 40 Mg Tab, 40 MG PO DAILY for 30 Days, #30 TAB Prov:FELICITAS DHLILON 06/26/25 Amoxicillin & Pot Clavulanate (AUGMENTIN TABLET) 875 Mg Tb, 875 MG PO BID PRN for 5 Days, #10 TAB Prov:FELICITAS DHILLON 06/26/25 Metoclopramide Hcl (Reglan) 10 Mg Tab, 10 MG PO BIDPRN PRN for 5 Days, #10 TAB Prov:FELICITAS DHILLON 06/26/25 Gabapentin (Gabapentin) 300 Mg Cap, 1 CAP PO TID for 30 Days, #90 CAP 1 Refill Prov:CHAY MALDONADO MD 05/27/25 Atorvastatin Calcium (ATORVASTATIN CALCIUM) 40 Mg Tab, 1 TAB PO DAILY, #60 TAB 5 Refills Prov:AMPARO RUSHING MD 04/10/25 Aspirin (Aspirin Low Dose) 81 Mg Tab, 81 MG PO DAILY for 60 Days, #60 TAB Prov:AMPARO RUSHING MD 04/10/25 Reported Medications Pantoprazole Sodium Sesquihydr (Pantoprazole Sodium) 40 Mg Tab, 1 TAB PO DAILY 07/07/25 Haloperidol (Haldol) 5 Mg Tb, 1 TAB PO 07/07/25 Hydroxyzine Hcl (Hydroxyzine Hcl) 25 Mg Tab, 1 TAB PO BID 07/07/25 Atorvastatin Calcium (ATORVASTATIN CALCIUM) 80 Mg Tab, 1 TAB PO DAILY 07/07/25 Alprazolam (Alprazolam) 1 Mg Tab, PO 06/25/25 Current Medications Current Medications Medications (Trade) Dose Ordered Sig/Cornelius Route PRN Reason Start Time Stop Time Status Last Admin Acetaminophen/ Hydrocodone Bitart ([place] 5/325MG Tab) 1 tab Q4HP PRN PO MODERATE PAIN (4-6 PAIN SCALE) 08/22/25 21:30 Ondansetron HCl (Zofran) 4 mg Q4HP PRN IV NAUSEA / VOMITING 08/22/25 21:30 08/23/25 11:53 Acetaminophen (Tylenol Tablet) 650 mg Q6HP PRN PO PAIN SCALE 1-3 OR TEMP>100.4 08/22/25 21:30 Enoxaparin Sodium (Lovenox) 40 mg DAILY SC 08/22/25 21:30 08/23/25 14:14 Hydromorphone HCl (Dilaudid Injection) 0.25 mg Q6HP PRN IV SEVERE PAIN (7-10 PAIN SCALE) 08/22/25 21:30 08/23/25 12:05 Aspirin (Ecotrin Enteric Coated Tablet) 81 mg DAILY PO 08/23/25 10:00 08/23/25 14:57 Gabapentin (Neurontin Capsule) 300 mg TID PO 08/22/25 22:00 08/23/25 14:13 Haloperidol (Haldol Tablet) 5 mg DAILY@DINNER PO 08/23/25 17:30 Atorvastatin Calcium (Lipitor) 40 mg DAILY PO 08/23/25 10:00 08/23/25 14:13 Ipratropium [place] (Atrovent Medneb) 0.5 mg Q6HR PRN NEB SHORTNESS OF BREATH 08/22/25 23:45 08/23/25 12:57 Albuterol (Ventolin Medneb) 2.5 mg Q6HPRN PRN NEB SHORTNESS OF BREATH 08/22/25 23:45 08/23/25 12:57 Pantoprazole Sodium (Protonix Tablet) 40 mg DAILY@0600 PO 08/24/25 06:00 Sucralfate (Carafate Susp) 1 gm TID@0600,1130,2200 GT 08/23/25 11:30 08/23/25 15:13 DC 08/23/25 14:13 Potassium Bicarbonate (Klor-Con/Ef) 25 meq DAILY PO 08/23/25 10:00 08/23/25 14:13 Ceftriaxone Sodium 50 ml @ 100 mls/hr DAILY@09 IV 08/24/25 09:00 Pramipexole Dihydrochloride (Mirapex Tablet) 0.125 mg Q8HR PO 08/23/25 22:00 Sucralfate (Carafate Susp) 1 gm TID@0600,1130,2200 PO 08/23/25 22:00 Sennosides (Senokot Tablet) 8.6 mg HS PO 08/23/25 22:00 Polyethylene Glycol (Miralax 17GM Powder) 17 gm DAILYPRN PRN PO FOR CONSTIPATION 08/23/25 15:15 Review of Systems Patient seen and examined with the bedside Reports of [id number] abdominal pain diffusely As per the RN, patient had an episode of vomiting with a yellow bilious without any blurred about 4 hours after she had breakfast No bowel movement reported Vital Signs Vital Signs Date Time Temp Pulse Resp B/P (MAP) Pulse Ox O2 Delivery O2 Flow Rate FiO2 08/23/25 13:08 97.8 94 97.8 08/23/25 12:57 86 18 08/23/25 12:35 134/77 08/23/25 08:38 Room Air* 0 21 Physical Exam Gen - no pallor, no scleral icterus Skin - Patients skin is warm and dry. HEENT - normocephalic, atraumatic, dry mucous membranes. Neck - supple, no lymphadenopathy Pulmonary - B/L clear breath sounds cardiovascular - regular S1,S2 heard GI - soft abdomen with mild diffuse tenderness. Bowel sounds normoactive. Neurological - Patient is alert and oriented x 2, drowsy Labs/Diagnostic Data Labs Test 08/23/25 13:36 08/23/25 11:10 08/23/25 07:52 08/23/25 04:06 Range/Units Sodium Level 143 136-145 mmol/L Potassium Level 4.1 3.5-5.1 mmol/L Chloride Level 107 98-107 mmol/L Carbon Dioxide Level 26 20-31 mmol/L Anion Gap 10 5-15 Blood Urea Nitrogen 9 9-23 mg/dL Creatinine 0.79 # 0.550-1.02 mg/dL Glomerular Filtration Rate Calc 86 >90 mL/min BUN/Creatinine Ratio 11.4 10.0-20.0 Serum Glucose 110 H 74-106 mg/dL Calcium Level 9.2 8.7-10.4 mg/dL Ferritin 611.1 H 10-291 ng/mL Urine Color Light-orange Yellow Urine Clarity Ex.turbid Clear Urine pH 6.5 5.0-9.0 Urine Specific [place] 1.017 1.001-1.035 Urine Protein 1+ H Negative Urine Ketones Trace Negative Urine Blood 1+ H Negative /uL Urine Nitrite Negative Negative Urine Bilirubin Negative Negative Urine Urobilinogen 3 H Negative mg/dL Urine Leukocyte Esterase 3+ Negative /uL Urine RBC None seen 0 - 4 /hpf Urine WBC Clumps Present None Seen /hpf Urine Microscopic WBC < 1 0-5 /HPF Urine Squamous Epithelial Cells None seen <5 /hpf Urine Bacteria None seen None Seen /hpf Urine Hyaline Casts Mod 0 - 2 /lpf Urine Mucus Few None Seen Urine Osmolality 499 mOsm/kg Urine Creatinine 138.64 H 30.0-125.0 mg/dL Urine Sodium 29 L 40-220 mmol/L Urine Potassium 28 12-62 mmol/L Urine Glucose Normal Normal mg/dL Urine Total Protein 77.2 H 1-14 mg/dL Urine Opiates Screen Pos NEGATIVE Urine Fentanyl Screen Neg NEGATIVE Urine Barbiturates Screen Neg NEGATIVE Urine Phencyclidine Screen Neg NEGATIVE Urine Amphetamines Screen Neg NEGATIVE Urine Benzodiazepines Screen Neg NEGATIVE Urine Cocaine Screen Neg NEGATIVE Urine Cannabinoids Screen Neg NEGATIVE White Blood Count 7.9 4.4-10.8 10^3/uL Red Blood Count 4.97 4.0-5.20 10^6/uL Hemoglobin 14.1 12.2-16.2 g/dL Hematocrit 41.1 36.0-46.0 % Mean Corpuscular Volume 82.7 80.0-100.0 fL Mean Corpuscular Hemoglobin 28.3 28.0-32.0 pg Mean Corpuscular Hemoglobin Concent 34.2 32.0-36.0 g/dL Red Cell Distribution Width 16.8 H 11.8-14.3 % Platelet Count 267 140-450 10^3/uL Mean Platelet Volume 8.8 6.9-10.8 fL Neutrophils (%) (Auto) 49.0 37.0-80.0 % Lymphocytes (%) (Auto) 35.3 10.0-50.0 % Monocytes (%) (Auto) 14.9 H 0.0-12.0 % Eosinophils (%) (Auto) 0.4 0.0-7.0 % Basophils (%) (Auto) 0.4 0.0-2.0 % Neutrophils # (Auto) 3.8 1.6-8.6 10 ^3/uL Lymphocytes # (Auto) 2.8 0.4-5.4 10 ^3/uL Monocytes # (Auto) 1.2 0-1.3 10 ^3/uL Eosinophils # (Auto) 0 0-0.8 10 ^3/uL Basophils # (Auto) 0 0-0.2 10 ^3/uL Nucleated Red Blood Cells 0.3 % Phosphorus Level 3.2 2.4-5.1 mg/dL Magnesium Level 2.1 1.6-2.6 mg/dL Creatine Kinase 18 L 34-145 U/L Total Bilirubin 0.9 0.2-1.0 mg/dL Aspartate Amino Transferase (AST) 23 13-40 U/L Alanine Aminotransferase (ALT) 22 7-40 U/L Alkaline Phosphatase 93 46-116 U/L Total Protein 7.1 5.7-8.2 g/dL Albumin 3.9 3.2-4.8 g/dL Assessment Acute abdominal pain Intractable nausea vomiting ? Due to cholelithiasis Cholelithiasis ? Cholecystitis Urinary tract infection Plan - gallbladder ultrasound pending - full liquid diet - continue on Protonix and Carafate - recommend to avoid use pramipexole as it may worsen nausea, vomiting - H&H stable - we will continue with conservative management, no intervention needed as of now Plan discussed with Dr. Gomez Plan discussed with: Patient, Other (CHEMA Brown) SAURABH TSANG RESIDENT Aug 23, 2025 16:21
--- NOTE | 2025-08-23 16:49 | DVH ---
INDICATION: Abd pain, vomiting, cholelithiasis on CT, Cholecystitis TECHNIQUE: Multiple real-time sonographic images of the abdomen were obtained. COMPARISON: None FINDINGS: The liver is homogenous in echogenicity. The liver measures 13.02 cm. No intrahepatic biliary ductal dilatation is noted. The gallbladder wall measures 0.38 cm and is unremarkable. Cholelithiasis. Common bile duct not visualized. Patient being competitive threatening so exam was terminated IMPRESSION: 1. Cholelithiasis 2. Patient was being threatening and combative for that reason exam was terminated.
[2025-08-23] MEDS: HALOPERIDOL 5 MG TAB PO SCH (17:33)
[2025-08-23 19:11] LABS: COVID19 ANTIGEN SOFIA FIA NEGATIVE (NEGATIVE)
[2025-08-23] MEDS: PRAMIPEXOLE DIHYDROCHLORIDE MO 0.25 MG TAB PO SCH (22:13)
[2025-08-23] MEDS: SUCRALFATE 1 GM/10 ML ORAL SUSP PO SCH (22:14)
[2025-08-23] MEDS: SENNA 8.6 MG TAB PO SCH (22:14)
[2025-08-24] VITALS (12 sets, daily range): BP systolic 114–137; BP diastolic 80–99; PULSE 65–98; RESP 17–20; TEMP 97.5–98; O2SAT 91–96
[2025-08-24] MEDS: PANTOPRAZOLE 40 MG TAB PO SCH (05:45)
[2025-08-24 07:27] LABS: Hematocrit 41.6 % (36.0-46.0); Hemoglobin 14.3 g/dL (12.2-16.2); Mean Corpuscular Hemoglobin 28.5 pg (28.0-32.0); Mean Corpuscular Volume 82.8 fL (80.0-100.0); Nucleated Red Blood Cells % 0.5 %
[2025-08-24 07:58] LABS: Anion Gap 12 (5-15); Carbon Dioxide 26 mmol/L (20-31); Potassium 4.3 mmol/L (3.5-5.1)
[2025-08-24 07:59] LABS: Calcium 9.7 mg/dL (8.7-10.4)
[2025-08-24 08:03] LABS: Chloride 107 mmol/L (98-107); Sodium 145 mmol/L (136-145)
[2025-08-24 08:05] LABS: BUN/Creatinine Ratio 14.3 (10.0-20.0); Blood Urea Nitrogen 11 mg/dL (9-23); Glucose 109 mg/dL (74-106)
--- NOTE | 2025-08-24 13:57 | DVHPN2 ---
Progress Note Date Seen: Aug 24, 2025 Resident Creating Document: SAURABH TSANG RESIDENT Medical Necessity Reason Pt with a Central, PICC or Fol: No Subjective Review of Systems Patient seen and examined at the bedside No abdominal pain nausea or vomiting reported today Tolerating soft diet well H&H stable Objective vital signs Vital Sign Date Time Temp Pulse Resp B/P (MAP) Pulse Ox O2 Delivery O2 Flow Rate FiO2 08/24/25 10:03 95 Room Air 0.0 08/24/25 10:03 92 20 08/24/25 10:03 21 08/24/25 09:00 98.0 137/88 (104) 98.0 Total Intake and Output 08/23/25 08/23/25 08/24/25 15:00 23:00 07:00 Intake Total 100 ml Output Total 250 ml 25 ml Balance -150 ml -25 ml medications Current Medications Medications Dose Ordered Sig/Cornelius Route Start Time Stop Time Status Last Admin Dose Admin Acetaminophen/ Hydrocodone Bitart 1 tab Q4HP PRN PO 08/22/25 21:30 Ondansetron HCl 4 mg Q4HP PRN IV 08/22/25 21:30 08/23/25 11:53 4 MG Acetaminophen 650 mg Q6HP PRN PO 08/22/25 21:30 Enoxaparin Sodium 40 mg DAILY SC 08/22/25 21:30 08/24/25 09:05 40 MG Hydromorphone HCl 0.25 mg Q6HP PRN IV 08/22/25 21:30 08/23/25 12:05 0.25 MG Aspirin 81 mg DAILY PO 08/23/25 10:00 08/24/25 09:05 81 MG Gabapentin 300 mg TID PO 08/22/25 22:00 08/24/25 13:23 300 MG Haloperidol 5 mg DAILY@DINNER PO 08/23/25 17:30 08/23/25 17:33 5 MG Atorvastatin Calcium 40 mg DAILY PO 08/23/25 10:00 08/24/25 09:05 40 MG Ipratropium [place] 0.5 mg Q6HR PRN NEB 08/22/25 23:45 08/24/25 10:03 0.5 MG Albuterol 2.5 mg Q6HPRN PRN NEB 08/22/25 23:45 08/24/25 10:03 2.5 MG Pantoprazole Sodium 40 mg DAILY@0600 PO 08/24/25 06:00 08/24/25 05:45 40 MG Potassium Bicarbonate 25 meq DAILY PO 08/23/25 10:00 08/24/25 09:05 25 MEQ Ceftriaxone Sodium 50 ml @ 100 mls/hr DAILY@09 IV 08/24/25 09:00 08/24/25 09:05 100 MLS/HR Pramipexole Dihydrochloride 0.125 mg Q8HR PO 08/23/25 22:00 08/24/25 13:23 0.125 MG Sucralfate 1 gm TID@0600,1130,2200 PO 08/23/25 22:00 08/24/25 11:31 1 GM Sennosides 8.6 mg HS PO 08/23/25 22:00 08/23/25 22:14 8.6 MG Polyethylene Glycol 17 gm DAILYPRN PRN PO 08/23/25 15:15 Examination Gen - no pallor, no scleral icterus Skin - Patients skin is warm and dry. HEENT - normocephalic, atraumatic, dry mucous membranes. Neck - supple, no lymphadenopathy Pulmonary - B/L clear breath sounds cardiovascular - regular S1,S2 heard GI - soft abdomen with mild diffuse tenderness. Bowel sounds normoactive. Neurological - Patient is alert and oriented x 2, laboratory and microbiology Laboratory Tests 08/24/25 04:27 Test 08/24/25 04:27 Range/Units Serum Glucose 109 H 74-106 mg/dL Microbiology Date/Time Source Procedure Growth Status 08/23/25 11:10 Voided Urine Urine Culture - Preliminary Resulted 08/23/25 09:46 Buttock Gram Stain - Final Resulted 08/23/25 09:46 Buttock Wound Culture - Preliminary Resulted Problem List/Assessment/Plan Problem List/Assessment/Plan Acute abdominal pain Intractable nausea vomiting ? Due to cholelithiasis Cholelithiasis, no Cholecystitis Urinary tract infection Plan - gallbladder ultrasound showed cholelithiasis - tolerating soft diet well - continue on Protonix and Carafate - recommend to avoid use pramipexole as it may worsen nausea, vomiting - H&H stable - we will continue with conservative management, no intervention needed as of now Plan discussed with Dr. Gomez Plan discussed with: Patient, Other (RN) My Orders My Orders Orders - SAURABH TSANG RESIDENT Procedure Category Date Status Time Sucralfate Susp PHA 08/23/25 In Process (Carafate Susp) 22:00 Senna Pod Tablet PHA 08/23/25 In Process (Senokot Tablet) 22:00 Polyethylene Glycol PHA 08/23/25 In Process 17g Powder (Miralax 15:15 Gallbladder US 08/23/25 Resulted 15:10 Dietary Evaluation Review Comments: 1. Monitor oral (PO) intake to ensure the patient is meeting at least 75% of nutritional needs. 2. Offer Jean-Paul twice daily (BID) to support and promote wound healing. 3. Refer to Physical Therapy for a comprehensive evaluation and mobility assessment. Expected Outcomes/Goals: Gradual Wt loss and Improved physical mobility SAURABH TSANG RESIDENT Aug 24, 2025 13:57
--- NOTE | 2025-08-24 16:41 | DVHPNRES ---
Progress Note Date Seen: Aug 24, 2025 Resident Creating Document: МАРИНА CANTU Medical Necessity Reason Pt with a Central, PICC or Fol: No Subjective Review of Systems Patient seen at bedside. No new complaints. No more episodes of vomiting. Reports that the pain at the sacral ulcer site has decreased 60-year-old bed-bound female with past medical history of COPD not on home oxygen, peptic ulcer disease, 5 strokes with left-sided hemiparesis, hypertension, dyslipidemia came in with complaints of vomiting and pain in the gluteal cleft due to a sacral ulcer since 3 days. States she has had 4 episodes of nonbloody emesis. Patient says that she has no pain in the sacral ulcer now. Patient denies any fever or abdominal pain. She is a poor historian. PMHx:COPD not on home oxygen, peptic ulcer disease, 5 strokes with left-sided hemiparesis, hypertension, dyslipidemia PSHx: Denies Family history: Not relevant Social history: Admits to smoking 5 cigarettes a day but does not remember for how long, denies alcohol or illicit drug use. She lives at home and has a caregiver Allergic history: No known allergies General: patient denies fever, fatigue, weaknes, sweating, any recent changes in appetite and weight HEENT: No headaches, visiual changes, hearing loss, tinnitus, nasal congestion and discharge, and sore throat. Cardiovascular: Denies chest pain, palpitations, dyspnea on exertion, orthopnea, or claudication. Respiratory: No cough, and wheezing. Gastrointestinal: Denies nausea, dysphagia, odynophagia, heartburn, abdominal pain, flatulence, bloating, diarrhea, constipation, change in stool, or blood in stool. Complains of vomiting Genitourinary: No dysuria, hematuria, discharge, frequency, urgency, nocturia, incontinence, and urinary retention. Endocrine: No heat or cold intolerance, polydipsia, polyuria, and polyphagia. Neurological: No dizziness, extremity weakness and numbness, tremors, gait disturbance, seizures, and memory impairment. Psychiatric: Denies depression, anxiety,or insomnia. Musculoskeletal: Denies neck pain, stiffness and swelling, back pain, muscle weakness, joint pain, stiffness, swelling, or limited range of motion. Complains of pain in the gluteal cleft at ulcer site Skin: No rashes, itching, skin lesion, changes in hair, nail, skin texture and breast. Hematologic/Lymphatic: Denies easy bruising, bleeding tendencies, or lymph node enlargement. Objective vital signs Vital Sign Date Time Temp Pulse Resp B/P (MAP) Pulse Ox O2 Delivery O2 Flow Rate FiO2 08/24/25 10:11 93 20 91 08/24/25 10:03 Room Air 0.0 08/24/25 10:03 21 08/24/25 09:00 98.0 137/88 (104) 98.0 Total Intake and Output 08/23/25 08/23/25 08/24/25 15:00 23:00 07:00 Intake Total 100 ml Output Total 250 ml 25 ml Balance -150 ml -25 ml medications Current Medications Medications Dose Ordered Sig/Cornelius Route Start Time Stop Time Status Last Admin Dose Admin Acetaminophen/ Hydrocodone Bitart 1 tab Q4HP PRN PO 08/22/25 21:30 Ondansetron HCl 4 mg Q4HP PRN IV 08/22/25 21:30 08/23/25 11:53 4 MG Acetaminophen 650 mg Q6HP PRN PO 08/22/25 21:30 Enoxaparin Sodium 40 mg DAILY SC 08/22/25 21:30 08/24/25 09:05 40 MG Hydromorphone HCl 0.25 mg Q6HP PRN IV 08/22/25 21:30 08/23/25 12:05 0.25 MG Aspirin 81 mg DAILY PO 08/23/25 10:00 08/24/25 09:05 81 MG Gabapentin 300 mg TID PO 08/22/25 22:00 08/24/25 13:23 300 MG Haloperidol 5 mg DAILY@DINNER PO 08/23/25 17:30 08/23/25 17:33 5 MG Atorvastatin Calcium 40 mg DAILY PO 08/23/25 10:00 08/24/25 09:05 40 MG Ipratropium [place] 0.5 mg Q6HR PRN NEB 08/22/25 23:45 08/24/25 10:03 0.5 MG Albuterol 2.5 mg Q6HPRN PRN NEB 08/22/25 23:45 08/24/25 10:03 2.5 MG Pantoprazole Sodium 40 mg DAILY@0600 PO 08/24/25 06:00 08/24/25 05:45 40 MG Potassium Bicarbonate 25 meq DAILY PO 08/23/25 10:00 08/24/25 09:05 25 MEQ Ceftriaxone Sodium 50 ml @ 100 mls/hr DAILY@09 IV 08/24/25 09:00 08/24/25 09:05 100 MLS/HR Pramipexole Dihydrochloride 0.125 mg Q8HR PO 08/23/25 22:00 08/24/25 13:23 0.125 MG Sucralfate 1 gm TID@0600,1130,2200 PO 08/23/25 22:00 08/24/25 11:31 1 GM Sennosides 8.6 mg HS PO 08/23/25 22:00 08/23/25 22:14 8.6 MG Polyethylene Glycol 17 gm DAILYPRN PRN PO 08/23/25 15:15 Examination General Appearance: Alert, Oriented X3, Cooperative, No acute distress HEENT: Atraumatic, PERRLA, EOMI, Mucous membrane moist/pink Respiratory: Clear to auscultation, Normal air movement Cardiovascular: Regular rate, Normal S1, Normal S2, No murmurs, no chest wall tenderness Abdominal: Normal bowel sounds, Soft, No tenderness, No hepatospenomegaly, No masses Extremities: No clubbing, No cyanosis, No edema, Normal pulses, No tenderness/swelling Skin: Grade 2 sacral ulcer present on admission Neuro: 0/5 strength in left upper and lower limb Psych/Mental Status: Mental status NL, Mood NL laboratory and microbiology Laboratory Tests 08/24/25 04:27 Test 08/24/25 04:27 Range/Units Serum Glucose 109 H 74-106 mg/dL Microbiology Date/Time Source Procedure Growth Status 08/23/25 13:36 Blood Blood Culture - Preliminary NO GROWTH AFTER 24 HOURS OF INCUBATION. Resulted 08/23/25 11:10 Voided Urine Urine Culture - Preliminary Resulted 08/23/25 09:46 Buttock Gram Stain - Final Resulted 08/23/25 09:46 Buttock Wound Culture - Preliminary Resulted Problem List/Assessment/Plan Problem List/Assessment/Plan Assessment/Plan #Cholelithiasis Consider GI consult #Grade 2 sacral wound (present on admission) #laceration in intergluteal region -pain management with: -acetaminophen 650 mg q.6 PRN -[place] 5/325 mg p.o. q.4 PRN for moderate pain -Dilaudid .25 g IV q.6 PRN for severe pain -Wound consult -Wound culture -IV Zofran 4 mg q.4 PRN -CT abdomen and pelvis without contrast #Hypokalemia -Repleted -Magnesium #COPD, not under exacerbation -Maintain saturation between 88-92% -Med nebulization ipratropium bromide 0.5 mg Q 6 PRN -med nebulization albuterol 2.5 mg q.6 PRN #Hypertension #Hyperlipidemia -no hypertensive medication for now as BP is maintained and patient does not take home medication -Atorvastatin 40 mg p.o. daily continued #Obesity, BMI 34.2 kg/m2 Patient has been counseled regarding the need of weight loss, healthy lifestyle modifications and dietary changes over 8 minutes #History of strokes, residual left hemiparesis Follow up with PCP on discharge # history of peptic ulcer disease Continue pantoprazole #History of polysubstance abuse ( nicotine, methamphetamine) - patient has been counseled regarding the cessation of nicotine, the side effects it has on health and regarding the continuation of cessation of methamphetamine over 8 minutes - UDS DVT prophylaxis: Lovenox 40 mg SC daily Plan discussed with Dr. Cheng Plan discussed with: Patient My Orders My Orders Orders - МАРИНА CANTU RESIDENT Procedure Category Date Status Time Complete Blood Count LAB 08/25/25 Verified 04:00 Comprehensive LAB 08/25/25 Verified Metabolic Panel 04:00 Mechanical Soft Diet DIET 08/24/25 Transmitted Lunch Dietary Evaluation Review Comments: 1. Monitor oral (PO) intake to ensure the patient is meeting at least 75% of nutritional needs. 2. Offer Jean-Paul twice daily (BID) to support and promote wound healing. 3. Refer to Physical Therapy for a comprehensive evaluation and mobility assessment. Expected Outcomes/Goals: Gradual Wt loss and Improved physical mobility Date of Service: Aug 24, 2025 Billing Provider: GUICHO CHENG MD Common Visit Codes: [id number] INP/OBS CARE(HIGH) МАРИНА CANTU Aug 24, 2025 16:41 GUICHO CHENG MD Aug 24, 2025 17:36
[2025-08-25] VITALS (10 sets, daily range): BP systolic 97–142; BP diastolic 63–76; PULSE 84–95; RESP 17–18; TEMP 97.5–98.2; O2SAT 93–98
[2025-08-25 05:40] LABS: Alanine Aminotransferase 17 U/L (7-40); Albumin 3.6 g/dL (3.2-4.8); Alkaline Phosphatase 83 U/L (46-116); BUN/Creatinine Ratio 17.6 (10.0-20.0); Blood Urea Nitrogen 12 mg/dL (9-23); Calcium 9.0 mg/dL (8.7-10.4); Carbon Dioxide 28 mmol/L (20-31); Potassium 4.8 mmol/L (3.5-5.1); Sodium 143 mmol/L (136-145); Total Protein 6.6 g/dL (5.7-8.2)
[2025-08-25 05:41] LABS: Bilirubin, Total 0.5 mg/dL (0.2-1.0)
[2025-08-25 06:59] LABS: Glucose 131 mg/dL (74-106)
[2025-08-25 07:59] LABS: Hematocrit 40.3 % (36.0-46.0); Hemoglobin 13.5 g/dL (12.2-16.2); Mean Corpuscular Hemoglobin 27.4 pg (28.0-32.0); Mean Corpuscular Volume 81.7 fL (80.0-100.0); Nucleated Red Blood Cells % 0.4 %
[2025-08-25 09:17] LABS: Anion Gap 6 (5-15)
[2025-08-25 09:20] LABS: Chloride 109 mmol/L (98-107)
[2025-08-25] MEDS: HYDROcodone-ACET 5/325MG TAB PO PRN (09:21)
[2025-08-25] MEDS ORDERED: MEROPENEM 1GM IVPB 50 ML IV SCH (10:00)
--- NOTE | 2025-08-25 10:11 | DVHPNRES ---
Progress Note Date Seen: Aug 25, 2025 Resident Creating Document: SYDNEE CHILDERS RESIDENT Medical Necessity Reason Pt with a Central, PICC or Fol: No Subjective Review of Systems Patient seen and examined at bedside Continues to complain of nausea, but no vomiting Decreased oral intake Continues to complain of pain in the sacral area Urine culture final showing > [id number] mixed griffin, wound culture showing E coli and Klebsiella sensitive to Rocephin, we will continue on Rocephin. Objective vital signs Vital Sign Date Time Temp Pulse Resp B/P (MAP) Pulse Ox O2 Delivery O2 Flow Rate FiO2 08/25/25 08:22 97.7 95 18 97/66 (76) 96 97.7 08/24/25 20:00 Room Air* 0 21 Total Intake and Output 08/24/25 08/24/25 08/25/25 15:00 23:00 07:00 Intake Total 350 ml 300 ml Output Total 250 ml 250 ml Balance 100 ml 50 ml medications Current Medications Medications Dose Ordered Sig/Cornelius Route Start Time Stop Time Status Last Admin Dose Admin Acetaminophen/ Hydrocodone Bitart 1 tab Q4HP PRN PO 08/22/25 21:30 08/25/25 09:21 1 TAB Ondansetron HCl 4 mg Q4HP PRN IV 08/22/25 21:30 08/23/25 11:53 4 MG Acetaminophen 650 mg Q6HP PRN PO 08/22/25 21:30 Enoxaparin Sodium 40 mg DAILY SC 08/22/25 21:30 08/25/25 09:22 40 MG Hydromorphone HCl 0.25 mg Q6HP PRN IV 08/22/25 21:30 08/23/25 12:05 0.25 MG Aspirin 81 mg DAILY PO 08/23/25 10:00 08/25/25 09:19 81 MG Gabapentin 300 mg TID PO 08/22/25 22:00 08/25/25 06:08 300 MG Haloperidol 5 mg DAILY@DINNER PO 08/23/25 17:30 08/24/25 17:13 5 MG Atorvastatin Calcium 40 mg DAILY PO 08/23/25 10:00 08/25/25 09:23 40 MG Ipratropium [place] 0.5 mg Q6HR PRN NEB 08/22/25 23:45 08/24/25 10:03 0.5 MG Albuterol 2.5 mg Q6HPRN PRN NEB 08/22/25 23:45 08/24/25 10:03 2.5 MG Pantoprazole Sodium 40 mg DAILY@0600 PO 08/24/25 06:00 08/25/25 06:08 40 MG Potassium Bicarbonate 25 meq DAILY PO 08/23/25 10:00 08/24/25 09:05 25 MEQ Pramipexole Dihydrochloride 0.125 mg Q8HR PO 08/23/25 22:00 08/25/25 06:08 0.125 MG Sucralfate 1 gm TID@0600,1130,2200 PO 08/23/25 22:00 08/25/25 06:08 1 GM Sennosides 8.6 mg HS PO 08/23/25 22:00 08/24/25 22:24 8.6 MG Polyethylene Glycol 17 gm DAILYPRN PRN PO 08/23/25 15:15 Examination General Appearance: Alert, Oriented X3, Cooperative, No acute distress HEENT: Atraumatic, PERRLA, EOMI, Mucous membrane moist/pink Respiratory: Clear to auscultation, Normal air movement Cardiovascular: Regular rate, Normal S1, Normal S2, No murmurs, no chest wall tenderness Abdominal: Normal bowel sounds, Soft, No tenderness, No hepatospenomegaly, No masses Extremities: No clubbing, No cyanosis, No edema, Normal pulses, No tenderness/swelling Skin: Grade 2 sacral ulcer present on admission Neuro: 0/5 strength in left upper and lower limb Psych/Mental Status: Mental status NL, Mood NL laboratory and microbiology Laboratory Tests 08/25/25 04:41 Test 08/25/25 04:41 Range/Units Serum Glucose 131 H 74-106 mg/dL Microbiology Date/Time Source Procedure Growth Status 08/23/25 13:36 Blood Blood Culture - Preliminary NO GROWTH AFTER 24 HOURS OF INCUBATION. Resulted 08/23/25 11:10 Voided Urine Urine Culture - Final Complete 08/23/25 09:46 Buttock Gram Stain - Final Resulted 08/23/25 09:46 Wound Culture - Preliminary Escherichia coli Klebsiella pneumoniae Resulted Problem List/Assessment/Plan Problem List/Assessment/Plan #Cholelithiasis # intractable vomiting and nausea - GI consult - IV Protonix 40 mg p.o. daily - Carafate 1 g t.i.d. - IV Zofran #Grade 2 sacral wound (present on admission), growing E coli and Klebsiella sensitive to ceftriaxone #laceration in intergluteal region # acute complicated UTI growing >100k mixed griffin -pain management with: -acetaminophen 650 mg q.6 PRN -Mode 5/325 mg p.o. q.4 PRN for moderate pain -Dilaudid .25 g IV q.6 PRN for severe pain -Wound consult - IV ceftriaxone daily -IV Zofran 4 mg q.4 PRN -CT abdomen and pelvis without contrast #Hypokalemia -Repleted -Magnesium #COPD, not under exacerbation -Maintain saturation between 88-92% -Med nebulization ipratropium bromide 0.5 mg Q 6 PRN -med nebulization albuterol 2.5 mg q.6 PRN #Hypertension #Hyperlipidemia -no hypertensive medication for now as BP is maintained and patient does not take home medication -Atorvastatin 40 mg p.o. daily continued #Obesity, BMI 34.2 kg/m2 Patient has been counseled regarding the need of weight loss, healthy lifestyle modifications and dietary changes over 8 minutes #History of strokes, residual left hemiparesis # bed-bound at baseline Follow up with PCP on discharge # history of peptic ulcer disease Continue pantoprazole #History of polysubstance abuse ( nicotine, methamphetamine) - patient has been counseled regarding the cessation of nicotine, the side effects it has on health and regarding the continuation of cessation of methamphetamine over 8 minutes - UDS # restless leg syndrome - pramipexole DVT prophylaxis: Lovenox 40 mg SC daily Plan discussed with Dr. Cheng Plan discussed with: Patient, Other (RN) Dietary Evaluation Review Comments: 1. Monitor oral (PO) intake to ensure the patient is meeting at least 75% of nutritional needs. 2. Offer Jean-Paul twice daily (BID) to support and promote wound healing. 3. Refer to Physical Therapy for a comprehensive evaluation and mobility assessment. Expected Outcomes/Goals: Gradual Wt loss and Improved physical mobility Date of Service: Aug 25, 2025 Billing Provider: GUICHO CHENG MD Common Visit Codes: 89980-[id number] INP/OBS CARE(HIGH) SYDNEE CHILDERS RESIDENT Aug 25, 2025 10:11 GUICHO CHENG MD Aug 25, 2025 15:50
--- NOTE | 2025-08-25 14:53 | DVHPN2 ---
Progress Note - Dictate Date Seen: Aug 25, 2025 Medical Necessity Reason Pt with a Central, PICC or Fol: No Subjective Continues to complain of nausea, but no further episodes of vomiting Decreased oral intake ; sitter at bedside Continues to complain of pain in the sacral area Urine culture final showing > [id number] mixed griffin, wound culture showing E coli and Klebsiella sensitive to Rocephin, patient on IV Rocephin vital signs Vital Sign Date Time Temp Pulse Resp B/P (MAP) Pulse Ox O2 Delivery O2 Flow Rate FiO2 08/25/25 13:00 98.2 94 18 113/65 (81) 98 98.2 08/25/25 08:15 Room Air* 0 21 Total Intake and Output 08/24/25 08/24/25 08/25/25 15:00 23:00 07:00 Intake Total 350 ml 300 ml Output Total 250 ml 250 ml Balance 100 ml 50 ml medications Current Medications Medications Dose Ordered Sig/Cornelius Route Start Time Stop Time Status Last Admin Dose Admin Acetaminophen/ Hydrocodone Bitart 1 tab Q4HP PRN PO 08/22/25 21:30 08/25/25 09:21 1 TAB Ondansetron HCl 4 mg Q4HP PRN IV 08/22/25 21:30 08/23/25 11:53 4 MG Acetaminophen 650 mg Q6HP PRN PO 08/22/25 21:30 Enoxaparin Sodium 40 mg DAILY SC 08/22/25 21:30 08/25/25 09:22 40 MG Hydromorphone HCl 0.25 mg Q6HP PRN IV 08/22/25 21:30 08/23/25 12:05 0.25 MG Aspirin 81 mg DAILY PO 08/23/25 10:00 08/25/25 09:19 81 MG Gabapentin 300 mg TID PO 08/22/25 22:00 08/25/25 14:43 300 MG Haloperidol 5 mg DAILY@DINNER PO 08/23/25 17:30 08/24/25 17:13 5 MG Atorvastatin Calcium 40 mg DAILY PO 08/23/25 10:00 08/25/25 09:23 40 MG Ipratropium [place] 0.5 mg Q6HR PRN NEB 08/22/25 23:45 08/24/25 10:03 0.5 MG Albuterol 2.5 mg Q6HPRN PRN NEB 08/22/25 23:45 08/24/25 10:03 2.5 MG Pantoprazole Sodium 40 mg DAILY@0600 PO 08/24/25 06:00 08/25/25 06:08 40 MG Potassium Bicarbonate 25 meq DAILY PO 08/23/25 10:00 08/24/25 09:05 25 MEQ Pramipexole Dihydrochloride 0.125 mg Q8HR PO 08/23/25 22:00 08/25/25 14:43 0.125 MG Sucralfate 1 gm TID@0600,1130,2200 PO 08/23/25 22:00 08/25/25 12:14 1 GM Sennosides 8.6 mg HS PO 08/23/25 22:00 08/24/25 22:24 8.6 MG Polyethylene Glycol 17 gm DAILYPRN PRN PO 08/23/25 15:15 Ceftriaxone Sodium 50 ml @ 100 mls/hr DAILY@09 IV 08/26/25 09:00 objective General Appearance: Alert, Oriented X3, Cooperative, No acute distress HEENT: Atraumatic, PERRLA, EOMI, Mucous membrane moist/pink Respiratory: Clear to auscultation, Normal air movement Cardiovascular: Regular rate, Normal S1, Normal S2, No murmurs, no chest wall tenderness Abdominal: Normal bowel sounds, Soft, No tenderness, No hepatospenomegaly, No masses Extremities: No clubbing, No cyanosis, No edema, Normal pulses, No tenderness/swelling Skin: Grade 2 sacral ulcer present on admission Neuro: 0/5 strength in left upper and lower limb Psych/Mental Status: Mental status NL, Mood NL laboratory and microbiology Laboratory Tests 08/25/25 04:41 Test 08/25/25 04:41 Range/Units Serum Glucose 131 H 74-106 mg/dL Problems(with codes): (1) Generalized weakness (2) Decubitus ulcer (3) UTI (urinary tract infection) (4) Anxiety (5) Nausea and vomiting Prognosis Plan Continue supportive care Zofran as needed for nausea Continue PPI Carafate Patient is on IV Rocephin for sacral decubitus UTI Asymptomatic cholelithiasis continue observation Supportive care for now, GI team will follow up Dietary Evaluation Review Comments: 1. Monitor oral (PO) intake to ensure the patient is meeting at least 75% of nutritional needs. 2. Offer Jean-Paul twice daily (BID) to support and promote wound healing. 3. Refer to Physical Therapy for a comprehensive evaluation and mobility assessment. Expected Outcomes/Goals: Gradual Wt loss and Improved physical mobility Plan discussed with: Patient, Other ( Jhajj) ROCK BECERRA MD Aug 25, 2025 14:53
[2025-08-26] VITALS (10 sets, daily range): BP systolic 112–131; BP diastolic 66–86; PULSE 65–99; RESP 16–20; TEMP 97.6–98.3; O2SAT 94–98
[2025-08-26 08:00] LABS: Hematocrit 39.3 % (36.0-46.0); Hemoglobin 13.5 g/dL (12.2-16.2); Mean Corpuscular Hemoglobin 28.0 pg (28.0-32.0); Mean Corpuscular Volume 81.6 fL (80.0-100.0); Nucleated Red Blood Cells % 0.2 %
[2025-08-26] MEDS ORDERED: ASPI-543 PO (13:30)
[2025-08-26] MEDS ORDERED: LEVO500T91 PO (13:30)
[2025-08-26] MEDS ORDERED: PANT40T PO (13:30)
[2025-08-26] MEDS ORDERED: ATOR20TA50 PO (13:30)
[2025-08-26] MEDS ORDERED: LINE1TAB6 PO (13:30)
--- NOTE | 2025-08-26 14:20 | DVHDSRES ---
Discharge Summary Date of Admission Resident Creating Document: SYDNEE CHILDERS RESIDENT Aug 22, 2025 at 21:21 Date of Discharge: Aug 26, 2025 Labs/Diagnostic Data: Laboratory Results Test 08/26/25 07:16 08/25/25 04:41 08/23/25 18:39 08/23/25 13:36 White Blood Count 5.4 10^3/uL (4.4-10.8) Red Blood Count 4.81 10^6/uL (4.0-5.20) Hemoglobin 13.5 g/dL (12.2-16.2) Hematocrit 39.3 % (36.0-46.0) Mean Corpuscular Volume 81.6 fL (80.0-100.0) Mean Corpuscular Hemoglobin 28.0 pg (28.0-32.0) Mean Corpuscular Hemoglobin Concent 34.3 g/dL (32.0-36.0) Red Cell Distribution Width 16.3 % (11.8-14.3) Platelet Count 246 10^3/uL (140-450) Mean Platelet Volume 9.1 fL (6.9-10.8) Neutrophils (%) (Auto) 46.1 % (37.0-80.0) Lymphocytes (%) (Auto) 43.0 % (10.0-50.0) Monocytes (%) (Auto) 9.4 % (0.0-12.0) Eosinophils (%) (Auto) 1.1 % (0.0-7.0) Basophils (%) (Auto) 0.4 % (0.0-2.0) Neutrophils # (Auto) 2.5 10 ^3/uL (1.6-8.6) Lymphocytes # (Auto) 2.3 10 ^3/uL (0.4-5.4) Monocytes # (Auto) 0.5 10 ^3/uL (0-1.3) Eosinophils # (Auto) 0.1 10 ^3/uL (0-0.8) Basophils # (Auto) 0 10 ^3/uL (0-0.2) Nucleated Red Blood Cells 0.2 % Sodium Level 143 mmol/L (136-145) Potassium Level 4.8 mmol/L (3.5-5.1) Chloride Level 109 mmol/L (98-107) Carbon Dioxide Level 28 mmol/L (20-31) Anion Gap 6 (5-15) Blood Urea Nitrogen 12 mg/dL (9-23) Creatinine 0.68 mg/dL (0.550-1.02) Glomerular Filtration Rate Calc 100 mL/min (>90) BUN/Creatinine Ratio 17.6 (10.0-20.0) Serum Glucose 131 mg/dL (74-106) Calcium Level 9.0 mg/dL (8.7-10.4) Total Bilirubin 0.5 mg/dL (0.2-1.0) Aspartate Amino Transferase (AST) 25 U/L (13-40) Alanine Aminotransferase (ALT) 17 U/L (7-40) Alkaline Phosphatase 83 U/L (46-116) Total Protein 6.6 g/dL (5.7-8.2) Albumin 3.6 g/dL (3.2-4.8) Influenza Type A Antigen Negative (Negative) Influenza Type B Antigen Negative (Negative) SARS-CoV-2 Antigen (Rapid) Negative (NEGATIVE) Ferritin 611.1 ng/mL (10-291) Test 08/23/25 11:10 08/23/25 07:52 Urine Color Light-orange (Yellow) Urine Clarity Ex.turbid (Clear) Urine pH 6.5 (5.0-9.0) Urine Specific [place] 1.017 (1.001-1.035) Urine Protein 1+ (Negative) Urine Ketones Trace (Negative) Urine Blood 1+ /uL (Negative) Urine Nitrite Negative (Negative) Urine Bilirubin Negative (Negative) Urine Urobilinogen 3 mg/dL (Negative) Urine Leukocyte Esterase 3+ /uL (Negative) Urine RBC None seen /hpf (0 - 4) Urine WBC Clumps Present /hpf (None Seen) Urine Microscopic WBC < 1 /HPF (0-5) Urine Squamous Epithelial Cells None seen /hpf (<5) Urine Bacteria None seen /hpf (None Seen) Urine Hyaline Casts Mod /lpf (0 - 2) Urine Mucus Few (None Seen) Urine Osmolality 499 mOsm/kg Urine Creatinine 138.64 mg/dL (30.0-125.0) Urine Sodium 29 mmol/L (40-220) Urine Potassium 28 mmol/L (12-62) Urine Glucose Normal mg/dL (Normal) Urine Total Protein 77.2 mg/dL (1-14) Urine Opiates Screen Pos (NEGATIVE) Urine Fentanyl Screen Neg (NEGATIVE) Urine Barbiturates Screen Neg (NEGATIVE) Urine Phencyclidine Screen Neg (NEGATIVE) Urine Amphetamines Screen Neg (NEGATIVE) Urine Benzodiazepines Screen Neg (NEGATIVE) Urine Cocaine Screen Neg (NEGATIVE) Urine Cannabinoids Screen Neg (NEGATIVE) Phosphorus Level 3.2 mg/dL (2.4-5.1) Magnesium Level 2.1 mg/dL (1.6-2.6) Creatine Kinase 18 U/L (34-145) Other Laboratory Tests 08/26/25 07:16 08/25/25 04:41 Brief Hx & Hospital Course: Jennifer Lira is a 60-year-old bed-bound female with past medical history of COPD not on home oxygen, peptic ulcer disease, 5 strokes with left-sided hemiparesis, hypertension, dyslipidemia came in with complaints of vomiting and pain in the gluteal cleft due to a sacral ulcer since 3 days.She had stated she has had 4 episodes of nonbloody emesis. Patient said that she has had no pain in the sacral ulcer site now. Patient denied any fever or abdominal pain. She was a poor historian. Gallbladder ultrasound revealed cholelithiasis. chest x-ray was normal. CT abdomen showed no abdominal or pelvic findings. GI consult was given, advised conservative management. During the course of the hospitalization, the patient improved clinically and is hence being discharged. Condition at Discharge: Fair Final Diagnosis/Problems List #Cholelithiasis #Grade 2 sacral wound (present on admission) #laceration in intergluteal region #acute complicated UTI #Hypokalemia #COPD, not under exacerbation #Hypertension #Hyperlipidemia #Obesity, BMI 34.2 kg/m2 #History of strokes, residual left hemiparesis #bed-bound at baseline #history of peptic ulcer disease #History of polysubstance abuse ( nicotine, methamphetamine) #restless leg syndrome Discharge Disposition: Home Discharge Instruct/Medications Diet: Cardiac 2g Na,low cholest Activity: No Restrictions, As Tolerated Follow Up/Referral: F/u with PCP in 7 days with CBC F/u with DC clinic in 7 days Medications: as per ehr Scheduled Aspirin (Aspir-Low), 81 MG PO DAILY Atorvastatin Calcium (Atorvastatin Calcium), 40 MG PO DAILY Gabapentin (Gabapentin), 1 CAP PO TID Hydroxyzine Hcl (Hydroxyzine Hcl), 1 TAB PO BID, (Reported) Levofloxacin Hemihydrate (Levofloxacin), 1 TAB PO DAILY Linezolid (Zyvox), 600 MG PO BID Pantoprazole Sodium Sesquihydr (Pantoprazole Sodium), 1 TAB PO DAILY, (Reported) Pantoprazole Sodium Sesquihydr (Pantoprazole Sodium), 40 MG PO DAILY@0600 Sucralfate (Carafate Susp), 10 ML PO BID Scheduled PRN Metoclopramide Hcl (Reglan), 10 MG PO BIDPRN PRN Miscellaneous Medications Alprazolam (Alprazolam), PO, (Reported) Haloperidol (Haldol), 1 TAB PO, (Reported) Discontinued Medications Amoxicillin & Pot Clavulanate (Augmentin Tablet), 875 MG PO BID PRN Aspirin (Aspirin Low Dose), 81 MG PO DAILY Atorvastatin Calcium (Atorvastatin Calcium), 1 TAB PO DAILY Atorvastatin Calcium (Atorvastatin Calcium), 1 TAB PO DAILY, (Reported) Nitrofurantoin Monohydrate Mac (Macrobid), 100 MG PO BID Pantoprazole Sodium Sesquihydr (Protonix), 40 MG PO DAILY Discharge Statement: "Patient was advised to return to the ER or call 911 if any headaches, dizziness, shortness of breath, chest pain, abdominal pain, bleeding, fevers, or worsening of medical condition. Patient was counseled about treatment plan, medications, possible side effects, patientverbalized understanding. All questions were answered to the best of my ability. This discharge took greater then 30 minutes in planning, reviewing documentation, counseling the patient, and discussing with other team members." ASSESSMENT ASSESSMENT Assessment Infected Stage 2 sacral decubitus ulcer Date of Service: Aug 26, 2025 Billing Provider: IDANIA GARCIA MD Common Visit Codes: 26667-NQF/OBS DISCH DAY >30min МАРИНА CANTU Aug 26, 2025 14:20 IDANIA GARCIA MD Aug 26, 2025 18:11
--- NOTE | 2025-08-26 16:55 | DVHPN2 ---
Progress Note - Dictate Date Seen: Aug 26, 2025 Medical Necessity Reason Pt with a Central, PICC or Fol: No Subjective Pt feels better Decreased oral intake ; sitter at bedside Continues to complain of pain in the sacral area Urine culture final showing > [id number] mixed griffin, wound culture showing E coli and Klebsiella sensitive to Rocephin, patient on IV Rocephin vital signs Vital Sign Date Time Temp Pulse Resp B/P (MAP) Pulse Ox O2 Delivery O2 Flow Rate FiO2 08/26/25 16:37 97.7 85 18 120/83 (95) 98 97.7 08/26/25 08:00 Room Air* 0 21 Total Intake and Output 08/25/25 08/25/25 08/26/25 15:00 23:00 07:00 Intake Total 360 ml 440 ml 400 ml Output Total 200 ml 300 ml Balance 360 ml 240 ml 100 ml medications Current Medications Medications Dose Ordered Sig/Cornelius Route Start Time Stop Time Status Last Admin Dose Admin Acetaminophen/ Hydrocodone Bitart 1 tab Q4HP PRN PO 08/22/25 21:30 08/26/25 09:02 1 TAB Ondansetron HCl 4 mg Q4HP PRN IV 08/22/25 21:30 08/23/25 11:53 4 MG Acetaminophen 650 mg Q6HP PRN PO 08/22/25 21:30 Enoxaparin Sodium 40 mg DAILY SC 08/22/25 21:30 08/26/25 08:57 40 MG Hydromorphone HCl 0.25 mg Q6HP PRN IV 08/22/25 21:30 08/23/25 12:05 0.25 MG Aspirin 81 mg DAILY PO 08/23/25 10:00 08/26/25 08:56 81 MG Gabapentin 300 mg TID PO 08/22/25 22:00 08/26/25 05:26 300 MG Haloperidol 5 mg DAILY@DINNER PO 08/23/25 17:30 08/25/25 17:03 5 MG Atorvastatin Calcium 40 mg DAILY PO 08/23/25 10:00 08/26/25 08:56 40 MG Ipratropium [place] 0.5 mg Q6HR PRN NEB 08/22/25 23:45 08/26/25 07:38 0.5 MG Albuterol 2.5 mg Q6HPRN PRN NEB 08/22/25 23:45 08/26/25 07:38 2.5 MG Pantoprazole Sodium 40 mg DAILY@0600 PO 08/24/25 06:00 08/26/25 05:25 40 MG Potassium Bicarbonate 25 meq DAILY PO 08/23/25 10:00 08/26/25 12:15 25 MEQ Pramipexole Dihydrochloride 0.125 mg Q8HR PO 08/23/25 22:00 08/26/25 05:25 0.125 MG Sucralfate 1 gm TID@0600,1130,2200 PO 08/23/25 22:00 08/26/25 12:15 1 GM Sennosides 8.6 mg HS PO 08/23/25 22:00 08/25/25 21:52 8.6 MG Polyethylene Glycol 17 gm DAILYPRN PRN PO 08/23/25 15:15 Ceftriaxone Sodium 50 ml @ 100 mls/hr DAILY@09 IV 08/26/25 09:00 08/26/25 09:02 100 MLS/HR objective General Appearance: Alert, Oriented X3, Cooperative, No acute distress HEENT: Atraumatic, PERRLA, EOMI, Mucous membrane moist/pink Respiratory: Clear to auscultation, Normal air movement Cardiovascular: Regular rate, Normal S1, Normal S2, No murmurs, no chest wall tenderness Abdominal: Normal bowel sounds, Soft, No tenderness, No hepatospenomegaly, No masses Extremities: No clubbing, No cyanosis, No edema, Normal pulses, No tenderness/swelling Skin: Grade 2 sacral ulcer present on admission Neuro: 0/5 strength in left upper and lower limb Psych/Mental Status: Mental status NL, Mood NL laboratory and microbiology Laboratory Tests 08/26/25 07:16 08/25/25 04:41 Test 08/25/25 04:41 Range/Units Serum Glucose 131 H 74-106 mg/dL Problems(with codes): (1) Nausea and vomiting (2) UTI (urinary tract infection) (3) Anxiety (4) Generalized weakness Prognosis Plan Continue supportive care Zofran as needed for nausea Continue PPI Carafate Asymptomatic cholelithiasis continue observation Supportive care for now, discharge planning in progress Dietary Evaluation Review Comments: 1. Monitor oral (PO) intake to ensure the patient is meeting at least 75% of nutritional needs. 2. Offer Jean-Paul twice daily (BID) to support and promote wound healing. 3. Refer to Physical Therapy for a comprehensive evaluation and mobility assessment. Expected Outcomes/Goals: Gradual Wt loss and Improved physical mobility Plan discussed with: Other (Dr Ahn and nurse) ROCK BECERRA MD Aug 26, 2025 16:55
== END 2025-08-26 17:44 | disposition home or self-care (01) | DRG 380 ==
LOC: ER 15:02 → EDBD 15:02 → EDUNIT# 15:02 → OVERFLOW 21:21 → TELE-WESTW 08-23 23:50
PROVIDERS: ADMIT Internal Medicine Geriatric Medicine; ATTEND Internal Medicine Geriatric Medicine
DX: L89.152 Pressure ulcer of sacral region, stage 2 (principal); G93.41 Metabolic encephalopathy; G82.50 Quadriplegia, unspecified; G81.94 Hemiplegia, unspecified affecting left nondominant side; N39.0 Urinary tract infection, site not specified; E66.9 Obesity, unspecified; J44.9 Chronic obstructive pulmonary disease, unspecified; I10 Essential (primary) hypertension; F19.10 Other psychoactive substance abuse, uncomplicated; G25.81 Restless legs syndrome; S31.821A Laceration without foreign body of left buttock, initial encounter; S31.811A Laceration without foreign body of right buttock, initial encounter; K80.20 Calculus of gallbladder without cholecystitis without obstruction; E87.6 Hypokalemia; Z20.822 Contact with and (suspected) exposure to COVID-19; Z68.34 Body mass index [BMI] 34.0-34.9, adult; F17.210 Nicotine dependence, cigarettes, uncomplicated; X58.XXXA Exposure to other specified factors, initial encounter; Y93.89 Activity, other specified; Y92.89 Other specified places as the place of occurrence of the external cause; Y99.8 Other external cause status; Z87.11 Personal history of peptic ulcer disease
CPT/HCPCS: 36415; 71045; 74176; 76705; 80048; 80053; 80307; 81001; 81015; 82550; 82570; 82728; 83735; 83935; 84100; 84133; 84156; 84300; 85025; 87040; 87077; 87081; 87086; 87186; 87205; 87426; 87804; 94640; 96374; 96375; G0378; J2405; J3480

== ENCOUNTER 2025-08-31 15:21 | Inpatient (IN) | payer MEDICAID ==
[~2025-08-31] VITALS: Ht 165.1 cm; Wt 91.0 kg
[~2025-08-31 15:21] MED LIST changes: -ASPI-325 PO; +ASPI-543 PO; -ATOR-47 PO; +ATOR20TA50 PO; -ATOR40TA52 PO; -AUG875T PO; +LEVO500T91 PO; +LINE1TAB6 PO; -NITR-87 PO; -PANT40TA2 PO
--- NOTE | 2025-08-31 16:01 | ED.PDOC ---
History of Present Illness HPI Comments 60-year-old female brought in by ambulance with a prior medical history of COPD, hypertension, CVA (left-sided deficits) and the chief complaint of ALOC. EMS reports with the patient was picked up at [facility] and was told that the patient does have a UTI and might be related to the ALOC. When EMS arrived on scene the patient initially not pain responsive but is currently A&O x1 in ER. EMS deny any other symptoms at this time. EMS denies chills, fever, N/V/D, SOB, CP. No other associated symptoms, modifiers, recent injuries or sick contacts present at this time. Chief Complaint: ALOC Time Seen by MD: 15:45 Primary Care Provider: KIARA Reviewed Notes: Nurses Notes, Medications, Allergies Allergies: Coded Allergies: NO KNOWN ALLERGIES (Unverified , 03/14/25) Home Meds Active Scripts Pantoprazole Sodium Sesquihydr (Pantoprazole Sodium) 40 Mg Tab, 40 MG PO DAILY@0600 for 30 Days, #30 TAB Prov:SYDNEE CHILDERS [facility] 08/26/25 Atorvastatin Calcium (ATORVASTATIN CALCIUM) 20 Mg Tab, 40 MG PO DAILY for 30 Days, #60 TAB 3 Refills Prov:SYDNEE CHILDERS [facility] 08/26/25 Aspirin (Aspir-Low) 81 Mg Tab, 81 MG PO DAILY for 30 Days, #30 TAB 3 Refills Prov:SYDNEE CHILDERS [facility] 08/26/25 Linezolid (Zyvox) 600 Mg Tab, 600 MG PO BID for 10 Days, #20 TAB Prov:SYDNEE CHILDERS [facility] 08/26/25 Levofloxacin Hemihydrate (LEVOFLOXACIN) 500 Mg Tab, 1 TAB PO DAILY for 10 Days, #10 TAB Prov:SYDNEE CHILDERS [facility] 08/26/25 Sucralfate (CARAFATE SUSP) 1 Gm/10 Ml Ss, 10 ML PO BID for 30 Days, #600 ML 1 Refill Prov:FELICITAS DHILLON [facility] 06/26/25 Metoclopramide Hcl (Reglan) 10 Mg Tab, 10 MG PO BIDPRN PRN for 5 Days, #10 TAB Prov:FELICITAS DHILLON [facility] 06/26/25 Gabapentin (Gabapentin) 300 Mg Cap, 1 CAP PO TID for 30 Days, #90 CAP 1 Refill Prov:CHAY MALDONADO MD 05/27/25 Reported Medications Pantoprazole Sodium Sesquihydr (Pantoprazole Sodium) 40 Mg Tab, 1 TAB PO DAILY 07/07/25 Haloperidol (Haldol) 5 Mg Tb, 1 TAB PO 07/07/25 Hydroxyzine Hcl (Hydroxyzine Hcl) 25 Mg Tab, 1 TAB PO BID 07/07/25 Alprazolam (Alprazolam) 1 Mg Tab, PO 06/25/25 Discontinued Reported Medications Atorvastatin Calcium (ATORVASTATIN CALCIUM) 80 Mg Tab, 1 TAB PO DAILY 07/07/25 Discontinued Scripts Nitrofurantoin Monohydrate Mac (Macrobid) 100 Mg Cap, 100 MG PO BID for 5 Days, #10 CAP Prov:MARINA MCMAHON MD 08/02/25 Pantoprazole Sodium Sesquihydr (Protonix) 40 Mg Tab, 40 MG PO DAILY for 30 Days, #30 TAB Prov:FELICITAS DHILLON 06/26/25 Amoxicillin & Pot Clavulanate (AUGMENTIN TABLET) 875 Mg Tb, 875 MG PO BID PRN for 5 Days, #10 TAB Prov:FELICITAS DHILLON 06/26/25 Atorvastatin Calcium (ATORVASTATIN CALCIUM) 40 Mg Tab, 1 TAB PO DAILY, #60 TAB 5 Refills Prov:AMPARO RUSHING MD 04/10/25 Aspirin (Aspirin Low Dose) 81 Mg Tab, 81 MG PO DAILY for 60 Days, #60 TAB Prov:AMPARO RUSHING MD 04/10/25 Information Source: Emergency Med Personnel Mode of Arrival: EMS Severity: Moderate Timing: Came on: Suddenly Duration: Since onset Prehospital treatment: None Past Medical History PAST MEDICAL HISTORY: COPD, CVA (Left-sided deficits), HTN Surgical History: Denies all surgeries 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 Hx Family History Family History: Reviewed,noncontributory to illness, Unknown, Family hx of heart janki Social History Smoker: Cigarettes Alcohol: Occasionally Drugs: Methamphetamine Lives In: Home Unable to Obtain due to: Altered Mental Status All Other Systems: Reviewed and Negative Physical Exam Exam Comments Patient's altered General Appearance: No Apparent Distress, Normal HEENT: Normal ENT Inspection, Pharynx Normal, TMs Normal Neck: Full Range of Motion, Non-Tender, Normal, Normal Inspection Respiratory: Chest Non-Tender, Lungs Clear, No Accessory Muscle Use, No Respiratory Distress, Normal Breath Sounds Cardiovascular: No Edema, No JVD, No Murmur, No Gallop, Normal Peripheral Pulses, Regular Rate/Rhythm Breast Exam: Deferred Gastrointestinal: No Organomegaly, Non Tender, No Pulsatile Mass, Normal Bowel Sounds, Soft Genitalia: Deferred Pelvic: Deferred Rectal: Deferred Extremities: No calf tenderness, Normal capillary refill, Normal inspection, Normal range of motion, Non-tender, No pedal edema Musculoskeletal : Apperance: Normal Neurologic: Alert, radio mechanic II-XII nml as Tested, No Motor Deficits, Normal Affect, Normal Mood, No Sensory Deficits Cerebellar Function: Normal Reflexes: Normal Skin: Dry, Normal Color, Warm Lymphatic: No Adenopathy Was a procedure done? Was a procedure done?: No EKG EKG : Pulse Rate (adult): 101 Downs: Normal Cardiac Rhythm: ST Block: None Hypertrophy: None ST: Normal Differential Dx Considerations may include: ACS, CVA, viral syndrome, electrolyte abnormality, infectious etiology X-Ray, Labs, Meds, VS Vital Signs Date Time Temp Pulse Resp B/P (MAP) Pulse Ox O2 Delivery O2 Flow Rate FiO2 08/31/25 16:01 101 08/31/25 15:37 101 08/31/25 15:36 98.7 100 16 128/84 94 98.7 Lab Test 08/31/25 16:30 Range/Units White Blood Count 11.1 #H 4.4-10.8 10^3/uL Red Blood Count 5.56 H 4.0-5.20 10^6/uL Hemoglobin 15.1 12.2-16.2 g/dL Hematocrit 46.2 #H 36.0-46.0 % Mean Corpuscular Volume 83.0 80.0-100.0 fL Mean Corpuscular Hemoglobin 27.2 L 28.0-32.0 pg Mean Corpuscular Hemoglobin Concent 32.8 32.0-36.0 g/dL Red Cell Distribution Width 16.2 H 11.8-14.3 % Platelet Count 233 140-450 10^3/uL Mean Platelet Volume 9.8 6.9-10.8 fL Neutrophils (%) (Auto) 67.7 37.0-80.0 % Lymphocytes (%) (Auto) 21.1 10.0-50.0 % Monocytes (%) (Auto) 10.7 0.0-12.0 % Eosinophils (%) (Auto) 0.3 0.0-7.0 % Basophils (%) (Auto) 0.2 0.0-2.0 % Neutrophils # (Auto) 7.5 1.6-8.6 10 ^3/uL Lymphocytes # (Auto) 2.4 0.4-5.4 10 ^3/uL Monocytes # (Auto) 1.2 0-1.3 10 ^3/uL Eosinophils # (Auto) 0 0-0.8 10 ^3/uL Basophils # (Auto) 0 0-0.2 10 ^3/uL Nucleated Red Blood Cells 0.2 % Sodium Level 143 136-145 mmol/L Potassium Level 4.1 3.5-5.1 mmol/L Chloride Level 105 98-107 mmol/L Carbon Dioxide Level 22 20-31 mmol/L Anion Gap 16 H 5-15 Blood Urea Nitrogen 16 9-23 mg/dL Creatinine 0.81 0.550-1.02 mg/dL Glomerular Filtration Rate Calc 84 >90 mL/min BUN/Creatinine Ratio 19.8 10.0-20.0 Serum Glucose 127 H 74-106 mg/dL Lactic Acid Level 2.2 *H 0.4-2.0 mmol/L Calcium Level 9.5 8.7-10.4 mg/dL Troponin I High Sensitivity 31 </=34 ng/L B-Type Natriuretic Peptide Pending Time of 1ST Reevaluation: 16:45 Reevaluation 1ST: Unchanged Patient Education/Counseling: Pt Unresponsive (Patient is altered) Family Education/Counseling: No Family Present SEPSIS Sepsis Screen Date sepsis recognized/suspect: Aug 31, 2025 Time Sepsis recognized/suspect: 1524 Recent Procedure: No On Antibiotic Therapy: No Respiratory Rate >20: No Heart Rate >90: Yes Temp<36 C (96.8 F) or >38.3 C: No SBP <90 or MAP <65 mmHG: No New Acute Mental Status Change: Yes Is the patient on CPAP, BIPAP,: No Physician Orders B-Type Natriuretic Peptide (08/31/25 15:44) Urinalysis (08/31/25 15:44) Chest Portable (08/31/25 15:44) Electrocardigram (08/31/25 15:44) Blood Culture (08/31/25 15:44) Troponin-I Hs (08/31/25 16:44) Troponin-I Hs (08/31/25 18:44) Electrocardigram (08/31/25 16:44) Electrocardigram (08/31/25 18:44) Vital Signs Date Time Temp Pulse Resp B/P (MAP) Pulse Ox O2 Delivery O2 Flow Rate FiO2 08/31/25 16:01 101 08/31/25 15:37 101 08/31/25 15:36 98.7 100 16 128/84 94 98.7 Laboratory Tests Test 08/31/25 16:30 Lactic Acid Level 2.2 mmol/L (0.4-2.0) *H White Blood Count 11.1 10^3/uL (4.4-10.8) #H Departure 1 Departure Time of Disposition: 17:37 (Patient presents with concern for sepsis. We will empirically cover patient with antibiotics IV fluids and admit patient for further workup. Patient is still receiving) Impression: Primary Impression: Acute metabolic encephalopathy Additional Impressions: Suspected sepsis Generalized weakness Disposition: ADMITTED INPATIENT Admit to: Tele Condition: Guarded Critical Care Note Critical Care Time?: Yes Critical care comment: Concern for sepsis Authorized and Performed by: Popeye Hills MD Total critical care time: Approximately 39 minutes Due to a high probability of clinically significant, life threatening deterioration, the patient required my highest level of preparedness to intervene emergently and I personally spent this critical care time directly and personally managing the patient. This critical care time included obtaining a history; examining the patient; pulse oximetry; ordering and review of studies; arranging urgent treatment with development of a management plan; evaluation of patient's response to treatment; frequent reassessment; and, discussions with other providers. This critical care time was performed to assess and manage the high probability of imminent, life-threatening deterioration that could result in multi-organ failure. It was exclusive of separately billable procedures and treating other patients and teaching time. Please see my other sections and the rest of the note for further information on patient assessment and treatment. Stability Stability form required: No I personally scribed for POPEYE HILLS MD ([email or web address]) on 08/31/25 at 16:01. Electronically submitted by Jordan Norton ([email or web address]). POPEYE HILLS MD Aug 31, 2025 16:01
--- NOTE | 2025-08-31 16:12 | DVH ---
CHEST RADIOGRAPH Indication: weakness Technique: Single frontal view of the chest was obtained Comparison: XY CHEST XRAY 1 VIEW on DOS: 08/22/25, XY CHEST PORTABLE on DOS: 07/09/25, XY CHEST XRAY 1 VIEW on DOS: 07/05/25 FINDINGS: Lines and Tubes: None Lungs: No focal consolidation. Left lower lung zone linear atelectasis. Pleura: No effusion. No pneumothorax. Cardiomediastinal contours: Unremarkable Bones: No acute osseous abnormality. IMPRESSION: Left lower lung zone linear atelectasis. Otherwise, no evidence for acute cardiopulmonary disease.
[2025-08-31 17:16] LABS: Hematocrit 46.2 % (36.0-46.0); Hemoglobin 15.1 g/dL (12.2-16.2); Mean Corpuscular Hemoglobin 27.2 pg (28.0-32.0); Mean Corpuscular Volume 83.0 fL (80.0-100.0); Nucleated Red Blood Cells % 0.2 %
[2025-08-31 17:20] LABS: Chloride 105 mmol/L (98-107); Potassium 4.1 mmol/L (3.5-5.1); Sodium 143 mmol/L (136-145)
[2025-08-31 17:21] LABS: Anion Gap 16 (5-15); Carbon Dioxide 22 mmol/L (20-31)
[2025-08-31 17:22] LABS: Calcium 9.5 mg/dL (8.7-10.4)
[2025-08-31 17:26] LABS: BUN/Creatinine Ratio 19.8 (10.0-20.0); Blood Urea Nitrogen 16 mg/dL (9-23)
[2025-08-31 17:31] LABS: Glucose 127 mg/dL (74-106)
[2025-08-31 17:34] LABS: Lactic Acid w/Reflex 2.2 mmol/L (0.4-2.0)
[2025-08-31] MEDS: CEFEPIME 1GM/50ML 50 ML IV STA (18:21)
[2025-08-31] MEDS: LACTATED RINGER'S 1,700 ML IV ONE (18:22)
[2025-08-31] MEDS ORDERED: DOCUSATE SOD 100 MG CAP PO PRN (18:30)
[2025-08-31] MEDS ORDERED: ONDANSETRON HCL 4 MG/2 ML VIAL IV PRN (18:30)
[2025-08-31] MEDS ORDERED: ALBUTEROL SULF 2.5 MG/0.5ML(0.5%) NEB SOLN NEB PRN (18:30)
[2025-08-31] MEDS ORDERED: IPRATROPIUM BROM 0.5 MG/2.5ML INH SOL NEB PRN (18:30)
[2025-08-31] MEDS ORDERED: ACETAMINOPHEN 325 MG TAB PO PRN (18:30)
[2025-08-31] MEDS ORDERED: HYDROcodone-ACET 5/325MG TAB PO PRN (18:30)
[2025-08-31] MEDS: LACTATED RINGER'S 1,000 ML IV SCH (18:30)
--- NOTE | 2025-08-31 18:43 | ECG ---
[facility] [place] Test Date: 2025-08-31 Test Time: 15:37:36 Pat Name: ANA HERNÁNDEZ Department: ED Room: 0203T Gender: F Tester Regulator: orlin : 1965 Requested By: POPEYE THEODORE Order Number: [id number] Reading MD: Noah Dueñas Measurements Intervals [place] Rate: 101 P: 73 MA: 172 QRS: 9 QRSD: 98 T: 241 QT: 382 QTc: 496 Interpretive Statements Sinus tachycardia Abnormal T, consider ischemia, diffuse leads Electronically Signed On 09-03-2025 17:52:31 PST by Noah Dueñas Please click the below link to view image of tracing.
[2025-08-31 19:11] LABS: INR 1.14 (0.9-1.15); Partial Thromboplastin Time 26.5 SEC (24.5-34.5); Prothrombin Time 11.9 sec (9.3-11.8)
--- NOTE | 2025-08-31 21:19 | DVHHP2 ---
History of Present Illness Reason for Visit: Acute metabolic encephalopathy History of Present Illness The patient is a 60-year-old female with past medical history of CVA with left- sided deficit, COPD, hyperlipidemia, and hypertension who presented to [facility] ED for evaluation of altered level of consciousness. As reported by EMS, patient was picked up at [facility] due to possible UTI and might be related to the altered level of consciousness as reported by staff. Patient was seen and evaluated in the ED, laboratory data shows WBC 11.1, platelets 233, sodium 143, potassium 4.1, BUN 16, creatinine 0.81, glucose 127, anion gap 16, hemoglobin A1c 5.8, calcium 9.5, BNP 32.91, lactic acid 2.2, troponin 31, blood pressure 120/84, heart rate 101, temperature 98.7 F, O2 saturation 94% on oxygen. Chest x-ray revealing left lower lung zone linear atelectasis, otherwise no evidence for acute cardiopulmonary disease. Patient was started on IV antibiotic regimen Rocephin, please see medication orders section in the computer. On my assessment, patient remains altered, no diaphoresis, dizziness, shortness of breaths, no diarrhea, nausea, vomiting, fever, no chills. Patient was admitted for further evaluation and medical management. Past Medical History HLD, COPD, CVA (Left-sided deficits), HTN Past Surgical History Denies all surgeries Family History Reviewed, noncontributory to the management of this case. Past Social History The patient lives at home, smokes cigarettes, drinks alcohol occasionally, uses methamphetamine. Review of Systems Constitutional: Yes: Weakness; No: Fever, Chills, Sweats, Malaise, Other Eyes: No: Pain, Vision change, Conjunctivae inflammation, Eyelid inflammation, Other, Redness ENT: No: Ear pain, Ear discharge, Nose pain, Nose discharge, Nose congestion, Mouth pain, Mouth swelling, Throat pain, Throat swelling, Other Respiratory: No: Cough, Dry, Shortness of breath, SOB with excertion, Wheezing, Hemoptysis, Pleuritic Pain, Sputum, Wheezing, Other Cardiovascular: No: Chest Pain, Palpitations, Orthopnea, Paroxysmal Noc. Dyspnea, Edema, Lt Headedness, Other Gastrointestinal: No: Nausea, Vomiting, Abdominal Pain, Diarrhea, Constipation, Melena, Hematochezia, Other Genitourinary: No Dysuria, No Frequency, No Incontinence, No Hematuria, No Retention, No Other Musculoskeletal: No: other, neck pain, shoulder pain, arm pain, back pain, hand pain, leg pain, foot pain Skin: Other (Open wound in the coccyx area); No: Rash, Lesions, Jaundice, Bruising Neurological: No: Weakness, Numbness, Incoordination, Change in speech, Confusion, Seizures, Other Allergies: Coded Allergies: NO KNOWN ALLERGIES (Unverified , 03/14/25) Medications Current Medications Medications Dose Ordered Sig/Cornelius Route Start Time Stop Time Status Last Admin Dose Admin Cefepime HCl 50 ml @ 12.5 mls/hr ONCE STAT IV 08/31/25 17:36 08/31/25 21:35 08/31/25 18:21 12.5 MLS/HR Ceftriaxone Sodium 50 ml @ 100 mls/hr DAILY@09 IV 09/01/25 09:00 Lactated Ringer's 1,000 ml @ 75 mls/hr [id number] IV 08/31/25 18:30 Aspirin 81 mg DAILY PO 09/01/25 10:00 Atorvastatin Calcium 20 mg HS PO 08/31/25 22:00 Albuterol 2.5 mg Q4HPRN PRN NEB 08/31/25 18:30 Cancel Ipratropium [place] 0.5 mg Q4HPRN PRN NEB 08/31/25 18:30 Cancel Acetaminophen/ Hydrocodone Bitart 1 tab Q4HP PRN PO 08/31/25 18:30 Ondansetron HCl 4 mg Q4HP PRN IV 08/31/25 18:30 Docusate Sodium 100 mg BIDPRN PRN PO 08/31/25 18:30 Acetaminophen 650 mg Q6HP PRN PO 08/31/25 18:30 Exam Vital Signs Vital Signs Date Time Temp Pulse Resp B/P (MAP) Pulse Ox O2 Delivery O2 Flow Rate FiO2 08/31/25 20:00 98.1 106 18 126/81 (96) 97 98.1 General Appearance: Alert, Cooperative, No acute distress, Other (Oriented x1) HEENT: Atraumatic, PERRLA, EOMI, Mucous membr. moist/pink Respiratory: Normal air movement Cardiovascular: Regular rate, Normal S1, Normal S2, No murmurs Abdominal: Normal bowel sounds, Soft, No tenderness, No hepatospenomegaly, No masses Extremities: No clubbing, No cyanosis, No edema, Normal pulses, No tenderness/s welling Skin: No rashes, No significant lesion Neuro: Normal tone, Sensation intact, Cranial nerves 3-12 NL, Reflexes 2+, Other (Generalized weakness) Psych/Mental Status: Mood NL, Other (Altered mental status) Labs/Xrays Labs Test 08/31/25 18:08 08/31/25 16:30 Range/Units Lactic Acid Level 1.9 0.4-2.0 mmol/L Troponin I High Sensitivity 32 </=34 ng/L White Blood Count 11.1 #H 4.4-10.8 10^3/uL Red Blood Count 5.56 H 4.0-5.20 10^6/uL Hemoglobin 15.1 12.2-16.2 g/dL Hematocrit 46.2 #H 36.0-46.0 % Mean Corpuscular Volume 83.0 80.0-100.0 fL Mean Corpuscular Hemoglobin 27.2 L 28.0-32.0 pg Mean Corpuscular Hemoglobin Concent 32.8 32.0-36.0 g/dL Red Cell Distribution Width 16.2 H 11.8-14.3 % Platelet Count 233 140-450 10^3/uL Mean Platelet Volume 9.8 6.9-10.8 fL Neutrophils (%) (Auto) 67.7 37.0-80.0 % Lymphocytes (%) (Auto) 21.1 10.0-50.0 % Monocytes (%) (Auto) 10.7 0.0-12.0 % Eosinophils (%) (Auto) 0.3 0.0-7.0 % Basophils (%) (Auto) 0.2 0.0-2.0 % Neutrophils # (Auto) 7.5 1.6-8.6 10 ^3/uL Lymphocytes # (Auto) 2.4 0.4-5.4 10 ^3/uL Monocytes # (Auto) 1.2 0-1.3 10 ^3/uL Eosinophils # (Auto) 0 0-0.8 10 ^3/uL Basophils # (Auto) 0 0-0.2 10 ^3/uL Nucleated Red Blood Cells 0.2 % Prothrombin Time 11.9 H 9.3-11.8 sec Prothrombin Time INR 1.14 0.9-1.15 Activated Partial Thromboplast Time 26.5 24.5-34.5 SEC Sodium Level 143 136-145 mmol/L Potassium Level 4.1 3.5-5.1 mmol/L Chloride Level 105 98-107 mmol/L Carbon Dioxide Level 22 20-31 mmol/L Anion Gap 16 H 5-15 Blood Urea Nitrogen 16 9-23 mg/dL Creatinine 0.81 0.550-1.02 mg/dL Glomerular Filtration Rate Calc 84 >90 mL/min BUN/Creatinine Ratio 19.8 10.0-20.0 Serum Glucose 127 H 74-106 mg/dL Calcium Level 9.5 8.7-10.4 mg/dL B-Type Natriuretic Peptide 32.91 0-100 pg/mL PATIENT: ANA HERNÁNDEZ ACCT: [id number] UNIT: [id number] : 1965 LOC: ER ROOM / BED: / AGE / SEX: 60 / F ADM STATUS: REG ER SERVICE 1544 ORDERING PHYSICIAN: POPEYE THEODORE MD PROCEDURE(s): CXRP - CHEST PORTABLE REASON: weakness ORDER NUMBER(s): [id number], ACCESSION NUMBER(s): [id number] CHEST RADIOGRAPH Indication: weakness Technique: Single frontal view of the chest was obtained Comparison: XY CHEST XRAY 1 VIEW on DOS: 08/22/25, XY CHEST PORTABLE on DOS: 07/09/25, XY CHEST XRAY 1 VIEW on DOS: 07/05/25 FINDINGS: Lines and Tubes: None Lungs: No focal consolidation. Left lower lung zone linear atelectasis. Pleura: No effusion. No pneumothorax. Cardiomediastinal contours: Unremarkable Bones: No acute osseous abnormality. IMPRESSION: Left lower lung zone linear atelectasis. Otherwise, no evidence for acute cardiopulmonary disease. SEPSIS Sepsis Screen Date sepsis recognized/suspect: Aug 31, 2025 Time Sepsis recognized/suspect: 2010 Procedure: No On Antibiotic Therapy: No Respiratory Rate >20: No Heart Rate >90: No Temp<36 C (96.8 F) or >38.3 C: No SBP <90 or MAP <65 mmHG: No New Acute Mental Status Change: No Is the patient on CPAP, BIPAP,: No Physician Orders Urinalysis (08/31/25 15:44) Chest Portable (08/31/25 15:44) Blood Culture (08/31/25 15:44) Troponin-I Hs (08/31/25 18:44) Electrocardigram (08/31/25 16:44) Electrocardigram (08/31/25 18:44) Cefepime 1gm/50ml (Maxipime 1gm/50ml) (08/31/25 17:36) Notify Md If Map <65 Or Bp<90 (08/31/25 17:36) If Map<65 Start Vasopressor (08/31/25 17:36) Sepsis Reassesment After Fluid (08/31/25 18:36) Ceftriaxone 1gm/50ml (Rocephin) (09/01/25 09:00) Hemoglobin A1c (08/31/25 18:16) Aspirin Tablet (09/01/25 10:00) Atorvastatin (Lipitor) (08/31/25 22:00) Allergies (08/31/25 18:16) Code Status (08/31/25 18:16) Oxygen Per Hour (08/31/25 18:16) Hydrocodone-Acet 5/325mg Tab (Griffin 5/32 (08/31/25 18:30) Ondansetron Hcl (Zofran) (08/31/25 18:30) Docusate Sodium Capsule (Colace Capsule) (08/31/25 18:30) Fall Risk Precautions In Place QSHIFT (08/31/25 18:16) Complete Blood Count (09/01/25 04:00) Comprehensive Metabolic Panel (09/01/25 04:00) Cardiac Diet-2gna,Lofat,Lochol (08/31/25 Dinner) Condition: Serious (08/31/25 18:16) Acetaminophen Tablet (Tylenol Tablet) (08/31/25 18:30) Maintain Bed Rest (08/31/25 18:16) Sequential Compression Device (08/31/25 ) Lactated Ringer's (08/31/25 18:30) Vital Signs Date Time Temp Pulse Resp B/P (MAP) Pulse Ox O2 Delivery O2 Flow Rate FiO2 08/31/25 20:00 98.1 106 18 126/81 (96) 97 98.1 08/31/25 17:00 111 21 116/79 (91) 96 1115/25 16:01 101 08/31/25 15:43 98.7 105 18 114/80 (91) 18 98.7 08/31/25 15:37 101 08/31/25 15:36 98.7 100 16 128/84 94 98.7 Laboratory Tests Test 08/31/25 16:30 08/31/25 18:08 Lactic Acid Level 2.2 mmol/L (0.4-2.0) *H 1.9 mmol/L (0.4-2.0) White Blood Count 11.1 10^3/uL (4.4-10.8) #H Medications Medications Dose Ordered Sig/Cornelius Route Start Time Stop Time Status Last Admin Dose Admin Cefepime HCl 50 ml @ 12.5 mls/hr ONCE STAT IV 08/31/25 17:36 08/31/25 21:35 08/31/25 18:21 12.5 MLS/HR Lactated Ringer's 1,700 ml @ 1,700 mls/hr ONCE ONCE IV 08/31/25 17:45 08/31/25 18:44 DC 08/31/25 18:22 1,700 MLS/HR Assessment/Plan Assessment/Plan Acute metabolic encephalopathy Suspected sepsis Leukocytosis, unspecified Generalized weakness Plan 1. Admit to telemetry unit 2. Breathing treatment 3. Pain control management 4. IV antibiotic management 5. Management of fluids and electrolytes 6. Consultation for hospitalist/wound care 7. Diagnostic test chest x-ray 8. DVT prophylaxis-on SCDs 9. Repeat labs CBC, CMP in a.m. 10. Home medication reviewed and reconciled 11. Continue with current medical management 12. Treatment plan discussed with patient and RN. Patient verbalized understanding. Plan discussed with: Patient, Other (RN) My Orders Orders - TRISHA ALFARO DNP Procedure Category Date Status Time Ceftriaxone 1gm/50ml PHA 09/01/25 In Process (Rocephin) 09:00 Hemoglobin A1c LAB 08/31/25 Logged 18:16 Aspirin Tablet PHA 09/01/25 In Process 10:00 Atorvastatin (Lipitor) PHA 08/31/25 In Process 22:00 Allergies KEHINDE 08/31/25 In Process 18:16 Code Status CODE 08/31/25 Transmitted 18:16 Oxygen Per Hour RT 08/31/25 Transmitted 18:16 Hydrocodone-Acet PHA 08/31/25 In Process 5/325mg Tab (Griffin 18:30 Ondansetron Hcl PHA 08/31/25 In Process (Zofran) 18:30 Docusate Sodium PHA 08/31/25 In Process Capsule (Colace 18:30 Fall Risk Precautions KEHINDE 08/31/[address] 18:16 Complete Blood Count LAB 09/01/25 Verified 04:00 Comprehensive LAB 09/01/25 Verified Metabolic Panel 04:00 Cardiac DIET 08/31/25 Transmitted Diet-2gna,Lofat,Lochol Dinner Condition: Serious KEHINDE 08/31/25 In Process 18:16 Acetaminophen Tablet PHA 08/31/25 In Process (Tylenol Tablet) 18:30 Maintain Bed Rest KEHINDE 08/31/25 In Process 18:16 Sequential KEHINDE 08/31/25 In Process Compression Device Lactated Ringer's PHA 08/31/25 In Process 18:30 Problem List: (1) Acute metabolic encephalopathy (2) Suspected sepsis (3) Leukocytosis, unspecified (4) Generalized weakness Date of Service: Aug 31, 2025 Billing Provider: TRISHA ALFARO DNP Common Visit Codes: [id number] INP/OBS CARE (HIGH) TRISHA ALFARO DNP Aug 31, 2025 21:19
[2025-08-31] MEDS ORDERED: NITROGLYCERIN 0.4 MG SL TAB SL PRN (21:30)
[2025-08-31] MEDS ORDERED: MORPHINE SULFATE INJ 2 MG/ml SYRG IV PRN (21:30)
[2025-08-31] MEDS: ATORVASTATIN 20 MG TAB PO SCH (22:00)
[2025-09-01 05:44] LABS: Hematocrit 42.2 % (36.0-46.0); Hemoglobin 14.2 g/dL (12.2-16.2); Mean Corpuscular Hemoglobin 27.2 pg (28.0-32.0); Mean Corpuscular Volume 80.8 fL (80.0-100.0); Nucleated Red Blood Cells % 0.1 %
[2025-09-01 05:57] LABS: Alanine Aminotransferase 26 U/L (7-40); Albumin 3.8 g/dL (3.2-4.8); Alkaline Phosphatase 95 U/L (46-116); Anion Gap 15 (5-15); BUN/Creatinine Ratio 17.8 (10.0-20.0); Blood Urea Nitrogen 13 mg/dL (9-23); Calcium 9.2 mg/dL (8.7-10.4); Carbon Dioxide 23 mmol/L (20-31); Chloride 106 mmol/L (98-107); Potassium 3.6 mmol/L (3.5-5.1); Sodium 144 mmol/L (136-145); Total Protein 6.7 g/dL (5.7-8.2)
[2025-09-01 05:58] LABS: Bilirubin, Total 0.5 mg/dL (0.2-1.0)
[2025-09-01 06:03] LABS: Glucose 129 mg/dL (74-106)
[2025-09-01 07:30] VITALS: PULSE 98; RESP 20; O2SAT 93
[2025-09-01] MEDS ORDERED: VANCOMYCIN 1GM/250ML KIT 250 ML IV ONE (08:15)
[2025-09-01] MEDS ORDERED: VANCOMYCIN PER PHARMACY 0 MG IV SCH (08:15)
[2025-09-01] MEDS: VANCOMYCIN 1GM/250ML KIT 250 ML IV SCH (09:57)
[2025-09-01 10:50] LABS: Urine Amorphous Crystal FEW /hpf (None Seen); Urine Protein, UAD 1+ (Negative)
--- NOTE | 2025-09-01 15:34 | DVHPN2 ---
Subjective The patient seen and examined at bedside. The patient is lethargic and confuse. Reviewed: Care Plan, H&P, Labs, Medications, Previous Orders, Radiology Changes from previous H/P or p: No Changes Eyes: No Pain, No Vision change, No Conjunctivae inflammation, No Eyelid inflammation, No Other, No Redness ENT: No Ear pain, No Ear discharge, No Nose pain, No Nose discharge, No Nose congestion, No Mouth pain, No Mouth swelling, No Throat pain, No Throat swelling, No Other Cardiovascular: No Chest Pain, No Palpitations, No Orthopnea, No Paroxysmal Noc. Dyspnea, No Edema, No Lt Headedness, No Other Respiratory: No Cough, No Dry, No Shortness of breath, No SOB with excertion, No Wheezing, No Hemoptysis, No Pleuritic Pain, No Sputum, No Other Gastrointestinal: No Nausea, No Vomiting, No Abdominal Pain, No Diarrhea, No Constipation, No Melena, No Hematochezia, No Other Genitourinary: No Dysuria, No Frequency, No Incontinence, No Hematuria, No Retention, No Other Musculoskeletal: No other, No neck pain, No shoulder pain, No arm pain, No back pain, No hand pain, No leg pain, No foot pain Skin: No Rash, No Lesions, No Jaundice, No Bruising; Other (Open wound in the coccyx area) Objective Vitals Vital Signs Date Time Temp Pulse Resp B/P (MAP) Pulse Ox O2 Delivery O2 Flow Rate FiO2 09/01/25 15:27 92 09/01/25 14:00 20 129/72 (91) 91 09/01/25 10:00 97.7 97.7 09/01/25 07:30 Nasal Cannula* 3 32 General Appearance: Other (lethargic) HEENT: Atraumatic, PERRLA, EOMI, Mucous membr. moist/pink Neck: Supple Lungs: Clear to auscultation, Normal air movement Cardiovascular: Regular rate, Normal S1, Normal S2, No murmurs, Gallops, Rubs Abdomen: Normal bowel sounds, Soft, No tenderness Neuro: Cranial nerves 3-12 NL Psych/Mental Status: Mental status NL Medications Current Medications Medications Dose Ordered Sig/Cornelius Route Start Time Stop Time Status Last Admin Dose Admin Ceftriaxone Sodium 50 ml @ 100 mls/hr DAILY@09 IV 09/01/25 09:00 09/01/25 08:53 100 MLS/HR Lactated Ringer's 1,000 ml @ 75 mls/hr [id number] IV 08/31/25 18:30 09/01/25 07:57 75 MLS/HR Aspirin 81 mg DAILY PO 09/01/25 10:00 Atorvastatin Calcium 20 mg HS PO 08/31/25 22:00 Albuterol 2.5 mg Q4HPRN PRN NEB 08/31/25 18:30 Cancel Ipratropium [place] 0.5 mg Q4HPRN PRN NEB 08/31/25 18:30 Cancel Acetaminophen/ Hydrocodone Bitart 1 tab Q4HP PRN PO 08/31/25 18:30 Ondansetron HCl 4 mg Q4HP PRN IV 08/31/25 18:30 Docusate Sodium 100 mg BIDPRN PRN PO 08/31/25 18:30 Acetaminophen 650 mg Q6HP PRN PO 08/31/25 18:30 Nitroglycerin 0.4 mg Q5MINP PRN SL 08/31/25 21:30 Morphine Sulfate 2 mg Q30M PRN IV 08/31/25 21:30 Vancomycin HCl 0 ml @ 0 mls/hr PER PHARMACY IV 09/01/25 08:15 Laboratory Results Laboratory Tests 09/01/25 05:27 Chemistry Test 08/31/25 16:30 09/01/25 05:27 Calcium Level 9.5 mg/dL (8.7-10.4) 9.2 mg/dL (8.7-10.4) Albumin 3.8 g/dL (3.2-4.8) Total Protein 6.7 g/dL (5.7-8.2) Coagulation Test 08/31/25 16:30 Prothrombin Time 11.9 sec (9.3-11.8) H Prothrombin Time INR 1.14 (0.9-1.15) Activated Partial Thromboplast Time 26.5 SEC (24.5-34.5) Cardiac Markers Test 08/31/25 16:30 B-Type Natriuretic Peptide 32.91 pg/mL (0-100) LFT Test 09/01/25 05:27 Alanine Aminotransferase (ALT) 26 U/L (7-40) Alkaline Phosphatase 95 U/L (46-116) Aspartate Amino Transferase (AST) 22 U/L (13-40) Total Bilirubin 0.5 mg/dL (0.2-1.0) HgA1c, TSH Test 08/31/25 20:30 Hemoglobin A1c 5.8 % A1C (<5.7) H Urinalysis Test 09/01/25 00:00 Urine Color Yellow (Yellow) Urine Clarity Turbid (Clear) H Urine pH 7.0 (5.0-9.0) Urine Specific [place] 1.024 (1.001-1.035) Urine Protein 1+ (Negative) H Urine Ketones Trace (Negative) Urine Blood Negative /uL (Negative) Urine Nitrite 2+ (Negative) H Urine Bilirubin Negative (Negative) Urine Urobilinogen Normal mg/dL (Negative) Urine Leukocyte Esterase 2+ /uL (Negative) Urine RBC 1 /hpf (0 - 4) Urine Microscopic WBC 68 /HPF (0-5) H Urine Squamous Epithelial Cells Few /hpf (<5) Urine Amorphous Crystals Few /hpf (None Seen) Urine Bacteria Few /hpf (None Seen) H Urine Mucus Few (None Seen) Urine Glucose Normal mg/dL (Normal) Labs and/or images reviewed: Labs reviewed by me Assessment/Plan Assessment/Plan Acute metabolic encephalopathy Sepsis Leukocytosis, unspecified Generalized weakness history of CVA with left-sided deficit COPD Hyperlipidemia Hypertension Plan Continue current management. Will follow up with culture. Continue IV antibiotic. Continue HTN meds. Plan discussed with: Patient Date of Service: Sep 01, 2025 Billing Provider: IDANIA GARCIA MD Common Visit Codes: [id number] INP/OBS CARE(HIGH) IDANIA GARCIA MD Sep 01, 2025 15:34
[2025-09-01] MEDS ORDERED: ALPRAZolam 0.5 MG TAB PO PRN (21:45)
[2025-09-01] MEDS: GABAPENTIN 300 MG CAP PO SCH (22:00)
[2025-09-01] MEDS: SUCRALFATE 1 GM/10 ML ORAL SUSP PO SCH (22:00)
[2025-09-02 07:57] LABS: Hematocrit 39.8 % (36.0-46.0); Hemoglobin 13.1 g/dL (12.2-16.2); Mean Corpuscular Hemoglobin 27.7 pg (28.0-32.0); Mean Corpuscular Volume 83.8 fL (80.0-100.0); Nucleated Red Blood Cells % 0.1 %
[2025-09-02 08:33] LABS: Potassium 3.7 mmol/L (3.5-5.1)
[2025-09-02 08:34] LABS: Anion Gap 16 (5-15); Calcium 9.4 mg/dL (8.7-10.4); Carbon Dioxide 21 mmol/L (20-31)
[2025-09-02 08:36] LABS: Chloride 111 mmol/L (98-107); Sodium 148 mmol/L (136-145)
[2025-09-02 08:39] LABS: BUN/Creatinine Ratio 20.3 (10.0-20.0); Blood Urea Nitrogen 12 mg/dL (9-23)
[2025-09-02 08:46] LABS: Glucose 112 mg/dL (74-106)
[2025-09-02] MEDS: PANTOPRAZOLE 40 MG TAB PO SCH (10:00)
[2025-09-02] MEDS: ASPirin-EC 81 mg tab PO SCH (10:00)
[2025-09-02 11:34] VITALS: O2SAT 96
--- NOTE | 2025-09-02 11:56 | DVHPN2 ---
Subjective The patient seen and examined at bedside. The patient is still lethargic and confuse. Reviewed: Care Plan, H&P, Labs, Medications, Previous Orders, Radiology Changes from previous H/P or p: No Changes Eyes: No Pain, No Vision change, No Conjunctivae inflammation, No Eyelid inflammation, No Other, No Redness ENT: No Ear pain, No Ear discharge, No Nose pain, No Nose discharge, No Nose congestion, No Mouth pain, No Mouth swelling, No Throat pain, No Throat swelling, No Other Cardiovascular: No Chest Pain, No Palpitations, No Orthopnea, No Paroxysmal Noc. Dyspnea, No Edema, No Lt Headedness, No Other Respiratory: No Cough, No Dry, No Shortness of breath, No SOB with excertion, No Wheezing, No Hemoptysis, No Pleuritic Pain, No Sputum, No Other Gastrointestinal: No Nausea, No Vomiting, No Abdominal Pain, No Diarrhea, No Constipation, No Melena, No Hematochezia, No Other Genitourinary: No Dysuria, No Frequency, No Incontinence, No Hematuria, No Retention, No Other Musculoskeletal: No other, No neck pain, No shoulder pain, No arm pain, No back pain, No hand pain, No leg pain, No foot pain Skin: No Rash, No Lesions, No Jaundice, No Bruising; Other (Open wound in the coccyx area) Objective Vitals Vital Signs Date Time Temp Pulse Resp B/P (MAP) Pulse Ox O2 Delivery O2 Flow Rate FiO2 09/02/25 11:34 96 Nasal Cannula* 2 28 09/02/25 10:13 92 14 127/74 (91) 09/02/25 08:08 98.1 98.1 Intake/Output Intake and Output 09/02/25 07:00 Intake Total 1984 ml Balance 1985 ml Intake IV Total 1985 ml General Appearance: Other (lethargic) HEENT: Atraumatic, PERRLA, EOMI, Mucous membr. moist/pink Neck: Supple Lungs: Clear to auscultation, Normal air movement Cardiovascular: Regular rate, Normal S1, Normal S2, No murmurs, Gallops, Rubs Abdomen: Normal bowel sounds, Soft, No tenderness Neuro: Cranial nerves 3-12 NL Psych/Mental Status: Mental status NL Medications Current Medications Medications Dose Ordered Sig/Cornelius Route Start Time Stop Time Status Last Admin Dose Admin Ceftriaxone Sodium 50 ml @ 100 mls/hr DAILY@09 IV 09/01/25 09:00 09/02/25 09:13 100 MLS/HR Lactated Ringer's 1,000 ml @ 75 mls/hr [id number] IV 08/31/25 18:30 09/01/25 21:13 75 MLS/HR Albuterol 2.5 mg Q4HPRN PRN NEB 08/31/25 18:30 Cancel Ipratropium [place] 0.5 mg Q4HPRN PRN NEB 08/31/25 18:30 Cancel Acetaminophen/ Hydrocodone Bitart 1 tab Q4HP PRN PO 08/31/25 18:30 Ondansetron HCl 4 mg Q4HP PRN IV 08/31/25 18:30 Docusate Sodium 100 mg BIDPRN PRN PO 08/31/25 18:30 Acetaminophen 650 mg Q6HP PRN PO 08/31/25 18:30 Nitroglycerin 0.4 mg Q5MINP PRN SL 08/31/25 21:30 Morphine Sulfate 2 mg Q30M PRN IV 08/31/25 21:30 Vancomycin HCl 0 ml @ 0 mls/hr PER PHARMACY IV 09/01/25 08:15 Aspirin 81 mg DAILY PO 09/02/25 10:00 Atorvastatin Calcium 40 mg HS PO 09/02/25 22:00 Gabapentin 300 mg TID PO 09/01/25 22:00 Pantoprazole Sodium 40 mg DAILY PO 09/02/25 10:00 Sucralfate 1 gm BID PO 09/01/25 22:00 Alprazolam 1 mg DAILY PRN PO 09/01/25 21:45 Vancomycin HCl 100 ml @ 100 mls/hr Q12H IV 09/02/25 13:00 Laboratory Results Laboratory Tests 09/02/25 07:20 Chemistry Test 09/02/25 07:20 Calcium Level 9.4 mg/dL (8.7-10.4) Urinalysis Test 09/01/25 00:00 Urine Color Yellow (Yellow) Urine Clarity Turbid (Clear) H Urine pH 7.0 (5.0-9.0) Urine Specific [place] 1.024 (1.001-1.035) Urine Protein 1+ (Negative) H Urine Ketones Trace (Negative) Urine Blood Negative /uL (Negative) Urine Nitrite 2+ (Negative) H Urine Bilirubin Negative (Negative) Urine Urobilinogen Normal mg/dL (Negative) Urine Leukocyte Esterase 2+ /uL (Negative) Urine RBC 1 /hpf (0 - 4) Urine Microscopic WBC 68 /HPF (0-5) H Urine Squamous Epithelial Cells Few /hpf (<5) Urine Amorphous Crystals Few /hpf (None Seen) Urine Bacteria Few /hpf (None Seen) H Urine Mucus Few (None Seen) Urine Glucose Normal mg/dL (Normal) Microbiology Microbiology Date/Time Source Procedure Growth Status 08/31/25 16:30 Blood Blood Culture - Preliminary NO GROWTH AFTER 24 HOURS OF INCUBATION. Resulted Labs and/or images reviewed: Labs reviewed by me Assessment/Plan Assessment/Plan Acute metabolic encephalopathy Sepsis Leukocytosis, unspecified Generalized weakness history of CVA with left-sided deficit COPD Hyperlipidemia Hypertension Plan Continue current management. Will follow up with culture. Continue IV antibiotic. Continue HTN meds. This medical document was created using an electronic medical record system with [employer] direct computerized dictation system. Although this document has been carefully reviewed, there may still be some phonetic and typographical errors. These areas are purely typographical due to imperfections of the software programs, and do not reflect any compromise in the patient's medical care. Plan discussed with: Other (Rn) My Orders Orders - IDANIA GARCIA MD Procedure Category Date Status Time Aspirin Enteric PHA 09/02/25 In Process Coated Tablet 10:00 Atorvastatin (Lipitor) PHA 09/02/25 In Process 22:00 Gabapentin Capsule PHA 09/01/25 In Process (Neurontin Capsule) 22:00 Pantoprazole Tablet PHA 09/02/25 In Process (Protonix Tablet) 10:00 Sucralfate Susp PHA 09/01/25 In Process (Carafate Susp) 22:00 Alprazolam Tablet PHA 09/01/25 In Process (Xanax Tablet) 21:45 Abg W/ Co-Ox RT 09/02/25 Logged 11:39 Date of Service: Sep 02, 2025 Billing Provider: IDANIA GARCIA MD Common Visit Codes: [id number] INP/OBS CARE(HIGH) IDANIA GARCIA MD Sep 02, 2025 11:56
[2025-09-02 12:07] LABS: Base Excess -3.7 mmol/L (-2.0-3.0)
[2025-09-02 14:30] VITALS: BP 114/60; PULSE 92; RESP 24; TEMP 97.5; O2SAT 89
[2025-09-02] MEDS: VANCOMYCIN 750mg/100mL IV SCH (15:00)
[2025-09-02 16:48] VITALS: BP 130/88; PULSE 100; RESP 22; TEMP 97.2; O2SAT 94
[2025-09-02 20:00] VITALS: PULSE 105
[2025-09-02 21:00] VITALS: BP 149/82; PULSE 105; RESP 18; TEMP 97.7; O2SAT 97
[2025-09-02] MEDS: ATORVASTATIN 20 MG TAB PO SCH (21:03)
[2025-09-03] VITALS (8 sets, daily range): BP systolic 103–145; BP diastolic 49–87; PULSE 94–111; RESP 16–27; TEMP 96.3–99.5; O2SAT 93–97
--- NOTE | 2025-09-03 05:44 | DVH ---
MEDICAL RECORDS NUMBER: [id number] PROCEDURE: CT HEAD WITHOUT CONTRAST Date: 09/03/2025 05:19 AM HISTORY: change in mentation TECHNIQUE: Contiguous axial images were acquired from the skull base through to the vertex. CONTRAST: None COMPARISON: CT HEAD WITHOUT CONTRAST on DOS: 07/06/25, MRI BRAIN HEAD WO CONTRAST on DOS: 04/05/25, CT HEAD WITHOUT CONTRAST on DOS: 04/05/25 RADIATION DOSE INFORMATION: Automated exposure control dose reduction techniques were used. FINDINGS: Ventricles: Atrophy of the brain is seen diffusely. Extensive encephalomalacia is seen of the right cerebral hemisphere.. The ventricles appear grossly unremarkable. Masses: No mass effect is seen. Hemorrhage: No blood products are identified. Skull: The calvarium is intact. Sinuses: The paranasal sinuses are clear. Mastoids: No fluid is seen in the mastoid air cells. IMPRESSION: 1. No acute process is identified. Chronic changes are noted
--- NOTE | 2025-09-03 12:14 | DVHPN2 ---
Subjective The patient seen and examined at bedside. The patient is still lethargic and confuse. Reviewed: Care Plan, H&P, Labs, Medications, Previous Orders, Radiology Changes from previous H/P or p: No Changes Eyes: No Pain, No Vision change, No Conjunctivae inflammation, No Eyelid inflammation, No Other, No Redness ENT: No Ear pain, No Ear discharge, No Nose pain, No Nose discharge, No Nose congestion, No Mouth pain, No Mouth swelling, No Throat pain, No Throat swelling, No Other Cardiovascular: No Chest Pain, No Palpitations, No Orthopnea, No Paroxysmal Noc. Dyspnea, No Edema, No Lt Headedness, No Other Respiratory: No Cough, No Dry, No Shortness of breath, No SOB with excertion, No Wheezing, No Hemoptysis, No Pleuritic Pain, No Sputum, No Other Gastrointestinal: No Nausea, No Vomiting, No Abdominal Pain, No Diarrhea, No Constipation, No Melena, No Hematochezia, No Other Genitourinary: No Dysuria, No Frequency, No Incontinence, No Hematuria, No Retention, No Other Musculoskeletal: No other, No neck pain, No shoulder pain, No arm pain, No back pain, No hand pain, No leg pain, No foot pain Skin: No Rash, No Lesions, No Jaundice, No Bruising; Other (Open wound in the coccyx area) Objective Vitals Vital Signs Date Time Temp Pulse Resp B/P (MAP) Pulse Ox O2 Delivery O2 Flow Rate FiO2 09/03/25 08:28 96.3 94 18 109/60 (76) 95 96.3 09/03/25 07:34 Simple Mask* 6 50 Intake/Output Intake and Output 09/03/25 07:00 Intake Total 500 ml Balance 500 ml Intake Oral 0 ml IV Total 500 ml # Voids 3 General Appearance: Other (lethargic) HEENT: Atraumatic, PERRLA, EOMI, Mucous membr. moist/pink Neck: Supple Lungs: Clear to auscultation, Normal air movement Cardiovascular: Regular rate, Normal S1, Normal S2, No murmurs, Gallops, Rubs Abdomen: Normal bowel sounds, Soft, No tenderness Neuro: Cranial nerves 3-12 NL Psych/Mental Status: Mental status NL Medications Current Medications Medications Dose Ordered Sig/Cornelius Route Start Time Stop Time Status Last Admin Dose Admin Ceftriaxone Sodium 50 ml @ 100 mls/hr DAILY@09 IV 09/01/25 09:00 09/03/25 08:50 100 MLS/HR Lactated Ringer's 1,000 ml @ 75 mls/hr [id number] IV 08/31/25 18:30 09/03/25 05:38 75 MLS/HR Albuterol 2.5 mg Q4HPRN PRN NEB 08/31/25 18:30 Cancel Ipratropium [place] 0.5 mg Q4HPRN PRN NEB 08/31/25 18:30 Cancel Acetaminophen/ Hydrocodone Bitart 1 tab Q4HP PRN PO 08/31/25 18:30 Ondansetron HCl 4 mg Q4HP PRN IV 08/31/25 18:30 Docusate Sodium 100 mg BIDPRN PRN PO 08/31/25 18:30 Acetaminophen 650 mg Q6HP PRN PO 08/31/25 18:30 Nitroglycerin 0.4 mg Q5MINP PRN SL 08/31/25 21:30 Morphine Sulfate 2 mg Q30M PRN IV 08/31/25 21:30 Vancomycin HCl 0 ml @ 0 mls/hr PER PHARMACY IV 09/01/25 08:15 Aspirin 81 mg DAILY PO 09/02/25 10:00 Atorvastatin Calcium 40 mg HS PO 09/02/25 22:00 Gabapentin 300 mg TID PO 09/01/25 22:00 Pantoprazole Sodium 40 mg DAILY PO 09/02/25 10:00 Sucralfate 1 gm BID PO 09/01/25 22:00 Alprazolam 1 mg DAILY PRN PO 09/01/25 21:45 Vancomycin HCl 100 ml @ 100 mls/hr Q12H IV 09/02/25 13:00 09/03/25 02:25 100 MLS/HR Laboratory Results Laboratory Tests 09/02/25 07:20 09/03/25 06:01 Urinalysis Test 09/01/25 00:00 Urine Color Yellow (Yellow) Urine Clarity Turbid (Clear) H Urine pH 7.0 (5.0-9.0) Urine Specific [place] 1.024 (1.001-1.035) Urine Protein 1+ (Negative) H Urine Ketones Trace (Negative) Urine Blood Negative /uL (Negative) Urine Nitrite 2+ (Negative) H Urine Bilirubin Negative (Negative) Urine Urobilinogen Normal mg/dL (Negative) Urine Leukocyte Esterase 2+ /uL (Negative) Urine RBC 1 /hpf (0 - 4) Urine Microscopic WBC 68 /HPF (0-5) H Urine Squamous Epithelial Cells Few /hpf (<5) Urine Amorphous Crystals Few /hpf (None Seen) Urine Bacteria Few /hpf (None Seen) H Urine Mucus Few (None Seen) Urine Glucose Normal mg/dL (Normal) Microbiology Microbiology Date/Time Source Procedure Growth Status 09/02/25 15:15 Nose MRSA Screen - Final Methicillin Resistant S.aureus Complete 08/31/25 16:30 Blood Blood Culture - Preliminary NO GROWTH AFTER 48 HOURS OF INCUBATION. Resulted Assessment/Plan Assessment/Plan Acute metabolic encephalopathy Sepsis Leukocytosis, unspecified Generalized weakness history of CVA with left-sided deficit COPD Hyperlipidemia Hypertension Plan Continue current management. Will follow up with culture. Continue IV antibiotic. Continue HTN meds. Will keep patient NPO Swallow evaluation. This medical document was created using an electronic medical record system with [employer] direct computerized dictation system. Although this document has been carefully reviewed, there may still be some phonetic and typographical errors. These areas are purely typographical due to imperfections of the software programs, and do not reflect any compromise in the patient's medical care. Plan discussed with: Other (RN) My Orders Orders - IDANIA GARCIA MD Procedure Category Date Status Time * Dietary Consult CONS 09/03/25 Transmitted 03:06 Date of Service: Sep 03, 2025 Billing Provider: IDANIA GARCIA MD Common Visit Codes: [id number] INP/OBS CARE(HIGH) IDANIA GARCIA MD Sep 03, 2025 12:14
[2025-09-03] MEDS: MUPIROCIN 2% OINT 15gm or 22gm FOR MRSA NARES EACHNOSTRI SCH (21:23)
[2025-09-04] VITALS (8 sets, daily range): BP systolic 112–147; BP diastolic 76–87; PULSE 88–110; RESP 17–19; TEMP 96.9–98; O2SAT 94–100
[2025-09-04 07:10] LABS: Hematocrit 32.9 % (36.0-46.0); Hemoglobin 11.3 g/dL (12.2-16.2); Mean Corpuscular Hemoglobin 27.9 pg (28.0-32.0); Mean Corpuscular Volume 81.4 fL (80.0-100.0); Nucleated Red Blood Cells % 0.0 %
--- NOTE | 2025-09-04 12:02 | DVHPN2 ---
Subjective The patient seen and examined at bedside. The patient is still lethargic and confuse. Reviewed: Care Plan, H&P, Labs, Medications, Previous Orders, Radiology Changes from previous H/P or p: No Changes Eyes: No Pain, No Vision change, No Conjunctivae inflammation, No Eyelid inflammation, No Other, No Redness ENT: No Ear pain, No Ear discharge, No Nose pain, No Nose discharge, No Nose congestion, No Mouth pain, No Mouth swelling, No Throat pain, No Throat swelling, No Other Cardiovascular: No Chest Pain, No Palpitations, No Orthopnea, No Paroxysmal Noc. Dyspnea, No Edema, No Lt Headedness, No Other Respiratory: No Cough, No Dry, No Shortness of breath, No SOB with excertion, No Wheezing, No Hemoptysis, No Pleuritic Pain, No Sputum, No Other Gastrointestinal: No Nausea, No Vomiting, No Abdominal Pain, No Diarrhea, No Constipation, No Melena, No Hematochezia, No Other Genitourinary: No Dysuria, No Frequency, No Incontinence, No Hematuria, No Retention, No Other Musculoskeletal: No other, No neck pain, No shoulder pain, No arm pain, No back pain, No hand pain, No leg pain, No foot pain Skin: No Rash, No Lesions, No Jaundice, No Bruising; Other (Open wound in the coccyx area) Objective Vitals Vital Signs Date Time Temp Pulse Resp B/P (MAP) Pulse Ox O2 Delivery O2 Flow Rate FiO2 09/04/25 08:44 96.9 96 18 137/86 (103) 96 96.9 09/03/25 20:00 Simple Mask* 6 50 Intake/Output Intake and Output 09/04/25 07:00 Intake Total 200 ml Balance 200 ml Intake Oral 0 ml IV Total 200 ml # Voids 2 General Appearance: Other (lethargic) HEENT: Atraumatic, PERRLA, EOMI, Mucous membr. moist/pink Neck: Supple Lungs: Clear to auscultation, Normal air movement Cardiovascular: Regular rate, Normal S1, Normal S2, No murmurs, Gallops, Rubs Abdomen: Normal bowel sounds, Soft, No tenderness Neuro: Cranial nerves 3-12 NL Psych/Mental Status: Mental status NL Medications Current Medications Medications Dose Ordered Sig/Cornelius Route Start Time Stop Time Status Last Admin Dose Admin Ceftriaxone Sodium 50 ml @ 100 mls/hr DAILY@09 IV 09/01/25 09:00 09/04/25 09:55 100 MLS/HR Lactated Ringer's 1,000 ml @ 75 mls/hr [id number] IV 08/31/25 18:30 09/04/25 02:30 75 MLS/HR Albuterol 2.5 mg Q4HPRN PRN NEB 08/31/25 18:30 Cancel Ipratropium [place] 0.5 mg Q4HPRN PRN NEB 08/31/25 18:30 Cancel Acetaminophen/ Hydrocodone Bitart 1 tab Q4HP PRN PO 08/31/25 18:30 Ondansetron HCl 4 mg Q4HP PRN IV 08/31/25 18:30 Docusate Sodium 100 mg BIDPRN PRN PO 08/31/25 18:30 Acetaminophen 650 mg Q6HP PRN PO 08/31/25 18:30 Nitroglycerin 0.4 mg Q5MINP PRN SL 08/31/25 21:30 Morphine Sulfate 2 mg Q30M PRN IV 08/31/25 21:30 Vancomycin HCl 0 ml @ 0 mls/hr PER PHARMACY IV 09/01/25 08:15 Aspirin 81 mg DAILY PO 09/02/25 10:00 Atorvastatin Calcium 40 mg HS PO 09/02/25 22:00 Gabapentin 300 mg TID PO 09/01/25 22:00 Pantoprazole Sodium 40 mg DAILY PO 09/02/25 10:00 Sucralfate 1 gm BID PO 09/01/25 22:00 Alprazolam 1 mg DAILY PRN PO 09/01/25 21:45 Vancomycin HCl 100 ml @ 100 mls/hr Q12H IV 09/02/25 13:00 09/04/25 01:30 100 MLS/HR Mupirocin 1 applic BID EACHNOSTRI 09/03/25 22:00 09/08/25 21:59 09/04/25 09:57 1 APPLIC Laboratory Results Laboratory Tests 09/02/25 07:20 09/04/25 05:30 Urinalysis Test 09/01/25 00:00 Urine Color Yellow (Yellow) Urine Clarity Turbid (Clear) H Urine pH 7.0 (5.0-9.0) Urine Specific [place] 1.024 (1.001-1.035) Urine Protein 1+ (Negative) H Urine Ketones Trace (Negative) Urine Blood Negative /uL (Negative) Urine Nitrite 2+ (Negative) H Urine Bilirubin Negative (Negative) Urine Urobilinogen Normal mg/dL (Negative) Urine Leukocyte Esterase 2+ /uL (Negative) Urine RBC 1 /hpf (0 - 4) Urine Microscopic WBC 68 /HPF (0-5) H Urine Squamous Epithelial Cells Few /hpf (<5) Urine Amorphous Crystals Few /hpf (None Seen) Urine Bacteria Few /hpf (None Seen) H Urine Mucus Few (None Seen) Urine Glucose Normal mg/dL (Normal) Microbiology Microbiology Date/Time Source Procedure Growth Status 09/02/25 15:15 Nose MRSA Screen - Final Methicillin Resistant S.aureus Complete 08/31/25 16:30 Blood Blood Culture - Preliminary NO GROWTH AFTER 72 HOURS OF INCUBATION. Resulted Labs and/or images reviewed: Labs reviewed by me, Image(s) reviewed by me Assessment/Plan Assessment/Plan Acute metabolic encephalopathy Sepsis Bacteremia with Staph Epidermidis Hypernatremia Decubitus ulcer stage 3 present at admission. Leukocytosis, unspecified Generalized weakness history of CVA with left-sided deficit COPD Hyperlipidemia Hypertension Plan Continue current management. MRI of brain rule out CVA Neurology consult Continue Vancomycin but dc Rocephin base on the sensitivity of the bacteria in blood. Will follow up with culture. Continue HTN meds. Will keep patient NPO Swallow evaluation. Wound care consult. IVF with D5W at 100ml /hour for hypernatremia will try to get in touch with family regarding to code status. I had tried to call couple times yesterday but no answer from the phone number in chart. I spoke with [facility] liaison, she gave me the number of her niece: Maryjo, who is the daughter of the patient, Moni, . She asked to call after 4:30 pm. Will try to contact again. As right now the patient remain full code. This medical document was created using an electronic medical record system with [employer] computerized dictation system. Although this document has been carefully reviewed, there may still be some phonetic and typographical errors. These areas are purely typographical due to imperfections of the software programs, and do not reflect any compromise in the patient's medical care. Plan discussed with: Other (RN) My Orders Orders - IDANIA GARCIA MD Procedure Category Date Status Time Mupirocin 2% Oint PHA 09/03/25 In Process Mrsa Nares (Bactroban 22:00 Npo (Nothing By DIET 09/03/25 Transmitted Mouth) Diet Lunch * Swallow Request ST 09/03/25 Transmitted 12:40 Cleanse Wound With KEHINDE 09/03/25 In Process Wound Clean 10:30 Date of Service: Sep 04, 2025 Billing Provider: IDANIA GARCIA MD Common Visit Codes: [id number] INP/OBS CARE(HIGH) IDANIA GARCIA MD Sep 04, 2025 12:02
[2025-09-04] MEDS: D5W 5% 1,000 ML IV SCH (13:23)
--- NOTE | 2025-09-04 17:07 | DVH ---
PROCEDURE: MRI BRAIN HEAD WO CONTRAST Indication: DECLINE IN MENTAL STATUS COMPARISON: CT head 09/03/2025, 04/05/2025 TECHNIQUE: Multiplanar multisequence images of the brain are obtained. FINDINGS: There is diffusion restriction signal within the right basal ganglia and parietal lobe in the region of previous infarction / encephalomalacia with corresponding decreased ADC signal.. Right basal ganglia, ken radiata, frontoparietal encephalomalacia with associated cortical laminar necrosis. Moderate periventricular and subcortical white matter T2 and FLAIR hyperintense changes.. There is no intracranial hemorrhage. No extra-axial fluid collection, mass effect or midline shift. The ventricles are midline and normal in size. The cisterns are patent. The right MCA M2 and M3 flow voids are atretic relative to the left. There is susceptibility signal within the right frontoparietal cortex which likely represent sequela of old hemorrhage. The sinuses and mastoids are well pneumatized. The visualized orbits are unremarkable. IMPRESSION: Acute/subacute infarction within the right basal ganglia and parietal lobe. Right frontal, parietal, basal ganglia encephalomalacia. Moderate chronic microvascular ischemic changes.
[2025-09-04 20:53] LABS: Barbiturate Scree,Urine Neg (NEGATIVE); Opiate Scree,Urine Neg (NEGATIVE); Phencyclidine Screen, Urine Neg (NEGATIVE)
[2025-09-04 20:54] LABS: Amphetamine Screen, Urine Neg (NEGATIVE); Benzodiazephine Screen, Urine Neg (NEGATIVE); Cocaine Screen, Urine Neg (NEGATIVE)
[2025-09-04 21:57] LABS: Cannabinoid Screen, Urine Neg (NEGATIVE)
--- NOTE | 2025-09-04 22:25 | DVHINCON2 ---
Date of service: Sep 04, [address] Lutz Reason for Consultation Decline in mental status History of Present Illness Ms. Lira is a 60 years old right-handed female with a history of COPD, stroke, morbid obesity, she was brought to the [facility] from SNF on 08/31/2025 with a chief complaint of ALOC. At this time, her eyes are closed, only responsive to painful stimuli. History obtained from her nurse and chart review I saw on 04/05/2025 for infarcts (MRI positive) Because of altered mental status in her SNF, the patient was brought to the hospital, since she is in the hospital, she is nonresponsive to verbal stimuli, he moves or responses only when she is repositioned or keeps painful stimuli. No seizure activity noticed Tests reports showed evidence of UTI, acute stroke in the right MCA territory According to her nurse, the patient has left hemiparesis since the stroke in 03/2025 Blood culture, 08/31/2025: Staphylococcus epidermidis UDS, 09/04/2025: Negative Urinalysis, 09/01/2025: WBC: 68, urine leukocyte esterase: 2+, urinary nitrate: 2+ WBC/HB/PLT/MCV, 09/04/2025: 14.1/11.3/202/81.8 /: Unremarkable Liver function tests, 09/01/2025: Unremarkable HGB A1c, 03/14/2025: 5.7, 08/31/2025: 5.8 TG/HDL/LDL/HDL, 04/05/2025: 113/138/83/36 Carotid Doppler, 04/05/2025: 1. No hemodynamically significant stenosis noted in the right carotid system. 2. No hemodynamically significant stenosis noted in the left carotid system MRI head, 04/05/2025: Acute/ subacute infarction involving the right posterior parietal lobe/ centrum semiovale.Moderate chronic microvascular ischemic changes. Right frontal encephalomalacia MRI head, 09/04/2025: Acute/subacute infarction within the right basal ganglia and parietal lobe. Right frontal, parietal, basal ganglia encephalomalacia. Moderate chronic microvascular ischemic changes. MRI C-spine, 04/05/2025: Moderate cervical degenerative disc disease. No high- grade spinal canal stenosis. Multilevel neural foraminal stenosis as described most pronounced at C3-4, C4-5, C5-6 and C6-7 MRI lumbar spine, 04/05/2025: 1. No fracture or listhesis of the lumbar spine. 2. Left L3 transverse process fracture seen on recent CT scan is likely chronic, as there is no evidence of edema in this area on the current study. 3. D egenerative disc disease and facet arthropathy with significant neural foraminal stenosis at L4-L5 on the left and L5-S1 on the left. Additionally, there is partial effacement of the left lateral recess at the L4-L5 level. These findings May correspond to left lower extremity radicular symptoms in the L4 and L5 nerve root distributions. 4. No high-grade spinal canal stenosis at any level in the lumbar spine Past Medical History COPD, stroke obesity Past Surgical History None Family History: Chronic obstructive pulmonary disease G8 MOTHER Diabetes mellitus G8 FATHER Hypertension G8 FATHER Family History Hypertension, diabetes, coronary artery disease, heart attack, cancer, COPD Social History She smokes, she used to use amphetamine, no history of alcohol abuse Allergies: Coded Allergies: NO KNOWN ALLERGIES (Unverified , 03/14/25) Home Meds Active Scripts Pantoprazole Sodium Sesquihydr (Pantoprazole Sodium) 40 Mg Tab, 40 MG PO DAILY@0600 for 30 Days, #30 TAB Prov:SYDNEE [facility] 08/26/25 Atorvastatin Calcium (ATORVASTATIN CALCIUM) 20 Mg Tab, 40 MG PO DAILY for 30 Days, #60 TAB 3 Refills Prov:SYDNEE [facility]ILD[facility] 08/26/25 Aspirin (Aspir-Low) 81 Mg Tab, 81 MG PO DAILY for 30 Days, #30 TAB 3 Refills Prov:SYDNEE [facility] 08/26/25 Linezolid (Zyvox) 600 Mg Tab, 600 MG PO BID for 10 Days, #20 TAB Prov:SYDNEE [facility]ILD[facility] 08/26/25 Levofloxacin Hemihydrate (LEVOFLOXACIN) 500 Mg Tab, 1 TAB PO DAILY for 10 Days, #10 TAB Prov:SYDNEE [facility] 08/26/25 Sucralfate (CARAFATE SUSP) 1 Gm/10 Ml Ss, 10 ML PO BID for 30 Days, #600 ML 1 Refill Prov:FELICITAS DHILLON RESIDENT 06/26/25 Metoclopramide Hcl (Reglan) 10 Mg Tab, 10 MG PO BIDPRN PRN for 5 Days, #10 TAB Prov:FELICITAS DHILLON RESIDENT 06/26/25 Gabapentin (Gabapentin) 300 Mg Cap, 1 CAP PO TID for 30 Days, #90 CAP 1 Refill Prov:CHAY MALDONADO MD 05/27/25 Reported Medications Pantoprazole Sodium Sesquihydr (Pantoprazole Sodium) 40 Mg Tab, 1 TAB PO DAILY 07/07/25 Haloperidol (Haldol) 5 Mg Tb, 1 TAB PO 07/07/25 Hydroxyzine Hcl (Hydroxyzine Hcl) 25 Mg Tab, 1 TAB PO BID 07/07/25 Alprazolam (Alprazolam) 1 Mg Tab, PO 06/25/25 Current Medications Current Medications Medications (Trade) Dose Ordered Sig/Cornelius Route PRN Reason Start Time Stop Time Status Last Admin Dextrose 1,000 ml @ 100 mls/hr Q10H IV 09/04/25 12:15 09/04/25 13:23 Review of Systems As above, the other systems are negative Vital Signs Vital Signs Date Time Temp Pulse Resp B/P (MAP) Pulse Ox O2 Delivery O2 Flow Rate FiO2 09/04/25 21:00 98.0 93 19 116/76 (89) 100 98.0 09/04/25 20:00 Simple Mask* 6 50 Physical Exam GENERAL EXAM: General: the patient is well developed and nourished. No acute distress. HEENT: Normocephalic, neck is supple, no carotid bruits. No mass. RESPIRATORY: Normal respiratory effort with symmetrical lung expansion. Lungs clear to auscultation. CARDIOVASCULAR: Regular rate and rhythm with no murmurs. S1, S2. ABDOMEN: Soft, nontender, normal bowel sound NEUROLOGICAL: MENTAL STATUS: Subjective SPEECH, LANGUAGE, HIGHER CORTICAL FUNCTION: She does not vocalize CRANIAL NERVES: #2: Deferred. #3,4,6: Pupils are equal, round and reactive. She has doll's eye #5: Facial sensation fine in all three divisions bilaterally. Mandibular strength fine #7: Facial muscles symmetrical and strength intact. #8: Deferred #9,10: Deferred #11: Deferred #12: Deferred SENSATION: Responsive to painful stimuli MOTOR: Normal tone in the upper and lower extremity. Normal muscle bulk. No fasciculations. No abnormal movements or posturing. He moves the right arm and leg, but not the left side, to painful stimuli, but REFLEXES: Deep tendon reflexes are symmetrical. No pathological reflexes. CEREBELLAR/COORDINATION: Deferred GAIT/STATION: deferred. Labs/Diagnostic Data Labs Test 09/04/25 20:00 09/04/25 05:30 09/04/25 00:28 09/03/25 04:44 Range/Units Urine Opiates Screen Neg NEGATIVE Urine Fentanyl Screen Neg NEGATIVE Urine Barbiturates Screen Neg NEGATIVE Urine Phencyclidine Screen Neg NEGATIVE Urine Amphetamines Screen Neg NEGATIVE Urine Benzodiazepines Screen Neg NEGATIVE Urine Cocaine Screen Neg NEGATIVE Urine Cannabinoids Screen Neg NEGATIVE White Blood Count 14.1 #H 4.4-10.8 10^3/uL Red Blood Count 4.04 4.0-5.20 10^6/uL Hemoglobin 11.3 L 12.2-16.2 g/dL Hematocrit 32.9 #L 36.0-46.0 % Mean Corpuscular Volume 81.4 80.0-100.0 fL Mean Corpuscular Hemoglobin 27.9 L 28.0-32.0 pg Mean Corpuscular Hemoglobin Concent 34.3 32.0-36.0 g/dL Red Cell Distribution Width 16.3 H 11.8-14.3 % Platelet Count 202 140-450 10^3/uL Mean Platelet Volume 9.4 6.9-10.8 fL Neutrophils (%) (Auto) 85.0 H 37.0-80.0 % Lymphocytes (%) (Auto) 11.9 10.0-50.0 % Monocytes (%) (Auto) 2.8 0.0-12.0 % Eosinophils (%) (Auto) 0.2 0.0-7.0 % Basophils (%) (Auto) 0.1 0.0-2.0 % Neutrophils # (Auto) 12.0 H 1.6-8.6 10 ^3/uL Lymphocytes # (Auto) 1.7 0.4-5.4 10 ^3/uL Monocytes # (Auto) 0.4 0-1.3 10 ^3/uL Eosinophils # (Auto) 0 0-0.8 10 ^3/uL Basophils # (Auto) 0 0-0.2 10 ^3/uL Nucleated Red Blood Cells 0.0 % Creatinine 0.56 0.550-1.02 mg/dL Glomerular Filtration Rate Calc 105 >90 mL/min Vancomycin Level Trough 13.2 H 5-10 ug/mL POC Glucose 141 H 70-106 mg/dl Test 09/02/25 12:00 09/02/25 07:20 09/01/25 05:27 09/01/25 00:00 Range/Units Blood Gas Specimen Type Arterial Blood Gas Sample Site Right radial Blood Gas Patient Temperature 37.0 Arterial Blood Date Drawn [id number] Arterial Blood pH 7.433 7.350-7.450 Arterial Blood Partial Pressure CO2 29.8 L 32.0-45.0 mmHg Arterial Blood Partial Pressure O2 68.0 L 83.0-108.0 mmHg Arterial Blood HCO3 19.5 L 21.0-28.0 mmol/L Arterial Blood Oxygen Saturation 93.1 L 94.0-98.0 % Arterial Blood Base Excess -3.7 L -2.0-3.0 mmol/L Arterial Blood Oxyhemoglobin 92.1 L 94.0-98.0 % Arterial Blood Carboxyhemoglobin 0.2 L 0.5-1.5 % Arterial Blood Methemoglobin 0.9 0.0-1.5 % Jose David Test Yes Blood Gas Total Hemoglobin 12.80 12.0-16.0 g/dL Blood Gas Liter Flow 2.00 Blood Gas Modality Nasal cannula FiO2 % 28.0 Sodium Level 148 H 136-145 mmol/L Potassium Level 3.7 3.5-5.1 mmol/L Chloride Level 111 H 98-107 mmol/L Carbon Dioxide Level 21 20-31 mmol/L Anion Gap 16 H 5-15 Blood Urea Nitrogen 12 9-23 mg/dL BUN/Creatinine Ratio 20.3 H 10.0-20.0 Serum Glucose 112 H 74-106 mg/dL Calcium Level 9.4 8.7-10.4 mg/dL Random Vancomycin Level 12.2 H 5-10 ug/mL Total Bilirubin 0.5 0.2-1.0 mg/dL Aspartate Amino Transferase (AST) 22 13-40 U/L Alanine Aminotransferase (ALT) 26 7-40 U/L Alkaline Phosphatase 95 46-116 U/L Total Protein 6.7 5.7-8.2 g/dL Albumin 3.8 3.2-4.8 g/dL Urine Color Yellow Yellow Urine Clarity Turbid H Clear Urine pH 7.0 5.0-9.0 Urine Specific [place] 1.024 1.001-1.035 Urine Protein 1+ H Negative Urine Ketones Trace Negative Urine Blood Negative Negative /uL Urine Nitrite 2+ H Negative Urine Bilirubin Negative Negative Urine Urobilinogen Normal Negative mg/dL Urine Leukocyte Esterase 2+ Negative /uL Urine RBC 1 0 - 4 /hpf Urine Microscopic WBC 68 H 0-5 /HPF Urine Squamous Epithelial Cells Few <5 /hpf Urine Amorphous Crystals Few None Seen /hpf Urine Bacteria Few H None Seen /hpf Urine Mucus Few None Seen Urine Glucose Normal Normal mg/dL Test 08/31/25 20:30 08/31/25 18:08 08/31/25 16:30 Range/Units Hemoglobin A1c 5.8 H <5.7 % A1C Troponin I High Sensitivity 19 </=34 ng/L Lactic Acid Level 1.9 0.4-2.0 mmol/L Prothrombin Time 11.9 H 9.3-11.8 sec Prothrombin Time INR 1.14 0.9-1.15 Activated Partial Thromboplast Time 26.5 24.5-34.5 SEC B-Type Natriuretic Peptide 32.91 0-100 pg/mL Microbiology Date/Time Source Procedure Growth Status 09/02/25 15:15 Nose MRSA Screen - Final Methicillin Resistant S.aureus Complete 08/31/25 16:30 Blood Blood Culture - Preliminary NO GROWTH AFTER 72 HOURS OF INCUBATION. Resulted Assessment Altered mental status Metabolic encephalopathy Acute on chronic stroke Rule out status epileptics Rule out partial complex seizure Left hemiparesis secondary to stroke Acute stroke on chronic Obesity Sepsis Plan/Recommendation Monitoring Supportive treatment Telemetry EEG Carotid Doppler Echocardiogram IV antibiotics Aspirin 300 mg suppository Lipitor 10 mg daily More recommendation per clinical course Progress: Poor This medical document was created using an electronic medical record system with [employer] dictation system. Although this document has been carefully reviewed, there may still be some phonetic and typographical errors. These are as are purely typographical due to imperfections of the software progra Plan discussed with: Other LEONARDO BERGMAN MD Sep 04, 2025 22:25
[2025-09-05] VITALS (8 sets, daily range): BP systolic 129–144; BP diastolic 74–93; PULSE 62–100; RESP 16–20; TEMP 95.2–98.2; O2SAT 96–100
--- NOTE | 2025-09-05 12:04 | DVHPN2 ---
Subjective The patient seen and examined at bedside. The patient is still lethargic and confuse. Reviewed: Care Plan, H&P, Labs, Medications, Previous Orders, Radiology Changes from previous H/P or p: No Changes Eyes: No Pain, No Vision change, No Conjunctivae inflammation, No Eyelid inflammation, No Other, No Redness ENT: No Ear pain, No Ear discharge, No Nose pain, No Nose discharge, No Nose congestion, No Mouth pain, No Mouth swelling, No Throat pain, No Throat swelling, No Other Cardiovascular: No Chest Pain, No Palpitations, No Orthopnea, No Paroxysmal Noc. Dyspnea, No Edema, No Lt Headedness, No Other Respiratory: No Cough, No Dry, No Shortness of breath, No SOB with excertion, No Wheezing, No Hemoptysis, No Pleuritic Pain, No Sputum, No Other Gastrointestinal: No Nausea, No Vomiting, No Abdominal Pain, No Diarrhea, No Constipation, No Melena, No Hematochezia, No Other Genitourinary: No Dysuria, No Frequency, No Incontinence, No Hematuria, No Retention, No Other Musculoskeletal: No other, No neck pain, No shoulder pain, No arm pain, No back pain, No hand pain, No leg pain, No foot pain Skin: No Rash, No Lesions, No Jaundice, No Bruising; Other (Open wound in the coccyx area) Objective Vitals Vital Signs Date Time Temp Pulse Resp B/P (MAP) Pulse Ox O2 Delivery O2 Flow Rate FiO2 09/05/25 09:00 96.2 62 16 144/74 (97) 96 96.2 09/05/25 08:05 Simple Mask* 6 50 Intake/Output Intake and Output 09/05/25 07:00 Intake Total 100 ml Output Total 450 ml Balance -350 ml Intake Oral 0 ml IV Total 100 ml Output Urine Total 450 ml # Voids 2 General Appearance: Other (lethargic) HEENT: Atraumatic, PERRLA, EOMI, Mucous membr. moist/pink Neck: Supple Lungs: Clear to auscultation, Normal air movement Cardiovascular: Regular rate, Normal S1, Normal S2, No murmurs, Gallops, Rubs Abdomen: Normal bowel sounds, Soft, No tenderness Neuro: Other Psych/Mental Status: Mental status NL Medications Current Medications Medications Dose Ordered Sig/Cornelius Route Start Time Stop Time Status Last Admin Dose Admin Lactated Ringer's 1,000 ml @ 75 mls/hr [id number] IV 08/31/25 18:30 09/04/25 02:30 75 MLS/HR Albuterol 2.5 mg Q4HPRN PRN NEB 08/31/25 18:30 Cancel Ipratropium Blakeslee 0.5 mg Q4HPRN PRN NEB 08/31/25 18:30 Cancel Acetaminophen/ Hydrocodone Bitart 1 tab Q4HP PRN PO 08/31/25 18:30 Ondansetron HCl 4 mg Q4HP PRN IV 08/31/25 18:30 Docusate Sodium 100 mg BIDPRN PRN PO 08/31/25 18:30 Acetaminophen 650 mg Q6HP PRN PO 08/31/25 18:30 Nitroglycerin 0.4 mg Q5MINP PRN SL 08/31/25 21:30 Morphine Sulfate 2 mg Q30M PRN IV 08/31/25 21:30 Vancomycin HCl 0 ml @ 0 mls/hr PER PHARMACY IV 09/01/25 08:15 Atorvastatin Calcium 40 mg HS PO 09/02/25 22:00 Gabapentin 300 mg TID PO 09/01/25 22:00 Pantoprazole Sodium 40 mg DAILY PO 09/02/25 10:00 Sucralfate 1 gm BID PO 09/01/25 22:00 Alprazolam 1 mg DAILY PRN PO 09/01/25 21:45 Vancomycin HCl 100 ml @ 100 mls/hr Q12H IV 09/02/25 13:00 09/05/25 00:45 100 MLS/HR Mupirocin 1 applic BID EACHNOSTRI 09/03/25 22:00 09/08/25 21:59 09/05/25 10:15 1 APPLIC Dextrose 1,000 ml @ 100 mls/hr Q10H IV 09/04/25 12:15 09/05/25 08:05 100 MLS/HR Aspirin 300 mg DAILY AR 09/05/25 10:00 09/05/25 10:12 300 MG Laboratory Results Laboratory Tests 09/02/25 07:20 09/04/25 05:30 09/05/25 05:39 Urinalysis Test 09/01/25 00:00 Urine Color Yellow (Yellow) Urine Clarity Turbid (Clear) H Urine pH 7.0 (5.0-9.0) Urine Specific [place] 1.024 (1.001-1.035) Urine Protein 1+ (Negative) H Urine Ketones Trace (Negative) Urine Blood Negative /uL (Negative) Urine Nitrite 2+ (Negative) H Urine Bilirubin Negative (Negative) Urine Urobilinogen Normal mg/dL (Negative) Urine Leukocyte Esterase 2+ /uL (Negative) Urine RBC 1 /hpf (0 - 4) Urine Microscopic WBC 68 /HPF (0-5) H Urine Squamous Epithelial Cells Few /hpf (<5) Urine Amorphous Crystals Few /hpf (None Seen) Urine Bacteria Few /hpf (None Seen) H Urine Mucus Few (None Seen) Urine Glucose Normal mg/dL (Normal) Microbiology Microbiology Date/Time Source Procedure Growth Status 09/02/25 15:15 Nose MRSA Screen - Final Methicillin Resistant S.aureus Complete 08/31/25 16:30 Blood Blood Culture - Preliminary NO GROWTH AFTER 72 HOURS OF INCUBATION. Resulted Assessment/Plan Assessment/Plan Acute/subacute CVA Acute metabolic encephalopathy Sepsis Bacteremia with Staph Epidermidis Hypernatremia Decubitus ulcer stage 3 present at admission. Leukocytosis, unspecified Generalized weakness history of CVA with left-sided deficit COPD Hyperlipidemia Hypertension Plan Continue current management. MRI of brain showed: Acute/subacute infarction within the right basal ganglia and parietal lobe. Right frontal, parietal, basal ganglia encephalomalacia.Moderate chronic microvascular ischemic changes. Neurology consult appreciate. Waiting for EEG Continue Vancomycin but dc Rocephin base on the sensitivity of the bacteria in blood. Will follow up with culture. Continue HTN meds. Will keep patient NPO Swallow evaluation. Wound care consult. IVF with D5W at 100ml /hour for hypernatremia will try to get in touch with family regarding to code status. I had tried to call couple times yesterday but no answer from the phone number in chart. I spoke with [facility] liaison, she gave me the number of her niece: Maryjo, who is the daughter of the patient, Moni, . She asked to call after 4:30 pm. Will try to contact again. As right now the patient remain full code. 09/05: will try to contact family for code status again. Still remain FULL CODE. This medical document was created using an electronic medical record system with [employer] direct computerized dictation system. Although this document has been carefully reviewed, there may still be some phonetic and typographical errors. These areas are purely typographical due to imperfections of the software programs, and do not reflect any compromise in the patient's medical care. Plan discussed with: Other (RN) My Orders Orders - IDANIA GARCIA MD Procedure Category Date Status Time * Neurology Consult CONS 09/04/25 Transmitted 12:09 Brain Head Wo Contrast MRI 09/04/25 Resulted 12:09 D5w 5% (Dextrose 5%) PHA 09/04/25 In Process 12:15 Insert Goldstein Catheter KEHINDE 09/04/25 In Process 17:28 Date of Service: Sep 05, 2025 Billing Provider: IDANIA GARCIA MD Common Visit Codes: [id number] INP/OBS CARE(HIGH) IDANIA GARCIA MD Sep 05, 2025 12:04
--- NOTE | 2025-09-05 19:18 | DVHSR ---
APPROVED REPORT EXAM: Two-dimensional and M-mode echocardiogram with Doppler and color Doppler. Blood Pressure: 129/83 mmHg INDICATION CVA/TIA: RISK FACTORS Height: 5'5, Weight: 200 DIMENSIONS LVDd 3.9 (3.8-5.7cm) LA (2D) 2.3 (1.9-4.0cm) Aortic Root 2.5 (2.0-3.7cm) LVDs 2.7 (2.5-4.0cm) LA (MM) (1.9-4.0cm) Aortic Cusp Exc 1.6 (1.5-2.0cm) EF (%) 59.0 (55-70%) Rt. Atrium 2.9 (1.9-4.0cm) Asc. Aorta 2.8 cm IVSd 1.5 (0.7-1.1cm) RV (D) (1.8-2.4cm) PWd 1.0 (0.7-1.1cm) Mitral Valve Mitral Mitral Stenosis E wave 1.06m/s MV Mean GR. mmHg A wave 0.44m/s MV Peak GR. mmHg E/A ratio 2.4 2D MVA cm2 DECEL Time 176ms PRESS 1/2 Time ms Aortic Valve Aortic Valve Aortic Stenosis V1 1.08m/s AO Mean GR. mmHg V2 1.26m/s AO Peak GR. 6mmHg LVOT Diameter 1.8 (1.8-2.4cm) Doppler AURELIA 2.18cm2 Pulmonic Valve V2 1.08m/s Other Information Technically limited study due to patient position, deep breathing, sleeping and noncompliant patient. Conclusion Technically difficult study. Off axis views. Undetermined rhythm. There appears to be concentric LVH with aortic root enlargement. Left atrial enlargement noted. Valves are normal. Left ventricular systolic performance is preserved at 60% with normal right ventricular function. Doppler appears to be within normal limits. No pericardial effusion masses or vegetations discernible.
--- NOTE | 2025-09-05 21:13 | DVHPN2 ---
Progress Note - Dictate Date Seen: Sep 05, 2025 Medical Necessity Reason Pt with a Central, PICC or Fol: Yes The following are medically ne: Goldstein Catheter Subjective Ms. Lira is a 60 years old right-handed female with a history of COPD, stroke, morbid obesity, she was brought to the [facility] from [facility] on 08/31/2025 with a chief complaint of ALOC. I saw on 04/05/2025 for infarcts (MRI positive) I have seen and examined the patient, I have discussed with her nurse and other medical staff, she is only responsive to stroke painful stimuli, she does not move her extremities, According to her nurse, the patient has left hemiparesis since the stroke in 03/2025 Blood culture, 08/31/2025: Staphylococcus epidermidis UDS, 09/04/2025: Negative Urinalysis, 09/01/2025: WBC: 68, urine leukocyte esterase: 2+, urinary nitrate: 2+ WBC/HB/PLT/MCV, 09/04/2025: 14.1/11.3//81.8 /: Unremarkable Liver function tests, 09/01/2025: Unremarkable HGB A1c, 03/14/2025: 5.7, 08/31/2025: 5.8 TG/HDL/LDL/HDL, 04/05/2025: 113/138/83/36 Echocardiogram, 09/05/2025: Technically difficult study. Off axis views. Undetermined rhythm. There appears to be concentric LVH with aortic root enlargement. Left atrial enlargement noted. Valves are normal. Left ventricular systolic performance is preserved at 60% with normal right ventricular function. Doppler appears to be within normal limits. No pericardial effusion masses or vegetations discernible. Carotid Doppler, 04/05/2025: 1. No hemodynamically significant stenosis noted in the right carotid system. 2. No hemodynamically significant stenosis noted in the left carotid system MRI head, 04/05/2025: Acute/ subacute infarction involving the right posterior parietal lobe/ centrum semiovale.Moderate chronic microvascular ischemic changes. Right frontal encephalomalacia MRI head, 09/04/2025: Acute/subacute infarction within the right basal ganglia and parietal lobe. Right frontal, parietal, basal ganglia encephalomalacia. Moderate chronic microvascular ischemic changes. MRI C-spine, 04/05/2025: Moderate cervical degenerative disc disease. No high- grade spinal canal stenosis. Multilevel neural foraminal stenosis as described most pronounced at C3-4, C4-5, C5-6 and C6-7 MRI lumbar spine, 04/05/2025: 1. No fracture or listhesis of the lumbar spine. 2. Left L3 transverse process fracture seen on recent CT scan is likely chronic, as there is no evidence of edema in this area on the current study. 3. Degenerative disc disease and facet arthropathy with significant neural foraminal stenosis at L4-L5 on the left and L5-S1 on the left. Additionally, there is partial effacement of the left lateral recess at the L4-L5 level. These findings May correspond to left lower extremity radicular symptoms in the L4 and L5 nerve root distributions. 4. No high-grade spinal canal stenosis at any level in the lumbar spine vital signs Vital Sign Date Time Temp Pulse Resp B/P (MAP) Pulse Ox O2 Delivery O2 Flow Rate FiO2 09/05/25 16:43 95.2 92 18 143/85 (104) 99 95.2 09/05/25 08:05 Simple Mask* 6 50 Total Intake and Output 09/04/25 09/04/25 09/05/25 15:00 23:00 07:00 Intake Total 0 ml 100 ml Output Total 450 ml Balance 0 ml -350 ml medications Current Medications Medications Dose Ordered Sig/Cornelius Route Start Time Stop Time Status Last Admin Dose Admin Lactated Ringer's 1,000 ml @ 75 mls/hr [id number] IV 08/31/25 18:30 09/05/25 17:57 75 MLS/HR Albuterol 2.5 mg Q4HPRN PRN NEB 08/31/25 18:30 Cancel Ipratropium [place] 0.5 mg Q4HPRN PRN NEB 08/31/25 18:30 Cancel Acetaminophen/ Hydrocodone Bitart 1 tab Q4HP PRN PO 08/31/25 18:30 Ondansetron HCl 4 mg Q4HP PRN IV 08/31/25 18:30 Docusate Sodium 100 mg BIDPRN PRN PO 08/31/25 18:30 Acetaminophen 650 mg Q6HP PRN PO 08/31/25 18:30 Nitroglycerin 0.4 mg Q5MINP PRN SL 08/31/25 21:30 Morphine Sulfate 2 mg Q30M PRN IV 08/31/25 21:30 Vancomycin HCl 0 ml @ 0 mls/hr PER PHARMACY IV 09/01/25 08:15 Atorvastatin Calcium 40 mg HS PO 09/02/25 22:00 Gabapentin 300 mg TID PO 09/01/25 22:00 Pantoprazole Sodium 40 mg DAILY PO 09/02/25 10:00 Sucralfate 1 gm BID PO 09/01/25 22:00 Alprazolam 1 mg DAILY PRN PO 09/01/25 21:45 Mupirocin 1 applic BID EACHNOSTRI 09/03/25 22:00 09/08/25 21:59 09/05/25 10:15 1 APPLIC Dextrose 1,000 ml @ 100 mls/hr Q10H IV 09/04/25 12:15 09/05/25 17:57 100 MLS/HR Aspirin 300 mg DAILY AR 09/05/25 10:00 09/05/25 10:12 300 MG Amino Acids 0 ml @ 0 mls/hr PER PHARMACY IV 09/05/25 22:00 Vancomycin HCl 250 ml @ 250 mls/hr Q12H IV 09/06/25 01:00 Amino Acids/ Electrolytes/ Dextrose 1,000 ml @ 41 mls/hr DAILY@2200 IV 09/05/25 22:00 Diagnostic Test (Pha) 1 strip Q6HR 09/06/25 00:00 Insulin Human Regular FOLLOW SLIDING SCALE Q6HR SC 09/06/25 00:00 Dextrose 50 ml UD IV 09/05/25 22:00 objective General: the patient is well developed and nourished. No acute distress. MENTAL STATUS: Subjective SPEECH, LANGUAGE, HIGHER CORTICAL FUNCTION: She does not vocalize CRANIAL NERVES: Pupils are equal, round and reactive. Facial sensation fine in all three divisions bilaterally. Mandibular strength fine Facial muscles symmetrical and strength intact. SENSATION: Responsive to painful stimuli MOTOR: Normal tone in the upper and lower extremity. Normal muscle bulk. No fasciculations. No abnormal movements or posturing. No of the movement noticed t REFLEXES: Deep tendon reflexes are symmetrical. No pathological reflexes. CEREBELLAR/COORDINATION: Deferred GAIT/STATION: deferred. laboratory and microbiology Laboratory Tests 09/05/25 05:39 09/04/25 05:30 09/02/25 07:20 Test 09/02/25 07:20 Range/Units Serum Glucose 112 H 74-106 mg/dL Problem List Altered mental status Metabolic encephalopathy Acute on chronic stroke Rule out status epileptics Rule out partial complex seizure Left hemiparesis secondary to stroke Acute stroke on chronic Obesity Sepsis Assessment/Plan Monitoring Supportive treatment Telemetry EEG Carotid Doppler IV antibiotics Aspirin 300 mg suppository Lipitor 10 mg daily More recommendation per clinical course This medical document was created using an electronic medical record system with [employer] dictation system. Although this document has been carefully reviewed, there may still be some phonetic and typographical errors. These areas are purely typographical due to imperfections of the software programs, and do not reflect any compromise in the patient's medical care. Prognosis Poor Dietary Evaluation Review Comments: Nutrition Recommendation: 1) Jean-Paul 1 pk BID, MVI w/ minerals 1 tab daily, VitC 500mg BID, Zinc sulfate 220mg BID x 10 days 2) Advance diet as medically feasible 3) Monitor NPO status, lab values, weight trend, and I/O Expected Outcomes/Goals: Wound to improve FU 2-3 days Interpretation of weight loss: up to 20% in 1 year Interpretation of weight loss: >7.5% in 3 months Protein Calorie Malnutrition: N/A Is there a minimum of two crit: No Plan discussed with: Other Total Time (mins): 35 LEONARDO BERGMAN MD Sep 05, 2025 21:13
[2025-09-05] MEDS ORDERED: DEXTROSE (50%) 50ML SYRG IV SCH (22:00)
[2025-09-05] MEDS ORDERED: CLINIMIX PER PHARMACY 0 ML IV SCH (22:00)
[2025-09-05] MEDS: AMINO ACID INFUSION IN D10W 1,000 ML IV SCH (22:29)
[2025-09-06] VITALS (117 sets, daily range): BP systolic 0–158; BP diastolic 0–93; PULSE 0–139; RESP 0–27; TEMP 97.9–100.9; O2SAT 0–99
[2025-09-06] MEDS: InsuLIN REG 1unit/0.01ml Soln (100units/ml) SC SCH
[2025-09-06] MEDS: VANCOMYCIN 1GM/250ML KIT 250 ML IV SCH (01:33)
[2025-09-06] MEDS: ACCU-CHEK COMFORT CURVE STRIP VI SCH (01:58)
[2025-09-06 04:54] LABS: Base Excess -6.9 mmol/L (-2.0-3.0)
[2025-09-06] MEDS: fentaNYL Drip 2500mCg/250mlNS 250 ML IV SCH (05:10)
[2025-09-06] MEDS: NOREPINEPHRINE 8 MG/250ML KIT 250 ML IV SCH (05:10)
[2025-09-06] MEDS: SODIUM CHLORIDE 0.9% 1,000 ML IV ONE (05:10)
[2025-09-06] MEDS: NOREPINEPHRINE 8 MG/250ML KIT 250 ML IV ONE (05:17)
[2025-09-06] MEDS ORDERED: fentaNYL Drip 2500mCg/250mlNS 250 ML IV ONE (05:21)
[2025-09-06] MEDS: ETOMIDATE (2MG/ML) 20ML VIAL IV ONE ×2 (05:48→06:26)
[2025-09-06] MEDS: ROCURONIUM 10MG/ML 10ML VIAL IV ONE ×3 (05:48→11:07)
--- NOTE | 2025-09-06 06:54 | DVH ---
CHEST RADIOGRAPH Indication: ETT PLACEMENT Technique: Single frontal view of the chest was obtained Comparison: XY CHEST PORTABLE on DOS: 08/31/25. FINDINGS: Lines and Tubes: The endotracheal tube measures 5.7 cm above the avery. The enteric tube courses below the left hemidiaphragm and the tip extends outside the field of view. The side port projects over the gastroesophageal junction. Lungs: Interval development of bibasilar opacities. Pleura: No effusion. No pneumothorax. Cardiomediastinal contours: Cardiomegaly. Bones: No acute osseous abnormality. IMPRESSION: 1. Interval development of bibasilar opacities. 2. The side port of the enteric tube projects over the gastroesophageal junction. 3. Recommend advancement by 2-3 cm. 4. Endotracheal tube terminates 5.7 cm above the avery.
[2025-09-06 07:21] LABS: Base Excess -10.7 mmol/L (-2.0-3.0)
--- NOTE | 2025-09-06 07:53 | DVH ---
CLINICAL INFORMATION: Endotracheal tube advanced. TECHNIQUE: Single AP portable chest radiograph was obtained. COMPARISON: XY CHEST PORTABLE on DOS: 09/06/25, XY CHEST PORTABLE on DOS: 08/31/25, XY CHEST XRAY 1 VIEW on DOS: 08/22/25 FINDINGS: Distal tip of the endotracheal tube terminates approximately 3.7 cm above the level of the avery. Enteric tube reaches the stomach and descends below the [id number] of the exam with the proximal fenestration of the enteric tube below the level of the gastroesophageal junction. Stable appearing small left pleural effusion with overlying atelectasis and possible consolidation. Mild atelectasis in the right lung base. No pneumothorax. No other significant interval change. IMPRESSION: 1. Satisfactory positioning of the endotracheal tube and enteric tube. 2. Grossly stable small left pleural effusion with overlying atelectasis and/or consolidation.
--- NOTE | 2025-09-06 09:11 | MEDREC ---
[facility] Intervention Section I [facility] Intervention: Review courses of therapy (CONSIDER ADDING CEFTRIAXONE FOR SUSPECTED UTI/PNA) [facility] RESIDENT Sep 06, 2025 09:11
[2025-09-06 09:21] LABS: Hematocrit 38.7 % (36.0-46.0); Hemoglobin 12.4 g/dL (12.2-16.2); Mean Corpuscular Hemoglobin 27.8 pg (28.0-32.0); Mean Corpuscular Volume 86.9 fL (80.0-100.0)
[2025-09-06] MEDS ORDERED: PHENYLEPHRINE IV 250 ML IV ONE ×2 (09:21→13:15)
[2025-09-06 09:33] LABS: INR 1.34 (0.9-1.15); Prothrombin Time 13.8 sec (9.3-11.8)
[2025-09-06] MEDS: PHENYLEPHRINE IV 250 ML IV SCH (10:06)
[2025-09-06 10:11] LABS: Total Cells Counted 100.0 (100)
[2025-09-06 10:12] LABS: Anisocytosis Slight
[2025-09-06] MEDS ORDERED: ROCURONIUM 10MG/ML 10ML VIAL IV ONE (10:28)
[2025-09-06] MEDS ORDERED: FUROSEMIDE 40 MG/4 ML VIAL ONE (10:28)
[2025-09-06 11:02] LABS: Alanine Aminotransferase 31 U/L (7-40); Alkaline Phosphatase 113 U/L (46-116); Anion Gap 15 (5-15); BUN/Creatinine Ratio 14.7 (10.0-20.0); Blood Urea Nitrogen 16 mg/dL (9-23); Chloride 106 mmol/L (98-107); Magnesium 1.8 mg/dL (1.6-2.6); Sodium 141 mmol/L (136-145); Total Protein 5.9 g/dL (5.7-8.2)
[2025-09-06 11:03] LABS: Albumin 2.9 g/dL (3.2-4.8); Bilirubin, Total 0.3 mg/dL (0.2-1.0); Calcium 7.9 mg/dL (8.7-10.4); Carbon Dioxide 20 mmol/L (20-31); Potassium 3.0 mmol/L (3.5-5.1)
[2025-09-06] MEDS: FUROSEMIDE 40 MG/4 ML VIAL IV ONE (11:08)
[2025-09-06 11:10] LABS: Glucose 564 mg/dL (74-106)
[2025-09-06] MEDS ORDERED: EPINEPHrine HCL 250 ML IV SCH (11:15)
[2025-09-06] MEDS ORDERED: EPINEPHrine HCL 250 ML IV ONE (11:17)
[2025-09-06] MEDS ORDERED: SODIUM BICARB 8.4% 50Meq/50ml SYR Vial IV ONE ×4 (11:25→11:30)
--- NOTE | 2025-09-06 11:25 | DVH ---
EXAM: XY CHEST PORTABLE Indication: VERIFY PLACEMENT OF CENTRAL LINE Technique: Single frontal view of the chest was obtained Comparison: XY CHEST PORTABLE on DOS: 09/06/25, XY CHEST PORTABLE on DOS: 09/06/25, XY CHEST PORTABLE on DOS: 08/31/25, XY CHEST XRAY 1 VIEW on DOS: 08/22/25, XY CHEST PORTABLE on DOS: 07/09/25 FINDINGS: Lines and Tubes: Endotracheal tube projects 2 cm above the avery. Enteric tube tip projects over expected region stomach. Right internal jugular central venous catheter tip projects over superior vena cava. Lungs: Diffuse interstitial opacities in the left lung. Pleura: Trace left pleural effusion. No pneumothorax. Cardiomediastinal contours: Unremarkable Bones: No acute osseous abnormality. IMPRESSION: Right internal jugular central venous catheter tip projects over superior vena cava.
--- NOTE | 2025-09-06 11:38 | DVHPN2 ---
Subjective The patient seen and examined at bedside. The patient is still lethargic and confuse. Reviewed: Care Plan, H&P, Labs, Medications, Previous Orders, Radiology Eyes: No Pain, No Vision change, No Conjunctivae inflammation, No Eyelid inflammation, No Other, No Redness ENT: No Ear pain, No Ear discharge, No Nose pain, No Nose discharge, No Nose congestion, No Mouth pain, No Mouth swelling, No Throat pain, No Throat swelling, No Other Cardiovascular: No Chest Pain, No Palpitations, No Orthopnea, No Paroxysmal Noc. Dyspnea, No Edema, No Lt Headedness, No Other Respiratory: No Cough, No Dry, No Shortness of breath, No SOB with excertion, No Wheezing, No Hemoptysis, No Pleuritic Pain, No Sputum, No Other Gastrointestinal: No Nausea, No Vomiting, No Abdominal Pain, No Diarrhea, No Constipation, No Melena, No Hematochezia, No Other Genitourinary: No Dysuria, No Frequency, No Incontinence, No Hematuria, No Retention, No Other Musculoskeletal: No other, No neck pain, No shoulder pain, No arm pain, No back pain, No hand pain, No leg pain, No foot pain Skin: No Rash, No Lesions, No Jaundice, No Bruising; Other (Open wound in the coccyx area) Objective Vitals Vital Signs Date Time Temp Pulse Resp B/P (MAP) Pulse Ox O2 Delivery O2 Flow Rate FiO2 09/06/25 11:08 88/27 09/06/25 10:25 125 24 84 100 09/06/25 08:55 100.4 212.7 09/06/25 06:00 Mechanical Ventilator+ 09/05/25 20:00 6 Intake/Output Intake and Output 09/06/25 07:00 Intake Total 1452.0 ml Output Total 1500 ml Balance -48.0 ml Intake Oral 0 ml IV Total 1452.0 ml Output Urine Total 1500 ml General Appearance: Other (lethargic) HEENT: Atraumatic, PERRLA, EOMI, Mucous membr. moist/pink Neck: Supple Lungs: Clear to auscultation, Normal air movement Cardiovascular: Regular rate, Normal S1, Normal S2, No murmurs, Gallops, Rubs Abdomen: Normal bowel sounds, Soft, No tenderness Neuro: Other Psych/Mental Status: Mental status NL Medications Current Medications Medications Dose Ordered Sig/Cornelius Route Start Time Stop Time Status Last Admin Dose Admin Albuterol 2.5 mg Q4HPRN PRN NEB 08/31/25 18:30 Cancel Ipratropium [place] 0.5 mg Q4HPRN PRN NEB 08/31/25 18:30 Cancel Acetaminophen/ Hydrocodone Bitart 1 tab Q4HP PRN PO 08/31/25 18:30 Ondansetron HCl 4 mg Q4HP PRN IV 08/31/25 18:30 Docusate Sodium 100 mg BIDPRN PRN PO 08/31/25 18:30 Acetaminophen 650 mg Q6HP PRN PO 08/31/25 18:30 Nitroglycerin 0.4 mg Q5MINP PRN SL 08/31/25 21:30 Morphine Sulfate 2 mg Q30M PRN IV 08/31/25 21:30 Vancomycin HCl 0 ml @ 0 mls/hr PER PHARMACY IV 09/01/25 08:15 Atorvastatin Calcium 40 mg HS PO 09/02/25 22:00 Gabapentin 300 mg TID PO 09/01/25 22:00 Pantoprazole Sodium 40 mg DAILY PO 09/02/25 10:00 Sucralfate 1 gm BID PO 09/01/25 22:00 Alprazolam 1 mg DAILY PRN PO 09/01/25 21:45 Mupirocin 1 applic BID EACHNOSTRI 09/03/25 22:00 09/08/25 21:59 09/05/25 22:29 1 APPLIC Dextrose 1,000 ml @ 100 mls/hr Q10H IV 09/04/25 12:15 09/05/25 17:57 100 MLS/HR Aspirin 300 mg DAILY KS 09/05/25 10:00 09/05/25 10:12 300 MG Amino Acids 0 ml @ 0 mls/hr PER PHARMACY IV 09/05/25 22:00 Vancomycin HCl 250 ml @ 250 mls/hr Q12H IV 09/06/25 01:00 09/06/25 01:33 250 MLS/HR Amino Acids/ Electrolytes/ Dextrose 1,000 ml @ 41 mls/hr DAILY@2200 IV 09/05/25 22:00 09/05/25 22:29 41 MLS/HR Diagnostic Test (Pha) 1 strip Q6HR 09/06/25 00:00 09/06/25 06:25 1 STRIP Insulin Human Regular FOLLOW SLIDING SCALE Q6HR SC 09/06/25 00:00 09/06/25 00:00 8 UNITS Dextrose 50 ml UD IV 09/05/25 22:00 Norepinephrine Bitartrate 250 ml @ 3.75 mls/hr Q24H IV 09/06/25 05:10 09/06/25 05:10 3.75 MLS/HR Fentanyl Citrate 250 ml @ 2.5 mls/hr Q24H IV 09/06/25 05:10 09/06/25 05:10 2.5 MLS/HR Phenylephrine HCl 250 ml @ 30 mls/hr Q8H20M IV 09/06/25 09:15 09/06/25 10:06 30 MLS/HR Epinephrine HCl 250 ml @ 7.5 mls/hr Q24H IV 09/06/25 11:15 Laboratory Results Laboratory Tests 09/06/25 08:52 09/06/25 10:00 Chemistry Test 09/06/25 10:00 Albumin 2.9 g/dL (3.2-4.8) L Calcium Level 7.9 mg/dL (8.7-10.4) L Magnesium Level 1.8 mg/dL (1.6-2.6) Phosphorus Level 4.4 mg/dL (2.4-5.1) Total Protein 5.9 g/dL (5.7-8.2) Coagulation Test 09/06/25 08:52 Prothrombin Time 13.8 sec (9.3-11.8) H Prothrombin Time INR 1.34 (0.9-1.15) H D-Dimer, Quantitative 3.25 mg/L FEU (0.0-0.49) H LFT Test 09/06/25 10:00 Alanine Aminotransferase (ALT) 31 U/L (7-40) Alkaline Phosphatase 113 U/L (46-116) Aspartate Amino Transferase (AST) 47 U/L (13-40) H Total Bilirubin 0.3 mg/dL (0.2-1.0) Urinalysis Test 09/01/25 00:00 Urine Color Yellow (Yellow) Urine Clarity Turbid (Clear) H Urine pH 7.0 (5.0-9.0) Urine Specific [place] 1.024 (1.001-1.035) Urine Protein 1+ (Negative) H Urine Ketones Trace (Negative) Urine Blood Negative /uL (Negative) Urine Nitrite 2+ (Negative) H Urine Bilirubin Negative (Negative) Urine Urobilinogen Normal mg/dL (Negative) Urine Leukocyte Esterase 2+ /uL (Negative) Urine RBC 1 /hpf (0 - 4) Urine Microscopic WBC 68 /HPF (0-5) H Urine Squamous Epithelial Cells Few /hpf (<5) Urine Amorphous Crystals Few /hpf (None Seen) Urine Bacteria Few /hpf (None Seen) H Urine Mucus Few (None Seen) Urine Glucose Normal mg/dL (Normal) Blood Gas Results Test 09/06/25 04:47 09/06/25 06:45 Arterial Blood pH 7.176 (7.350-7.450) 7.155 (7.350-7.450) FiO2 % 100.0 100.0 Microbiology Microbiology Date/Time Source Procedure Growth Status 09/02/25 15:15 Nose MRSA Screen - Final Methicillin Resistant S.aureus Complete 08/31/25 16:30 Blood Blood Culture - Final NO GROWTH AFTER 5 DAYS OF INCUBATION. Complete Assessment/Plan Assessment/Plan Acute/subacute CVA Acute metabolic encephalopathy Sepsis Bacteremia with Staph Epidermidis Hypernatremia Decubitus ulcer stage 3 present at admission. Leukocytosis, unspecified Generalized weakness history of CVA with left-sided deficit COPD Hyperlipidemia Hypertension Plan Continue current management. MRI of brain showed: Acute/subacute infarction within the right basal ganglia and parietal lobe. Right frontal, parietal, basal ganglia encephalomalacia.Moderate chronic microvascular ischemic changes. Neurology consult appreciate. Waiting for EEG Continue Vancomycin but dc Rocephin base on the sensitivity of the bacteria in blood. Will follow up with culture. Continue HTN meds. Will keep patient NPO Swallow evaluation. Wound care consult. IVF with D5W at 100ml /hour for hypernatremia will try to get in touch with family regarding to code status. I had tried to call couple times yesterday but no answer from the phone number in chart. I spoke with [facility] liaison, she gave me the number of her niece: Mrayjo, who is the daughter of the patient, Moni, . She asked to call after 4:30 pm. Will try to contact again. As right now the patient remain full code. 09/05: will try to contact family for code status again. Still remain FULL CODE. This medical document was created using an electronic medical record system with [employer] direct computerized dictation system. Although this document has been carefully reviewed, there may still be some phonetic and typographical errors. These areas are purely typographical due to imperfections of the software programs, and do not reflect any compromise in the patient's medical care. My Orders Orders - IDANIA GARCIA MD Procedure Category Date Status Time Clinimix Per Pharmacy KEHINDE 09/05/25 In Process 20:00 Clinimix Per Pharmacy PHA 09/05/25 In Process 22:00 Amino Acid Infusion PHA 09/05/25 In Process In D10w (Clinimix 4. 22:00 Glucose Blood PHA 09/06/25 In Process (Accu-Chek Comfort 00:00 Insulin R (Human) PHA 09/06/25 In Process (Insulin R) 00:00 Dextrose 50% Syringe PHA 09/05/25 In Process 22:00 Clinimix Per Pharmacy KEHINDE 09/05/25 In Process 22:00 * Manager Of Broadcast Content CONS 09/06/25 Transmitted Consult * Dietary Consult CONS 09/06/25 Transmitted 08:02 IDANIA GARCIA MD Sep 06, 2025 11:38
[2025-09-06 11:45] LABS: Base Excess -14.2 mmol/L (-2.0-3.0)
--- NOTE | 2025-09-06 13:49 | ECG ---
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
--- NOTE | 2025-09-06 14:06 | DVHINCON2 ---
Date of service: Sep 06, [address] jocy espinoza Reason for Consultation vent management History of Present Illness HPI pt is a 60 yo female, h/o cardiac risk factors, previous CVA's, presented with altered MS. Pt found to have an additional area of ischemia on MRI. Became increasingly altered on the floor and desaturating. Concern for aspiration. Pt intubated and transferred to ICU. Upon arrival on 3 pressors. Profoundly hypoxemic with difficulty ventilating. on ac volume control peep 16 cm H20, Fi02 100%, ABG shows gradient. CXR: LLL infiltrate Home Meds Active Scripts Pantoprazole Sodium Sesquihydr (Pantoprazole Sodium) 40 Mg Tab, 40 MG PO DAILY@0600 for 30 Days, #30 TAB Prov:[facility] 08/26/25 Atorvastatin Calcium (ATORVASTATIN CALCIUM) 20 Mg Tab, 40 MG PO DAILY for 30 Days, #60 TAB 3 [facility]/26/25 Aspirin (Aspir-Low) 81 Mg Tab, 81 MG PO DAILY for 30 Days, #30 TAB 3 [facility]/26/25 Linezolid (Zyvox) 600 Mg Tab, 600 MG PO BID for 10 Days, #20 TAB Prov:[facility] 08/26/25 Levofloxacin Hemihydrate (LEVOFLOXACIN) 500 Mg Tab, 1 TAB PO DAILY for 10 Days, #10 TAB Prov:[facility] 08/26/25 Sucralfate (CARAFATE SUSP) 1 Gm/10 Ml Ss, 10 ML PO BID for 30 Days, #600 ML 1 [facility] Metoclopramide Hcl (Reglan) 10 Mg Tab, 10 MG PO BIDPRN PRN for 5 Days, #10 TAB [facility] Gabapentin (Gabapentin) 300 Mg Cap, 1 CAP PO TID for 30 Days, #90 CAP 1 Refill Prov:CHAY MALDONADO MD 05/27/25 Reported Medications Pantoprazole Sodium Sesquihydr (Pantoprazole Sodium) 40 Mg Tab, 1 TAB PO DAILY 07/07/25 Haloperidol (Haldol) 5 Mg Tb, 1 TAB PO 07/07/25 Hydroxyzine Hcl (Hydroxyzine Hcl) 25 Mg Tab, 1 TAB PO BID 07/07/25 Alprazolam (Alprazolam) 1 Mg Tab, PO 06/25/25 Past Medical History Cardiac: CAD Pulmonary: COPD Central Nervous System: CVA GI: No pertinent Hx Hemotology/Oncology: No pertinent Hx Hepatobiliary: No pertinent Hx Psychiatric: No pertinent Hx Musculoskeletal: No pertinent Hx Rheumotologic: No pertinent Hx Infectious Disease: No peritnent Hx ENT: No pertinent Hx Renal/: No pertinent Hx Endocrine: No pertinent Hx Dermatology: No pertinent Hx Past Surgical History: No pertinent Hx Patient Family History: Chronic obstructive pulmonary disease G8 MOTHER Diabetes mellitus G8 FATHER Hypertension G8 FATHER Review of Systems Comments intubated Constitutional: Weakness H&P Exam Vital Signs Vital Signs Date Time Temp Pulse Resp B/P (MAP) Pulse Ox O2 Delivery O2 Flow Rate FiO2 09/06/25 13:09 100.4 134 24 81/45 89 100 100.4 09/06/25 06:00 Mechanical Ventilator+ 09/05/25 20:00 6 General Appeara: Well developed, Well nourished Head Exam: Normal inspection Neck Exam: Normal inspection, Non-tender, Normal alignment Eye Exam: bilateral eye Normal inspection, bilateral eye PERRL, bilateral eye EOMI Ear Exam: bilateral ear Auricle normal, bilateral ear Canal normal Nasal Exam: Normal inspection Mouth: Normal Inspection Pulmonary/Respiratory: Normal inspection, Normal breath sounds, Chest non- tender Cardiovascular/Chest: Normal inspection Peripheral Pulses: 4+ carotid (R), 4+ carotid (L) Abdominal Exam: Normal bowel sounds Labs/Xrays Labs Test 09/06/25 10:00 09/06/25 09:57 09/06/25 08:52 09/06/25 06:45 Range/Units Sodium Level 141 # 136-145 mmol/L Potassium Level 3.0 L 3.5-5.1 mmol/L Chloride Level 106 98-107 mmol/L Carbon Dioxide Level 20 20-31 mmol/L Anion Gap 15 5-15 Blood Urea Nitrogen 16 9-23 mg/dL Creatinine 1.09 #H 0.550-1.02 mg/dL Glomerular Filtration Rate Calc 59 >90 mL/min BUN/Creatinine Ratio 14.7 10.0-20.0 Serum Glucose 564 *H 74-106 mg/dL Calcium Level 7.9 L 8.7-10.4 mg/dL Phosphorus Level 4.4 2.4-5.1 mg/dL Magnesium Level 1.8 1.6-2.6 mg/dL Total Bilirubin 0.3 0.2-1.0 mg/dL Aspartate Amino Transferase (AST) 47 H 13-40 U/L Alanine Aminotransferase (ALT) 31 7-40 U/L Alkaline Phosphatase 113 46-116 U/L Total Protein 5.9 5.7-8.2 g/dL Albumin 2.9 L 3.2-4.8 g/dL Blood Gas Specimen Type Arterial Blood Gas Sample Site Right radial Blood Gas Patient Temperature 37.0 Arterial Blood Date Drawn [id number] Arterial Blood pH 7.075 *L 7.350-7.450 Arterial Blood Partial Pressure CO2 56.5 H 32.0-45.0 mmHg Arterial Blood Partial Pressure O2 49.2 *L 83.0-108.0 mmHg Arterial Blood HCO3 16.2 L 21.0-28.0 mmol/L Arterial Blood Oxygen Saturation 75.4 *L 94.0-98.0 % Arterial Blood Base Excess -14.2 L -2.0-3.0 mmol/L Arterial Blood Oxyhemoglobin 74.6 L 94.0-98.0 % Arterial Blood Carboxyhemoglobin 0.2 L 0.5-1.5 % Arterial Blood Methemoglobin 0.8 0.0-1.5 % Arterial Blood Deoxyhemoglobin 24.4 H 0.0-5.0 % Jose David Test Modified Blood Gas Total Hemoglobin 14.10 12.0-16.0 g/dL Blood Gas Set Respiration Rate 24.0 Blood Gas Modality Vent - ac FiO2 % 100.0 Blood Gas Tidal Volume 550.0 Blood Gas PEEP or CPAP 16.0 Blood Gas Critical Value Read Back Yes Blood Gas Notified Whom Dr. sagar tobias Blood Gas Notified Time [id number] Blood Gas Notified By Rt kobi schmidt White Blood Count 8.5 # 4.4-10.8 10^3/uL Red Blood Count 4.45 4.0-5.20 10^6/uL Hemoglobin 12.4 12.2-16.2 g/dL Hematocrit 38.7 # 36.0-46.0 % Mean Corpuscular Volume 86.9 # 80.0-100.0 fL Mean Corpuscular Hemoglobin 27.8 L 28.0-32.0 pg Mean Corpuscular Hemoglobin Concent 32.0 32.0-36.0 g/dL Red Cell Distribution Width 17.2 H 11.8-14.3 % Platelet Count 274 140-450 10^3/uL Mean Platelet Volume 9.7 6.9-10.8 fL Neutrophils (%) (Auto) 37.0-80.0 % Lymphocytes (%) (Auto) 10.0-50.0 % Monocytes (%) (Auto) 0.0-12.0 % Basophils (%) (Auto) 0.0-2.0 % Neutrophils # (Auto) 1.6-8.6 10 ^3/uL Lymphocytes # (Auto) 0.4-5.4 10 ^3/uL Monocytes # (Auto) 0-1.3 10 ^3/uL Differential Total Cells Counted 100.0 100 Neutrophils % (Manual) 58 37.0-80.0 Band Neutrophils % (Manual) 15 Lymphocytes % (Manual) 22 10.0-50.0 Monocytes % (Manual) 2 0-12 Eosinophils % (Manual) 1 0-7 Basophils % (Manual) 0 0.0-2.0 Metamyelocytes % (manual) 2 Myelocytes % (Manual) 0 Promyelocytes % (Manual) 0 Blast Cells % (Manual) 0 Reactive Lymphocytes 0 Platelet Estimate Adequate Large Platelets Few Anisocytosis (manual) Slight Schistocytes Few Prothrombin Time 13.8 H 9.3-11.8 sec Prothrombin Time INR 1.34 H 0.9-1.15 D-Dimer, Quantitative 3.25 H 0.0-0.49 mg/L FEU Blood Gas Liter Flow 12.00 Test 09/06/25 06:24 09/04/25 20:00 09/04/25 05:30 09/04/25 00:28 Range/Units POC Glucose 117 H 70-106 mg/dl Urine Opiates Screen Neg NEGATIVE Urine Fentanyl Screen Neg NEGATIVE Urine Barbiturates Screen Neg NEGATIVE Urine Phencyclidine Screen Neg NEGATIVE Urine Amphetamines Screen Neg NEGATIVE Urine Benzodiazepines Screen Neg NEGATIVE Urine Cocaine Screen Neg NEGATIVE Urine Cannabinoids Screen Neg NEGATIVE Eosinophils (%) (Auto) 0.2 0.0-7.0 % Eosinophils # (Auto) 0 0-0.8 10 ^3/uL Basophils # (Auto) 0 0-0.2 10 ^3/uL Nucleated Red Blood Cells 0.0 % Vancomycin Level Trough 13.2 H 5-10 ug/mL Test 09/02/25 07:20 09/01/25 00:00 08/31/25 20:30 08/31/25 18:08 Range/Units Random Vancomycin Level 12.2 H 5-10 ug/mL Urine Color Yellow Yellow Urine Clarity Turbid H Clear Urine pH 7.0 5.0-9.0 Urine Specific [place] 1.024 1.001-1.035 Urine Protein 1+ H Negative Urine Ketones Trace Negative Urine Blood Negative Negative /uL Urine Nitrite 2+ H Negative Urine Bilirubin Negative Negative Urine Urobilinogen Normal Negative mg/dL Urine Leukocyte Esterase 2+ Negative /uL Urine RBC 1 0 - 4 /hpf Urine Microscopic WBC 68 H 0-5 /HPF Urine Squamous Epithelial Cells Few <5 /hpf Urine Amorphous Crystals Few None Seen /hpf Urine Bacteria Few H None Seen /hpf Urine Mucus Few None Seen Urine Glucose Normal Normal mg/dL Hemoglobin A1c 5.8 H <5.7 % A1C Troponin I High Sensitivity 19 </=34 ng/L Lactic Acid Level 1.9 0.4-2.0 mmol/L Test 08/31/25 16:30 Range/Units Activated Partial Thromboplast Time 26.5 24.5-34.5 SEC B-Type Natriuretic Peptide 32.91 0-100 pg/mL Microbiology Date/Time Source Procedure Growth Status 09/02/25 15:15 Nose MRSA Screen - Final Methicillin Resistant S.aureus Complete 08/31/25 16:30 Blood Blood Culture - Final NO GROWTH AFTER 5 DAYS OF INCUBATION. Complete Assessment/Plan Plan acute resp failure aspiration pneumonia CVA pt seen and examined on ICU unstable on 3 pressors labs and imaging reviewed 7.07/c02=56, P02=49 vent changes made to PC CXR LLL infiltrate bronch performed copious secretions/purulent consistent with aspiration right IJ c line placed management plan sedation as needed rocuronium 50 mg iv prn for refractory hypoxemia f/up on abg consider proning if hemodynamics improve (currently on 3 pressors) abx monitor labs, renal function rpplace lytes gi and dvt proph DNR poor prognosis crit care time 60 min Plan discussed with: Other (rn) KODAK TOBIAS MD Sep 06, 2025 14:06
--- NOTE | 2025-09-06 14:08 | DVHNC2 ---
Procedure - bronchoscopy and BAL indication: aspiration procedure in detail consent and time out per protocol flexible scope passed thru ETT tracheo-br tree examined copiuos purulent secretions found bilaterally, more on the left loosened up with ns 50 cc, suctioned thoroughly mucosa inflamed and friable no endobr lesion sample sent for diagn tests at the end of procedure scope removed pt tolerated procedure well KODAK MCKEON MD Sep 06, 2025 14:08
--- NOTE | 2025-09-06 14:13 | DVHNC2 ---
Procedure - right IJ c line with us guidance consent and time out per protocol right IJ approach chloraprep x 3 sterile drapes used to cover the area local analgesia lidocaine 1% 5 cc seldinger technique 3 lumen catheter placed in right IJ vein, secured with sutures band aid applied CXR ordered no complications KODAK MCKEON MD Sep 06, 2025 14:13
--- NOTE | 2025-09-06 18:50 | DVHPN2 ---
Progress Note - Dictate Date Seen: Sep 06, 2025 Medical Necessity Reason Pt with a Central, PICC or Fol: Yes The following are medically ne: Goldstein Catheter Subjective Patient was not seen Ms. Lira is a 60 years old right-handed female with a history of COPD, stroke, morbid obesity, she was brought to the [facility] from [facility] on 08/31/2025 with a chief complaint of ALOC. I saw on 04/05/2025 for infarcts (MRI positive) I have seen and examined the patient, I have discussed with her nurse and other medical staff, she is only responsive to stroke painful stimuli, she does not move her extremities, According to her nurse, the patient has left hemiparesis since the stroke in 03/2025 Blood culture, 08/31/2025: Staphylococcus epidermidis UDS, 09/04/2025: Negative Urinalysis, 09/01/2025: WBC: 68, urine leukocyte esterase: 2+, urinary nitrate: 2+ WBC/HB/PLT/MCV, 09/04/2025: 14.1/11.3/202/81.8 /: Unremarkable Liver function tests, 09/01/2025: Unremarkable HGB A1c, 03/14/2025: 5.7, 08/31/2025: 5.8 TG/HDL/LDL/HDL, 04/05/2025: 113/138/83/36 Echocardiogram, 09/05/2025: Technically difficult study. Off axis views. Undetermined rhythm. There appears to be concentric LVH with aortic root enlargement. Left atrial enlargement noted. Valves are normal. Left ventricular systolic performance is preserved at 60% with normal right ventricular function. Doppler appears to be within normal limits. No pericardial effusion masses or vegetations discernible. Carotid Doppler, 04/05/2025: 1. No hemodynamically significant stenosis noted in the right carotid system. 2. No hemodynamically significant stenosis noted in the left carotid system Chest x-ray, 08/2025: 1. Interval development of bibasilar opacities. 2. The side port of the enteric tube projects over the gastroesophageal junction. 3. Recommend advancement by 2-3 cm. 4. Endotracheal tube terminates 5.7 cm above the avery. MRI head, 04/05/2025: Acute/ subacute infarction involving the right posterior parietal lobe/ centrum semiovale.Moderate chronic microvascular ischemic changes. Right frontal encephalomalacia MRI head, 09/04/2025: Acute/subacute infarction within the right basal ganglia and parietal lobe. Right frontal, parietal, basal ganglia encephalomalacia. Moderate chronic microvascular ischemic changes. MRI C-spine, 04/05/2025: Moderate cervical degenerative disc disease. No high- grade spinal canal stenosis. Multilevel neural foraminal stenosis as described most pronounced at C3-4, C4-5, C5-6 and C6-7 MRI lumbar spine, 04/05/2025: 1. No fracture or listhesis of the lumbar spine. 2. Left L3 transverse process fracture seen on recent CT scan is likely chronic, as there is no evidence of edema in this area on the current study. 3. Degenerative disc disease and facet arthropathy with significant neural foraminal stenosis at L4-L5 on the left and L5-S1 on the left. Additionally, there is partial effacement of the left lateral recess at the L4-L5 level. These findings May correspond to left lower extremity radicular symptoms in the L4 and L5 nerve root distributions. 4. No high-grade spinal canal stenosis at any level in the lumbar spine vital signs Vital Sign Date Time Temp Pulse Resp B/P (MAP) Pulse Ox O2 Delivery O2 Flow Rate FiO2 09/06/25 13:36 0 0 0/0 (0) 0 09/06/25 13:09 100.4 100 100.4 09/06/25 08:00 Mechanical Ventilator+ 09/05/25 20:00 6 Total Intake and Output 09/05/25 09/05/25 09/06/25 15:00 23:00 07:00 Intake Total 300 ml 800 ml 352.0 ml Output Total 850 ml 650 ml Balance 300 ml -50 ml -298.0 ml medications Current Medications Medications Dose Ordered Sig/Cornelius Route Start Time Stop Time Status Last Admin Dose Admin Albuterol 2.5 mg Q4HPRN PRN NEB 08/31/25 18:30 Cancel Ipratropium [place]cott 0.5 mg Q4HPRN PRN NEB 08/31/25 18:30 Cancel Acetaminophen/ Hydrocodone Bitart 1 tab Q4HP PRN PO 08/31/25 18:30 Ondansetron HCl 4 mg Q4HP PRN IV 08/31/25 18:30 Docusate Sodium 100 mg BIDPRN PRN PO 08/31/25 18:30 Acetaminophen 650 mg Q6HP PRN PO 08/31/25 18:30 Nitroglycerin 0.4 mg Q5MINP PRN SL 08/31/25 21:30 Morphine Sulfate 2 mg Q30M PRN IV 08/31/25 21:30 Vancomycin HCl 0 ml @ 0 mls/hr PER PHARMACY IV 09/01/25 08:15 Atorvastatin Calcium 40 mg HS PO 09/02/25 22:00 Gabapentin 300 mg TID PO 09/01/25 22:00 Pantoprazole Sodium 40 mg DAILY PO 09/02/25 10:00 Sucralfate 1 gm BID PO 09/01/25 22:00 Alprazolam 1 mg DAILY PRN PO 09/01/25 21:45 Mupirocin 1 applic BID EACHNOSTRI 09/03/25 22:00 09/08/25 21:59 09/06/25 10:00 1 APPLIC Dextrose 1,000 ml @ 100 mls/hr Q10H IV 09/04/25 12:15 09/05/25 17:57 100 MLS/HR Aspirin 300 mg DAILY OH 09/05/25 10:00 09/05/25 10:12 300 MG Amino Acids 0 ml @ 0 mls/hr PER PHARMACY IV 09/05/25 22:00 Vancomycin HCl 250 ml @ 250 mls/hr Q12H IV 09/06/25 01:00 09/06/25 01:33 250 MLS/HR Amino Acids/ Electrolytes/ Dextrose 1,000 ml @ 41 mls/hr DAILY@2200 IV 09/05/25 22:00 09/05/25 22:29 41 MLS/HR Diagnostic Test (Pha) 1 strip Q6HR 09/06/25 00:00 09/06/25 06:25 1 STRIP Insulin Human Regular FOLLOW SLIDING SCALE Q6HR SC 09/06/25 00:00 09/06/25 00:00 8 UNITS Dextrose 50 ml UD IV 09/05/25 22:00 Norepinephrine Bitartrate 250 ml @ 3.75 mls/hr Q24H IV 09/06/25 05:10 09/06/25 12:35 52.5 MLS/HR Fentanyl Citrate 250 ml @ 2.5 mls/hr Q24H IV 09/06/25 05:10 09/06/25 05:10 2.5 MLS/HR Phenylephrine HCl 250 ml @ 30 mls/hr Q8H20M IV 09/06/25 09:15 09/06/25 10:06 30 MLS/HR Epinephrine HCl 250 ml @ 7.5 mls/hr Q24H IV 09/06/25 11:15 objective General: the patient is well developed and nourished. No acute distress. MENTAL STATUS: Subjective SPEECH, LANGUAGE, HIGHER CORTICAL FUNCTION: She does not vocalize CRANIAL NERVES: Pupils are equal, round and reactive. Facial sensation fine in all three divisions bilaterally. Mandibular strength fine Facial muscles symmetrical and strength intact. SENSATION: Responsive to painful stimuli MOTOR: Normal tone in the upper and lower extremity. Normal muscle bulk. No fasciculations. No abnormal movements or posturing. No of the movement noticed t REFLEXES: Deep tendon reflexes are symmetrical. No pathological reflexes. CEREBELLAR/COORDINATION: Deferred GAIT/STATION: deferred. laboratory and microbiology Laboratory Tests 09/06/25 10:00 09/06/25 08:52 Test 09/06/25 10:00 Range/Units Serum Glucose 564 *H 74-106 mg/dL Problem List Altered mental status Metabolic encephalopathy Acute on chronic stroke Rule out status epileptics Rule out partial complex seizure Left hemiparesis secondary to stroke Acute stroke on chronic Obesity Sepsis Assessment/Plan Monitoring Supportive treatment Telemetry EEG Carotid Doppler IV antibiotics Aspirin 300 mg suppository Lipitor 10 mg daily More recommendation per clinical course This medical document was created using an electronic medical record system with [employer] dictation system. Although this document has been carefully reviewed, there may still be some phonetic and typographical errors. These areas are purely typographical due to imperfections of the software programs, and do not reflect any compromise in the patient's medical care. Dietary Evaluation Review Comments: Nutrition Recommendation: 1) Jean-Paul 1 pk BID, MVI w/ minerals 1 tab daily, VitC 500mg BID, Zinc sulfate 220mg BID x 10 days 2) Advance diet as medically feasible 3) Monitor NPO status, lab values, weight trend, and I/O Expected Outcomes/Goals: Wound to improve FU 2-3 days Interpretation of weight loss: up to 20% in 1 year Interpretation of weight loss: >7.5% in 3 months Protein Calorie Malnutrition: N/A Is there a minimum of two crit: No Plan discussed with: LEONARDO Machado MD Sep 06, 2025 18:50
--- NOTE | 2025-09-06 20:07 | DVHEEG2 ---
Neurology EEG Procedural Note Procedural Note EXAM DATE: 09/02/2025 REFERRING DOCTOR: Dr. Monroy TECHNIQUE: Eighteen channels of EEG, 2 channels of EOG, and 1 channel of EKG were recorded using the International 10/20 system. CLINICAL DATA: The patient was referred for an EEG evaluation for the evidence of seizure disorder. MEDICATIONS: See the chart BACKGROUND ACTIVITY: The background activity appeared to be poorly regulated 6- 7 hertz waveform symmetrically distributed over both posterior quadrants and was reactive to external stimuli, intermixed with this was diffuse low amplitude theta activity ACTIVATION: Hyperventilation: Not done Photic Stimulation: Not done Sleep: Not seen IMPRESSION: This is a mild abnormal EEG, this EEG is seen in mild cerebral dysfunction due to metabolic/hypoxic encephalopathy or medication effects, please correlate clinically The EKG channel showed a regular heart rate of 96/min. [place] [address] LEONARDO BERGMAN MD Sep 06, 2025 20:07
--- NOTE | 2025-09-06 23:14 | DVHDS2 ---
Discharge Summary Date of Admission Aug 31, 2025 at 21:17 Date of Discharge: Sep 06, 2025 Admitting Diagnosis Acute metabolic encephalopathy Sepsis Hypernatremia Leukocytosis, unspecified Generalized weakness history of CVA with left-sided deficit COPD Hyperlipidemia Hypertension Labs/Diagnostic Data: Laboratory Results Test 09/06/25 10:00 09/06/25 09:57 09/06/25 08:52 09/06/25 06:45 Sodium Level 141 mmol/L (136-145) Potassium Level 3.0 mmol/L (3.5-5.1) Chloride Level 106 mmol/L (98-107) Carbon Dioxide Level 20 mmol/L (20-31) Anion Gap 15 (5-15) Blood Urea Nitrogen 16 mg/dL (9-23) Creatinine 1.09 mg/dL (0.550-1.02) Glomerular Filtration Rate Calc 59 mL/min (>90) BUN/Creatinine Ratio 14.7 (10.0-20.0) Serum Glucose 564 mg/dL (74-106) Calcium Level 7.9 mg/dL (8.7-10.4) Phosphorus Level 4.4 mg/dL (2.4-5.1) Magnesium Level 1.8 mg/dL (1.6-2.6) Total Bilirubin 0.3 mg/dL (0.2-1.0) Aspartate Amino Transferase (AST) 47 U/L (13-40) Alanine Aminotransferase (ALT) 31 U/L (7-40) Alkaline Phosphatase 113 U/L (46-116) Total Protein 5.9 g/dL (5.7-8.2) Albumin 2.9 g/dL (3.2-4.8) Blood Gas Specimen Type Arterial Blood Gas Sample Site Right radial Blood Gas Patient Temperature 37.0 Arterial Blood Date Drawn [id number] Arterial Blood pH 7.075 (7.350-7.450) Arterial Blood Partial Pressure CO2 56.5 mmHg (32.0-45.0) Arterial Blood Partial Pressure O2 49.2 mmHg (83.0-108.0) Arterial Blood HCO3 16.2 mmol/L (21.0-28.0) Arterial Blood Oxygen Saturation 75.4 % (94.0-98.0) Arterial Blood Base Excess -14.2 mmol/L (-2.0-3.0) Arterial Blood Oxyhemoglobin 74.6 % (94.0-98.0) Arterial Blood Carboxyhemoglobin 0.2 % (0.5-1.5) Arterial Blood Methemoglobin 0.8 % (0.0-1.5) Arterial Blood Deoxyhemoglobin 24.4 % (0.0-5.0) Jose David Test Modified Blood Gas Total Hemoglobin 14.10 g/dL (12.0-16.0) Blood Gas Set Respiration Rate 24.0 Blood Gas Modality Vent - ac FiO2 % 100.0 Blood Gas Tidal Volume 550.0 Blood Gas PEEP or CPAP 16.0 Blood Gas Critical Value Read Back Yes Blood Gas Notified Whom Dr. sagar tobias Blood Gas Notified Time [id number] Blood Gas Notified By Rt kobi schmidt White Blood Count 8.5 10^3/uL (4.4-10.8) Red Blood Count 4.45 10^6/uL (4.0-5.20) Hemoglobin 12.4 g/dL (12.2-16.2) Hematocrit 38.7 % (36.0-46.0) Mean Corpuscular Volume 86.9 fL (80.0-100.0) Mean Corpuscular Hemoglobin 27.8 pg (28.0-32.0) Mean Corpuscular Hemoglobin Concent 32.0 g/dL (32.0-36.0) Red Cell Distribution Width 17.2 % (11.8-14.3) Platelet Count 274 10^3/uL (140-450) Mean Platelet Volume 9.7 fL (6.9-10.8) Neutrophils (%) (Auto) % (37.0-80.0) Lymphocytes (%) (Auto) % (10.0-50.0) Monocytes (%) (Auto) % (0.0-12.0) Basophils (%) (Auto) % (0.0-2.0) Neutrophils # (Auto) 10 ^3/uL (1.6-8.6) Lymphocytes # (Auto) 10 ^3/uL (0.4-5.4) Monocytes # (Auto) 10 ^3/uL (0-1.3) Differential Total Cells Counted 100.0 (100) Neutrophils % (Manual) 58 (37.0-80.0) Band Neutrophils % (Manual) 15 Lymphocytes % (Manual) 22 (10.0-50.0) Monocytes % (Manual) 2 (0-12) Eosinophils % (Manual) 1 (0-7) Basophils % (Manual) 0 (0.0-2.0) Metamyelocytes % (manual) 2 Myelocytes % (Manual) 0 Promyelocytes % (Manual) 0 Blast Cells % (Manual) 0 Reactive Lymphocytes 0 Platelet Estimate Adequate Large Platelets Few Anisocytosis (manual) Slight Schistocytes Few Prothrombin Time 13.8 sec (9.3-11.8) Prothrombin Time INR 1.34 (0.9-1.15) D-Dimer, Quantitative 3.25 mg/L FEU (0.0-0.49) Blood Gas Liter Flow 12.00 Test 09/06/25 06:24 09/04/25 20:00 09/04/25 05:30 09/04/25 00:28 POC Glucose 117 mg/dl (70-106) Urine Opiates Screen Neg (NEGATIVE) Urine Fentanyl Screen Neg (NEGATIVE) Urine Barbiturates Screen Neg (NEGATIVE) Urine Phencyclidine Screen Neg (NEGATIVE) Urine Amphetamines Screen Neg (NEGATIVE) Urine Benzodiazepines Screen Neg (NEGATIVE) Urine Cocaine Screen Neg (NEGATIVE) Urine Cannabinoids Screen Neg (NEGATIVE) Eosinophils (%) (Auto) 0.2 % (0.0-7.0) Eosinophils # (Auto) 0 10 ^3/uL (0-0.8) Basophils # (Auto) 0 10 ^3/uL (0-0.2) Nucleated Red Blood Cells 0.0 % Vancomycin Level Trough 13.2 ug/mL (5-10) Test 09/02/25 07:20 09/01/25 00:00 08/31/25 20:30 08/31/25 18:08 Random Vancomycin Level 12.2 ug/mL (5-10) Urine Color Yellow (Yellow) Urine Clarity Turbid (Clear) Urine pH 7.0 (5.0-9.0) Urine Specific [place] 1.024 (1.001-1.035) Urine Protein 1+ (Negative) Urine Ketones Trace (Negative) Urine Blood Negative /uL (Negative) Urine Nitrite 2+ (Negative) Urine Bilirubin Negative (Negative) Urine Urobilinogen Normal mg/dL (Negative) Urine Leukocyte Esterase 2+ /uL (Negative) Urine RBC 1 /hpf (0 - 4) Urine Microscopic WBC 68 /HPF (0-5) Urine Squamous Epithelial Cells Few /hpf (<5) Urine Amorphous Crystals Few /hpf (None Seen) Urine Bacteria Few /hpf (None Seen) Urine Mucus Few (None Seen) Urine Glucose Normal mg/dL (Normal) Hemoglobin A1c 5.8 % A1C (<5.7) Troponin I High Sensitivity 19 ng/L (</=34) Lactic Acid Level 1.9 mmol/L (0.4-2.0) Test 08/31/25 16:30 Activated Partial Thromboplast Time 26.5 SEC (24.5-34.5) B-Type Natriuretic Peptide 32.91 pg/mL (0-100) Other Laboratory Tests 09/06/25 10:00 09/06/25 08:52 Brief Hx & Hospital Course: This is a 60 years old female with past medical history of CVA with left-sided weakness, COPD, hyperlipidemia, hypertension who brought in by EMS with chief complaint of altered mental status and consciousness. Apparently the patient was in [facility] for rehab. The patient had possible UTI per facility which related to altered mental status in the staff called 911 to send the patient to the hospital. In the ER, the patient is lethargic. The patient was found to have elevation of WBC at 11. The patient's blood culture was collecting and later on it showed staph epididymis. It is sensitive to vancomycin. The patient was put on IV Rocephin and vancomycin subsequently Rocephin was discontinuing. The patient continuing to have altered mental status, lethargic. CT head was done showed no acute process. Subsequently the patient has A MRI done which showed: Acute/subacute infarction within the right basal ganglia and parietal lobe.Right frontal, parietal, basal ganglia encephalomalacia. Moderate chronic microvascular ischemic changes. The patient was seen by neurologist, Dr. Daniel. He recommend EEG. EEG showed evidence of metabolic encephalopathy. The patient's condition got worsening. The patient was subsequently intubated and transferred to ICU on vasopressor. There is some discrepancy regarding to who is her decision making. So the patient remained full code and was intubated. However, through her insurance liaison, finally we are able to locate her blood related sister, Moni. Moni is the one that making a decisions for patient in case she is not able to voice her medical decisions. I called and spoke to Moni regarding to the patient's wishes for code status. Per Moni the patient wished when she had severe medical problem, she wants nature take course. She do not want any artificial breathing support such as intubation and ventilation support, she did not want CPR or any heroic activity to prolong her life. As per patient wish we took the patient off ventilation support. The patient was kept comfortable with morphine in Ativan. The patient become asystole and at 13:35 Sep 06, 2025. Physical exam prior to the patient showed HEENT: Normocephalic atraumatic . oropharynx moist, no thrush, no exudate. ETT tube intact Lymphatic: No lymphadenopathy Cardiovascular exam: S1, S2 was heard. No murmurs, rubs, gallops Lung: Clear on auscultation bilaterally, no wheeze, rale, rhonchi. GI: Abdominal soft, nondistended, nontenderness, positive bowel sounds. Extremity: No crepitus, cyanosis, edema. Pedal pulses present bilateral. Full range of motion. Skin: Normal turgor, no rash. Psych: Intubated, on vent, unable to exam Neurology: Intubated, on vent, unable to exam. This medical document was created using an electronic medical record system with [employer] direct computerized dictation system. Although this document has been carefully reviewed, there may still be some phonetic and typographical errors. These areas are purely typographical due to imperfections of the software programs, and do not reflect any compromise in the patient's medical care. Condition at Discharge: Critical Final Diagnosis/Problems List Acute/subacute CVA Acute metabolic encephalopathy Sepsis Bacteremia with Staph Epidermidis Hypernatremia Decubitus ulcer stage 3 present at admission. Leukocytosis, unspecified Generalized weakness history of CVA with left-sided deficit COPD Hyperlipidemia Hypertension Discharge Disposition: at Hospital Discharge Instruct/Medications Scheduled Aspirin (Aspir-Low), 81 MG PO DAILY Atorvastatin Calcium (Atorvastatin Calcium), 40 MG PO DAILY Gabapentin (Gabapentin), 1 CAP PO TID Hydroxyzine Hcl (Hydroxyzine Hcl), 1 TAB PO BID, (Reported) Levofloxacin Hemihydrate (Levofloxacin), 1 TAB PO DAILY Linezolid (Zyvox), 600 MG PO BID Pantoprazole Sodium Sesquihydr (Pantoprazole Sodium), 1 TAB PO DAILY, (Reported) Pantoprazole Sodium Sesquihydr (Pantoprazole Sodium), 40 MG PO DAILY@0600 Sucralfate (Carafate Susp), 10 ML PO BID Scheduled PRN Metoclopramide Hcl (Reglan), 10 MG PO BIDPRN PRN Miscellaneous Medications Alprazolam (Alprazolam), PO, (Reported) Haloperidol (Haldol), 1 TAB PO, (Reported) Discharge Statement: "Patient was advised to return to the ER or call 911 if any headaches, dizziness, shortness of breath, chest pain, abdominal pain, bleeding, fevers, or worsening of medical condition. Patient was counseled about treatment plan, medications, possible side effects, patientverbalized understanding. All questions were answered to the best of my ability. This discharge took greater then 30 minutes in planning, reviewing documentation, counseling the patient, and discussing with other team members." ASSESSMENT ASSESSMENT Assessment Date of Service: Sep 06, 2025 Billing Provider: IDANIA GARCIA MD Common Visit Codes: 71929-UVL/OBS DISCH DAY >30min IDANIA GARCIA MD Sep 06, 2025 23:14
== END 2025-09-06 18:53 | DRG 720 ==
LOC: ER 15:21 → EDBD 15:21 → OVERFLOW 21:17 → TELE-CENTR 09-02 13:13 → ICU WEST 09-06 05:37
PROVIDERS: ADMIT Internal Medicine; ATTEND Internal Medicine
PROC: 02HV33Z Insertion of Infusion Device into Superior Vena Cava, Percutaneous Approach (ICD-10-PCS; principal; 2025-09-06)
PROC: 0B9M8ZX Drainage of Bilateral Lungs, Via Natural or Artificial Opening Endoscopic, Diagnostic (ICD-10-PCS; 2025-09-06)
PROC: 0BH17EZ Insertion of Endotracheal Airway into Trachea, Via Natural or Artificial Opening (ICD-10-PCS; 2025-09-06)
PROC: 5A1935Z Respiratory Ventilation, Less than 24 Consecutive Hours (ICD-10-PCS; 2025-09-06)
DX: A41.9 Sepsis, unspecified organism (principal); G92.8 Other toxic encephalopathy; J96.00 Acute respiratory failure, unspecified whether with hypoxia or hypercapnia; I63.9 Cerebral infarction, unspecified; Z66 Do not resuscitate; L89.893 Pressure ulcer of other site, stage 3; J44.0 Chronic obstructive pulmonary disease with (acute) lower respiratory infection; J18.9 Pneumonia, unspecified organism; L08.9 Local infection of the skin and subcutaneous tissue, unspecified; R53.2 Functional quadriplegia; I10 Essential (primary) hypertension; G93.89 Other specified disorders of brain; E66.9 Obesity, unspecified; G81.94 Hemiplegia, unspecified affecting left nondominant side; E87.0 Hyperosmolality and hypernatremia; E78.5 Hyperlipidemia, unspecified; F17.210 Nicotine dependence, cigarettes, uncomplicated; I25.10 Atherosclerotic heart disease of native coronary artery without angina pectoris; Z82.49 Family history of ischemic heart disease and other diseases of the circulatory system; Z82.5 Family history of asthma and other chronic lower respiratory diseases; Z83.3 Family history of diabetes mellitus; Z79.899 Other long term (current) drug therapy; Z68.33 Body mass index [BMI] 33.0-33.9, adult
CPT/HCPCS: 36415; 36556; 36600; 70450; 70551; 71045; 80048; 80053; 80202; 80307; 81001; 82565; 82805; 82962; 83036; 83605; 83735; 83880; 84100; 84484; 85007; 85025; 85027; 85379; 85610; 85730; 87040; 87070; 87077; 87081; 87186; 87205; 92610; 93005; 93306; 94002; 95819; 96365; 96366; 99291; G0378; J0169; J1815